=== PATIENT | female | born 1965 | race Caucasian/White ===

== ENCOUNTER → 2016-12-12 | Outpatient (CLI) | payer OTHER ==
[~2016-12-12] MED LIST: BCTROWC TOP; BUPR100T8 PO; CLON1TAB3 PO; CLON2TAB3 PO; DSY100 PO; ERGO1TAB12 PO; FLUT1INH7 INH; FLV1 PO; Gabapentin PO; IPRASOL4 NEB; METH10TA4 PO; OXYC-57 PO; OXYC1TAB3 PO; PRLSR20 PO; UMEC1INH INH; VALA1TAB2 PO; VITATAB19 PO; VLT/75 PO; ZLF/50 PO
--- NOTE | 2016-12-12 15:21 | DIAGNOSTIC IMAGING REPORT ---
CHEST 2 VIEWS ROUTINE CLINICAL HISTORY: COPD ATYPICAL CHEST PAIN. LEFT SHOULDER PAIN. COMPARISON STUDY: 01/16/2016 FINDINGS: The chest has an emphysematous configuration. There is no focal pulmonary consolidation. There is no failure. There are no pleural effusions.[ IMPRESSION: Emphysema. No active disease in the chest. Electronically signed by: Fernando Jimenez M.D. 12/12/2016 3:20 PM Dictated Date/Time: 12/12/2016 3:20 PM
--- NOTE | 2016-12-12 15:22 | DIAGNOSTIC IMAGING REPORT ---
LEFT SHOULDER 3 VIEWS CLINICAL HISTORY: Left shoulder pain. FINDINGS: 3 views of the left shoulder are obtained. No prior studies are available for comparison at the time of dictation. The skeletal structures appear osteopenic. No fracture or dislocation is seen. Minimal productive change is noted at the acromioclavicular joint. The glenohumeral articulation appears preserved. The overlying soft tissues appear intact. A small calcified joint body is suspected adjacent to the inferior glenoid and measures 4 mm. The visualized left upper lobe lung parenchyma appears clear. IMPRESSION: 1. No acute bony abnormality is seen in the left shoulder. 2. Osteopenia with mild degenerative change and a calcified joint body as above. Electronically signed by: Shashank Camarillo M.D. 12/12/2016 3:21 PM Dictated Date/Time: 12/12/2016 3:20 PM
== END | disposition home or self-care (01) ==
LOC: C.RADPV 14:58
PROVIDERS: ATTEND Nurse Practitioner
DX: J44.1 Chronic obstructive pulmonary disease with (acute) exacerbation (principal); M85.812 Other specified disorders of bone density and structure, left shoulder

== ENCOUNTER → 2017-02-06 | Outpatient (CLI) | payer OTHER ==
--- NOTE | 2017-02-06 16:20 | DIAGNOSTIC IMAGING REPORT ---
MRI OF THE LUMBAR SPINE WITHOUT IV CONTRAST CLINICAL HISTORY: Chronic low back pain. COMPARISON STUDY: Radiographs of the lumbar spine dated 09/13/2016. Abdominal CT dated 12/09/2015. TECHNIQUE: MRI of the lumbar spine is performed utilizing various T1 and T2-weighted sequences in the axial and sagittal planes. IV contrast was not administered for this examination. FINDINGS: Lumbar spine: Vertebral body height and alignment are maintained throughout the lumbar spine. Marrow signal intensity is markedly heterogeneous. No destructive bony lesion is clearly identified. The transverse and spinous processes appear intact. There is no evidence of spondylolysis. Small anterior osteophytes are present in the lower lumbar region. Degenerative endplate edema is present from L3-L4 through L5-S1. Intervertebral discs: There is degenerative disc desiccation identified throughout the lumbar spine. Loss of height is moderate at L4-L5 and severe at L5-S1. Spinal cord: Visualized spinal cord is normal in morphology and signal intensity. The conus medullaris terminates at the T12-L1 interspace. The nerve roots of the cauda equina are normal in morphology. L1-L2: Unremarkable. L2-L3: There is minimal posterior disc bulge. The central canal and neural foramina are patent. L3-L4: There is minimal posterior disc bulge. In conjunction with hypertrophy of the ligamentum flavum, there is minimal acquired compromise of the central canal with a minimum AP diameter of 10 mm. There is mild bilateral subarticular stenosis. The neural foramina are patent. L4-L5: There is minimal posterior disc bulge eccentric to the left. In conjunction with hypertrophy of the ligamentum flavum, there is minimal acquired compromise of the central canal at this level with a minimum AP diameter of 10 mm. There is left-sided subarticular stenosis with possible impingement on the exiting left L4 nerve root. The disc bulge also abuts the transiting left L5 nerve root. The neural foramina are patent. L5-S1: There is a small posterior disc bulge. There is no significant acquired compromise of the central canal. There is bilateral subarticular stenosis. There may be impingement on the exiting bilateral L5 nerve roots. Sacrum: The visualized sacrum is heterogeneous. No destructive sacral lesion is suspected. Soft tissues: There is mild fatty atrophy of the paraspinous musculature. The partially imaged retroperitoneal structures are grossly unremarkable, but incompletely evaluated. IMPRESSION: 1. Multilevel lumbosacral spondylosis with mild acquired compromise of the central canal at L3-L4 and L4-L5 as detailed above. See discussion for detailed level by level analysis. 2. Degenerative disc disease with mild degenerative endplate edema seen from L3-L4 through L5-S1. 3. No destructive bony lesion is identified. Marrow signal intensity is heterogeneous. Dictated: 02/06/2017 3:26 PM Transcribed: 02/06/2017 4:20 PM JOHN_Wesley Electronically signed by: Shashank Camarillo M.D. 02/06/2017 4:20 PM Dictated Date/Time: 02/06/2017 3:26 PM
== END | disposition home or self-care (01) ==
LOC: C.MRI 13:47
PROVIDERS: ATTEND Family Medicine
DX: M51.36 Other intervertebral disc degeneration, lumbar region (principal); M54.5 Low back pain; M54.32 Sciatica, left side

== ENCOUNTER → 2017-05-14 | Outpatient (CLI) | payer OTHER ==
[~2017-05-14] MED LIST changes: -CLON1TAB3 PO; -CLON2TAB3 PO; -OXYC-57 PO; -OXYC1TAB3 PO
[2017-05-14 18:26] LABS: POTASSIUM 3.6 mmol/L (3.5-5.1)
== END | disposition home or self-care (01) ==
LOC: C.CPL 17:23
DX: H18.51 Endothelial corneal dystrophy (principal); H25.812 Combined forms of age-related cataract, left eye; Z01.812 Encounter for preprocedural laboratory examination; Z01.810 Encounter for preprocedural cardiovascular examination

== ENCOUNTER → 2017-10-24 | Outpatient (CLI) | payer OTHER ==
[~2017-10-24] MED LIST changes: +CYAN1LOZ
--- NOTE | 2017-10-25 14:33 | MAMMOGRAPHY REPORT ---
BILATERAL DIGITAL DIAGNOSTIC MAMMOGRAM TOMOSYNTHESIS WITH CAD AND TARGETED RIGHT ULTRASOUND: 8 CLINICAL HISTORY: The patient reports right breast pain for approximately 2 weeks. She denies an ass ociated lump or other complaints. Family history of breast cancer. TECHNIQUE: Breast tomosynthesis in addition to standard 2D mammography was performed. Current study was also evaluated with a Computer Aided Detection (CAD) system. Bilateral CC and MLO 2-D and tomosy nthesis images and spot magnification right cc and ML views were obtained. COMPARISON: No prior exams were available for comparison. BREAST COMPOSITION: The tissue of both breasts is heterogeneously dense, which may obscure small mas ses. FINDINGS: A square marker meza the site of pain pointed out by the patient in the right upper inner quadrant. In the left breast, there are grouped amorphous and punctate calcifications within the lef t lower inner quadrant in a linear distribution, measuring approximately 3.7 cm in extent. Some of t he calcifications demonstrate layering on the lateral view suggestive of milk of calcium, although th e majority do not layer. A few other small clusters of similar-appearing calcifications are seen wit hin the left breast, including a 5 mm cluster in the left 12:00 breast. Findings are indeterminant g iven no priors to document stability. Recommend stereotactic biopsy of the largest group in a linear distribution in the left lower inner quadrant. In the right breast, there are multiple small similar appearing groups of punctate and amorphous calc ifications in the right superior breast at approximately 12 to 1:00, which appear similar to the left breast calcifications. The most prominent group measures 8 mm in the right upper inner quadrant. T he calcifications do not clearly layer on the lateral view to suggest milk of calcium. Recommend abraham reotactic biopsy of the most prominent group of calcifications for further evaluation. The remainder of both breasts demonstrate no suspicious masses, calcifications, or areas of architectural distorti on. Targeted ultrasound was performed of the area of pain pointed out by the patient in the right upper i nner quadrant. Sonographically normal tissue is seen in this region, without evidence of a mass or o ther suspicious sonographic abnormality. IMPRESSION: ACR BI-RADS CATEGORY 4: SUSPICIOUS, TARGETED ULTRASOUND ACR BI-RADS CATEGORY 4: SUSPICIO US 1. Multiple groups of similar-appearing punctate and amorphous calcifications bilaterally, which are indeterminate given no priors to document stability. Recommend bilateral stereotactic biopsy 2 of the most prominent groups, in the left lower inner quadrant and right upper inner quadrant. 2. No etiology for right upper inner quadrant breast pain evident. Recommend clinical follow-up. A phone call was made to the physician's office to confirm faxed results were received. The patient has been verbally notified of the results. She tentatively scheduled the biopsies before leaving the department. Approximately 10% of breast cancers are not detected with mammography. A negative mammographic report should not delay biopsy if a clinically suggestive mass is present. Mary Cross M.D. ah/:10/24/2017 16:25:38 Plastering Supervisor: Froilan HAMILTON)(M), [facility] letter sent: Abnormal 4/5 BI-RADS Code: ACR BI-RADS Category 4: Suspicious Ultrasound BI-RADS: ACR BI-RADS Category 4: Suspici ous
== END | disposition home or self-care (01) ==
LOC: C.MAMM 12:51
PROVIDERS: ATTEND Family Medicine
DX: N64.89 Other specified disorders of breast (principal); R92.1 Mammographic calcification found on diagnostic imaging of breast; N64.4 Mastodynia

== ENCOUNTER → 2017-11-01 | Outpatient (CLI) | payer OTHER ==
[~2017-11-01] MED LIST changes: -BUPR100T8 PO; -ERGO1TAB12 PO; -FLUT1INH7 INH
--- NOTE | 2017-11-01 10:49 | Discharge Instructions ---
Discharge Instructions Procedure Procedure Date: Nov 01, 2017. Reason for visit: Bilateral Calcifications. Discharge Discharge Date: Nov 01, 2017. Discharge Diagnosis: status post breast biopsy Instructions Activity Recommendations: Additional Limitations (see below) Return to School/Work: no limitations Recommended Home Diet: No Limitations Provider Instructions: ACTIVITY RECOMMENDATIONS: * No lifting, pushing, pulling or exercising the affected side for three days. RETURN TO SCHOOL/WORK: * You may return to work/school after the procedure, but do not perform any strenuous activities for 24 to 48 hours. MEDICATIONS: * Tylenol (two 325 mg) every four to six hours if needed for mild pain (if not allergic to Tylenol). DIET: * Resume previous diet. SPECIAL CARE INSTRUCTIONS: * Keep biopsy site dry for 24 hours. May shower after 24 hours, but do not soak (bathe) incision. * May remove Tegaderm (plastic patch) tomorrow AFTER showering. * Leave the steri-strips on for one week. Allow the steri-strips to fall off by themselves. If not off after one week, you may remove them. You may place a Bandaid crosswise over the strips, if desired. * Apply ice 10 minutes on and 10 minutes off as needed. * Wear a bra at bedtime to sleep more comfortably for 2-3 days. * Your referring physician should have the results after approximately 5 to 7 business days. * Call for unusual bleeding, fever, drainage, etc or if you have any questions call during normal business hours or after hours call Dr Cross, [phone]. FOLLOW UP VISIT: Follow-up with Referring Physician as scheduled. Allergies Coded Allergies: Prednisone (Verified Allergy, Mild, PSYCHOSIS EFFECTS, 10/30/17) Risperidone (Verified Allergy, Mild, LACTATING, 10/30/17) Tetracyclines (Unverified Allergy, Mild, 10/30/17) Mirtazapine (Unverified Allergy, Unknown, SHORTNESS OF BREATH, 10/30/17) Iodinated Diagnostic Agents (Verified Adverse Reaction, Intermediate, "horrible headache", 10/30/17) Loratadine (Unverified Adverse Reaction, Mild, UNABLE TO SLEEP MULTIPLE DAYS, 10/30/17) Uncoded Allergies: MUSHROOMS (Allergy, Intermediate, HIVES, 10/29/15) Caitlyn Durbin Recommendations: Call your doctor if: * Temperature above 101 degrees * Pain not relieved by pain medicine ordered * There is increased drainage or redness from any incision * You have any unanswered questions or concerns. Your Doctors Instructions noted above were prepared by provider Mary Cross. Patient Signature Section: Patient Instructions Signature Page Gertrudis Ryley Patient (or Guardian) Signature/Date: I have read and understand the instructions given to me by my caregivers. Caregiver/RN/Doctor Signature/Date: The above-named patient and/or guardian has received patient instructions on this date. + Original Patient Signature Page (only) stays with chart. Please make copy for patient.
--- NOTE | 2017-11-01 14:28 | MAMMOGRAPHY REPORT ---
BILATERAL DIGITAL DIAGNOSTIC MAMMOGRAM: 11/01/2017 CLINICAL HISTORY: Status post bilateral stereotactic biopsy. TECHNIQUE: Postprocedural bilateral CC and ML views were obtained. COMPARISON: Comparison is made to exams dated: 11/01/2017 stereotactic biopsy, 10/24/2017 mammogram, an d 10/24/2017 ultrasound - [facility]. BREAST COMPOSITION: The tissue of both breasts is heterogeneously dense, which may obscure small mas ses. FINDINGS: A new biopsy marker clip is seen at the site of the biopsied calcifications in the right u pper inner quadrant. A new biopsy marker clip is seen within the left breast status post stereotacti c biopsy of left lower inner quadrant calcifications. An obscured mass is seen at the biopsy site in the left breast, estimated to measure approximately 2.4 cm, consistent with a postbiopsy hematoma. There is lateral migration of the left biopsy marker clip from the biopsy site by approximately 2 cm, likely due to the hematoma. IMPRESSION: POST PROCEDURE IMAGING FOR MARKER PLACEMENT 1. New biopsy marker clips status post bilateral stereotactic biopsy. Pathology results are pending. 2. Hematoma at the left breast biopsy site measuring approximately 2.4 cm. The patient was told to call or return to the breast center if the lump at the biopsy site increases or if there is any recur rent bleeding or for any other concerns. Approximately 10% of breast cancers are not detected with mammography. A negative mammographic report should not delay biopsy if a clinically suggestive mass is present. Mary Cross M.D. ah/:11/01/2017 12:07:52 Attending Technologist: Emilie Gunderson RT(R)(M), [facility] Brass Plater: Nivia Bearden RT(R)(M), [facility] BI-RADS Code: Post Procedure Imaging For Marker Placement
--- NOTE | 2017-11-01 14:28 | MAMMOGRAPHY REPORT ---
STEREOTACTIC GUIDED BIOPSY RIGHT BREAST: 11/01/2017 CLINICAL HISTORY: Indeterminate calcifications in the right upper inner quadrant. PATIENT CONSENT: The procedure, risks, benefits, and alternatives of stereotactic biopsy with clip pl acement were discussed with the patient, and verbal and written consent was obtained. A timeout was performed immediately prior to the procedure. PROCEDURE DESCRIPTION: With stereotactic guidance, aseptic technique, and lidocaine as a local anesth etic (1% lidocaine to anesthetize the skin and 1% lidocaine with epinephrine to anesthetize the deepe r tissues), the calcifications of concern in the right upper inner quadrant were sampled multiple lalo es with a 9-gauge vacuum-assisted biopsy needle ([employer]). The path of approach was craniocaudal using the lateral arm. The specimen radiograph demonstrates calcifications to be present in the maikel ples; the samples containing calcifications (labeled "A") were from the samples without noe cifications (labeled "B). A metallic marker clip was placed at the biopsy site. This was confirmed on postprocedure mammograms. Direct pressure was applied at the biopsy site and hemostasis was readi ly achieved. The patient tolerated the procedure without complication. She was given wound care ins tructions. COMPARISON: Comparison is made to exams dated: 11/01/2017 stereotactic biopsy, 10/24/2017 mammogram, an d 10/24/2017 ultrasound - [facility]. IMPRESSION: STEREOTACTIC GUIDED BIOPSY Stereotactic biopsy of indeterminate calcifications in the right upper inner quadrant, with clip plac ement. The patient will receive pathology results from her referring provider. Mary Cross M.D. ah/:11/01/2017 12:04:30 Attending Technologist: Emilie Gunderson RT(R)(M), [facility] Bander Operator: Nivia Bearden RT(R)(M), [facility]
--- NOTE | 2017-11-01 14:28 | MAMMOGRAPHY REPORT ---
STEREOTACTIC GUIDED BIOPSY LEFT BREAST: 11/01/2017 CLINICAL HISTORY: Indeterminate calcifications in the left lower inner quadrant. PATIENT CONSENT: The procedure, risks, benefits, and alternatives of stereotactic biopsy with clip pl acement were discussed with the patient, and verbal and written consent was obtained. A timeout was performed immediately prior to the procedure. PROCEDURE DESCRIPTION: With stereotactic guidance, aseptic technique, and lidocaine as a local anesth etic (1% lidocaine to anesthetize the skin and 1% lidocaine with epinephrine to anesthetize the deepe r tissues), the calcifications of concern in the left lower inner quadrant were sampled multiple time s with a 9-gauge vacuum-assisted biopsy needle ([employer]). The path of approach was caudocranial using the lateral arm. The specimen radiograph demonstrates calcifications to be present in the samp les; the samples containing calcifications (labeled "A ") were from the samples without noe cifications (labeled "B"). A metallic marker clip was placed at the biopsy site. This was confirmed on postprocedure mammograms. Direct pressure was applied at the biopsy site and hemostasis was read flaquito achieved. The patient tolerated the procedure without complication. She was given wound care in structions. COMPARISON: Comparison is made to exams dated: 10/24/2017 mammogram and 10/24/2017 ultrasound - [facility]. IMPRESSION: STEREOTACTIC GUIDED BIOPSY Stereotactic biopsy of indeterminate calcifications in the left lower inner quadrant, with clip place ment. The patient will receive pathology results from her referring provider. Mary Cross M.D. ah/:11/01/2017 12:02:56 Attending Technologist: Nivia WISE(R)(M), [facility] Gas Meter Repairer: Emilie WISE(R)(David), [facility]
== END | disposition home or self-care (01) ==
LOC: C.MAMM 10:01
PROVIDERS: ATTEND Family Medicine
DX: N60.92 Unspecified benign mammary dysplasia of left breast (principal); R92.0 Mammographic microcalcification found on diagnostic imaging of breast

== ENCOUNTER → 2018-01-22 | Outpatient (CLI) | payer OTHER ==
[~2018-01-22] MED LIST changes: +PANT40TA PO; -PRLSR20 PO
--- NOTE | 2018-01-22 14:27 | DIAGNOSTIC IMAGING REPORT ---
KUB CLINICAL HISTORY: ABDOMINAL PAIN nausea COMPARISON STUDY: 07/27/2015 FINDINGS: The soft tissues, psoas shadows, renal outlines and intestinal gas pattern appear normal. There is no evidence for bowel obstruction. No abnormal abdominal calcifications are seen. Multiple pelvic vascular calcifications. Surgical clips consistent with a prior cholecystectomy. IMPRESSION: No acute process. The above report was generated using voice recognition software. It may contain grammatical, syntax or spelling errors. Electronically signed by: Leopoldo Blair M.D. 01/22/2018 2:26 PM Dictated Date/Time: 01/22/2018 2:25 PM
== END | disposition home or self-care (01) ==
LOC: C.RADPV 13:47
PROVIDERS: ATTEND Family Medicine
DX: R10.9 Unspecified abdominal pain (principal)

== ENCOUNTER → 2018-01-31 | Outpatient (CLI) | payer OTHER ==
--- NOTE | 2018-01-31 11:55 | DIAGNOSTIC IMAGING REPORT ---
CHEST 2 VIEWS ROUTINE CLINICAL HISTORY: CHEST PAIN, DIZZINESS, SOB dyspnea COMPARISON STUDY: 12/12/2016 FINDINGS: The bones soft tissues and hemidiaphragms are normal. The cardiomediastinal silhouette is normal. The lungs are clear. The pulmonary vasculature is normal. Mild emphysematous change. IMPRESSION: Mild emphysematous change. No acute infiltrate. The above report was generated using voice recognition software. It may contain grammatical, syntax or spelling errors. Electronically signed by: Leopoldo Blair M.D. 01/31/2018 11:53 AM Dictated Date/Time: 01/31/2018 11:53 AM
== END | disposition home or self-care (01) ==
LOC: C.RADPV 11:34
PROVIDERS: ATTEND Family Medicine
DX: R06.02 Shortness of breath (principal); R42 Dizziness and giddiness; R07.9 Chest pain, unspecified; J43.9 Emphysema, unspecified

== ENCOUNTER → 2018-05-06 | Outpatient (CLI) | payer OTHER ==
[~2018-05-06] MED LIST changes: +ADVIN25/60 INH; +ASTN; -BCTROWC TOP; +BUSP15TA70 PO; +CYAN100020 PO; -CYAN1LOZ; +DICL-201 PO; +DOCU100C PO; -DSY100 PO; +DULO60CA44 PO; +FAMO40TA6 PO; +FLUT50SP45 NAE; -FLV1 PO; +FOLI1TAB8 PO; +GABA800T PO; -Gabapentin PO; +IPRA1AER2 INH; -IPRASOL4 NEB; +LRS20 PO; +MONT1TAB3 PO; +ONDA4TAB46 PO; +POLY335019 PO; +RIZA10TA18 PO; +SERT-234 PO; +SERT25TA PO; +SUCR1TAB29 PO; +TRAZ300T PO; -VALA1TAB2 PO; -VLT/75 PO; -ZLF/50 PO
--- NOTE | 2018-05-06 11:44 | DIAGNOSTIC IMAGING REPORT ---
Study: Fusion CT sinuses HISTORY: Pain. Sinusitis. FINDINGS: All major sinuses are clear. The ostiomeatal units are patent. Orbital floors are intact. No evidence for bony destructive process. IMPRESSION: No acute process of the sinuses. Electronically signed by: Leopoldo Blair M.D. 05/06/2018 11:43 AM Dictated Date/Time: 05/06/2018 11:30 AM
== END | disposition home or self-care (01) ==
LOC: C.CTS 11:11
PROVIDERS: ATTEND Physician Assistant
DX: R51 Headache (principal)

== ENCOUNTER 2019-01-04 18:26 | Inpatient (IN) ==
[2019-01-04] MEDS ORDERED: ALBUT/IPRATROP 3MG/0.5MG NEB 3 ML VIAL INH STA (18:59)
[2019-01-04] MEDS ORDERED: cefTRIAXone SODIUM 1,000 MG/50 ML BAG IV STA (18:59)
[2019-01-04] MEDS ORDERED: MAGNESIUM SULFATE / D5W 1 GM/100 ML BAG IV ONE (18:59)
[2019-01-04] MEDS ORDERED: SODIUM CHLORIDE 0.9% 1000ML 500 ML IV ONE (18:59)
[2019-01-04] MEDS ORDERED: methylPREDNISolone 60 MG in SYRINGE 1 ML IV STA (18:59)
[2019-01-04 19:58] LABS: Basophils # (auto) 0.02 K/uL (0-0.2); Basophils % (auto) 0.3 %; Eosinophils # (auto) 0.01 K/uL (0-0.5); Eosinophils % (auto) 0.1 %; Hematocrit (blood only) 40.2 % (37-47); Hemoglobin 13.7 g/dL (12.0-16.0); Immature Granulocytes # (auto) 0.03 K/uL (0.00-0.02); Immature Granulocytes % (auto) 0.4 %; Lymphocytes # (auto) 1.35 K/uL (1.2-3.4); Lymphocytes % (auto) 17.5 %; Mean Corpuscular Hgb Conc 34.1 g/dL (32-36); Mean Corpuscular Volume 93.1 fL (80-100); Monocytes # (auto) 0.34 K/uL (0.11-0.59); Monocytes % (auto) 4.4 %; Neutrophils # (auto) 5.95 K/uL (1.4-6.5); Neutrophils % (auto) 77.3 %; Platelet Count 244 K/uL (130-400); RDW Coefficient of Variation 14.2 % (11.5-14.5); RDW Standard Deviation 48.3 fL (36.4-46.3); Red Blood Count 4.32 M/uL (4.2-5.4)
[2019-01-04 20:12] LABS: Partial Thromboplastin Ratio 0.9; Partial Thromboplastin Time 24.3 Seconds (21.0-31.0); Prothrombin Time 10.6 Seconds (9.0-12.0)
[2019-01-04 20:16] LABS: Alanine Aminotransferase 27 U/L (12-78); Albumin Level 3.7 gm/dl (3.4-5.0); Aspartate Aminotransferase 16 U/L (15-37); BUN Creatinine Ratio 15.3 (10-20); Blood Urea Nitrogen 15 mg/dl (7-18); Calcium 8.9 mg/dl (8.5-10.1); Carbon Dioxide 26 mmol/L (21-32); Chloride 109 mmol/L (98-107); Creatinine Clr Calc Pharmacy 60.1 ml/min; Est GFR (African American) 76.9; Est GFR (Non-African American) 66.3; Glucose 111 mg/dl (70-99); Magnesium 2.2 mg/dl (1.8-2.4); Sodium 139 mmol/L (136-145)
[2019-01-04 20:21] LABS: Albumin Globulin Ratio 0.9 (0.9-2); Alkaline Phosphatase 92 U/L (45-117); Bilirubin,Total 0.2 mg/dl (0.2-1); Total Protein 7.7 gm/dl (6.4-8.2); Troponin I < 0.015 ng/ml (0-0.045)
[2019-01-04] MEDS ORDERED: METOCLOPRAMIDE HCL 10 MG TABLET PO STA (20:30)
[2019-01-04] MEDS ORDERED: METOCLOPRAMIDE HCL 5 MG TABLET ONE (20:36)
--- NOTE | 2019-01-04 20:47 | XRay Report ---
SINGLE VIEW CHEST CLINICAL HISTORY: Dyspnea. FINDINGS: An AP, portable, upright chest radiograph is compared to study dated 06/19/2018 and correlat ed with chest CT dated 07/27/2015. The examination is degraded by portable technique and patient rotat ion. The cardiomediastinal silhouette is unremarkable, noting atherosclerotic calcification of the t horacic aorta. Emphysema and chronic interstitial thickening are similar to previous. There is bibasi lar scarring/atelectasis. No airspace consolidation or large pleural effusion is identified. No pneum othorax is seen. The skeletal structures appear osteopenic. The bony thorax is grossly intact. IMPRESSION: Emphysematous change with no acute cardiopulmonary abnormality. Electronically signed by: Shashank Camarillo M.D. 01/04/2019 8:45 PM
--- NOTE | 2019-01-04 20:55 | Emergency Department Note ---
Entered by Milagros Sneed acting as a scribe for Shashank Marcos MD History of Present Illness General Chief complaint: Shortness of Breath/Dyspnea Stated complaint: SOB,CHEST PAIN Time Seen by Provider: 01/04/19 18:52 Source: patient Mode of arrival: ambulatory Limitations: no limitations History of Present Illness Provider complaint: Shortness of breath Onset (ago): week(s) 2 Location: chest Radiation: non-radiation Pain Consistency: + other (worsening) Maximum Pain Intensity: 7 Quality: + other (shortness of breath) Exacerbated By: + movement Associated symptoms: + chest pain (tightness), + fever/chills (intermittent, lowgrade) and + other (Additional symptoms: difficulty sleeping) The patient is a 53 year old female with a history of COPD, pneumonia, gastro paresis, anxiety, and MTHFR mutation who presents to the Emergency Room with complaints of worsening shortness of breath starting 2 weeks ago. The patient reports that she was diagnosed with influenza A 2 weeks ago and has since been on Duonebs 4x/day, Doxycycline, a second course of Prednisone. She completed a course of Tamiflu and an earlier course of prednisone. She states that her chest is still very tight and that her shortness of breath worsens with movement/exertion. She further complains of intermittent low-grade fevers and difficulty sleeping secondary to the Prednisone. She notes that she is not on oxygen at home and that she has never been hospitalized for her lungs. Home Medications Home Medications Medication Instructions Recorded Confirmed Type baclofen 20 mg tablet 20 mg PO TID PRN 06/24/18 01/04/19 History buspirone 15 mg tablet 15 mg PO TID 06/24/18 01/04/19 History diclofenac sodium 75 mg 75 mg PO BID 06/24/18 01/04/19 History tablet,delayed release duloxetine 60 mg capsule,delayed 60 mg PO DAILY 06/24/18 01/04/19 History release famotidine 40 mg tablet 40 mg PO BID PRN 06/24/18 01/04/19 History fluticasone 250 mcg-salmeterol 50 1 inha INH BID 06/24/18 01/04/19 History mcg/dose blistr powdr for inhalation folic acid 1 mg tablet 1 mg PO DAILY 06/24/18 01/04/19 History gabapentin 800 mg tablet 800 mg PO TID tab 06/24/18 01/04/19 History mecobalamin (vitamin B12) 1,000 1,000 mcg SL DAILY 06/24/18 01/04/19 History mcg disintegrating tablet,sublingual methylphenidate 10 mg tablet 10 mg PO TID 06/24/18 01/04/19 History montelukast 10 mg tablet 10 mg PO QPM 06/24/18 01/04/19 History ondansetron HCl 4 mg tablet 4 mg PO TID PRN 06/24/18 01/04/19 History pantoprazole 40 mg tablet,delayed 40 mg PO BID tab 06/24/18 01/04/19 History release rizatriptan 10 mg tablet 10 mg PO Q2H PRN 06/24/18 01/04/19 History trazodone 300 mg tablet 300 mg PO DAILY 06/24/18 01/04/19 History cholecalciferol (vitamin D3) 2,000 2,000 units PO DAILY 06/25/18 01/04/19 History unit capsule Carafate 1gm/10ml 10 ml PO TID PRN 01/04/19 01/04/19 History budesonide 0.5 mg INHALATION BID PRN 01/04/19 01/04/19 History doxycycline hyclate 100 mg PO BID 01/04/19 01/04/19 History fluconazole 150 mg PO DAILY 01/04/19 01/04/19 History ipratropium-albuterol 3 ml INHALATION QID PRN 01/04/19 01/04/19 History ipratropium-albuterol [Combivent 1 puff INHALATION QID PRN 01/04/19 01/04/19 History Respimat] methylphenidate HCl [Ritalin] 5 mg PO BID 01/04/19 01/04/19 History metoclopramide HCl [Reglan] 5 mg PO AC 01/04/19 01/04/19 History prednisone 30 mg PO BID 01/04/19 01/04/19 History sertraline [Zoloft] 200 mg PO DAILY 01/04/19 01/04/19 History umeclidinium [Incruse Ellipta] 1 inh INHALATION DAILY 01/04/19 01/04/19 History vitamin A 0 unit PO DAILY 01/04/19 01/04/19 History Allergies Allergy/AdvReac Type Severity Reaction Status Date / Time prednisone Allergy Mild PSYCHOSIS Verified 01/04/19 20:07 EFFECTS risperidone Allergy Mild LACTATING Verified 01/04/19 20:07 Tetracyclines Allergy Mild HIVES Unverified 01/04/19 20:07 mirtazapine Allergy Unknown SHORTNESS Unverified 01/04/19 20:07 OF BREATH ranitidine Allergy Unknown SEVERE Verified 01/04/19 20:07 VOMITING Iodinated Contrast- Oral and AdvReac Intermediate "horrible Verified 01/04/19 20:07 IV Dye headache" loratadine AdvReac Mild UNABLE TO Unverified 01/04/19 20:07 SLEEP MULTIPLE DAYS MUSHROOMS Allergy Intermediate HIVES Uncoded 08/20/18 13:33 Past Med/Surg History Medical History Influenza A Pneumonia Obsessive compulsive disorder (Chronic) Posttraumatic stress disorder (Chronic) Anxiety (Chronic) History of seizure disorder (Chronic) Tobacco abuse (Chronic) COPD (chronic obstructive pulmonary disease) (Chronic) MTHFR mutation COPD (chronic obstructive pulmonary disease) (Acute) Gastroparesis (Acute) Surgical History Status post cholecystectomy (Chronic) Status post appendectomy (Chronic) Status post carpal tunnel release (Chronic) History of appendectomy (Acute) History of cholecystectomy (Acute) Social History Preferred Language: Citizen Of [place] marital status: current occupational status: unemployed and disabled Feels Safe at Home: Yes Smoking Status: Former smoker Hx Alcohol Use: Yes (socially) Hx Substance Use: Yes (marijuana) Review of Systems See HPI for pertinent positives & negatives. and A total of 10 systems reviewed and were otherwise negative Physical Exam Vital Signs Vital Signs - 24 hr 01/04/19 18:32 01/04/19 18:53 01/04/19 18:59 Temperature 37.5 C Temperature Source Oral Sepsis Recent Fever Within 48 Hours No Sepsis New/Unexplained Change in Mental Status No Sepsis Action Taken by Nursing No Action Required Pulse Rate 98 H 81 Pulse Rhythm Regular Respiratory Rate 20 22 Respiratory Effort / Characteristics Non-Labored Respiratory Depth Normal Normal Respiratory Pattern Regular Blood Pressure 152/80 H Blood Pressure [Right Arm] 115/80 Blood Pressure Mean 104 Blood Pressure Mean [Right Arm] 91 Blood Pressure Position Sitting Blood Pressure Position [Right Arm] Sitting Pulse Oximetry 94 94 95 Oxygen Delivery Method Room Air Room Air Room Air GENERAL: Patient is in no acute distress. HEENT: No acute trauma, normocephalic atraumatic, mucous membranes moist, no abner al congestion, no scleral icterus. NECK: No stridor, no adenopathy, no meningismus, trachea is midline. LUNGS: Increased respiratory rate, appears visibly short of breath, wheezing bilaterally, diminished breath sounds bilaterally, dry cough noted. HEART: Without murmurs gallops or rubs, regular rate and rhythm. ABDOMEN: Soft, nontender, bowel sounds positive, no hernias, no peritonitis. EXTREMITIES: No cyanosis or edema, full range of motion of all the joints without pain or difficulty, no signs for acute trauma. NEUROLOGIC: Oriented x 3, no acute motor or sensory deficits, no focal weakness. SKIN: No rash, no jaundice, no diaphoresis. Course 1852: The patient was evaluated in room A10. A complete history and physical exam was performed. 2047: Upon reevaluation, the patient is resting. I discussed the findings and the treatment plan with the patient. She expresses agreement and understanding. [facility] The patient will be evaluated for further management. Administered Medications Discontinued Medications Albuterol (Duoneb) 3 ml INH NOW STA Stop: 01/04/19 19:00 Last Admin: 01/04/19 19:47 Dose: 3 ml Documented by: [id number] Magnesium Sulfate/Dextrose (Magnesium Sulfate / D5w) 1 gm in 100 mls @ 100 mls/hr IV ONE ONE Stop: 01/04/19 19:58 Last Admin: 01/04/19 19:46 Dose: 100 mls/hr Documented by: [id number] Ceftriaxone Sodium (Rocephin) 1,000 mg in 50 mls @ 100 mls/hr IV NOW STA Stop: 01/04/19 19:28 Last Admin: 01/04/19 19:47 Dose: 100 mls/hr Documented by: [id number] Methylprednisolone 60 mg/ (Syringe) 1.96 mls @ 1.5 mls/min IV NOW STA Stop: 01/04/19 19:00 Last Admin: 01/04/19 19:47 Dose: 1.5 mls/min Documented by: [id number] Sodium Chloride (Nss 1000ml) 500 mls @ 999 mls/hr IV .Q31M ONE Stop: 01/04/19 19:29 Last Infusion: 01/04/19 20:38 Dose: 0 mls/hr Documented by: [id number] Admin: 01/04/19 19:46 Dose: 999 mls/hr Documented by: [id number] Metoclopramide HCl (Reglan) 10 mg PO NOW STA Stop: 01/04/19 20:31 Last Admin: 01/04/19 20:38 Dose: Not Given Documented by: [id number] Metoclopramide HCl (Reglan) Confirm Administered Dose 10 mg .ROUTE .STK-MED ONE Stop: 01/04/19 20:37 Last Admin: 01/04/19 20:38 Dose: 10 mg Documented by: [id number] Medical Decision Making Differential Diagnosis Differential diagnosis includes: bronchitis, pneumonia, CHF, cardiac ischemia, anemia, IN, bronchospasm, pneumothorax. Medical Records Attestation: I reviewed the patient's medical records. Home Medications Current Medication List: was personally reviewed by me Laboratory Data Attestation: I reviewed the patient's lab results. Result diagrams: 01/04/19 19:31 01/04/19 19:31 Lab Results 01/04/19 01/04/19 01/04/19 Range/Units 19:31 19:31 19:31 WBC 7.70 (4.8-10.8) K/uL RBC 4.32 (4.2-5.4) M/uL Hgb 13.7 (12.0-16.0) g/dL Hct 40.2 (37-47) % MCV 93.1 (80-100) fL MCH 31.7 (25-34) pg MCHC 34.1 (32-36) g/dL RDW Std Deviation 48.3 H (36.4-46.3) fL RDW Coeff of Nik 14.2 (11.5-14.5) % Plt Count 244 (130-400) K/uL MPV 12.0 H (7.4-10.4) fL Immature Gran % (Auto) 0.4 % Neut % (Auto) 77.3 % Lymph % (Auto) 17.5 % [place] % (Auto) 4.4 % Eos % (Auto) 0.1 % Baso % (Auto) 0.3 % Immature Gran # (Auto) 0.03 H (0.00-0.02) K/uL Neut # (Auto) 5.95 (1.4-6.5) K/uL Lymph # (Auto) 1.35 (1.2-3.4) K/uL [place] # (Auto) 0.34 (0.11-0.59) K/uL Eos # (Auto) 0.01 (0-0.5) K/uL Baso # (Auto) 0.02 (0-0.2) K/uL PT 10.6 (9.0-12.0) Seconds INR 1.0 (0.9-1.1) APTT 24.3 (21.0-31.0) Seconds PTT Ratio 0.9 Sodium 139 (136-145) mmol/L Potassium 4.0 (3.5-5.1) mmol/L Chloride 109 H (98-107) mmol/L Carbon Dioxide 26 (21-32) mmol/L Anion Gap 4.0 (3-11) BUN 15 (7-18) mg/dl Creatinine 0.98 (0.6-1.2) mg/dl Est Cr Clr Drug Dosing 60.1 ml/min Est GFR ( Amer) 76.9 Est GFR (Non-Af Amer) 66.3 BUN/Creatinine Ratio 15.3 (10-20) Glucose 111 H (70-99) mg/dl Calcium 8.9 (8.5-10.1) mg/dl Magnesium 2.2 (1.8-2.4) mg/dl Total Bilirubin 0.2 (0.2-1) mg/dl AST 16 (15-37) U/L ALT 27 (12-78) U/L Alkaline Phosphatase 92 (45-117) U/L Troponin I < 0.015 (0-0.045) ng/ml Total Protein 7.7 (6.4-8.2) gm/dl Albumin 3.7 (3.4-5.0) gm/dl Globulin 4.0 (2.5-4.0) gm/dl Albumin/Globulin Ratio 0.9 (0.9-2) Imaging Data Radiologist's Impression: Radiology results as stated below per my review and the radiologist's interpretation: SINGLE VIEW CHEST CLINICAL HISTORY: Dyspnea. FINDINGS: An AP, portable, upright chest radiograph is compared to study dated 06/19/2018 and correlated with chest CT dated 07/27/2015. The examination is degraded by portable technique and patient rotation. The cardiomediastinal silhouette is unremarkable, noting atherosclerotic calcification of the thoracic aorta. Emphysema and chronic interstitial thickening are similar to previous. There is bibasilar scarring/atelectasis. No airspace consolidation or large pleural effusion is identified. No pneumothorax is seen. The skeletal structures appear osteopenic. The bony thorax is grossly intact. IMPRESSION: Emphysematous change with no acute cardiopulmonary abnormality. Electronically signed by: Shashank Camarillo M.D. 01/04/2019 8:45 PM ECG Data Attestation: I personally reviewed and interpreted this ECG as follows: Indication: SOB/dyspnea Rate (beats per minute): 89 Rhythm: normal sinus Findings: no PVC and no ST elevation Blood Pressure Blood Pressure Findings: Normal blood pressure MDM Narrative There is no leukocytosis or anemia. No coagulopathy. No significant electrolyte abnormality, kidney failure or hepatitis. EKG shows a sinus rhythm, no acute ischemia. Cardiac enzyme testing x1 is not consistent with acute cardiac injury. Chest film does not show pneumonia or CHF. There was no pneumothorax. On exam, the patient was coughing frequently and wheezing, she seemed short of breath. The patient received IV Solu-Medrol, IV saline, she was given IV magnesium, a DuoNeb and IV ceftriaxone. She was given oral Reglan for nausea. The patient has failed outpatient treatment for what seems to be an acute bronchitis with a flare of COPD. Her outpatient therapy has been maximized and she still quite winded and short of breath. I do think a hospital stay is warranted. I spoke to the patient and social work case manager. The on-call hospitalist was consulted. Impression & Plan Respiratory distress, COPD exacerbation, Acute bronchitis, Failure of outpatient treatment Discharge Plan Visit Data Chief Complaint: Shortness of Breath/Dyspnea Stated Complaint: SOB,CHEST PAIN ED Provider: Shashank Marcos Discharge Problem: Respiratory distress, COPD exacerbation, Acute bronchitis, Failure of outpatient treatment Patient Disposition: Admitted As Inpatient Forms Stand Alone Forms: My [facility] Prescriptions Prescriptions: No Action fluticasone propion-salmeterol [Advair Diskus] 250-50 mcg/dose blister with device 1 inha INH BID RF: 0 methylphenidate HCl [Ritalin] 10 mg tablet 10 mg PO TID RF: 0 ondansetron HCl [Zofran] 4 mg tablet 4 mg PO TID PRN (Reason: Nausea) RF: 0 famotidine [Pepcid] 40 mg tablet 40 mg PO BID PRN (Reason: Acid Reflux) RF: 0 rizatriptan [Maxalt] 10 mg tablet 10 mg PO Q2H PRN (Reason: Migraine Headache) RF: 0 baclofen 20 mg tablet 20 mg PO TID PRN (Reason: Muscle Pain) RF: 0 gabapentin 800 mg tablet 800 mg PO TID RF: 0 pantoprazole [Protonix] 40 mg tablet,delayed release (DR/EC) 40 mg PO BID RF: 0 trazodone 300 mg tablet 300 mg PO DAILY RF: 0 diclofenac sodium 75 mg tablet,delayed release (DR/EC) 75 mg PO BID RF: 0 folic acid 1 mg tablet 1 mg PO DAILY RF: 0 montelukast [Singulair] 10 mg tablet 10 mg PO QPM RF: 0 buspirone 15 mg tablet 15 mg PO TID RF: 0 duloxetine [Cymbalta] 60 mg capsule,delayed release(DR/EC) 60 mg PO DAILY RF: 0 mecobalamin (vitamin B12) 1,000 mcg tablet,disintegrating 1,000 mcg SL DAILY RF: 0 cholecalciferol (vitamin D3) 2,000 unit capsule 2,000 units PO DAILY RF: 0 budesonide 0.5 mg/2 mL Suspension For Nebulization 0.5 mg INHALATION BID PRN (Reason: Shortness Of Breath Or Wheezing) RF: 0 doxycycline hyclate 100 mg tablet 100 mg PO BID RF: 0 Combivent Respimat 20-100 mcg/actuation Mist 1 puff INHALATION QID PRN (Reason: Shortness Of Breath Or Wheezing) RF: 0 Carafate 1gm/10ml 10 ml PO TID PRN (Reason: BREAKTHROUGH HEARTBURN) RF: 0 vitamin A 8,000 unit Capsule PO DAILY RF: 0 ipratropium-albuterol 0.5 mg-3 mg(2.5 mg base)/3 mL Solution For Nebulization 3 ml INHALATION QID PRN (Reason: Shortness Of Breath Or Wheezing) RF: 0 fluconazole 150 mg tablet 150 mg PO DAILY RF: 0 methylphenidate HCl [Ritalin] 5 mg Tablet 5 mg PO BID RF: 0 prednisone 20 mg tablet 30 mg PO BID RF: 0 sertraline [Zoloft] 100 mg tablet 200 mg PO DAILY RF: 0 metoclopramide HCl [Reglan] 5 mg tablet 5 mg PO AC RF: 0 Incruse Ellipta 62.5 mcg/actuation Blister With Device 1 inh INHALATION DAILY RF: 0 Referrals Referrals: Kacy Gomez MD [Primary Care Provider] - Discharge Problem: Acute bronchitis Qualifiers: Bronchitis organism: unspecified organism Qualified Code(s): J20.9 - Acute bronchitis, unspecified The scribe's documentation has been prepared under my direction and personally reviewed by me in its entirety. I confirm that the note above accurately reflects all work, treatment, procedures, and medical decision making performed by me.
[2019-01-04] MEDS ORDERED: FAMOTIDINE 20 MG TAB PO PRN (23:22)
[2019-01-04] MEDS ORDERED: BENZONATATE 100 MG CAPSULE PO PRN (23:22)
[2019-01-04] MEDS ORDERED: ACETAMINOPHEN 325 MG TAB PO PRN (23:22)
[2019-01-04] MEDS ORDERED: BACLOFEN 20 MG TAB PO PRN (23:22)
[2019-01-04] MEDS ORDERED: ONDANSETRON INJ 2 MG/ML 2 ML VIAL IV PRN (23:22)
[2019-01-04] MEDS ORDERED: SUCRALFATE 1 GM/10 ML UDC PO PRN (23:22)
[2019-01-04] MEDS ORDERED: ALBUTEROL 0.5% NEB SOLN 2.5 MG/0.5 ML VIAL NEB PRN (23:22)
[2019-01-05] MEDS ORDERED: DOXYCYCLINE HYCLATE 100 MG CAP PO SCH
--- NOTE | 2019-01-05 00:08 | History & Physical Report ---
Date of Service January 04, 2019 Assessment & Plan (1) Respiratory distress: Patient tachypneic on arrival, RR of 30. No hypoxia. Patient with persistent cough and wheezing. She is afebrile, no leukocytosis, no PNA noted on CXR. No evidence of CHF. Low clinical suspicion for PE - Wells Score negative. Most likely secondary to bronchitis, COPD exacerbation, recent recovery from Influenza infection. Presently she is in no respiratory distress. Adequate oxygenation and ventilation on room air. She is speaking in complete sentences without difficulty. -Admit to medical floor -DuoNeb q 4 hours -Albuterol q 2 hours PRN -Solumedrol - Patient received 60mg IV x 1 dose in ER. She has a history of steroid induced psychosis. She does not want to take PO Prednisone as it gives her severe GI distress. Will give Solumedrol 40mg IV daily - closely monitor response and mental state -Doxycycline 100mg IV BID - will give IV due to GI upset and gastroparesis -Tessalon 100mg po TID PRN -Robitussin with Codeine q 6 hours PRN -Check ambulatory saturation x 1 Present on Admission?: Yes (2) COPD exacerbation: As above. -Smoking cessation counseling. Patient vapes daily and smokes marijuana for pain control. She is in trying to obtain a prescription for medical marijuana so she can take it in a non-inhaled form. -Nicotine patch. Present on Admission?: Yes (3) Acute bronchitis: As above. -Doxycycline Present on Admission?: Yes (4) Drug-induced delirium: Patient with history of steroid induced psychosis. -Limit quantity and duration of steroid. I do feel that she would benefit from steroids in the acute setting. -Delirium prevention strategies - frequent orientation, maintain day/night schedule if possible, frequent ambulation (5) Anxiety: Patient with anxiety. Fairly well controlled at present -Continue Buspar 15mg po TID -Continue Cymbalta 60mg po daily -Continue Sertraline 200mg po daily -Continue Trazodone qHS as needed for insomnia. Patient requested additional agent to help her sleep in the hospital. Will add Hydroxyzine as well qHS PRN. Present on Admission?: Yes (6) Posttraumatic stress disorder: Psychiatric medications as above Present on Admission?: Yes (7) Gastroparesis: Patient with history of gastroparesis. States that she is having abdominal pain presently that is consistent with that. -Continue Reglan qAC -Zofran 4mg IV q 6 hours PRN (8) GERD (gastroesophageal reflux disease): Patient with abdominal discomfort. -Continue Carafate at home dose -Continue Protonix 40mg po BID -Continue Pepcid 40mg po BID Present on Admission?: Yes (9) Oral candidiasis: Patient reports chronic oral thrush. No evidence of oral candidiasis at this time. She is taking Fluconazole daily -Continue Fluconazole -QTc = 411. Patient is on many QT prolonging agents. (Fluconazole, Sertraline, Reglan, Zofran). Monitor Qt interval (10) Tobacco abuse: Tobacco cessation counseling. F/E/N = Heplock. Electrolytes WNL. Continue Vitamin B12, Folic acid. Regular diet as tolerated. Ppx - Lovenox Code - Full Dispo - 4E History of Present Illness Chief Complaint: SOB Primary Care Provider: Kacy Gomez MD Gertrudis Hedrick is a 53yo C female with multiple medical problems, COPD with no history of prior hospitalization or intubation. She had Influenza A two weeks ago which was treated with Tamiflu. Has been complaining of persistent GARRISON since having the flu. She has a persistent dry, hacking cough which causes diffuse rib pain with coughing or breathing. She states she is unable to sleep due to the cough. Dyspnea with minimal exertion as well as weakness and fatigue. She denies fevers/chills. Has some substernal chest pressure that occurs with coughing, overall feeling of tightness in her chest. She has history of gastroparesis and states that her stomach has been upset recently, also with nausea and occasional vomiting as well as constipation. ER Course: Albuterol, Ceftriaxone, Magnesium, Solumedrol, Reglan Allergies Allergy/AdvReac Type Severity Reaction Status Date / Time prednisone Allergy Mild PSYCHOSIS Verified 01/04/19 20:07 EFFECTS risperidone Allergy Mild LACTATING Verified 01/04/19 20:07 Tetracyclines Allergy Mild HIVES Unverified 01/04/19 20:07 mirtazapine Allergy Unknown SHORTNESS Unverified 01/04/19 20:07 OF BREATH ranitidine Allergy Unknown SEVERE Verified 01/04/19 20:07 VOMITING Iodinated Contrast- Oral and AdvReac Intermediate "horrible Verified 01/04/19 20:07 IV Dye headache" loratadine AdvReac Mild UNABLE TO Unverified 01/04/19 20:07 SLEEP MULTIPLE DAYS MUSHROOMS Allergy Intermediate HIVES Uncoded 08/20/18 13:33 Home Medications Home Medications Medication Instructions Recorded Confirmed Type baclofen 20 mg tablet 20 mg PO TID PRN 06/24/18 01/04/19 History buspirone 15 mg tablet 15 mg PO TID 06/24/18 01/04/19 History diclofenac sodium 75 mg 75 mg PO BID 06/24/18 01/04/19 History tablet,delayed release duloxetine 60 mg capsule,delayed 60 mg PO DAILY 06/24/18 01/04/19 History release famotidine 40 mg tablet 40 mg PO BID PRN 06/24/18 01/04/19 History fluticasone 250 mcg-salmeterol 50 1 inha INH BID 06/24/18 01/04/19 History mcg/dose blistr powdr for inhalation folic acid 1 mg tablet 1 mg PO DAILY 06/24/18 01/04/19 History gabapentin 800 mg tablet 800 mg PO TID tab 06/24/18 01/04/19 History mecobalamin (vitamin B12) 1,000 1,000 mcg SL DAILY 06/24/18 01/04/19 History mcg disintegrating tablet,sublingual methylphenidate 10 mg tablet 10 mg PO TID 06/24/18 01/04/19 History montelukast 10 mg tablet 10 mg PO QPM 06/24/18 01/04/19 History ondansetron HCl 4 mg tablet 4 mg PO TID PRN 06/24/18 01/04/19 History pantoprazole 40 mg tablet,delayed 40 mg PO BID tab 06/24/18 01/04/19 History release rizatriptan 10 mg tablet 10 mg PO Q2H PRN 06/24/18 01/04/19 History trazodone 300 mg tablet 300 mg PO DAILY 06/24/18 01/04/19 History cholecalciferol (vitamin D3) 2,000 2,000 units PO DAILY 06/25/18 01/04/19 History unit capsule Carafate 1gm/10ml 10 ml PO TID PRN 01/04/19 01/04/19 History budesonide 0.5 mg INHALATION BID PRN 01/04/19 01/04/19 History doxycycline hyclate 100 mg PO BID 01/04/19 01/04/19 History fluconazole 150 mg PO DAILY 01/04/19 01/04/19 History ipratropium-albuterol 3 ml INHALATION QID PRN 01/04/19 01/04/19 History ipratropium-albuterol [Combivent 1 puff INHALATION QID PRN 01/04/19 01/04/19 History Respimat] methylphenidate HCl [Ritalin] 5 mg PO BID 01/04/19 01/04/19 History metoclopramide HCl [Reglan] 5 mg PO AC 01/04/19 01/04/19 History prednisone 30 mg PO BID 01/04/19 01/04/19 History sertraline [Zoloft] 200 mg PO DAILY 01/04/19 01/04/19 History umeclidinium [Incruse Ellipta] 1 inh INHALATION DAILY 01/04/19 01/04/19 History vitamin A 0 unit PO DAILY 01/04/19 01/04/19 History Past Med/Surg History Medical History Influenza A Pneumonia Obsessive compulsive disorder (Chronic) Posttraumatic stress disorder (Chronic) Anxiety (Chronic) History of seizure disorder (Chronic) Tobacco abuse (Chronic) COPD (chronic obstructive pulmonary disease) (Chronic) MTHFR mutation COPD (chronic obstructive pulmonary disease) (Acute) Gastroparesis (Acute) Surgical History Status post cholecystectomy (Chronic) Status post appendectomy (Chronic) Status post carpal tunnel release (Chronic) History of appendectomy (Acute) History of cholecystectomy (Acute) Social History Preferred Language: Spanish Communication Ability: Effective [employer] Equipment [employer] Required: No Beliefs That Will Affect Care: None marital status: Current Living Situation: Spouse and Family current occupational status: unemployed and disabled Feels Safe at Home: Yes Safety Concerns: Feels Safe At This Time Smoking Status: Former smoker Hx Alcohol Use: Yes Hx Substance Use: Yes Review of Systems All systems reviewed & are unremarkable except as noted in HPI & below Physical Exam Vital Signs (Past 24 Hours): Last Vital Signs Temp 37.5 C 01/04/19 18:32 Pulse 81 01/04/19 18:59 Resp 22 01/04/19 18:53 BP 115/80 01/04/19 18:53 Pulse Ox 95 01/04/19 18:59 Physical Exam: General: patient resting comfortably, NAD, non-toxic in appearance, AA&O x 4, persistent dry cough Skin: warm, dry, intact, no rashes or lesions HEENT: NC/AT, PERRL, EOMI, anicteric sclera, conjunctiva without injection, external ear normal to inspection and nontender, nares patent, moist mucus membr anes, dentition intact, no oropharyngeal lesions, neck supple, trachea midline, no LAD, no thyromegaly, no JVD Heart: +S1/S2, regular, no m/r/g Lungs: diminished breath sounds bilaterally, diffuse end expiratory wheezing throughout, no rales/rhonchi. Abd: +BS, soft, tender in epigastric region, no rebound/guarding/peritoneal signs, ND, no masses/organomegaly/ascites Ext: warm, 2+ pulses in UE/LE bilaterally, no clubbing/cyanosis or edema Neuro: nonfocal, patient AA&O x 4, speech intact, no facial droop, moving all extremities on command with equal strength 5/5 Results & Data Laboratory Results Lab Results 01/04/19 01/04/19 01/04/19 Range/Units 19:31 19:31 19:31 WBC 7.70 (4.8-10.8) K/uL RBC 4.32 (4.2-5.4) M/uL Hgb 13.7 (12.0-16.0) g/dL Hct 40.2 (37-47) % MCV 93.1 (80-100) fL MCH 31.7 (25-34) pg MCHC 34.1 (32-36) g/dL RDW Std Deviation 48.3 H (36.4-46.3) fL RDW Coeff of Nik 14.2 (11.5-14.5) % Plt Count 244 (130-400) K/uL MPV 12.0 H (7.4-10.4) fL Immature Gran % (Auto) 0.4 % Neut % (Auto) 77.3 % Lymph % (Auto) 17.5 % Edwards % (Auto) 4.4 % Eos % (Auto) 0.1 % Baso % (Auto) 0.3 % Immature Gran # (Auto) 0.03 H (0.00-0.02) K/uL Neut # (Auto) 5.95 (1.4-6.5) K/uL Lymph # (Auto) 1.35 (1.2-3.4) K/uL Edwards # (Auto) 0.34 (0.11-0.59) K/uL Eos # (Auto) 0.01 (0-0.5) K/uL Baso # (Auto) 0.02 (0-0.2) K/uL PT 10.6 (9.0-12.0) Seconds INR 1.0 (0.9-1.1) APTT 24.3 (21.0-31.0) Seconds PTT Ratio 0.9 Sodium 139 (136-145) mmol/L Potassium 4.0 (3.5-5.1) mmol/L Chloride 109 H (98-107) mmol/L Carbon Dioxide 26 (21-32) mmol/L Anion Gap 4.0 (3-11) BUN 15 (7-18) mg/dl Creatinine 0.98 (0.6-1.2) mg/dl Est Cr Clr Drug Dosing 60.1 ml/min Est GFR ( Amer) 76.9 Est GFR (Non-Af Amer) 66.3 BUN/Creatinine Ratio 15.3 (10-20) Glucose 111 H (70-99) mg/dl Calcium 8.9 (8.5-10.1) mg/dl Magnesium 2.2 (1.8-2.4) mg/dl Total Bilirubin 0.2 (0.2-1) mg/dl AST 16 (15-37) U/L ALT 27 (12-78) U/L Alkaline Phosphatase 92 (45-117) U/L Troponin I < 0.015 (0-0.045) ng/ml Total Protein 7.7 (6.4-8.2) gm/dl Albumin 3.7 (3.4-5.0) gm/dl Globulin 4.0 (2.5-4.0) gm/dl Albumin/Globulin Ratio 0.9 (0.9-2) Diagnostic Findings SINGLE VIEW CHEST CLINICAL HISTORY: Dyspnea. FINDINGS: An AP, portable, upright chest radiograph is compared to study dated 06/19/2018 and correlated with chest CT dated 07/27/2015. The examination is deg raded by portable technique and patient rotation. The cardiomediastinal silhouette is unremarkable, noting atherosclerotic calcification of the thoracic aorta. Emphysema and chronic interstitial thickening are similar to previous. There is bibasilar scarring/atelectasis. No airspace consolidation or large pleural effusion is identified. No pneumothorax is seen. The skeletal structures appear osteopenic. The bony thorax is grossly intact. IMPRESSION: Emphysematous change with no acute cardiopulmonary abnormality. Electronically signed by: Shashank Camarillo M.D. 01/04/2019 8:45 PM Dictated: 01/04/192043 Transcribed: 01/04/192043 ECG Additional Comments: The study shows NSR, normal axis and intervals, no acute ischemic changes Code Status & VTE Plan Code Status FULL VTE Prophylaxis Plan VTE Prophylaxis will be ordered: Yes Critical Care Time Critical Care Time: No (1) Acute bronchitis Bronchitis organism: unspecified organism Qualified Code(s): J20.9 - Acute bronchitis, unspecified (2) GERD (gastroesophageal reflux disease) Esophagitis presence: esophagitis presence not specified Qualified Code(s): K21.9 - Gastro-esophageal reflux disease without esophagitis
[2019-01-05] MEDS: ALBUT/IPRATROP 3MG/0.5MG NEB 3 ML VIAL NEB SCH ×7 (00:13→23:10)
[2019-01-05] MEDS: DOXYCYCLINE HYCLATE 100 MG in DEXTROSE 5% 100 ML IV SCH ×3 (00:41→23:27)
[2019-01-05] MEDS: IBUPROFEN 200 MG TAB PO PRN ×2 (00:52→20:40)
[2019-01-05] MEDS ORDERED: DICLOFENAC SODIUM 75 MG TABCR PO ONE (01:00)
[2019-01-05] MEDS ORDERED: MONTELUKAST SODIUM 10 MG TABLET PO ONE (01:00)
[2019-01-05] MEDS ORDERED: TRAZODONE HCL 100 MG TAB PO ONE (01:00)
[2019-01-05] MEDS ORDERED: GABAPENTIN 800 MG TAB PO ONE (01:00)
[2019-01-05] MEDS ORDERED: METOCLOPRAMIDE HCL 5 MG TABLET PO ONE (01:00)
[2019-01-05] MEDS ORDERED: BusPIRone 15 MG TAB PO ONE (01:00)
[2019-01-05] MEDS ORDERED: PANTOprazole 40 MG TAB PO ONE (01:00)
[2019-01-05] MEDS: METOCLOPRAMIDE HCL 5 MG TABLET PO SCH ×3 (08:27→16:51)
[2019-01-05] MEDS: CYANOCOBALAMIN 500 MCG TABLET (VITAMIN B-12) PO SCH (08:28)
[2019-01-05] MEDS: FOLIC ACID 1 MG TAB PO SCH (08:28)
[2019-01-05] MEDS: SERTRALINE HCL 100 MG TABLET PO SCH (08:28)
[2019-01-05] MEDS: DULOXETINE HCL 30 MG CAP PO SCH ×2 (08:29→20:39)
[2019-01-05] MEDS: PANTOprazole 40 MG TAB PO SCH ×2 (08:30→20:40)
[2019-01-05] MEDS: GABAPENTIN 800 MG TAB PO SCH ×3 (08:30→20:39)
[2019-01-05] MEDS: BusPIRone 15 MG TAB PO SCH ×3 (08:30→20:39)
[2019-01-05] MEDS: DICLOFENAC SODIUM 75 MG TABCR PO SCH ×2 (08:31→20:40)
[2019-01-05] MEDS: ENOXAPARIN INJ 40 MG/0.4 ML SYR SQ SCH (08:31)
[2019-01-05] MEDS: NICOTINE 14 MG/24 HR PATCH TD SCH (08:33)
[2019-01-05] MEDS: GUAIFENESIN/CODEINE 100MG/10MG 5ML UDC PO PRN ×2 (08:36→20:52)
[2019-01-05] MEDS: METHYLPHENIDATE HCL 10 MG TABLET PO SCH ×5 (08:41→15:30)
[2019-01-05] MEDS: methylPREDNISolone 40 MG in SYRINGE 0 ML IV SCH (08:42)
[2019-01-05 08:45] LABS: Hematocrit (blood only) 37.5 % (37-47); Hemoglobin 12.7 g/dL (12.0-16.0); Mean Corpuscular Hgb Conc 33.9 g/dL (32-36); Mean Corpuscular Volume 92.4 fL (80-100); Mean Platelet Volume 11.5 fL (7.4-10.4); Platelet Count 212 K/uL (130-400); RDW Coefficient of Variation 14.4 % (11.5-14.5); RDW Standard Deviation 48.9 fL (36.4-46.3); Red Blood Count 4.06 M/uL (4.2-5.4)
[2019-01-05] MEDS ORDERED: DULOXETINE HCL 60 MG CAP PO SCH (09:00)
[2019-01-05] MEDS ORDERED: FLUCONAZOLE 50 MG TAB PO SCH (09:00)
[2019-01-05 09:04] LABS: BUN Creatinine Ratio 19.5 (10-20); Calcium 8.9 mg/dl (8.5-10.1); Est GFR (African American) 86.4; Est GFR (Non-African American) 74.5; Potassium 3.9 mmol/L (3.5-5.1)
[2019-01-05] MEDS ORDERED: TRIAMCINOLONE ACET 0.1% OINT 15 GM TUBE EXT PRN (10:55)
[2019-01-05] MEDS: DOCUSATE SODIUM/SENNA 50/8.6MG TAB PO SCH ×2 (12:00→20:40)
--- NOTE | 2019-01-05 14:00 | Hospitalist Progress Note ---
Date of Service January 05, 2019 Assessment & Plan (1) Respiratory distress: - Presented with tachypnea, was not hypoxic in ER; has cough and wheezing. - Likely related to acute bronchitis, COPD exacerbation. - CXR showed emphysema changes, no consolidation. - Duonebs scheduled q4hr with Albuterol q2hr prn. - Solu-medrol 40 mg IV daily -- pt. is resistant to steroids, stating it causes GI distress. - Doxycycline 100 mg BID (IV due to GI upset) - Robitussin with codeine q6hr prn cough. (2) COPD exacerbation: - Treatment as noted above. (3) Acute bronchitis: - Treatment as noted above. (4) Drug-induced delirium: - Patient with history of steroid induced psychosis. Will limit doses of steroids. - Delirium prevention strategies - frequent orientation, maintain day/night schedule if possible, frequent ambulation. (5) Anxiety: - Continue Buspar 15mg TID, Cymbalta 60mg daily, Sertraline 200mg daily. - Continue Trazodone qHS as needed for insomnia. (6) Posttraumatic stress disorder: - Psych meds as noted above. (7) Gastroparesis: - History of gastroparesis. States that she is having abdominal pain presently that is consistent with that. - Continue Reglan scheduled with Zofran prn. (8) GERD (gastroesophageal reflux disease): - Continue Carafate at home dose, Protonix 40mg po BID, Pepcid 40mg po BID. (9) Oral candidiasis: - Has chronic oral thrush -- takes Fluconazole at home for 14 day courses. - Continue Fluconazole daily. - QTc 411 on admission. Patient is on many QT prolonging agents. (Fluconazole, Sertraline, Reglan, Zofran). Monitor Qt interval frequently. (10) Chronic pain: - Continue Gabapentin 800 mg TID, Voltaren 75 mg BID as prescribed. (11) Tobacco abuse: - Smoking cessation counseling. - Patient vapes daily and smokes marijuana for pain control. She is in trying to obtain a prescription for medical marijuana so she can take it in a non- inhaled form. - Nicotine patch ordered. (12) DVT prophylaxis: - Lovenox subQ daily. Dispo: Med/surg for treatment of acute bronchitis, COPD exacerbation. Supervising Physician Co-Signing Physician Notes Attending Attestation - Chart reviewed in detail, care plan d/w BORIS Perkins. I agree w/ the valdez components of her documentation. Agree with IV steroids, abx, nebs for COPD exacerbation. Cont all chronic meds for gastroparesis, etc. Labs, vitals stable. Shiva Bennett MD Subjective Pt. is stable overall. She has a non-productive cough. Complains of chest pain during coughing episodes. Has SOB at rest and with exertion. Is constipated --- has h/o gastroparesis. Last BM was 2 days ago. Will start Senokot BID. Review of Systems All systems reviewed & are unremarkable except as noted in HPI & below Constitutional: no fever, no chills, no fatigue, no weakness and no anorexia Respiratory: + cough, + dyspnea and + dyspnea on exertion; no chest congestion, no sputum production and no wheezing Cardiovascular: no chest pain, no palpitations, no lightheadedness and no edema Gastrointestinal: + constipation; no abdominal pain, no nausea and no vomiting Genitourinary (Female): no difficulty urinating Musculoskeletal: no back pain and no joint pain Integumentary: no non-healing lesions Allergy / Immunological: no rash Physical Exam Vital Signs (Past 24 Hours): Last Vital Signs Temp 36.9 C 01/05/19 07:00 Pulse 99 H 01/05/19 10:58 Resp 20 01/05/19 10:58 BP 100/64 01/05/19 07:00 Pulse Ox 95 01/05/19 10:58 Physical Exam: General: Resting comfortably in no apparent distress; A&OX3 HEENT: NC/AT; PERRLA with EOMI; [employer] conjunctiva, MMM. Neck: Supple and nontender Cardiac: RRR w/o murmurs, gallops or rubs Lungs: on room air; scattered wheezing noted throughout all lung phan. Abdomen: Bowel normoactive X 4; Nontender to palpation Extremities: Warm. No edema present Neuro: No focal weakness Skin: No rash Results & Data Laboratory Results 01/05/19 01/05/19 01/04/19 Range/Units 08:37 08:37 19:31 WBC 9.80 (4.8-10.8) K/uL RBC 4.06 L (4.2-5.4) M/uL Hgb 12.7 (12.0-16.0) g/dL Hct 37.5 (37-47) % MCV 92.4 (80-100) fL MCH 31.3 (25-34) pg MCHC 33.9 (32-36) g/dL RDW Std Deviation 48.9 H (36.4-46.3) fL RDW Coeff of Nik 14.4 (11.5-14.5) % Plt Count 212 (130-400) K/uL MPV 11.5 H (7.4-10.4) fL Immature Gran % (Auto) % Neut % (Auto) % Lymph % (Auto) % Tift % (Auto) % Eos % (Auto) % Baso % (Auto) % Immature Gran # (Auto) (0.00-0.02) K/uL Neut # (Auto) (1.4-6.5) K/uL Lymph # (Auto) (1.2-3.4) K/uL Tift # (Auto) (0.11-0.59) K/uL Eos # (Auto) (0-0.5) K/uL Baso # (Auto) (0-0.2) K/uL PT (9.0-12.0) Seconds INR (0.9-1.1) APTT (21.0-31.0) Seconds PTT Ratio Sodium 142 139 (136-145) mmol/L Potassium 3.9 4.0 (3.5-5.1) mmol/L Chloride 111 H 109 H (98-107) mmol/L Carbon Dioxide 24 26 (21-32) mmol/L Anion Gap 7.0 4.0 (3-11) BUN 17 15 (7-18) mg/dl Creatinine 0.89 0.98 (0.6-1.2) mg/dl Est Cr Clr Drug Dosing 66.0 60.1 ml/min Est GFR ( Amer) 86.4 76.9 Est GFR (Non-Af Amer) 74.5 66.3 BUN/Creatinine Ratio 19.5 15.3 (10-20) Glucose 115 H 111 H (70-99) mg/dl Calcium 8.9 8.9 (8.5-10.1) mg/dl Magnesium 2.2 (1.8-2.4) mg/dl Total Bilirubin 0.2 (0.2-1) mg/dl AST 16 (15-37) U/L ALT 27 (12-78) U/L Alkaline Phosphatase 92 (45-117) U/L Troponin I < 0.015 (0-0.045) ng/ml Total Protein 7.7 (6.4-8.2) gm/dl Albumin 3.7 (3.4-5.0) gm/dl Globulin 4.0 (2.5-4.0) gm/dl Albumin/Globulin Ratio 0.9 (0.9-2) 01/04/19 01/04/19 Range/Units 19:31 19:31 WBC 7.70 (4.8-10.8) K/uL RBC 4.32 (4.2-5.4) M/uL Hgb 13.7 (12.0-16.0) g/dL Hct 40.2 (37-47) % MCV 93.1 (80-100) fL MCH 31.7 (25-34) pg MCHC 34.1 (32-36) g/dL RDW Std Deviation 48.3 H (36.4-46.3) fL RDW Coeff of Nik 14.2 (11.5-14.5) % Plt Count 244 (130-400) K/uL MPV 12.0 H (7.4-10.4) fL Immature Gran % (Auto) 0.4 % Neut % (Auto) 77.3 % Lymph % (Auto) 17.5 % Tift % (Auto) 4.4 % Eos % (Auto) 0.1 % Baso % (Auto) 0.3 % Immature Gran # (Auto) 0.03 H (0.00-0.02) K/uL Neut # (Auto) 5.95 (1.4-6.5) K/uL Lymph # (Auto) 1.35 (1.2-3.4) K/uL Tift # (Auto) 0.34 (0.11-0.59) K/uL Eos # (Auto) 0.01 (0-0.5) K/uL Baso # (Auto) 0.02 (0-0.2) K/uL PT 10.6 (9.0-12.0) Seconds INR 1.0 (0.9-1.1) APTT 24.3 (21.0-31.0) Seconds PTT Ratio 0.9 Sodium (136-145) mmol/L Potassium (3.5-5.1) mmol/L Chloride (98-107) mmol/L Carbon Dioxide (21-32) mmol/L Anion Gap (3-11) BUN (7-18) mg/dl Creatinine (0.6-1.2) mg/dl Est Cr Clr Drug Dosing ml/min Est GFR ( Amer) Est GFR (Non-Af Amer) BUN/Creatinine Ratio (10-20) Glucose (70-99) mg/dl Calcium (8.5-10.1) mg/dl Magnesium (1.8-2.4) mg/dl Total Bilirubin (0.2-1) mg/dl AST (15-37) U/L ALT (12-78) U/L Alkaline Phosphatase (45-117) U/L Troponin I (0-0.045) ng/ml Total Protein (6.4-8.2) gm/dl Albumin (3.4-5.0) gm/dl Globulin (2.5-4.0) gm/dl Albumin/Globulin Ratio (0.9-2) (1) Acute bronchitis Bronchitis organism: unspecified organism Qualified Code(s): J20.9 - Acute bronchitis, unspecified (2) GERD (gastroesophageal reflux disease) Esophagitis presence: esophagitis presence not specified Qualified Code(s): K21.9 - Gastro-esophageal reflux disease without esophagitis
[2019-01-05] MEDS ORDERED: PROMETHAZINE HCL 12.5 MG in SODIUM CHLORIDE 0.9% 50 ML IV PRN (16:21)
[2019-01-05] MEDS: prednisoLONE acetate 1% OP SUSP 5 ML BTL OP SCH (20:39)
[2019-01-05] MEDS: TRAZODONE HCL 100 MG TAB PO SCH (20:39)
[2019-01-05] MEDS: MONTELUKAST SODIUM 10 MG TABLET PO SCH (20:40)
[2019-01-06] MEDS: ALBUT/IPRATROP 3MG/0.5MG NEB 3 ML VIAL NEB SCH ×6 (04:03→23:24)
[2019-01-06 06:55] LABS: BUN Creatinine Ratio 19.4 (10-20); Calcium 8.9 mg/dl (8.5-10.1); Creatinine Clr Calc Pharmacy 65.2 ml/min; Est GFR (African American) 85.2; Est GFR (Non-African American) 73.5; Potassium 4.1 mmol/L (3.5-5.1)
[2019-01-06] MEDS: DICLOFENAC SODIUM 75 MG TABCR PO SCH ×2 (08:04→21:34)
[2019-01-06] MEDS: BusPIRone 15 MG TAB PO SCH ×3 (08:04→21:35)
[2019-01-06] MEDS: CYANOCOBALAMIN 500 MCG TABLET (VITAMIN B-12) PO SCH (08:04)
[2019-01-06] MEDS: PANTOprazole 40 MG TAB PO SCH ×2 (08:05→21:35)
[2019-01-06] MEDS: SERTRALINE HCL 100 MG TABLET PO SCH (08:05)
[2019-01-06] MEDS: NICOTINE 14 MG/24 HR PATCH TD SCH (08:05)
[2019-01-06] MEDS: DULOXETINE HCL 30 MG CAP PO SCH ×2 (08:05→21:37)
[2019-01-06] MEDS: METOCLOPRAMIDE HCL 5 MG TABLET PO SCH ×3 (08:06→16:40)
[2019-01-06] MEDS: GABAPENTIN 800 MG TAB PO SCH ×3 (08:06→21:34)
[2019-01-06] MEDS: FOLIC ACID 1 MG TAB PO SCH (08:06)
[2019-01-06] MEDS: DOCUSATE SODIUM/SENNA 50/8.6MG TAB PO SCH ×2 (08:07→21:36)
[2019-01-06] MEDS: METHYLPHENIDATE HCL 10 MG TABLET PO SCH ×5 (08:08→16:50)
[2019-01-06] MEDS: ENOXAPARIN INJ 40 MG/0.4 ML SYR SQ SCH (08:08)
[2019-01-06] MEDS: methylPREDNISolone 40 MG in SYRINGE 0 ML IV SCH (08:08)
[2019-01-06] MEDS ORDERED: POLYETHYLENE (MIRALAX) 17 GM PACK PO PRN (11:44)
[2019-01-06] MEDS: DOXYCYCLINE HYCLATE 100 MG in DEXTROSE 5% 100 ML IV SCH (12:21)
[2019-01-06] MEDS: IBUPROFEN 200 MG TAB PO PRN ×2 (12:26→21:32)
[2019-01-06] MEDS: GUAIFENESIN/CODEINE 100MG/10MG 5ML UDC PO PRN (13:30)
[2019-01-06] MEDS: ACETAMINOPHEN 500 MG TAB PO PRN ×2 (13:30→21:32)
--- NOTE | 2019-01-06 15:31 | Hospitalist Progress Note ---
Date of Service January 06, 2019 Assessment & Plan (1) Respiratory distress: - Presented with tachypnea, was not hypoxic in ER; has cough and wheezing. - Patient with continued significant wheezing, dyspnea and sob despite nebulizers 4x/day and steroids. Attempted to ambulate patient in the [place] but after about 20 feet she became overwhelmed with dyspnea, coughing paroxysms, weakness and lightheadedness requiring assistance to ambulate back to her room. Upon return she was unable to speak in full sentences, had visibly labored breathing. Tachycardic in the 1teens. - Likely related to acute bronchitis, COPD exacerbation. - CXR showed emphysema changes, no consolidation. - continue duonebs - Solu-medrol 40 mg IV daily -- pt. is resistant to steroids, stating it causes GI distress - continue as she can tolerate - Doxycycline 100 mg BID (IV due to GI upset) - Robitussin q6hr prn cough. - will add Tramadol 25mg q6h prn for headache from coughing. Tylenol and ibuprofen not relieving her symptoms (2) COPD exacerbation: - Treatment as noted above. (3) Acute bronchitis: - Treatment as noted above. (4) Drug-induced delirium: - Patient with history of steroid induced psychosis. Will limit doses of steroids. - Delirium prevention strategies - frequent orientation, maintain day/night schedule if possible, frequent ambulation. (5) Anxiety: - Continue Buspar 15mg TID, Cymbalta 60mg daily, Sertraline 200mg daily. - Continue Trazodone qHS as needed for insomnia. (6) Posttraumatic stress disorder: - Psych meds as noted above. (7) Gastroparesis: - History of gastroparesis. States that she is having abdominal pain presently that is consistent with that. - Continue Reglan scheduled with Zofran prn. (8) GERD (gastroesophageal reflux disease): - Continue Carafate at home dose, Protonix 40mg po BID, Pepcid 40mg po BID. (9) Oral candidiasis: - Has chronic oral thrush -- takes Fluconazole at home for 14 day courses. - Continue Fluconazole daily. - QTc 411 on admission. Patient is on many QT prolonging agents. (Fluconazole, Sertraline, Reglan, Zofran). Monitor Qt interval frequently. (10) Chronic pain: - Continue Gabapentin 800 mg TID, Voltaren 75 mg BID as prescribed. (11) Tobacco abuse: - Smoking cessation counseling. - Patient vapes daily and smokes marijuana for pain control. She is in trying to obtain a prescription for medical marijuana so she can take it in a non- inhaled form. - Nicotine patch ordered. (12) DVT prophylaxis: - Lovenox subQ daily. (13) Constipation: continue senna, prn suppository Supervising Physician Co-Signing Physician Notes [employer]SEM[employer]ER Physician Supervision Note: I discussed with Noa Rincon [employer]ER and agree with findings and plan as documented in the note. Any exceptions or clarifications are listed here: None As documented this patient has significant dyspnea on exertion and wheezing difficulty speaking full sentences she becomes profoundly dyspneic with any exertion. She is unfit to return home at this point time Documented By: Wesley Carreon Subjective Patient with significant wheezing, dyspnea and sob despite nebulizers 4x/day and steroids. Attempted to ambulate patient in the bowen but after about 20 feet she became overwhelmed with dyspnea, coughing paroxysms, weakness and lightheadedness requiring assistance to ambulate back to her room. Upon return she was unable to speak in full sentences, had visibly labored breathing and difficulty recovering. Tachycardic in the 1teens. She is also complaining of headache from coughing and constipation Review of Systems All systems reviewed & are unremarkable except as noted in HPI & below Physical Exam Vital Signs (Past 24 Hours): Last Vital Signs Temp 37.1 C 01/06/19 15:16 Pulse 75 01/06/19 15:16 Resp 17 01/06/19 15:16 BP 126/79 01/06/19 15:16 Pulse Ox 94 01/06/19 15:16 Physical Exam: General: no distress Eyes: normal inspection, PERLL Respiratory: chest non tender, bilateral expiratory wheezes, mild labored breathing at rest, significant labored breathing with any exertion Cardiac: regular rate and rhythm, no rub or gallop, no murmur, no edema, no jvd GI/: active bowel sounds, no abd pain or tenderness, soft, non distended Extremities: normal range of motion, normal strength, non tender Neuro/Psych: alert and oriented x 3, normal mood and affect Skin: normal color, dry Results & Data Laboratory Results Abnormal lab results 01/06/19 Range/Units 06:24 Chloride 111 H (98-107) mmol/L (1) Acute bronchitis Bronchitis organism: unspecified organism Qualified Code(s): J20.9 - Acute bronchitis, unspecified (2) GERD (gastroesophageal reflux disease) Esophagitis presence: esophagitis presence not specified Qualified Code(s): K21.9 - Gastro-esophageal reflux disease without esophagitis
[2019-01-06] MEDS: TRAMADOL HCL 50 MG TABLET PO PRN (16:50)
[2019-01-06] MEDS: GUAIFENESIN/DEXTROM SYRUP 100MG/10MG 5ML UDC PO PRN (21:33)
[2019-01-06] MEDS: MONTELUKAST SODIUM 10 MG TABLET PO SCH (21:34)
[2019-01-06] MEDS: TRAZODONE HCL 100 MG TAB PO SCH (21:37)
[2019-01-06] MEDS: prednisoLONE acetate 1% OP SUSP 5 ML BTL OP SCH (21:38)
[2019-01-07] MEDS: DOXYCYCLINE HYCLATE 100 MG in DEXTROSE 5% 100 ML IV SCH (01:17)
[2019-01-07] MEDS: ALBUT/IPRATROP 3MG/0.5MG NEB 3 ML VIAL NEB SCH ×6 (03:51→23:11)
[2019-01-07] MEDS: GABAPENTIN 800 MG TAB PO SCH ×3 (08:11→20:45)
[2019-01-07] MEDS: methylPREDNISolone 40 MG in SYRINGE 0 ML IV SCH (08:11)
[2019-01-07] MEDS: CYANOCOBALAMIN 500 MCG TABLET (VITAMIN B-12) PO SCH (08:11)
[2019-01-07] MEDS: DICLOFENAC SODIUM 75 MG TABCR PO SCH ×2 (08:11→20:45)
[2019-01-07] MEDS: DULOXETINE HCL 30 MG CAP PO SCH ×2 (08:12→20:45)
[2019-01-07] MEDS: SERTRALINE HCL 100 MG TABLET PO SCH (08:12)
[2019-01-07] MEDS: FOLIC ACID 1 MG TAB PO SCH (08:12)
[2019-01-07] MEDS: PANTOprazole 40 MG TAB PO SCH ×2 (08:12→20:45)
[2019-01-07] MEDS: METOCLOPRAMIDE HCL 5 MG TABLET PO SCH ×3 (08:13→16:57)
[2019-01-07] MEDS: METHYLPHENIDATE HCL 10 MG TABLET PO SCH ×5 (08:13→15:13)
[2019-01-07] MEDS: ENOXAPARIN INJ 40 MG/0.4 ML SYR SQ SCH (08:13)
[2019-01-07] MEDS: BusPIRone 15 MG TAB PO SCH ×3 (08:13→20:45)
[2019-01-07] MEDS: NICOTINE 14 MG/24 HR PATCH TD SCH (08:14)
[2019-01-07] MEDS: DOCUSATE SODIUM/SENNA 50/8.6MG TAB PO SCH ×2 (08:15→20:45)
[2019-01-07] MEDS: BISACODYL 10 MG SUPP PR PRN (08:26)
[2019-01-07 08:44] LABS: Hematocrit (blood only) 39.2 % (37-47); Hemoglobin 12.9 g/dL (12.0-16.0); Mean Corpuscular Hgb Conc 32.9 g/dL (32-36); Mean Corpuscular Volume 93.6 fL (80-100); Mean Platelet Volume 11.6 fL (7.4-10.4); Platelet Count 190 K/uL (130-400); RDW Coefficient of Variation 14.6 % (11.5-14.5); RDW Standard Deviation 49.5 fL (36.4-46.3); Red Blood Count 4.19 M/uL (4.2-5.4); White Blood Count 9.94 K/uL (4.8-10.8)
[2019-01-07 09:21] LABS: BUN Creatinine Ratio 20.6 (10-20); Calcium 8.9 mg/dl (8.5-10.1); Creatinine Clr Calc Pharmacy 53.9 ml/min; Est GFR (African American) 67.6; Est GFR (Non-African American) 58.3
--- NOTE | 2019-01-07 12:20 | Hospitalist Progress Note ---
Date of Service January 07, 2019 Assessment & Plan (1) Respiratory distress: - Presented with tachypnea, was not hypoxic in ER; has cough and wheezing. - Patient with continued significant wheezing, dyspnea and sob despite nebulizers 4x/day and steroids. Attempted to ambulate patient in the [place] 01/06 but after about 20 feet she became overwhelmed with dyspnea, coughing paroxysms, weakness and lightheadedness requiring assistance to ambulate back to her room. Upon return she was unable to speak in full sentences, had visibly labored breathing. Tachycardic in the 1teens. - PT/OT - Acute bronchitis, COPD exacerbation. - CXR showed emphysema changes, no consolidation. - continue duonebs - Solu-medrol 40 mg IV daily -- pt. is resistant to steroids, stating it causes GI distress - continue as she can tolerate - Doxycycline 100 mg BID (IV due to GI upset) - Robitussin q6hr prn cough. - Tramadol 25mg q6h prn for headache from coughing, continue tylenol - headache improved today (2) COPD exacerbation: - Treatment as noted above. (3) Acute bronchitis: - Treatment as noted above. (4) Drug-induced delirium: - Patient with history of steroid induced psychosis. Will limit doses of steroids. - Delirium prevention strategies - frequent orientation, maintain day/night schedule if possible, frequent ambulation. (5) Anxiety: - Continue Buspar 15mg TID, Cymbalta 60mg daily, Sertraline 200mg daily. - Continue Trazodone qHS as needed for insomnia. (6) Posttraumatic stress disorder: - Psych meds as noted above. (7) Gastroparesis: - History of gastroparesis. States that she is having abdominal pain presently that is consistent with that. - Continue Reglan scheduled with Zofran prn. (8) GERD (gastroesophageal reflux disease): - Continue Carafate at home dose, Protonix 40mg po BID, Pepcid 40mg po BID. (9) Oral candidiasis: - Has chronic oral thrush -- takes Fluconazole at home for 14 day courses. - Continue Fluconazole daily. - Normal QT on admission. Patient is on many QT prolonging agents with her home medications. (Fluconazole, Sertraline, Reglan, Zofran). (10) Chronic pain: - Continue Gabapentin 800 mg TID, Voltaren 75 mg BID as prescribed. (11) Tobacco abuse: - Smoking cessation counseling. - Patient vapes daily and smokes marijuana for pain control. She is in trying to obtain a prescription for medical marijuana so she can take it in a non- inhaled form. - Nicotine patch ordered. (12) DVT prophylaxis: - Lovenox subQ daily. Dispo: awaiting PT/OT evals as patient was not able to ambulate the halls yesterday (13) Constipation: continue senna, prn suppository Subjective Patient reports small amount of improvement today. Continues to have dyspnea and wheezing as well as complaints of constipation Review of Systems All systems reviewed & are unremarkable except as noted in HPI & below Physical Exam Vital Signs (Past 24 Hours): Last Vital Signs Temp 37.0 C 01/07/19 07:07 Pulse 70 01/07/19 11:14 Resp 18 01/07/19 11:14 BP 96/59 L 01/07/19 07:07 Pulse Ox 95 01/07/19 11:14 Physical Exam: General: no distress Eyes: normal inspection, PERLL Respiratory: chest non tender, expiratory wheezing bilaterally, no respiratory distress, no accessory muscle use Cardiac: regular rate and rhythm, no rub or gallop, no murmur, no edema, no jvd GI/: active bowel sounds, no abd pain or tenderness, soft, non distended Extremities: normal range of motion, normal strength, non tender Neuro/Psych: alert and oriented x 3, normal mood and affect Skin: normal color, dry Results & Data Laboratory Results Abnormal lab results 01/07/19 01/07/19 Range/Units 08:33 08:33 RBC 4.19 L (4.2-5.4) M/uL RDW Std Deviation 49.5 H (36.4-46.3) fL RDW Coeff of Nik 14.6 H (11.5-14.5) % MPV 11.6 H (7.4-10.4) fL Chloride 109 H (98-107) mmol/L BUN 22 H (7-18) mg/dl BUN/Creatinine Ratio 20.6 H (10-20) (1) Acute bronchitis Bronchitis organism: unspecified organism Qualified Code(s): J20.9 - Acute bronchitis, unspecified (2) GERD (gastroesophageal reflux disease) Esophagitis presence: esophagitis presence not specified Qualified Code(s): K21.9 - Gastro-esophageal reflux disease without esophagitis
[2019-01-07] MEDS: DOXYCYCLINE HYCLATE 100 MG CAP PO SCH ×2 (12:50→20:45)
[2019-01-07] MEDS: TRAMADOL HCL 50 MG TABLET PO PRN ×2 (14:12→20:52)
[2019-01-07] MEDS: FORMOTEROL 20 MCG/2 ML VIAL NEB SCH (19:16)
[2019-01-07] MEDS: prednisoLONE acetate 1% OP SUSP 5 ML BTL OP SCH (20:45)
[2019-01-07] MEDS: MONTELUKAST SODIUM 10 MG TABLET PO SCH (20:45)
[2019-01-07] MEDS: TRAZODONE HCL 100 MG TAB PO SCH (20:46)
[2019-01-07] MEDS: GUAIFENESIN/DEXTROM SYRUP 100MG/10MG 5ML UDC PO PRN (22:59)
[2019-01-08] MEDS: ALBUT/IPRATROP 3MG/0.5MG NEB 3 ML VIAL NEB SCH ×6 (03:04→23:24)
[2019-01-08] MEDS: FORMOTEROL 20 MCG/2 ML VIAL NEB SCH ×2 (07:24→19:34)
[2019-01-08] MEDS: DULOXETINE HCL 30 MG CAP PO SCH ×2 (07:53→21:21)
[2019-01-08] MEDS: METOCLOPRAMIDE HCL 5 MG TABLET PO SCH ×3 (07:54→16:30)
[2019-01-08] MEDS: PANTOprazole 40 MG TAB PO SCH ×2 (07:54→21:23)
[2019-01-08] MEDS: FOLIC ACID 1 MG TAB PO SCH (07:55)
[2019-01-08] MEDS: CYANOCOBALAMIN 500 MCG TABLET (VITAMIN B-12) PO SCH (07:55)
[2019-01-08] MEDS: DOCUSATE SODIUM/SENNA 50/8.6MG TAB PO SCH ×2 (07:56→21:24)
[2019-01-08] MEDS: DICLOFENAC SODIUM 75 MG TABCR PO SCH ×2 (07:56→21:22)
[2019-01-08] MEDS: ENOXAPARIN INJ 40 MG/0.4 ML SYR SQ SCH (07:57)
[2019-01-08] MEDS: methylPREDNISolone 40 MG in SYRINGE 0 ML IV SCH (07:57)
[2019-01-08] MEDS: BusPIRone 15 MG TAB PO SCH ×3 (07:58→21:24)
[2019-01-08] MEDS: GABAPENTIN 800 MG TAB PO SCH ×3 (07:59→21:22)
[2019-01-08] MEDS: NICOTINE 14 MG/24 HR PATCH TD SCH (07:59)
[2019-01-08] MEDS: DOXYCYCLINE HYCLATE 100 MG CAP PO SCH ×2 (08:00→21:23)
[2019-01-08] MEDS: SERTRALINE HCL 100 MG TABLET PO SCH (08:01)
[2019-01-08] MEDS: METHYLPHENIDATE HCL 10 MG TABLET PO SCH ×5 (08:05→15:58)
[2019-01-08] MEDS ORDERED: dexAMETHasone 4 MG TAB PO SCH (09:00)
[2019-01-08] MEDS: BISACODYL 10 MG SUPP PR PRN (10:40)
--- NOTE | 2019-01-08 15:08 | Hospitalist Progress Note ---
Date of Service January 08, 2019 Assessment & Plan (1) Respiratory distress: - Presented with tachypnea, was not hypoxic in ER; has cough and wheezing. - Patient with continued significant wheezing, dyspnea and sob despite nebulizers 4x/day and steroids. Attempted to ambulate patient in the [place] 01/06 but after about 20 feet she became overwhelmed with dyspnea, coughing paroxysms, weakness and lightheadedness requiring assistance to ambulate back to her room. Upon return she was unable to speak in full sentences, had visibly labored breathing. Tachycardic in the 1teens. - PT/OT - patient ok for home when stable - Acute bronchitis, COPD exacerbation - patient had recent influenza infection a few weeks ago - CXR showed emphysema changes, no consolidation. - continue duonebs - Changed solumedrol to decadron po - patient does not tolerate prednisone well - Doxycycline 100 mg BID (IV due to GI upset) - Robitussin q6hr prn cough. - Tramadol 25mg q6h prn for headache from coughing, continue tylenol - headache improved (2) COPD exacerbation: - Treatment as noted above. (3) Acute bronchitis: - Treatment as noted above. (4) Drug-induced delirium: - Patient with history of steroid induced psychosis. See above - Delirium prevention strategies - frequent orientation, maintain day/night schedule if possible, frequent ambulation. (5) Anxiety: - Continue Buspar 15mg TID, Cymbalta 60mg daily, Sertraline 200mg daily. - Continue Trazodone qHS as needed for insomnia. (6) Posttraumatic stress disorder: - Psych meds as noted above. (7) Gastroparesis: - History of gastroparesis. - Continue Reglan scheduled with Zofran prn. (8) GERD (gastroesophageal reflux disease): - Continue Carafate at home dose, Protonix 40mg po BID, Pepcid 40mg po BID. (9) Oral candidiasis: - Has chronic oral thrush -- takes Fluconazole at home for 14 day courses. - Continue Fluconazole daily. - Normal QT on admission. Patient is on many QT prolonging agents with her home medications. (Fluconazole, Sertraline, Reglan, Zofran). (10) Chronic pain: - Continue Gabapentin 800 mg TID, Voltaren 75 mg BID as prescribed. (11) Tobacco abuse: - Smoking cessation counseling. - Patient vapes daily and smokes marijuana for pain control. She is in trying to obtain a prescription for medical marijuana so she can take it in a non- inhaled form. - Nicotine patch ordered. (12) DVT prophylaxis: - Lovenox subQ daily. Dispo: awaiting PT/OT evals as patient was not able to ambulate the halls yesterday (13) Constipation: continue senna, prn suppository - had bm but is now having pain and small amount of bleeding of hemorrhoids - administer Tucks pads Subjective Ms. Hedrick continues to improve. She is still coughing but reports addition of formoterol nebulizer helped quite a bit. She has been trying to ambulate around her room a bit. She did have a bowel movement but now has pain and small amount of bleeding from hemorrhoids Review of Systems Review of Systems: All systems reviewed & are unremarkable except as noted in HPI & below Physical Exam Physical Exam: General: no distress Eyes: normal inspection, PERLL Respiratory: chest non tender, improved expiratory wheezes - some still in bases bilaterally, no respiratory distress, no accessory muscle use Cardiac: regular rate and rhythm, no rub or gallop, no murmur, no edema, no jvd GI/: active bowel sounds, no abd pain or tenderness, soft, non distended Extremities: normal range of motion, normal strength, non tender Neuro/Psych: alert and oriented x 3, normal mood and affect Skin: normal color, dry Results & Data Vital Signs (Past 12 Hours) Vital Signs Temp Pulse Resp BP Pulse Ox Pulse Ox 01/08/19 11:27 97 01/08/19 07:26 76 18 91 01/08/19 07:20 37 C 65 16 113/73 92 (1) Acute bronchitis Bronchitis organism: unspecified organism Qualified Code(s): J20.9 - Acute bronchitis, unspecified (2) GERD (gastroesophageal reflux disease) Esophagitis presence: esophagitis presence not specified Qualified Code(s): K21.9 - Gastro-esophageal reflux disease without esophagitis
[2019-01-08] MEDS: prednisoLONE acetate 1% OP SUSP 5 ML BTL OP SCH (21:22)
[2019-01-08] MEDS: TRAZODONE HCL 100 MG TAB PO SCH (21:23)
[2019-01-08] MEDS: MONTELUKAST SODIUM 10 MG TABLET PO SCH (21:24)
[2019-01-09] MEDS: ALBUT/IPRATROP 3MG/0.5MG NEB 3 ML VIAL NEB SCH ×2 (03:38→06:59)
[2019-01-09] MEDS: FORMOTEROL 20 MCG/2 ML VIAL NEB SCH (06:58)
[2019-01-09] MEDS: METOCLOPRAMIDE HCL 5 MG TABLET PO SCH (07:45)
[2019-01-09] MEDS: METHYLPHENIDATE HCL 10 MG TABLET PO SCH ×2 (07:45)
[2019-01-09] MEDS: FOLIC ACID 1 MG TAB PO SCH (07:46)
[2019-01-09] MEDS: BusPIRone 15 MG TAB PO SCH (07:46)
[2019-01-09] MEDS: ENOXAPARIN INJ 40 MG/0.4 ML SYR SQ SCH (07:46)
[2019-01-09] MEDS: DULOXETINE HCL 30 MG CAP PO SCH (07:46)
[2019-01-09] MEDS: NICOTINE 14 MG/24 HR PATCH TD SCH (07:47)
[2019-01-09] MEDS: GABAPENTIN 800 MG TAB PO SCH (07:47)
[2019-01-09] MEDS: DOCUSATE SODIUM/SENNA 50/8.6MG TAB PO SCH (07:48)
[2019-01-09] MEDS: DOXYCYCLINE HYCLATE 100 MG CAP PO SCH (07:48)
[2019-01-09] MEDS: CYANOCOBALAMIN 500 MCG TABLET (VITAMIN B-12) PO SCH (07:48)
[2019-01-09] MEDS: PANTOprazole 40 MG TAB PO SCH (07:48)
[2019-01-09] MEDS: DICLOFENAC SODIUM 75 MG TABCR PO SCH (07:48)
[2019-01-09] MEDS: SERTRALINE HCL 100 MG TABLET PO SCH (07:49)
--- NOTE | 2019-01-09 09:23 | Discharge Summary ---
Date of Service January 09, 2019 Admission HPI Per Admitting Provider Gertrudis Hedrick is a 53yo C female with multiple medical problems, COPD with no history of prior hospitalization or intubation. She had Influenza A two weeks ago which was treated with Tamiflu. Has been complaining of persistent GARRISON since having the flu. She has a persistent dry, hacking cough which causes diffuse rib pain with coughing or breathing. She states she is unable to sleep due to the cough. Dyspnea with minimal exertion as well as weakness and fatigue. She denies fevers/chills. Has some substernal chest pressure that occurs with coughing, overall feeling of tightness in her chest. She has histor y of gastroparesis and states that her stomach has been upset recently, also with nausea and occasional vomiting as well as constipation. ER Course: Albuterol, Ceftriaxone, Magnesium, Solumedrol, Reglan Principal Diagnosis COPD exacerbation Discharge Exam Constitutional WD/WN, vitals as above Respiratory normal respiratory effort, lungs clear to auscultation Cardiovascular RRR, no murmur, no edema Gastrointestinal (Abdomen) normal bowel sounds, soft, nontender, no hepatosplenomegaly Musculoskeletal no cyanosis or clubbing, extremities motor strength 5/5 Skin no rashes, warm and dry Neurologic moves all extremities and awake Psychiatric A+Ox3, euthymic affect Discharge Data Allergies Allergy/AdvReac Type Severity Reaction Status Date / Time prednisone Allergy Mild PSYCHOSIS Verified 01/04/19 20:07 EFFECTS risperidone Allergy Mild LACTATING Verified 01/04/19 20:07 Tetracyclines Allergy Mild HIVES Unverified 01/04/19 20:07 mirtazapine Allergy Unknown SHORTNESS Unverified 01/04/19 20:07 OF BREATH ranitidine Allergy Unknown SEVERE Verified 01/04/19 20:07 VOMITING Iodinated Contrast- Oral and AdvReac Intermediate "horrible Verified 01/04/19 20:07 IV Dye headache" loratadine AdvReac Mild UNABLE TO Unverified 01/04/19 20:07 SLEEP MULTIPLE DAYS MUSHROOMS Allergy Intermediate HIVES Uncoded 08/20/18 13:33 Consultations 01/04/19 20:45 ED Decision to Admit Stat Hospital Course (1) Respiratory distress: - Presented with tachypnea, was not hypoxic in ER; has cough and wheezing. - Patient much improved - had significant wheezing, dyspnea and sob despite nebulizers 4x/day and steroids. Attempted to ambulate patient in the [place] 01/06 but after about 20 feet she became overwhelmed with dyspnea, coughing paroxysms, weakness and lightheadedness requiring assistance to ambulate back to her room. Upon return she was unable to speak in full sentences, had visibly labored breathing. Tachycardic in the 1teens. Today her wheezing is gone and her cough is much milder. She is able to ambulate around the room. PT did not feel she needed further therapy - PT/OT - patient ok for home when stable - Acute bronchitis, COPD exacerbation - patient had recent influenza infection a few weeks ago - CXR showed emphysema changes, no consolidation. - continue duonebs - Changed solumedrol to decadron po - patient does not tolerate prednisone well. Will send with 9 day taper, can discuss duration with pulm at her outpatient appointment tomorrow - Doxycycline 100 mg BID (IV due to GI upset) - end of therapy 01/10 - Robitussin q6hr prn cough. - Tramadol 25mg q6h prn for headache from coughing, continue tylenol - headache improved (2) COPD exacerbation: - Treatment as noted above. (3) Acute bronchitis: - Treatment as noted above. (4) Drug-induced delirium: - Patient with history of steroid induced psychosis. See above - Delirium prevention strategies - frequent orientation, maintain day/night schedule if possible, frequent ambulation. (5) Anxiety: - Continue Buspar 15mg TID, Cymbalta 60mg daily, Sertraline 200mg daily. - Continue Trazodone qHS as needed for insomnia. - patient reports she is out of these medications for home - I did discuss with her psychiatrist Dr. Christensen's office - they will see her next week and call her about refilling her medications in the interim. (6) Posttraumatic stress disorder: - Psych meds as noted above. (7) Gastroparesis: - History of gastroparesis. - Continue Reglan scheduled with Zofran prn. (8) GERD (gastroesophageal reflux disease): - Continue Carafate at home dose, Protonix 40mg po BID, Pepcid 40mg po BID. (9) Oral candidiasis: - Has chronic oral thrush -- takes Fluconazole at home for 14 day courses. - Continue Fluconazole daily. - Normal QT on admission. Patient is on many QT prolonging agents with her home medications. (Fluconazole, Sertraline, Reglan, Zofran). May want to consider therapy modification with prescribing providers. (10) Chronic pain: - Continue Gabapentin 800 mg TID, Voltaren 75 mg BID as prescribed. (11) Tobacco abuse: - Smoking cessation counseling. - Patient vapes daily and smokes marijuana for pain control. She is in trying to obtain a prescription for medical marijuana so she can take it in a non- inhaled form. - Nicotine patch ordered - patient will have script for home as she would like to quit vaping (12) DVT prophylaxis: - Lovenox subQ daily inpatient (13) Constipation: continue senna, prn suppository - hemorrhoid bleeding resolved Total Time Total Time Spent Total Time Spent (In Minutes): greater than 30 minutes Discharge Plan Discharge Items Patient Disposition: Home - Self-Care Reason For Visit: COUGH, SOB Discharge Diagnosis: COPD exacerbation Discharge Goals: Decrease discomfort Activity: Resume your previous activity Activity Comment: gradually as tolerated Non-emergency contact: Primary Care Provider Call non-emergency contact if: you have any medication questions and your symptoms worsen Follow-up/Referrals: Kacy Gomez MD [Primary Care Provider] - 01/14/19 10:00 am (Please, follow up at [facility] with Dr. Gomez on SundayJanuary 14 at 10:00 am. ) Freida Su CRNP [Nurse Practitioner] - 01/10/19 2:00 pm (Please, follow up at [facility] Office with Freida PABLO on SundayJanuary 10 at 2:00 pm. *The office is located in [address] of [facility]. This is the big building next to this [facility]. *If you need to change this appointment, call the office at [phone].) Diet: Regular Addtl Provider Instructions: You have an appointment with Dr. Christensen SundayJanuary 14 at 10:15. His office will call you concerning your medications. Please keep your pulmonary appointment for tomorrow and discuss length of treatment of your steroid. You should take another doxycycline tonight and both doses tomorrow and then discontinue antibiotics. Prescriptions: New nicotine 14 mg/24 hr patch 24 hour 1 patch TD DAILY Qty: 7 RF: 0 bisacodyl [Dulcolax (bisacodyl)] 10 mg suppository 10 mg OK DAILY PRN (Reason: constipation) Qty: 28 RF: 0 dexamethasone 1 mg tablet 1 mg PO DAILY Qty: 21 RF: 0 Continued fluticasone propion-salmeterol [Advair Diskus] 250-50 mcg/dose blister with device 1 inha INH BID RF: 0 methylphenidate HCl [Ritalin] 10 mg tablet 10 mg PO TID RF: 0 ondansetron HCl [Zofran] 4 mg tablet 4 mg PO TID PRN (Reason: Nausea) RF: 0 famotidine [Pepcid] 40 mg tablet 40 mg PO BID PRN (Reason: Acid Reflux) RF: 0 rizatriptan [Maxalt] 10 mg tablet 10 mg PO Q2H PRN (Reason: Migraine Headache) RF: 0 baclofen 20 mg tablet 20 mg PO TID PRN (Reason: Muscle Pain) RF: 0 gabapentin 800 mg tablet 800 mg PO TID RF: 0 pantoprazole [Protonix] 40 mg tablet,delayed release (DR/EC) 40 mg PO BID RF: 0 trazodone 300 mg tablet 300 mg PO DAILY RF: 0 diclofenac sodium 75 mg tablet,delayed release (DR/EC) 75 mg PO BID RF: 0 folic acid 1 mg tablet 1 mg PO DAILY RF: 0 montelukast [Singulair] 10 mg tablet 10 mg PO QPM RF: 0 buspirone 15 mg tablet 15 mg PO TID RF: 0 mecobalamin (vitamin B12) 1,000 mcg tablet,disintegrating 1,000 mcg SL DAILY RF: 0 cholecalciferol (vitamin D3) 2,000 unit capsule 2,000 units PO DAILY RF: 0 budesonide 0.5 mg/2 mL Suspension For Nebulization 0.5 mg INHALATION BID PRN (Reason: Shortness Of Breath Or Wheezing) RF: 0 Combivent Respimat 20-100 mcg/actuation Mist 1 puff INHALATION QID PRN (Reason: Shortness Of Breath Or Wheezing) RF: 0 Carafate 1gm/10ml 10 ml PO TID PRN (Reason: BREAKTHROUGH HEARTBURN) RF: 0 vitamin A 8,000 unit Capsule PO DAILY RF: 0 ipratropium-albuterol 0.5 mg-3 mg(2.5 mg base)/3 mL Solution For Nebulization 3 ml INHALATION QID PRN (Reason: Shortness Of Breath Or Wheezing) RF: 0 fluconazole 150 mg tablet 150 mg PO DAILY RF: 0 methylphenidate HCl [Ritalin] 5 mg Tablet 5 mg PO BID RF: 0 prednisone 20 mg tablet 30 mg PO BID RF: 0 sertraline [Zoloft] 100 mg tablet 200 mg PO DAILY RF: 0 metoclopramide HCl [Reglan] 5 mg tablet 5 mg PO AC RF: 0 Incruse Ellipta 62.5 mcg/actuation Blister With Device 1 inh INHALATION DAILY RF: 0 duloxetine 30 mg Capsule,Delayed Release(Dr/Ec) 30 mg PO BID RF: 0 doxycycline hyclate 100 mg tablet 100 mg PO BID 2 Days Qty: 0 RF: 0 Stand-Alone Forms: [facility] Orders: Discharge Order (Routine); Ordered 01/09/19 Ordered By: Noa Rincon Admission Data Admit Date/Time: 01/04/19 21:54 Attending Provider: Wesley Carreon Admit Provider: Kayleigh Shipley Primary Care Provider: Kacy Gomez Other Providers: Kayleigh Shipley ; Shiva Bennett Service: Medical
== END 2019-01-09 10:45 | disposition home or self-care (01) | DRG 191 ==
LOC: ED 18:26 → 4E 21:54 → SUATTDRO 21:54 → 4E 23:04

== ENCOUNTER 2019-03-13 20:02 | Inpatient (IN) ==
[2019-03-13] MEDS ORDERED: methylPREDNISolone 125 MG/2 ML VIAL IV STA (20:22)
[2019-03-13] MEDS ORDERED: ALBUT/IPRATROP 3MG/0.5MG NEB 3 ML VIAL INH STA (20:22)
[2019-03-13] MEDS ORDERED: SODIUM CHLORIDE 0.9% 1000ML 1,000 ML IV SCH (20:30)
[2019-03-13 20:55] LABS: Basophils # (auto) 0.09 K/uL (0-0.2); Basophils % (auto) 0.9 %; Eosinophils # (auto) 0.48 K/uL (0-0.5); Eosinophils % (auto) 4.6 %; Hematocrit (blood only) 39.3 % (37-47); Hemoglobin 13.5 g/dL (12.0-16.0); Immature Granulocytes # (auto) 0.03 K/uL (0.00-0.02); Immature Granulocytes % (auto) 0.3 %; Lymphocytes # (auto) 3.27 K/uL (1.2-3.4); Lymphocytes % (auto) 31.6 %; Mean Corpuscular Hgb Conc 34.4 g/dL (32-36); Mean Corpuscular Volume 92.9 fL (80-100); Mean Platelet Volume 11.4 fL (7.4-10.4); Monocytes # (auto) 0.73 K/uL (0.11-0.59); Monocytes % (auto) 7.1 %; Neutrophils # (auto) 5.74 K/uL (1.4-6.5); Neutrophils % (auto) 55.5 %; Platelet Count 239 K/uL (130-400); RDW Coefficient of Variation 14.2 % (11.5-14.5); RDW Standard Deviation 48.2 fL (36.4-46.3); Red Blood Count 4.23 M/uL (4.2-5.4); White Blood Count 10.34 K/uL (4.8-10.8)
--- NOTE | 2019-03-13 20:59 | XRay Report ---
XR chest 1V portable CLINICAL HISTORY: Dyspnea. COMPARISON STUDY: Chest radiograph February 04, 2019. Chest CT February 05, 2019. FINDINGS: A calcified left lobe thyroid nodule is better depicted on prior CT. Emphysema is present. There is no pneumothorax or pleural effusion. There is no consolidation or evidence for pulmonary crow ma. IMPRESSION: 1. No acute cardiopulmonary findings. 2. Emphysema. Electronically signed by: Alex Fowler M.D. 03/13/2019 8:58 PM
[2019-03-13 21:03] LABS: Base Excess VBG -0.1 mEq/L; Oxygen Saturation VBG 70.5 %; pH VBG 7.44 (7.36-7.41)
[2019-03-13] MEDS: MAGNESIUM SULFATE / D5W 1 GM/100 ML BAG IV SCH ×2 (21:06→22:16)
[2019-03-13 21:11] LABS: Alanine Aminotransferase 23 U/L (12-78); Albumin Level 3.8 gm/dl (3.4-5.0); Aspartate Aminotransferase 14 U/L (15-37); BUN Creatinine Ratio 11.8 (10-20); Blood Urea Nitrogen 11 mg/dl (7-18); Calcium 8.6 mg/dl (8.5-10.1); Carbon Dioxide 27 mmol/L (21-32); Chloride 107 mmol/L (98-107); Creatinine Clr Calc Pharmacy 64.4 ml/min; Est GFR (African American) 84.6; Glucose 104 mg/dl (70-99); Sodium 139 mmol/L (136-145)
[2019-03-13 21:13] LABS: Partial Thromboplastin Ratio 0.9; Partial Thromboplastin Time 25.6 Seconds (21.0-31.0); Prothrombin Time 10.7 Seconds (9.0-12.0)
[2019-03-13 21:15] LABS: Alkaline Phosphatase 95 U/L (45-117); Bilirubin,Total 0.3 mg/dl (0.2-1); Globulin 3.8 gm/dl (2.5-4.0); Total Protein 7.6 gm/dl (6.4-8.2); Troponin I < 0.015 ng/ml (0-0.045)
[2019-03-13] MEDS ORDERED: AZITHROMYCIN 250 MG TAB PO ONE (22:40)
[2019-03-13] MEDS ORDERED: ALBUT/IPRATROP 3MG/0.5MG NEB 3 ML VIAL NEB ONE (22:40)
[2019-03-13 22:52] LABS: Appearance Urine Clear (Clear); Bilirubin Urine Negative (Negative); Blood Urine Negative (Negative); Color Urine Yellow; Glucose Urine UA Negative (Negative); Ketones Urine Negative (Negative); Leukocyte Esterase Urine Negative (Negative); Nitrite Urine Negative (Negative); Protein Urine Negative (Negative); Specific Gravity Urine 1.011 (1.000-1.030); Urobilinogen Urine Negative (Negative); pH Urine 6.5 (4.5-7.5)
[2019-03-13] MEDS ORDERED: ALUMINUM/MAGNESIUM SUSP 30 ML UDC PO PRN (22:59)
[2019-03-13] MEDS ORDERED: ZOLPIDEM TARTRATE 5 MG TAB PO PRN (22:59)
[2019-03-13] MEDS ORDERED: MAGNESIUM HYDROXIDE SUSP 30 ML UDC PO PRN (22:59)
[2019-03-13] MEDS ORDERED: ONDANSETRON INJ 2 MG/ML 2 ML VIAL IV PRN (22:59)
[2019-03-13] MEDS ORDERED: ACETAMINOPHEN 325 MG TAB PO PRN (22:59)
[2019-03-13] MEDS ORDERED: POLYETHYLENE (MIRALAX) 17 GM PACK PO PRN (22:59)
--- NOTE | 2019-03-13 23:27 | History & Physical Report ---
Date of Service March 13, 2019 Assessment & Plan (1) COPD exacerbation: 54 y/o F Hx COPD, anxiety disorder, GERD, chronic lower back pain, continues to smoke cigarettes. Presents with progressive SOB and a persistent cough. The pt was last admitted with a COPD exacerbation 12/2018. The pt was not hypoxic on arrival, she has not reported fevers. Initial labs are unremarkable and a CXR did not provide evidence of pneumonia. 1) COPD exacerbation - Placed on scheduled nebs, IV steroids, abx, 02 protocol 2) Chronic back pain - Cont ROMEO, baclofen 3) PTSD/anxiety - cont Duloxetine 4) GERD - cont Famotidine 5) She is well aware that she needs to stop smoking and has been trying to quit with limited success Full code - Lovenox prophylaxis Total time for this admit including review of labs, meds, imaging, records - discussion with pt and ER attending - 40 min Present on Admission?: Yes History of Present Illness Chief Complaint: COPD exacerbation Primary Care Provider: Kacy Gomez MD 54 y/o F Hx COPD, anxiety disorder, GERD, chronic lower back pain, continues to smoke cigarettes. Presents with progressive SOB and a persistent cough. The pt was last admitted with a COPD exacerbation 12/2018. The pt was not hypoxic on arrival, she has not reported fevers. Initial labs are unremarkable and a CXR did not provide evidence of pneumonia. PMH: 1) COPD 2) GERD 3) Prior seizures 4) Chronic lower back pain 5) MTHFR mutation 6) Gastroparesis 7) PTSD / anxiety disorder 8) OCD Surgical: Cholecystectomy Social: Smokes 1/2 pack daily as she has recently cut down. Does not drink alcohol Family: Both parents alive, father with history of CAD/CA Allergies Allergy/AdvReac Type Severity Reaction Status Date / Time mushroom Allergy Intermediate Hives Verified 03/13/19 22:05 risperidone Allergy Mild LACTATING Verified 03/13/19 22:05 Tetracyclines Allergy Mild HIVES Verified 03/13/19 22:05 mirtazapine Allergy Unknown SHORTNESS Verified 03/13/19 22:05 OF BREATH ranitidine Allergy Unknown SEVERE Verified 03/13/19 22:05 VOMITING Iodinated Contrast- Oral and AdvReac Intermediate "horrible Verified 03/13/19 22:05 IV Dye headache" loratadine AdvReac Mild UNABLE TO Verified 03/13/19 22:05 SLEEP MULTIPLE DAYS Home Medications Home Medications Medication Instructions Recorded Confirmed Type folic acid 1 mg tablet 1 mg PO DAILY 06/24/18 03/13/19 History ondansetron HCl 4 mg tablet 4 mg PO Q8H PRN 06/24/18 03/13/19 History cholecalciferol (vitamin D3) 2,000 2,000 units PO DAILY 06/25/18 03/13/19 History unit capsule vitamin A 0 unit PO DAILY 01/04/19 03/13/19 History nicotine 1 patch TD DAILY #7 ea 01/08/19 03/13/19 Rx bisacodyl [Dulcolax (bisacodyl)] 10 mg [place] DAILY PRN #28 ea 01/09/19 03/13/19 Rx budesonide 0.5 mg/2 mL suspension 0.5 mg INHALATION BID PRN #60 ml 03/11/19 03/13/19 Rx for nebulization diclofenac sodium 75 mg 75 mg PO BID #60 tab 03/11/19 03/13/19 Rx tablet,delayed release famotidine 40 mg tablet 40 mg PO BID PRN #60 tab 03/11/19 03/13/19 Rx gabapentin 800 mg tablet 800 mg PO TID #90 tab 03/11/19 03/13/19 Rx ipratropium-albuterol 0.5 mg-3 3 ml INHALATION QID PRN #180 ml 03/11/19 03/13/19 Rx mg(2.5 mg base)/3 mL nebulization soln metoclopramide 5 mg tablet 5 mg PO AC #90 tab 03/11/19 03/13/19 Rx montelukast 10 mg tablet 10 mg PO QPM #30 tab 03/11/19 03/13/19 Rx pantoprazole 40 mg tablet,delayed 40 mg PO BID #60 tab 03/11/19 03/13/19 Rx release baclofen 20 mg PO TID PRN 03/13/19 03/13/19 History cyanocobalamin (vitamin B-12) 1,000 mcg PO DAILY 03/13/19 03/13/19 History [Vitamin B-12] duloxetine 60 mg PO DAILY 03/13/19 03/13/19 History ipratropium-albuterol [Combivent 1 puff INHALATION QID PRN 03/13/19 03/13/19 History Respimat] methylphenidate HCl 5 mg PO BID 03/13/19 03/13/19 History methylphenidate HCl 10 mg PO BID 03/13/19 03/13/19 History methylphenidate HCl 10 mg PO QPM 03/13/19 03/13/19 History rizatriptan 10 mg TRANSLINGUAL DIRECTED PRN 03/13/19 03/13/19 History sertraline 200 mg PO DAILY 03/13/19 03/13/19 History sucralfate 1 g PO TID PRN 03/13/19 03/13/19 History trazodone 300 mg PO HS 03/13/19 03/13/19 History umeclidinium-vilanterol [Anoro 1 inh INH Q24H 03/13/19 03/13/19 History Ellipta] Past Med/Surg History Medical History Influenza A Pneumonia Obsessive compulsive disorder (Chronic) Posttraumatic stress disorder (Chronic) Anxiety (Chronic) History of seizure disorder (Chronic) Tobacco abuse (Chronic) COPD (chronic obstructive pulmonary disease) (Chronic) MTHFR mutation COPD (chronic obstructive pulmonary disease) (Acute) Gastroparesis (Acute) Surgical History Status post cholecystectomy (Chronic) Status post appendectomy (Chronic) Status post carpal tunnel release (Chronic) History of appendectomy (Acute) History of cholecystectomy (Acute) Social History Preferred Language: Ukrainian Communication Ability: Effective Beliefs That Will Affect Care: None marital status: Current Living Situation: Spouse and Family current occupational status: unemployed and disabled Feels Safe at Home: Yes Smoking Status: Former smoker Second Hand Exposure: No Hx Alcohol Use: Yes Hx Substance Use: Yes substance use type: marijuana Review of Systems Review of Systems: Gen: Denies fevers, night sweats, rigors, fatigue, malaise, weight loss/gain ENT: Denies congestion, throat pain, hearing loss Eyes: Denies acute visual changes CV: Denies CP, palpitations Pulmonary: SOB and cough as above GI: Denies N/V, diarrhea, constipation Neuro: Denies acute or unilateral weakness, acute gait impairment, headache or acute visual changes Musculoskeletal: Denies joint pain, inflammation Endocrine: Denies polydipsia, polyuria Skin: Denies acute rashes or ulcers Physical Exam Physical Exam: General: Thin, middle-aged F - tachypnaic, AAO x 3, no distress ENT: No erythema or exudates, no thrush Eyes: WILDA, EOMI Head and neck: Normocephalic, atraumatic, No JVD, neck is supple. Chest/heart: Nontender, S1,2, RRR, no murmurs, no gallops Lungs: Air movement is compromised - no audible wheezing or crackles Abdomen: Nontender, nondistended, BS+ Neuro: AAO x 3, speech is clear, no unilateral weakness or loss of sensation, coordination intact Musculoskeletal: No joint inflammation, muscle tenderness, FROM Skin: No acute rashes or ulcers Extremities: No clubbing, cyanosis, edema Results & Data Vital Signs (Past 12 Hours) Vital Signs Temp Pulse Pulse Pulse Resp BP BP 03/13/19 22:57 77 85 21 131/78 03/13/19 22:30 79 25 H 03/13/19 22:03 78 20 167/87 H 03/13/19 22:02 79 26 H 03/13/19 21:32 67 20 03/13/19 21:31 67 24 103/73 03/13/19 21:30 66 21 03/13/19 21:26 67 15 03/13/19 21:15 74 73 24 118/67 03/13/19 21:05 65 22 118/67 03/13/19 20:06 98.2 F 86 24 147/82 H Pulse Ox 03/13/19 22:57 95 03/13/19 22:30 94 03/13/19 22:03 100 03/13/19 22:02 97 03/13/19 21:32 100 03/13/19 21:31 100 03/13/19 21:30 03/13/19 21:26 99 03/13/19 21:15 98 03/13/19 21:05 100 03/13/19 20:06 97 PG Care Time/CCT Total # of Minutes Spent Total Time Spent with Patient: Total time spent is greater than 50% in coordinat ion of care (as documented) at patient's floor/unit and/or counseling patient:
[2019-03-14] MEDS ORDERED: ALBUTEROL 0.083% NEBU SOLN 3 ML VIAL NEB PRN (00:04)
[2019-03-14] MEDS ORDERED: ONDANSETRON 4 MG OD TAB PO PRN (00:04)
[2019-03-14] MEDS ORDERED: FAMOTIDINE 20 MG TAB PO PRN (00:04)
[2019-03-14] MEDS ORDERED: BACLOFEN 20 MG TAB PO PRN (00:04)
[2019-03-14] MEDS ORDERED: BUDESONIDE 0.5 MG/2 ML VIAL (PULMICORT) INH PRN (00:04)
[2019-03-14] MEDS ORDERED: SUCRALFATE 1 GM TAB PO PRN (00:04)
[2019-03-14] MEDS ORDERED: AZITHROMYCIN 250 MG in DEXTROSE 5% 250 ML IV SCH ×2 (00:04→18:00)
--- NOTE | 2019-03-14 01:14 | Emergency Department Note ---
Entered by Esther Campbell acting as a scribe for History of Present Illness General Chief complaint: Respiratory Distress Stated complaint: CHEST TIGHTNESS, COUGH, SOB- COPD Time Seen by Provider: 03/13/19 20:16 Source: patient History of Present Illness Onset (ago): day(s) (several) Location: chest Severity: similar to prior episodes Pain Consistency: + other (worsening ) Quality: + other (shortness of breath ) Associated symptoms: + chest pain (tightness), + cough (productive with yellowish green phlegm ) and + other (negative leg swelling ) Treatments prior to arrival: other (steroids and inhalers ) The patient is a 54 year old white female w/ PMHx of COPD and GERD who presents to the ED w/ CC of worsening shortness of breath beginning several days prior to arrival. The patient states that she has had a productive cough with yellowish green phlegm during this time, and states that she has some chest tightness due to her current symptoms. She states that this is similar to prior episodes of COPD exacerbations. The patient states that she has been using her inhalers and taking her steroids regularly. The patient denies leg swelling. She states that she is currently a smoker, and states that she smokes about a pack a day. The patient states that she was last on antibiotics in 2 months ago. Home Medications Home Medications Medication Instructions Recorded Confirmed Type folic acid 1 mg tablet 1 mg PO DAILY 06/24/18 03/13/19 History ondansetron HCl 4 mg tablet 4 mg PO Q8H PRN 06/24/18 03/13/19 History cholecalciferol (vitamin D3) 2,000 2,000 units PO DAILY 06/25/18 03/13/19 History unit capsule vitamin A 0 unit PO DAILY 01/04/19 03/13/19 History nicotine 1 patch TD DAILY #7 ea 01/08/19 03/13/19 Rx bisacodyl [Dulcolax (bisacodyl)] 10 mg [place] DAILY PRN #28 ea 01/09/19 03/13/19 Rx budesonide 0.5 mg/2 mL suspension 0.5 mg INHALATION BID PRN #60 ml 03/11/19 03/13/19 Rx for nebulization diclofenac sodium 75 mg 75 mg PO BID #60 tab 03/11/19 03/13/19 Rx tablet,delayed release famotidine 40 mg tablet 40 mg PO BID PRN #60 tab 03/11/19 03/13/19 Rx gabapentin 800 mg tablet 800 mg PO TID #90 tab 03/11/19 03/13/19 Rx ipratropium-albuterol 0.5 mg-3 3 ml INHALATION QID PRN #180 ml 03/11/19 03/13/19 Rx mg(2.5 mg base)/3 mL nebulization soln metoclopramide 5 mg tablet 5 mg PO AC #90 tab 03/11/19 03/13/19 Rx montelukast 10 mg tablet 10 mg PO QPM #30 tab 03/11/19 03/13/19 Rx pantoprazole 40 mg tablet,delayed 40 mg PO BID #60 tab 03/11/19 03/13/19 Rx release baclofen 20 mg PO TID PRN 03/13/19 03/13/19 History cyanocobalamin (vitamin B-12) 1,000 mcg PO DAILY 03/13/19 03/13/19 History [Vitamin B-12] duloxetine 60 mg PO DAILY 03/13/19 03/13/19 History ipratropium-albuterol [Combivent 1 puff INHALATION QID PRN 03/13/19 03/13/19 History Respimat] methylphenidate HCl 5 mg PO BID 03/13/19 03/13/19 History methylphenidate HCl 10 mg PO BID 03/13/19 03/13/19 History methylphenidate HCl 10 mg PO QPM 03/13/19 03/13/19 History rizatriptan 10 mg TRANSLINGUAL DIRECTED PRN 03/13/19 03/13/19 History sertraline 200 mg PO DAILY 03/13/19 03/13/19 History sucralfate 1 g PO TID PRN 03/13/19 03/13/19 History trazodone 300 mg PO HS 03/13/19 03/13/19 History umeclidinium-vilanterol [Anoro 1 inh INH Q24H 03/13/19 03/13/19 History Ellipta] Allergies Allergy/AdvReac Type Severity Reaction Status Date / Time mushroom Allergy Intermediate Hives Verified 03/13/19 22:05 risperidone Allergy Mild LACTATING Verified 03/13/19 22:05 Tetracyclines Allergy Mild HIVES Verified 03/13/19 22:05 mirtazapine Allergy Unknown SHORTNESS Verified 03/13/19 22:05 OF BREATH ranitidine Allergy Unknown SEVERE Verified 03/13/19 22:05 VOMITING Iodinated Contrast- Oral and AdvReac Intermediate "horrible Verified 03/13/19 22:05 IV Dye headache" loratadine AdvReac Mild UNABLE TO Verified 03/13/19 22:05 SLEEP MULTIPLE DAYS Past Med/Surg History Medical History Influenza A Pneumonia Obsessive compulsive disorder (Chronic) Posttraumatic stress disorder (Chronic) Anxiety (Chronic) History of seizure disorder (Chronic) Tobacco abuse (Chronic) COPD (chronic obstructive pulmonary disease) (Chronic) MTHFR mutation COPD (chronic obstructive pulmonary disease) (Acute) Gastroparesis (Acute) Surgical History Status post cholecystectomy (Chronic) Status post appendectomy (Chronic) Status post carpal tunnel release (Chronic) History of appendectomy (Acute) History of cholecystectomy (Acute) Social History Preferred Language: Dutch Communication Ability: Effective Beliefs That Will Affect Care: None marital status: Current Living Situation: Spouse current occupational status: unemployed and disabled Feels Safe at Home: Yes Smoking Status: Light tobacco smoker Second Hand Exposure: No Hx Alcohol Use: No Hx Substance Use: No Review of Systems See HPI for pertinent positives & negatives. and A total of 10 systems reviewed and were otherwise negative Physical Exam Vital Signs Vital Signs - 24 hr 03/13/19 20:06 03/13/19 21:05 03/13/19 21:15 Temperature 36.8 C Temperature Source Oral Sepsis Action Taken by Nursing No Action Required Pulse Rate 86 65 Pulse Rate [Apical] 74 Pulse Rate [Right Finger] 73 Pulse Rate from SpO2 Sensor 65 Respiratory Rate 24 22 24 Respiratory Effort / Characteristics Labored Labored Blood Pressure 147/82 H 118/67 Blood Pressure [Left Arm] 118/67 Blood Pressure Mean 103 84 Blood Pressure Mean [Left Arm] 84 Pulse Oximetry 97 100 98 Oxygen Delivery Method Room Air Room Air 03/13/19 21:26 03/13/19 21:30 03/13/19 21:31 Temperature Temperature Source Sepsis Action Taken by Nursing Pulse Rate 67 66 67 Pulse Rate [Apical] Pulse Rate [Right Finger] Pulse Rate from SpO2 Sensor 66 67 Respiratory Rate 15 21 24 Respiratory Effort / Characteristics Blood Pressure 103/73 Blood Pressure [Left Arm] Blood Pressure Mean 83 Blood Pressure Mean [Left Arm] Pulse Oximetry 99 100 Oxygen Delivery Method 03/13/19 21:32 03/13/19 22:02 03/13/19 22:03 Temperature Temperature Source Sepsis Action Taken by Nursing Pulse Rate 67 79 78 Pulse Rate [Apical] Pulse Rate [Right Finger] Pulse Rate from SpO2 Sensor 67 85 78 Respiratory Rate 20 26 H 20 Respiratory Effort / Characteristics Blood Pressure 167/87 H Blood Pressure [Left Arm] Blood Pressure Mean 113 Blood Pressure Mean [Left Arm] Pulse Oximetry 100 97 100 Oxygen Delivery Method 03/13/19 22:30 Temperature Temperature Source Sepsis Action Taken by Nursing Pulse Rate 79 Pulse Rate [Apical] Pulse Rate [Right Finger] Pulse Rate from SpO2 Sensor 79 Respiratory Rate 25 H Respiratory Effort / Characteristics Blood Pressure Blood Pressure [Left Arm] Blood Pressure Mean Blood Pressure Mean [Left Arm] Pulse Oximetry 94 Oxygen Delivery Method GENERAL: Moderate distress. Well nourished, non-toxic. Tachypneic. EYE EXAM: Normal conjunctiva. PERRL, no anisocoria and EOM's grossly intact w/o pain. OROPHARYNX: Moist mucus membranes. Grossly normal dentition. NECK: Supple, no nuchal rigidity, no adenopathy, non-tender. no signs of meningismus. Non-stridulous. LUNGS: Tachypneic. Diffuse wheezing throughout. HEART: NSR, no MRG. ABDOMEN: Abdomen soft, non-tender, normo-active bowel sounds, no masses, no rebound or guarding. BACK: No CVA TTP. SKIN: No rashes and no bruising. UPPER EXTREMITIES: Upper extremities are grossly normal. LOWER EXTREMITIES: No pitting edema. No calf pain. Negative Leslie's sign. NEURO EXAM: A&O x3, cranial nerves II-XII grossly intact, normal speech, moves all 4 extremities on command w/o issue. Course 2018: Past medical records reviewed. The patient was evaluated in room B6. A complete history and physical exam was performed. 2221: Per nurse, the patient got up to walk and while walking her pulse ox did not go below 90, but the nurse states that the patient was exerting herself to breathe and had a coughing spell during this. The nurse states that the patient did not walk very far. 2254: [facility] for further evaluation. Consultations Consultation #1: I [facility] for further evaluation. Time: 22:54 Administered Medications Zolpidem Tartrate (Ambien) 5 mg PO HS PRN PRN Reason: Sleep Stop: 04/12/19 22:58 Last Admin: 03/14/19 00:15 Dose: 5 mg Documented by: [id number] Discontinued Medications Albuterol (Duoneb) 12 ml INH ONE STA Stop: 03/13/19 20:23 Last Admin: 03/13/19 21:14 Dose: 12 ml Documented by: [id number] Albuterol (Duoneb) 12 ml NEB ONE ONE Stop: 03/13/19 22:41 Last Admin: 03/13/19 22:53 Dose: 12 ml Documented by: [id number] Azithromycin (Zithromax) 500 mg PO NOW ONE Stop: 03/13/19 22:41 Last Admin: 03/13/19 22:46 Dose: 500 mg Documented by: [id number] Sodium Chloride (Nss 1000ml) 1,000 mls @ 999 mls/hr IV .Q1H1M BESSY Stop: 03/13/19 21:30 Last Infusion: 03/13/19 22:08 Dose: 0 mls/hr Documented by: [id number] Admin: 03/13/19 21:06 Dose: 999 mls/hr Documented by: [id number] Magnesium Sulfate/Dextrose (Magnesium Sulfate / D5w) 1 gm in 100 mls @ 100 mls/hr IV Q1H BESSY Stop: 03/13/19 22:29 Last Infusion: 03/13/19 23:35 Dose: 0 mls/hr Documented by: [id number] Admin: 03/13/19 22:16 Dose: 100 mls/hr Documented by: [id number] Infusion: 03/13/19 22:08 Dose: 0 mls/hr Documented by: [id number] Admin: 03/13/19 21:06 Dose: 100 mls/hr Documented by: [id number] Methylprednisolone (Solumedrol) 125 mg IV NOW STA Stop: 03/13/19 20:23 Last Admin: 03/13/19 21:06 Dose: 125 mg Documented by: [id number] Medical Decision Making Medical Records Attestation: I reviewed the patient's medical records. Home Medications Current Medication List: was personally reviewed by me Laboratory Data Attestation: I reviewed the patient's lab results. Result diagrams: 03/13/19 20:36 03/13/19 20:36 Lab Results 03/13/19 03/13/19 03/13/19 Range/Units 20:36 20:36 20:36 WBC 10.34 (4.8-10.8) K/uL RBC 4.23 (4.2-5.4) M/uL Hgb 13.5 (12.0-16.0) g/dL Hct 39.3 (37-47) % MCV 92.9 (80-100) fL MCH 31.9 (25-34) pg MCHC 34.4 (32-36) g/dL RDW Std Deviation 48.2 H (36.4-46.3) fL RDW Coeff of Nik 14.2 (11.5-14.5) % Plt Count 239 (130-400) K/uL MPV 11.4 H (7.4-10.4) fL Immature Gran % (Auto) 0.3 % Neut % (Auto) 55.5 % Lymph % (Auto) 31.6 % Hodgeman % (Auto) 7.1 % Eos % (Auto) 4.6 % Baso % (Auto) 0.9 % Immature Gran # (Auto) 0.03 H (0.00-0.02) K/uL Neut # (Auto) 5.74 (1.4-6.5) K/uL Lymph # (Auto) 3.27 (1.2-3.4) K/uL Hodgeman # (Auto) 0.73 H (0.11-0.59) K/uL Eos # (Auto) 0.48 (0-0.5) K/uL Baso # (Auto) 0.09 (0-0.2) K/uL PT 10.7 (9.0-12.0) Seconds INR 1.0 (0.9-1.1) APTT 25.6 (21.0-31.0) Seconds PTT Ratio 0.9 VBG pH (7.36-7.41) VBG pCO2 (38-50) mmHg VBG pO2 mmHg VBG HCO3 mmol/L VBG O2 Saturation % VBG Base Excess mEq/L Barometric Pressure mm/Hg Sodium 139 (136-145) mmol/L Potassium 4.0 (3.5-5.1) mmol/L Chloride 107 (98-107) mmol/L Carbon Dioxide 27 (21-32) mmol/L Anion Gap 5.0 (3-11) BUN 11 (7-18) mg/dl Creatinine 0.90 (0.6-1.2) mg/dl Est Cr Clr Drug Dosing 64.4 ml/min Est GFR ( Amer) 84.6 Est GFR (Non-Af Amer) 73.0 BUN/Creatinine Ratio 11.8 (10-20) Glucose 104 H (70-99) mg/dl Calcium 8.6 (8.5-10.1) mg/dl Magnesium 2.0 (1.8-2.4) mg/dl Total Bilirubin 0.3 (0.2-1) mg/dl AST 14 L (15-37) U/L ALT 23 (12-78) U/L Alkaline Phosphatase 95 (45-117) U/L Troponin I < 0.015 (0-0.045) ng/ml Total Protein 7.6 (6.4-8.2) gm/dl Albumin 3.8 (3.4-5.0) gm/dl Globulin 3.8 (2.5-4.0) gm/dl Albumin/Globulin Ratio 1.0 (0.9-2) Urine Color Urine Appearance (Clear) Urine pH (4.5-7.5) Ur Specific Carmichaels (1.000-1.030) Urine Protein (Negative) Urine Glucose (UA) (Negative) Urine Ketones (Negative) Urine Blood (Negative) Urine Nitrite (Negative) Urine Bilirubin (Negative) Urine Urobilinogen (Negative) Ur Leukocyte Esterase (Negative) 03/13/19 03/13/19 Range/Units 20:36 22:03 WBC (4.8-10.8) K/uL RBC (4.2-5.4) M/uL Hgb (12.0-16.0) g/dL Hct (37-47) % MCV (80-100) fL MCH (25-34) pg MCHC (32-36) g/dL RDW Std Deviation (36.4-46.3) fL RDW Coeff of Nik (11.5-14.5) % Plt Count (130-400) K/uL MPV (7.4-10.4) fL Immature Gran % (Auto) % Neut % (Auto) % Lymph % (Auto) % Hodgeman % (Auto) % Eos % (Auto) % Baso % (Auto) % Immature Gran # (Auto) (0.00-0.02) K/uL Neut # (Auto) (1.4-6.5) K/uL Lymph # (Auto) (1.2-3.4) K/uL Hodgeman # (Auto) (0.11-0.59) K/uL Eos # (Auto) (0-0.5) K/uL Baso # (Auto) (0-0.2) K/uL PT (9.0-12.0) Seconds INR (0.9-1.1) APTT (21.0-31.0) Seconds PTT Ratio VBG pH 7.44 H (7.36-7.41) VBG pCO2 36 L (38-50) mmHg VBG pO2 33 mmHg VBG HCO3 24 mmol/L VBG O2 Saturation 70.5 % VBG Base Excess -0.1 mEq/L Barometric Pressure 720.3 mm/Hg Sodium (136-145) mmol/L Potassium (3.5-5.1) mmol/L Chloride (98-107) mmol/L Carbon Dioxide (21-32) mmol/L Anion Gap (3-11) BUN (7-18) mg/dl Creatinine (0.6-1.2) mg/dl Est Cr Clr Drug Dosing ml/min Est GFR ( Amer) Est GFR (Non-Af Amer) BUN/Creatinine Ratio (10-20) Glucose (70-99) mg/dl Calcium (8.5-10.1) mg/dl Magnesium (1.8-2.4) mg/dl Total Bilirubin (0.2-1) mg/dl AST (15-37) U/L ALT (12-78) U/L Alkaline Phosphatase (45-117) U/L Troponin I (0-0.045) ng/ml Total Protein (6.4-8.2) gm/dl Albumin (3.4-5.0) gm/dl Globulin (2.5-4.0) gm/dl Albumin/Globulin Ratio (0.9-2) Urine Color Yellow Urine Appearance Clear (Clear) Urine pH 6.5 (4.5-7.5) Ur Specific Carmichaels 1.011 (1.000-1.030) Urine Protein Negative (Negative) Urine Glucose (UA) Negative (Negative) Urine Ketones Negative (Negative) Urine Blood Negative (Negative) Urine Nitrite Negative (Negative) Urine Bilirubin Negative (Negative) Urine Urobilinogen Negative (Negative) Ur Leukocyte Esterase Negative (Negative) Imaging Data Radiologist's Impression: Radiology results as stated below per my review and the radiologist's interpretation: XR chest 1V portable CLINICAL HISTORY: Dyspnea. COMPARISON STUDY: Chest radiograph February 04, 2019. Chest CT February 05, 2019. FINDINGS: A calcified left lobe thyroid nodule is better depicted on prior CT. Emphysema is present. There is no pneumothorax or pleural effusion. There is no consolidation or evidence for pulmonary edema. IMPRESSION: 1. No acute cardiopulmonary findings. 2. Emphysema. Electronically signed by: Alex Fowler M.D. 03/13/2019 8:58 PM ECG Data Attestation: I personally reviewed and interpreted this ECG as follows: Indication: SOB/dyspnea Rate (beats per minute): 79 Rhythm: normal sinus Findings: + other (normal intervals; normal axis); no acute ischemic change Blood Pressure Blood Pressure Findings: Normal blood pressure MDM Narrative The patient is a 54 year old white female w/ PMHx of COPD and GERD who presents to the ED w/ CC of worsening shortness of breath beginning several days prior to arrival. Differential diagnosis: Etiologies such as infections, reactive airway disease, pneumonia, pneumothorax, COPD, CHF, cardiac ischemia, pulmonary embolism, musculoskeletal, gastroi ntestinal, as well as others were entertained. Patient was seen and evaluated the bedside. The patient was complaining of dyspnea. The patient does have GARRISON but no orthopnea or lower extremity swel ling. No prior history of DVT or PE. The patient does have a known history of COPD and is a continual smoker. The patient was counseled on smoking cessation. The patient has been using her DuoNeb nebulizers at home in addition to her steroids. Patient did have blood work completed EKG was started on hour-long DuoNeb magnesium IV fluids and Solu-Medrol. Upon reassessment the patient had some increased wheezing which I believe is due to making her airway slightly more patent; however, the patient does still appear dyspneic. I did have the nurse perform an ambulatory trial and although the patient was not hypoxic the patient was very tachypneic and was not able to tolerate a very long duration of ambulation before tiring. Given this the patient was ordered azithromycin as well as additional hour-long DuoNeb and I did speak with the on-call hospitalist who agreed to further evaluate treat the patient. Patient was admitted to the medicine service. Impression & Plan COPD exacerbation, Dyspnea, Encounter for smoking cessation counseling Discharge Plan Visit Data *Final* Discharge Date/Time: 03/13/19 23:09 Chief Complaint: Respiratory Distress Stated Complaint: CHEST TIGHTNESS, COUGH, SOB- COPD ED Provider: Johnathan Shepherd Discharge Problem: COPD exacerbation, Dyspnea, Encounter for smoking cessation counseling Patient Disposition: Admitted As Inpatient Discharge Instructions Interventions: ED Discharge Assessment Last Done: 03/13/19 23:09 Discharge Problem: Dyspnea Qualifiers: Dyspnea type: acute respiratory distress Qualified Code(s): R06.03 - Acute respiratory distress The scribe's documentation has been prepared under my direction and personally reviewed by me in its entirety. I confirm that the note above accurately reflects all work, treatment, procedures, and medical decision making performed by me.
[2019-03-14] MEDS: TRAZODONE HCL 100 MG TAB PO SCH ×2 (01:37→20:49)
[2019-03-14] MEDS: ENOXAPARIN INJ 40 MG/0.4 ML SYR SQ SCH ×2 (02:20→11:40)
[2019-03-14] MEDS: ALBUT/IPRATROP 3MG/0.5MG NEB 3 ML VIAL NEB SCH ×5 (03:21→21:22)
[2019-03-14] MEDS ORDERED: RIZATRIPTAN BENZOATE MLT 10 MG TAB PO PRN (04:02)
[2019-03-14] MEDS: methylPREDNISolone 60 MG in SYRINGE 0 ML IV SCH ×4 (04:52→20:50)
[2019-03-14 06:39] LABS: BUN Creatinine Ratio 12.2 (10-20); Calcium 8.6 mg/dl (8.5-10.1); Creatinine Clr Calc Pharmacy 63.4 ml/min; Est GFR (African American) 83.5; Magnesium 2.5 mg/dl (1.8-2.4); Potassium 4.1 mmol/L (3.5-5.1)
[2019-03-14] MEDS: METOCLOPRAMIDE HCL 5 MG TABLET PO SCH ×3 (07:38→16:35)
[2019-03-14] MEDS: NICOTINE 14 MG/24 HR PATCH TD SCH (07:39)
[2019-03-14] MEDS: SERTRALINE HCL 100 MG TABLET PO SCH (07:40)
[2019-03-14] MEDS: DULOXETINE HCL 60 MG CAP PO SCH (07:41)
[2019-03-14] MEDS: FOLIC ACID 1 MG TAB PO SCH (07:41)
[2019-03-14] MEDS: CYANOCOBALAMIN 500 MCG TABLET (VITAMIN B-12) PO SCH (07:41)
[2019-03-14] MEDS: GABAPENTIN 800 MG TAB PO SCH ×3 (07:42→20:49)
[2019-03-14] MEDS: PANTOprazole 40 MG TAB PO SCH ×2 (07:42→20:49)
[2019-03-14] MEDS: CHOLECALCIFEROL 1,000 UNITS TAB PO SCH (07:43)
[2019-03-14] MEDS: METHYLPHENIDATE HCL 5 MG TABLET PO SCH ×2 (07:44→14:05)
[2019-03-14] MEDS: METHYLPHENIDATE HCL 10 MG TABLET PO SCH ×3 (07:44→18:06)
[2019-03-14] MEDS ORDERED: DICLOFENAC SODIUM 75 MG TABCR PO SCH (09:00)
[2019-03-14] MEDS ORDERED: SODIUM CHLORIDE 0.65% NA SOLN 45 ML (OCEAN) PRN (14:47)
[2019-03-14] MEDS: AZITHROMYCIN 250 MG TAB PO SCH (16:16)
[2019-03-14] MEDS: guaiFENesin 600 MG TABCR PO SCH ×2 (16:16→20:58)
--- NOTE | 2019-03-14 19:12 | Hospitalist Progress Note ---
Date of Service March 14, 2019 Assessment & Plan (1) COPD exacerbation: severe. would not change steroids today (but receiving very large amount for her weight) - hopefully wean tomorrow. cont nebs. cont inhalers. needs more pulmonary toilet - incentive spirometry and flutter valve. mucinex. change IV zithromax to PO. complete 5 days in total. d/c tele -- move to med/surg. repeat 2-view cxr in am. for insomnia and to help nocturnal cough - robitussin AC 5cc scheduled at HS Present on Admission?: Yes (2) Lumbar degenerative disc disease: cont home meds for such Present on Admission?: Yes (3) Chronic pain: cont home meds Present on Admission?: Yes (4) GERD (gastroesophageal reflux disease): PPI twice daily carafate TID prn Present on Admission?: Yes (5) Gastroparesis: reglan AC Present on Admission?: Yes (6) Posttraumatic stress disorder: cont all home psychotropic meds Present on Admission?: Yes (7) Anxiety: no issues cont home meds Present on Admission?: Yes (8) History of seizure disorder: (9) Tobacco abuse: needs to quit smoking in light of severe lung disease Present on Admission?: Yes (10) ADD (attention deficit disorder): cont methylphenidate per home regimen Present on Admission?: Yes (11) DVT prophylaxis: lovenox daily Subjective tele stable overnight. c/o severe cough and severe wheezing along with GARRISON with simply walking from the bed to the bathroom. she normally can "walk across an entire soccer field" before having to rest. she asks for something to sleep. cough is largely nonproductive. Review of Systems Constitutional: no fever and no chills Respiratory: + cough, + chest congestion, + dyspnea, + dyspnea on exertion and + wheezing; no hemoptysis and no sputum production Cardiovascular: + chest pain (with walking) Gastrointestinal: no abdominal pain Physical Exam Constitutional: + acute distress (constantly coughing) and average body habitus; no altered mental status ENMT: external ear and nose normal, oropharynx normal Respiratory: able to speak in complete sentences and + audible wheezes Auscultation: + rhonchi and + wheezes (all lung segments; severe) extremely prolonged expiratory phase Cardiovascular: Rate/Rhythm: regular rate and regular rhythm Heart Sounds: normal S1 and normal S2; no murmur Vessels: posterior tibial pulses present and dorsalis pedis pulses present; no JVD heart tones distant Gastrointestinal (Abdomen): normal bowel sounds, soft, nontender, no hepatosplenomegaly Psychiatric: A+Ox3, euthymic affect Results & Data Vital Signs (Past 12 Hours) Vital Signs Temp Pulse Resp BP Pulse Ox 03/14/19 18:02 36.7 C 82 20 125/69 95 03/14/19 15:18 84 16 96 03/14/19 15:08 37.3 C 77 18 114/70 95 03/14/19 11:34 37.0 C 85 19 103/62 94 03/14/19 11:01 91 H 16 93 03/14/19 07:34 36.7 C 92 H 19 103/80 95 03/14/19 07:07 85 18 91 Laboratory Results Laboratory Results - last 24 hr 03/14/19 05:52 Sodium 143 Potassium 4.1 Chloride 113 H Carbon Dioxide 23 Anion Gap 8.0 BUN 11 Creatinine 0.91 Est Cr Clr Drug Dosing 63.4 Est GFR ( Amer) 83.5 Est GFR (Non-Af Amer) 72.0 BUN/Creatinine Ratio 12.2 Glucose 145 H Calcium 8.6 Magnesium 2.5 H PG Care Time/CCT Total # of Minutes Spent Total Time Spent with Patient: Total time spent is greater than 50% in coordi nation of care (as documented) at patient's floor/unit and/or counseling patient: (1) Chronic pain Chronic pain type: chronic pain syndrome Qualified Code(s): G89.4 - Chronic pain syndrome (2) GERD (gastroesophageal reflux disease) Esophagitis presence: esophagitis presence not specified Qualified Code(s): K21.9 - Gastro-esophageal reflux disease without esophagitis (3) ADD (attention deficit disorder) Hyperactivity presence: unspecified Qualified Code(s): F98.8 - Other specified behavioral and emotional disorders with onset usually occurring in childhood and adolescence
[2019-03-14] MEDS: MONTELUKAST SODIUM 10 MG TABLET PO SCH (20:49)
[2019-03-14] MEDS: BENZONATATE 100 MG CAPSULE PO SCH (20:49)
[2019-03-14] MEDS: GUAIFENESIN/CODEINE 100MG/10MG 5ML UDC PO SCH (20:50)
[2019-03-15] MEDS: methylPREDNISolone 60 MG in SYRINGE 0 ML IV SCH ×2 (03:10→08:32)
[2019-03-15] MEDS: ALBUT/IPRATROP 3MG/0.5MG NEB 3 ML VIAL NEB SCH ×4 (07:03→19:37)
[2019-03-15] MEDS: METOCLOPRAMIDE HCL 5 MG TABLET PO SCH ×3 (07:20→16:42)
[2019-03-15 07:29] LABS: BUN Creatinine Ratio 20.1 (10-20); Creatinine Clr Calc Pharmacy 64.1 ml/min; Est GFR (African American) 84.6; Potassium 4.4 mmol/L (3.5-5.1)
[2019-03-15] MEDS: FOLIC ACID 1 MG TAB PO SCH (08:31)
[2019-03-15] MEDS: DULOXETINE HCL 60 MG CAP PO SCH (08:32)
[2019-03-15] MEDS: PANTOprazole 40 MG TAB PO SCH ×2 (08:32→20:20)
[2019-03-15] MEDS: GABAPENTIN 800 MG TAB PO SCH ×3 (08:32→20:20)
[2019-03-15] MEDS: CHOLECALCIFEROL 1,000 UNITS TAB PO SCH (08:32)
[2019-03-15] MEDS: AZITHROMYCIN 250 MG TAB PO SCH (08:33)
[2019-03-15] MEDS: SERTRALINE HCL 100 MG TABLET PO SCH (08:33)
[2019-03-15] MEDS: CYANOCOBALAMIN 500 MCG TABLET (VITAMIN B-12) PO SCH (08:33)
[2019-03-15] MEDS: BENZONATATE 100 MG CAPSULE PO SCH ×3 (08:33→20:20)
[2019-03-15] MEDS: NICOTINE 14 MG/24 HR PATCH TD SCH (08:34)
[2019-03-15] MEDS: METHYLPHENIDATE HCL 10 MG TABLET PO SCH ×3 (08:35→17:11)
[2019-03-15] MEDS: METHYLPHENIDATE HCL 5 MG TABLET PO SCH ×2 (08:35→13:28)
[2019-03-15] MEDS: guaiFENesin 600 MG TABCR PO SCH ×2 (09:22→20:20)
--- NOTE | 2019-03-15 10:21 | XRay Report ---
XR chest 2V routine CLINICAL HISTORY: COPD exacerbation COMPARISON STUDY: Chest CT February 05, 2019. Chest radiograph March 13, 2019. FINDINGS: Lung hyperexpansion with emphysema is noted. There are cholecystectomy clips. Old right fif th rib fracture is incidentally noted. There is no consolidation to suggest pneumonia. Cardiac size i s normal. Mediastinal contours are normal. There is no evidence for pulmonary edema. Linear left basi lar opacity suggests atelectasis. IMPRESSION: 1. No acute cardiopulmonary findings. 2. Emphysema. Electronically signed by: Alex Fowler M.D. 03/15/2019 10:19 AM
[2019-03-15] MEDS ORDERED: ARTIFICIAL TEARS OP PRN (11:26)
[2019-03-15] MEDS: ENOXAPARIN INJ 40 MG/0.4 ML SYR SQ SCH (12:36)
[2019-03-15] MEDS: BISACODYL 10 MG SUPP PR PRN (13:27)
[2019-03-15] MEDS: methylPREDNISolone 40 MG in SYRINGE 0 ML IV SCH (17:10)
[2019-03-15] MEDS: TRAZODONE HCL 100 MG TAB PO SCH (20:20)
[2019-03-15] MEDS: GUAIFENESIN/CODEINE 100MG/10MG 5ML UDC PO SCH (20:20)
[2019-03-15] MEDS: MONTELUKAST SODIUM 10 MG TABLET PO SCH (20:20)
[2019-03-15] MEDS: prednisoLONE acetate 1% OP SUSP 5 ML BTL OP SCH (20:21)
[2019-03-16] MEDS: methylPREDNISolone 40 MG in SYRINGE 0 ML IV SCH ×3 (02:29→17:38)
--- NOTE | 2019-03-16 05:02 | Hospitalist Progress Note ---
Date of Service March 15, 2019 Assessment & Plan (1) COPD exacerbation: severe flare. modestly improved today. wean steroids today - cut to 40mg IV q8h (from 60 q6h). cont nebs. cont inhalers. cont incentive spirometry and flutter valve. mucinex. cont zithromax - day #3 today. complete 5 days in total. repeat 2-view cxr today still w/o pneumonia. for insomnia and to help nocturnal cough - continue robitussin AC 5cc scheduled at HS (2) Lumbar degenerative disc disease: cont home meds for such add K pad heating pad (3) Chronic pain: cont home meds (4) GERD (gastroesophageal reflux disease): PPI twice daily carafate TID prn (5) Gastroparesis: reglan AC (6) Posttraumatic stress disorder: cont all home psychotropic meds (7) Anxiety: no issues cont home meds (8) History of seizure disorder: no issues (9) Tobacco abuse: needs to quit smoking in light of severe lung disease (10) ADD (attention deficit disorder): cont methylphenidate per home regimen (11) DVT prophylaxis: lovenox daily making progress albeit slowly updated by phone 03/15/19 Subjective patient feeling better today. less dyspnea. better abilty to take larger breaths. not as labored w/ breathing. coughing fits are less frequent. she DID sleep decently last night with scheduled robitussin AC at HS. c/o low back pain - this is CHRONIC. Review of Systems Constitutional: no fever and no chills Respiratory: + wheezing; no hemoptysis Cardiovascular: no chest pain and no orthopnea Gastrointestinal: no abdominal pain Physical Exam Constitutional: + thin; no acute distress and no altered mental status looks a bit better this am vs yesterday ENMT: external ear and nose normal, oropharynx normal Respiratory: Auscultation: + rhonchi and + wheezes; no rales airation improved today; wheezes still quite prominent but not as severe today Cardiovascular: Rate/Rhythm: regular rate and regular rhythm Heart Sounds: normal S1 and normal S2; no murmur Vessels: posterior tibial pulses present and dorsalis pedis pulses present; no JVD Extremities: no edema heart tones distant Gastrointestinal (Abdomen): normal bowel sounds, soft, nontender, no hepatosplenomegaly Psychiatric: A+Ox3, euthymic affect Results & Data Vital Signs (Past 12 Hours) Vital Signs Temp Pulse Resp BP Pulse Ox 03/15/19 23:09 36.9 C 75 18 124/69 94 03/15/19 19:39 71 16 94 PG Care Time/CCT Total # of Minutes Spent Total Time Spent with Patient: Total time spent is greater than 50% in coordination of care (as documented) at patient's floor/unit and/or counseling patient: (1) Chronic pain Chronic pain type: chronic pain syndrome Qualified Code(s): G89.4 - Chronic pain syndrome (2) GERD (gastroesophageal reflux disease) Esophagitis presence: esophagitis presence not specified Qualified Code(s): K21.9 - Gastro-esophageal reflux disease without esophagitis (3) ADD (attention deficit disorder) Hyperactivity presence: unspecified Qualified Code(s): F98.8 - Other specified behavioral and emotional disorders with onset usually occurring in childhood and adolescence
[2019-03-16] MEDS: ALBUT/IPRATROP 3MG/0.5MG NEB 3 ML VIAL NEB SCH ×4 (07:08→18:57)
[2019-03-16] MEDS: METOCLOPRAMIDE HCL 5 MG TABLET PO SCH ×3 (07:22→17:03)
[2019-03-16] MEDS: METHYLPHENIDATE HCL 5 MG TABLET PO SCH ×2 (07:29→13:10)
[2019-03-16] MEDS: METHYLPHENIDATE HCL 10 MG TABLET PO SCH ×3 (07:29→17:38)
[2019-03-16] MEDS: NICOTINE 14 MG/24 HR PATCH TD SCH (07:34)
[2019-03-16] MEDS: DULOXETINE HCL 60 MG CAP PO SCH (07:34)
[2019-03-16] MEDS: GABAPENTIN 800 MG TAB PO SCH ×3 (07:34→21:22)
[2019-03-16] MEDS: BENZONATATE 100 MG CAPSULE PO SCH ×3 (07:34→21:22)
[2019-03-16] MEDS: PANTOprazole 40 MG TAB PO SCH ×2 (07:34→21:22)
[2019-03-16] MEDS: guaiFENesin 600 MG TABCR PO SCH ×2 (07:34→21:22)
[2019-03-16] MEDS: CYANOCOBALAMIN 500 MCG TABLET (VITAMIN B-12) PO SCH (07:34)
[2019-03-16] MEDS: FOLIC ACID 1 MG TAB PO SCH (07:34)
[2019-03-16] MEDS: CHOLECALCIFEROL 1,000 UNITS TAB PO SCH (07:35)
[2019-03-16] MEDS: SERTRALINE HCL 100 MG TABLET PO SCH (07:35)
[2019-03-16] MEDS: AZITHROMYCIN 250 MG TAB PO SCH (07:35)
[2019-03-16] MEDS: BISACODYL 10 MG SUPP PR PRN (09:08)
[2019-03-16] MEDS ORDERED: LACTULOSE SYRUP 30 GM/45 ML UDP PO PRN (11:10)
--- NOTE | 2019-03-16 11:16 | Hospitalist Progress Note ---
Date of Service March 16, 2019 Assessment & Plan (1) COPD exacerbation: severe flare. continues to improve very slowly, harsh cough, very short of breath with minimal exertion continue Solu Medrol 40mg IV q8 cont nebs. cont inhalers. cont incentive spirometry and flutter valve. mucinex. cont zithromax - day #4 today. complete 5 days in total. repeat 2-view cxr on 03/15 still w/o pneumonia. for insomnia and to help nocturnal cough - continue robitussin AC 5cc scheduled at HS (2) Lumbar degenerative disc disease: cont home meds for such add K pad heating pad worsening pain today Toradol 30mg IV now Morphine 2mg for mod pain, 4mg for severe pain (3) Constipation: abdomen distended, hypoactive bowel sounds, early satiety no success with two suppositories will make Miralax scheduled BID add lactulose 30gm TID until she moves bowels try enema tomorrow if no success today (4) Chronic pain: see above normally uses medical marijuana and follows with pain management (5) GERD (gastroesophageal reflux disease): PPI twice daily carafate TID prn (6) Gastroparesis: reglan AC (7) Posttraumatic stress disorder: cont all home psychotropic meds (8) Anxiety: no issues cont home meds (9) History of seizure disorder: no issues (10) Tobacco abuse: needs to quit smoking in light of severe lung disease (11) ADD (attention deficit disorder): cont methylphenidate per home regimen (12) DVT prophylaxis: lovenox daily making progress albeit slowly updated by phone 03/15/19 Subjective patient's main complaint is constipation and increased low back pain she says it has been 5 days since she moved her bowels, this is atypical for her says she feels bloated, early satiety, no nausea she says that the constipation is putting pressure on her back, making radiculopathy worse at home she uses marijuana for the pain she is supposed to see pain management again soon her cough is still harsh and she still has dyspnea just walking around the hospital room Review of Systems Review of Systems: All systems reviewed & are unremarkable except as noted in HPI & below Constitutional: no fever, no chills and no sweats Respiratory: + cough and + dyspnea on exertion; no dyspnea and no sputum production Cardiovascular: no chest pain and no edema Gastrointestinal: + bloating, + early satiety and + constipation; no abdominal pain, no nausea, no vomiting and no diarrhea/loose stools Musculoskeletal: + back pain Physical Exam Constitutional: WD/WN, vitals as above Eyes: PERRL, conjunctivae normal, anicteric sclerae ENMT: external ear and nose normal, oropharynx normal Neck: trachea midline, no thyromegaly Respiratory: normal respiratory effort and + cough (harsh); no respiratory distress Auscultation: lungs clear to auscultation bilaterally; no wheezes Cardiovascular: RRR, no murmur, no edema Gastrointestinal (Abdomen): Inspection/Auscultation: + abdomen distended and + hypoactive bowel sounds Percussion/Palpation: abdomen soft and + tympanic to percussion; abdomen nontender, no guarding and abdomen not rigid Musculoskeletal: Head/Neck/Chest: normocephalic and head atraumatic Spine: + limited thoraco-lumbar ROM Extremities: extremities normal to inspection and strength 5/5 throughout Skin: no rashes, warm and dry Neurologic: patellar DTR's 2+ bilat, sensation intact and PERRL, EOMI, accommodation nl, no face palsy, no dysarthria Psychiatric: A+Ox3, euthymic affect Lymphatic: no cervical or axillary lymphadenopathy Results & Data Vital Signs (Past 12 Hours) Vital Signs Temp Pulse Resp BP Pulse Ox 03/16/19 07:14 37 C 65 18 124/85 94 03/16/19 07:08 73 18 94 Medications Administered Current Inpatient Medications Acetaminophen (Tylenol) 650 mg PO Q4H PRN PRN Reason: Pain or Fever Stop: 04/12/19 22:58 Al Hydrox/Mg Hydrox/Simethicone (Maalox) 15 ml PO Q4H PRN PRN Reason: Dyspepsia Stop: 04/12/19 22:58 Albuterol (Duoneb) 3 ml NEB QIDR [facility] Stop: 04/13/19 07:59 Last Admin: 03/16/19 07:08 Dose: 3 ml Documented by: Albuterol (Ventolin 0.083% 2.5mg/3ml) 2.5 mg NEB Q4H PRN PRN Reason: Shortness Of Breath Stop: 04/13/19 00:03 Artificial Tears (Artificial Tears) 1 drops OP Q3H PRN PRN Reason: Dryness Stop: 04/14/19 11:25 Azithromycin (Zithromax) 250 mg PO QAM [facility] Stop: 03/21/19 14:59 Last Admin: 03/16/19 07:35 Dose: 250 mg Documented by: Baclofen (Lioresal) 20 mg PO TID PRN PRN Reason: Muscle Spasm Stop: 04/13/19 00:03 Last Admin: 03/14/19 14:08 Dose: 20 mg Documented by: Benzonatate (Tessalon Perle) 100 mg PO TID [facility] Stop: 04/13/19 20:59 Last Admin: 03/16/19 07:34 Dose: 100 mg Documented by: Bisacodyl (Dulcolax) 10 mg CA DAILY PRN PRN Reason: constipation Stop: 04/13/19 00:03 Last Admin: 03/16/19 09:08 Dose: 10 mg Documented by: Budesonide (Pulmicort Respules) 0.5 mg INH BID PRN PRN Reason: Shortness Of Breath Or Wheezin Stop: 04/13/19 00:03 Cyanocobalamin (Vitamin B-12) 1,000 mcg PO DAILY [facility] Stop: 04/13/19 08:59 Last Admin: 03/16/19 07:34 Dose: 1,000 mcg Documented by: Duloxetine HCl (Cymbalta) 60 mg PO DAILY [facility] Stop: 04/13/19 08:59 Last Admin: 03/16/19 07:34 Dose: 60 mg Documented by: Enoxaparin Sodium (Lovenox) 40 mg SQ Q24H [facility] Stop: 04/12/19 22:59 Last Admin: 03/15/19 12:36 Dose: 40 mg Documented by: Famotidine (Pepcid) 40 mg PO BID PRN PRN Reason: Acid Reflux Stop: 04/13/19 00:03 Folic Acid (Folvite) 1 mg PO DAILY [facility] Stop: 04/13/19 08:59 Last Admin: 03/16/19 07:34 Dose: 1 mg Documented by: Gabapentin (Neurontin) 800 mg PO TID [facility] Stop: 04/13/19 08:59 Last Admin: 03/16/19 07:34 Dose: 800 mg Documented by: Guaifenesin (Mucinex) 600 mg PO Q12 [facility] Stop: 04/13/19 14:44 Last Admin: 03/16/19 07:34 Dose: 600 mg Documented by: Guaifenesin/Codeine Phosphate (Robitussin-Ac Sugar Free) 5 ml PO HS [facility] Stop: 04/13/19 20:59 Last Admin: 03/15/19 20:20 Dose: 5 ml Documented by: Methylprednisolone 40 mg/ (Syringe) 0.64 mls @ 1.5 mls/min IV Q8H [facility] Stop: 04/14/19 17:59 Last Admin: 03/16/19 09:09 Dose: 1.5 mls/min Documented by: Lactulose (Chronulac) 30 gm PO Q8 PRN PRN Reason: Constipation Stop: 04/15/19 11:09 Magnesium Hydroxide (Milk Of Magnesia) 30 ml PO Q12H PRN PRN Reason: Constipation Stop: 04/12/19 22:58 Methylphenidate HCl (Ritalin) 5 mg PO BID@0900,1400 [facility] Stop: 03/28/19 08:59 Last Admin: 03/16/19 07:29 Dose: Not Given Documented by: Methylphenidate HCl (Ritalin) 10 mg PO DAILY@1800 [facility] Stop: 03/28/19 17:59 Last Admin: 03/15/19 17:11 Dose: Not Given Documented by: Methylphenidate HCl (Ritalin) 10 mg PO BID@0900,1400 [facility] Stop: 03/28/19 08:59 Last Admin: 03/16/19 07:29 Dose: Not Given Documented by: Metoclopramide HCl (Reglan) 5 mg PO AC [facility] Stop: 04/13/19 07:29 Last Admin: 03/16/19 07:22 Dose: 5 mg Documented by: Miscellaneous (Remove Nicoderm Patch) 1 ea N/A DAILY [facility] Stop: 04/13/19 08:59 Last Admin: 03/16/19 07:34 Dose: 1 ea Documented by: Montelukast Sodium (Singulair) 10 mg PO QPM [facility] Stop: 04/13/19 20:59 Last Admin: 03/15/19 20:20 Dose: 10 mg Documented by: Nicotine (Nicoderm Cq) 14 mg TD DAILY [facility] Stop: 04/13/19 08:59 Last Admin: 03/16/19 07:34 Dose: 14 mg Documented by: Ondansetron HCl (Zofran) 4 mg IV Q6H PRN PRN Reason: Nausea Stop: 04/12/19 22:58 Ondansetron HCl (Zofran Odt) 4 mg PO Q8H PRN PRN Reason: Nausea Stop: 04/13/19 00:03 Pantoprazole Sodium (Protonix) 40 mg PO BID [facility] Stop: 04/13/19 08:59 Last Admin: 03/16/19 07:34 Dose: 40 mg Documented by: Polyethylene Glycol (Miralax Powder Packet) 17 gm PO DAILY PRN PRN Reason: Constipation Stop: 04/12/19 22:58 Prednisolone Acetate (Pred Forte 1%) 1 drops OP HS [facility] Stop: 04/14/19 20:59 Last Admin: 03/15/19 20:21 Dose: 1 drops Documented by: Rizatriptan Benzoate (Maxalt-Departmental Buyer) 10 mg PO UD PRN PRN Reason: Headache Stop: 04/13/19 04:01 Sertraline HCl (Zoloft) 200 mg PO DAILY [facility] Stop: 04/13/19 08:59 Last Admin: 03/16/19 07:35 Dose: 200 mg Documented by: Sodium Chloride (Foss Nasal) 2 sprays NA Q1H PRN PRN Reason: Nasal Congestion Stop: 04/13/19 14:46 Sucralfate (Carafate Tab) 1 gm PO TID PRN PRN Reason: Heartburn Stop: 04/13/19 00:03 Last Admin: 03/14/19 07:41 Dose: 1 gm Documented by: Trazodone HCl (Desyrel) 300 mg PO HS [facility] Stop: 04/13/19 20:59 Last Admin: 03/15/19 20:20 Dose: 300 mg Documented by: Vitamin D (Vitamin D3) 2,000 units PO DAILY [facility] Stop: 04/13/19 08:59 Last Admin: 03/16/19 07:35 Dose: 2,000 units Documented by: PG Care Time/CCT Total # of Minutes Spent Total Time Spent with Patient: Total time spent is greater than 50% in coordination of care (as documented) at patient's floor/unit and/or counseling patient: (1) Chronic pain Chronic pain type: chronic pain syndrome Qualified Code(s): G89.4 - Chronic pain syndrome (2) GERD (gastroesophageal reflux disease) Esophagitis presence: esophagitis presence not specified Qualified Code(s): K21.9 - Gastro-esophageal reflux disease without esophagitis (3) ADD (attention deficit disorder) Hyperactivity presence: unspecified Qualified Code(s): F98.8 - Other specified behavioral and emotional disorders with onset usually occurring in childhood and adolescence
[2019-03-16] MEDS ORDERED: KETOROLAC 30 MG/ML VIAL IV STA (11:19)
[2019-03-16] MEDS: ENOXAPARIN INJ 40 MG/0.4 ML SYR SQ SCH (11:54)
[2019-03-16] MEDS: MoRPHine SULFATE 4 MG/ML 1 ML CARP\\VIAL IV PRN ×2 (13:18→18:02)
[2019-03-16] MEDS: prednisoLONE acetate 1% OP SUSP 5 ML BTL OP SCH (21:20)
[2019-03-16] MEDS: TRAZODONE HCL 100 MG TAB PO SCH (21:21)
[2019-03-16] MEDS: GUAIFENESIN/CODEINE 100MG/10MG 5ML UDC PO SCH (21:22)
[2019-03-16] MEDS: POLYETHYLENE (MIRALAX) 17 GM PACK PO SCH (21:22)
[2019-03-16] MEDS: MONTELUKAST SODIUM 10 MG TABLET PO SCH (21:22)
[2019-03-17] MEDS: methylPREDNISolone 40 MG in SYRINGE 0 ML IV SCH ×3 (02:14→18:09)
[2019-03-17 06:39] LABS: Hematocrit (blood only) 37.9 % (37-47); Hemoglobin 12.6 g/dL (12.0-16.0); Mean Corpuscular Hgb Conc 33.2 g/dL (32-36); Mean Corpuscular Volume 92.7 fL (80-100); Mean Platelet Volume 11.7 fL (7.4-10.4); Platelet Count 212 K/uL (130-400); RDW Coefficient of Variation 14.5 % (11.5-14.5); RDW Standard Deviation 49.5 fL (36.4-46.3); Red Blood Count 4.09 M/uL (4.2-5.4); White Blood Count 9.33 K/uL (4.8-10.8)
[2019-03-17 07:05] LABS: Creatinine Clr Calc Pharmacy 62.7 ml/min; Est GFR (African American) 82.4; Est GFR (Non-African American) 71.1
[2019-03-17] MEDS: ALBUT/IPRATROP 3MG/0.5MG NEB 3 ML VIAL NEB SCH ×4 (07:19→19:02)
[2019-03-17] MEDS: METOCLOPRAMIDE HCL 5 MG TABLET PO SCH ×3 (07:58→17:09)
[2019-03-17] MEDS: AZITHROMYCIN 250 MG TAB PO SCH (09:00)
[2019-03-17] MEDS: FOLIC ACID 1 MG TAB PO SCH (09:00)
[2019-03-17] MEDS: PANTOprazole 40 MG TAB PO SCH ×2 (09:00→21:44)
[2019-03-17] MEDS: DULOXETINE HCL 60 MG CAP PO SCH (09:01)
[2019-03-17] MEDS: guaiFENesin 600 MG TABCR PO SCH ×2 (09:01→21:43)
[2019-03-17] MEDS: SERTRALINE HCL 100 MG TABLET PO SCH (09:01)
[2019-03-17] MEDS: CHOLECALCIFEROL 1,000 UNITS TAB PO SCH (09:01)
[2019-03-17] MEDS: BENZONATATE 100 MG CAPSULE PO SCH ×3 (09:01→21:42)
[2019-03-17] MEDS: GABAPENTIN 800 MG TAB PO SCH ×3 (09:02→21:43)
[2019-03-17] MEDS: CYANOCOBALAMIN 500 MCG TABLET (VITAMIN B-12) PO SCH (09:02)
[2019-03-17] MEDS: POLYETHYLENE (MIRALAX) 17 GM PACK PO SCH ×2 (09:03→21:42)
[2019-03-17] MEDS: NICOTINE 14 MG/24 HR PATCH TD SCH (09:03)
[2019-03-17] MEDS: METHYLPHENIDATE HCL 5 MG TABLET PO SCH ×2 (09:50→12:47)
[2019-03-17] MEDS: METHYLPHENIDATE HCL 10 MG TABLET PO SCH ×3 (09:50→18:09)
[2019-03-17] MEDS: MoRPHine SULFATE 2 MG/ML CARP IV PRN ×3 (11:15→21:38)
--- NOTE | 2019-03-17 11:21 | XRay Report ---
XR abdomen 2V w PA chest CLINICAL HISTORY: 54 years-old Female presenting with constipation, distension. TECHNIQUE: PA view of the chest and supine and upright views of the abdomen were obtained. COMPARISON: Chest x-ray from 03/15/2019. FINDINGS: Atherosclerosis of the aortic arch. Cardiac silhouette normal in size. Lungs are hyperinflated. No fo noe opacity. No large effusion or pneumothorax. Cholecystectomy clips noted. Nonobstructive bowel gas pattern. No gross pneumoperitoneum. Moderate st ool burden noted throughout the colon predominantly in the right and transverse colon. Allowing for bowel gas and stool, no calcifications to suggest nephrolithiasis. Degenerative changes of the spine. IMPRESSION: 1. Findings suggest emphysema. No focal infiltrate to suggest pneumonia. 2. Moderate stool burden suggest constipation. Electronically signed by: Nba Ruth M.D. 03/17/2019 11:20 AM
[2019-03-17] MEDS ORDERED: SOD PHOSPHATE/SOD BIPHOSPHATE ENEMA 132 ML BTL PR STA (11:28)
[2019-03-17] MEDS: ENOXAPARIN INJ 40 MG/0.4 ML SYR SQ SCH (11:35)
--- NOTE | 2019-03-17 11:59 | Hospitalist Progress Note ---
Date of Service March 17, 2019 Assessment & Plan (1) COPD exacerbation: severe flare. continues to improve very slowly, harsh cough, very short of breath with minimal exertion continue Solu Medrol 40mg IV q8 today as she did not have improvement and fear that it is too soon to taper cont nebs. cont inhalers. cont incentive spirometry and flutter valve. mucinex. cont zithromax - day #5 today, stop after today's dose repeat 2-view cxr on 03/15 still w/o pneumonia. for insomnia and to help nocturnal cough - continue robitussin AC 5cc scheduled at HS (2) Lumbar degenerative disc disease: cont home meds for such add K pad heating pad pain is about the same today Toradol PRN Morphine 2mg for mod pain, 4mg for severe pain (3) Constipation: abdomen distended, hypoactive bowel sounds, early satiety no success with two suppositories will make Miralax scheduled BID add lactulose 30gm TID until she moves bowels KUB today shows moderate stool burden, no signs of obstruction will try enema for immediate relief, typically does not have issues with constipation (4) Chronic pain: see above normally uses medical marijuana and follows with pain management (5) GERD (gastroesophageal reflux disease): PPI twice daily carafate TID prn (6) Gastroparesis: reglan AC (7) Posttraumatic stress disorder: cont all home psychotropic meds (8) Anxiety: no issues cont home meds (9) History of seizure disorder: no issues (10) Tobacco abuse: needs to quit smoking in light of severe lung disease (11) ADD (attention deficit disorder): cont methylphenidate per home regimen (12) DVT prophylaxis: lovenox daily making progress albeit slowly updated by phone 03/15/19 Subjective patient still without a bowel movement, did not pass flatus this morning feels like abdomen is more distended she took some Lactulose today but refused the Miralax checked KUB with CXR today, no evidence of SBO, just heavy stool burden will try a Fleet Enema patient still with back pain, feels like if she can move bowels her pain will be better breathing is very slow to improve, she says her cough and dyspnea are the same as yesterday Review of Systems Review of Systems: All systems reviewed & are unremarkable except as noted in HPI & below Constitutional: + fatigue and + weakness; no fever, no chills and no sweats Respiratory: + cough, + dyspnea and + dyspnea on exertion; no sputum production Cardiovascular: no chest pain and no edema Gastrointestinal: + early satiety and + constipation; no abdominal pain, no nausea, no vomiting and no diarrhea/loose stools Musculoskeletal: + back pain (low) Physical Exam Constitutional: WD/WN, vitals as above Eyes: PERRL, conjunctivae normal, anicteric sclerae ENMT: external ear and nose normal, oropharynx normal Neck: trachea midline, no thyromegaly Respiratory: normal respiratory effort and + cough (harsh); no respiratory distress Auscultation: lungs clear to auscultation bilaterally; no wheezes Cardiovascular: RRR, no murmur, no edema Gastrointestinal (Abdomen): Inspection/Auscultation: + abdomen distended and normal bowel sounds Percussion/Palpation: abdomen soft and + tympanic to percussion; abdomen nontender, no guarding and abdomen not rigid Musculoskeletal: Head/Neck/Chest: normocephalic and head atraumatic Spine: + limited thoraco-lumbar ROM Extremities: extremities normal to inspection and strength 5/5 throughout Skin: no rashes, warm and dry Neurologic: patellar DTR's 2+ bilat, sensation intact and PERRL, EOMI, accommodation nl, no face palsy, no dysarthria Psychiatric: A+Ox3, euthymic affect Lymphatic: no cervical or axillary lymphadenopathy Results & Data Vital Signs (Past 12 Hours) Vital Signs Temp Pulse Pulse Resp BP Pulse Ox 03/17/19 11:20 79 18 94 03/17/19 11:18 36.9 C 61 20 152/80 H 95 03/17/19 07:20 69 16 94 03/17/19 07:08 36.9 C 67 18 97/59 L 98 Laboratory Results Laboratory Results - last 24 hr 03/17/19 03/17/19 06:24 06:24 WBC 9.33 RBC 4.09 L Hgb 12.6 Hct 37.9 MCV 92.7 MCH 30.8 MCHC 33.2 RDW Std Deviation 49.5 H RDW Coeff of Nik 14.5 Plt Count 212 MPV 11.7 H Creatinine 0.92 Est Cr Clr Drug Dosing 62.7 Est GFR ( Amer) 82.4 Est GFR (Non-Af Amer) 71.1 Diagnostic Findings XR abdomen 2V w PA chest CLINICAL HISTORY: 54 years-old Female presenting with constipation, distension. TECHNIQUE: PA view of the chest and supine and upright views of the abdomen were obtained. COMPARISON: Chest x-ray from 03/15/2019. IMPRESSION: 1. Findings suggest emphysema. No focal infiltrate to suggest pneumonia. 2. Moderate stool burden suggest constipation. Medications Administered Current Inpatient Medications Acetaminophen (Tylenol) 650 mg PO Q4H PRN PRN Reason: Pain or Fever Stop: 04/12/19 22:58 Al Hydrox/Mg Hydrox/Simethicone (Maalox) 15 ml PO Q4H PRN PRN Reason: Dyspepsia Stop: 04/12/19 22:58 Albuterol (Duoneb) 3 ml NEB QIDR [facility] Stop: 04/13/19 07:59 Last Admin: 03/17/19 11:20 Dose: 3 ml Documented by: Albuterol (Ventolin 0.083% 2.5mg/3ml) 2.5 mg NEB Q4H PRN PRN Reason: Shortness Of Breath Stop: 04/13/19 00:03 Artificial Tears (Artificial Tears) 1 drops OP Q3H PRN PRN Reason: Dryness Stop: 04/14/19 11:25 Azithromycin (Zithromax) 250 mg PO QAM [facility] Stop: 03/21/19 14:59 Last Admin: 03/17/19 09:00 Dose: 250 mg Documented by: Baclofen (Lioresal) 20 mg PO TID PRN PRN Reason: Muscle Spasm Stop: 04/13/19 00:03 Last Admin: 03/14/19 14:08 Dose: 20 mg Documented by: Benzonatate (Tessalon Perle) 100 mg PO TID [facility] Stop: 04/13/19 20:59 Last Admin: 03/17/19 09:01 Dose: 100 mg Documented by: Bisacodyl (Dulcolax) 10 mg AK DAILY PRN PRN Reason: constipation Stop: 04/13/19 00:03 Last Admin: 03/16/19 09:08 Dose: 10 mg Documented by: Budesonide (Pulmicort Respules) 0.5 mg INH BID PRN PRN Reason: Shortness Of Breath Or Wheezin Stop: 04/13/19 00:03 Cyanocobalamin (Vitamin B-12) 1,000 mcg PO DAILY BESSY Stop: 04/13/19 08:59 Last Admin: 03/17/19 09:02 Dose: 1,000 mcg Documented by: Duloxetine HCl (Cymbalta) 60 mg PO DAILY BESSY Stop: 04/13/19 08:59 Last Admin: 03/17/19 09:01 Dose: 60 mg Documented by: Enoxaparin Sodium (Lovenox) 40 mg SQ Q24H BESSY Stop: 04/12/19 22:59 Last Admin: 03/17/19 11:35 Dose: 40 mg Documented by: Famotidine (Pepcid) 40 mg PO BID PRN PRN Reason: Acid Reflux Stop: 04/13/19 00:03 Folic Acid (Folvite) 1 mg PO DAILY BESSY Stop: 04/13/19 08:59 Last Admin: 03/17/19 09:00 Dose: 1 mg Documented by: Gabapentin (Neurontin) 800 mg PO TID BESSY Stop: 04/13/19 08:59 Last Admin: 03/17/19 09:02 Dose: 800 mg Documented by: Guaifenesin (Mucinex) 600 mg PO Q12 BESSY Stop: 04/13/19 14:44 Last Admin: 03/17/19 09:01 Dose: 600 mg Documented by: Guaifenesin/Codeine Phosphate (Robitussin-Ac Sugar Free) 5 ml PO HS [facility] Stop: 04/13/19 20:59 Last Admin: 03/16/19 21:22 Dose: 5 ml Documented by: Methylprednisolone 40 mg/ (Syringe) 0.64 mls @ 1.5 mls/min IV Q8H BESSY Stop: 04/14/19 17:59 Last Admin: 03/17/19 09:01 Dose: 1.5 mls/min Documented by: Lactulose (Chronulac) 30 gm PO Q8 PRN PRN Reason: Constipation Stop: 04/15/19 11:09 Last Admin: 03/17/19 09:05 Dose: 30 gm Documented by: Magnesium Hydroxide (Milk Of Magnesia) 30 ml PO Q12H PRN PRN Reason: Constipation Stop: 04/12/19 22:58 Last Admin: 03/16/19 11:57 Dose: 30 ml Documented by: Methylphenidate HCl (Ritalin) 5 mg PO BID@0900,1400 [facility] Stop: 03/28/19 08:59 Last Admin: 03/17/19 09:50 Dose: Not Given Documented by: Methylphenidate HCl (Ritalin) 10 mg PO DAILY@1800 [facility] Stop: 03/28/19 17:59 Last Admin: 03/16/19 17:38 Dose: Not Given Documented by: Methylphenidate HCl (Ritalin) 10 mg PO BID@0900,1400 [facility] Stop: 03/28/19 08:59 Last Admin: 03/17/19 09:50 Dose: Not Given Documented by: Metoclopramide HCl (Reglan) 5 mg PO AC [facility] Stop: 04/13/19 07:29 Last Admin: 03/17/19 11:36 Dose: 5 mg Documented by: Miscellaneous (Remove Nicoderm Patch) 1 ea N/A DAILY [facility] Stop: 04/13/19 08:59 Last Admin: 03/17/19 09:04 Dose: 1 ea Documented by: Montelukast Sodium (Singulair) 10 mg PO QPM BESSY Stop: 04/13/19 20:59 Last Admin: 03/16/19 21:22 Dose: 10 mg Documented by: Morphine Sulfate (Morphine Sulfate) 2 mg IV Q4H PRN PRN Reason: Pain Stop: 03/30/19 11:15 Last Admin: 03/17/19 11:15 Dose: 2 mg Documented by: Morphine Sulfate (Morphine Sulfate) 4 mg IV Q4H PRN PRN Reason: Severe Pain Stop: 03/30/19 11:15 Last Admin: 03/16/19 18:02 Dose: 4 mg Documented by: Nicotine (Nicoderm Cq) 14 mg TD DAILY BESSY Stop: 04/13/19 08:59 Last Admin: 03/17/19 09:03 Dose: 14 mg Documented by: Ondansetron HCl (Zofran) 4 mg IV Q6H PRN PRN Reason: Nausea Stop: 04/12/19 22:58 Ondansetron HCl (Zofran Odt) 4 mg PO Q8H PRN PRN Reason: Nausea Stop: 04/13/19 00:03 Pantoprazole Sodium (Protonix) 40 mg PO BID [facility] Stop: 04/13/19 08:59 Last Admin: 03/17/19 09:00 Dose: 40 mg Documented by: Polyethylene Glycol (Miralax Powder Packet) 17 gm PO BID BESSY Stop: 04/15/19 20:59 Last Admin: 03/17/19 09:03 Dose: Not Given Documented by: Prednisolone Acetate (Pred Forte 1%) 1 drops OP HS BESSY Stop: 04/14/19 20:59 Last Admin: 03/16/19 21:20 Dose: 1 drops Documented by: Rizatriptan Benzoate (Maxalt-Materials And Processes Manager) 10 mg PO UD PRN PRN Reason: Headache Stop: 04/13/19 04:01 Sertraline HCl (Zoloft) 200 mg PO DAILY BESSY Stop: 04/13/19 08:59 Last Admin: 03/17/19 09:01 Dose: 200 mg Documented by: Sodium Chloride (Floyd Nasal) 2 sprays NA Q1H PRN PRN Reason: Nasal Congestion Stop: 04/13/19 14:46 Sucralfate (Carafate Tab) 1 gm PO TID PRN PRN Reason: Heartburn Stop: 04/13/19 00:03 Last Admin: 03/14/19 07:41 Dose: 1 gm Documented by: Trazodone HCl (Desyrel) 300 mg PO HS BESSY Stop: 04/13/19 20:59 Last Admin: 03/16/19 21:21 Dose: 300 mg Documented by: Vitamin D (Vitamin D3) 2,000 units PO DAILY BESSY Stop: 04/13/19 08:59 Last Admin: 03/17/19 09:01 Dose: 2,000 units Documented by: PG Care Time/CCT Total # of Minutes Spent Total Time Spent with Patient: Total time spent is greater than 50% in coordination of care (as documented) at patient's floor/unit and/or counseling patient: (1) Chronic pain Chronic pain type: chronic pain syndrome Qualified Code(s): G89.4 - Chronic pain syndrome (2) GERD (gastroesophageal reflux disease) Esophagitis presence: esophagitis presence not specified Qualified Code(s): K21.9 - Gastro-esophageal reflux disease without esophagitis (3) ADD (attention deficit disorder) Hyperactivity presence: unspecified Qualified Code(s): F98.8 - Other specified behavioral and emotional disorders with onset usually occurring in childhood and adolescence
[2019-03-17] MEDS ORDERED: KETOROLAC 30 MG/ML VIAL IV PRN (12:03)
[2019-03-17] MEDS: GUAIFENESIN/CODEINE 100MG/10MG 5ML UDC PO SCH (21:38)
[2019-03-17] MEDS: TRAZODONE HCL 100 MG TAB PO SCH (21:43)
[2019-03-17] MEDS: prednisoLONE acetate 1% OP SUSP 5 ML BTL OP SCH (21:44)
[2019-03-17] MEDS: MONTELUKAST SODIUM 10 MG TABLET PO SCH (21:44)
[2019-03-18] MEDS: methylPREDNISolone 40 MG in SYRINGE 0 ML IV SCH (02:13)
[2019-03-18 07:07] LABS: BUN Creatinine Ratio 19.2 (10-20); Calcium 8.7 mg/dl (8.5-10.1); Creatinine Clr Calc Pharmacy 60.1 ml/min; Est GFR (African American) 78.3; Est GFR (Non-African American) 67.5; Potassium 4.3 mmol/L (3.5-5.1)
[2019-03-18] MEDS: ALBUT/IPRATROP 3MG/0.5MG NEB 3 ML VIAL NEB SCH (07:45)
[2019-03-18] MEDS: METOCLOPRAMIDE HCL 5 MG TABLET PO SCH (08:11)
[2019-03-18] MEDS: FOLIC ACID 1 MG TAB PO SCH (08:12)
[2019-03-18] MEDS: guaiFENesin 600 MG TABCR PO SCH (08:12)
[2019-03-18] MEDS: GABAPENTIN 800 MG TAB PO SCH (08:12)
[2019-03-18] MEDS: NICOTINE 14 MG/24 HR PATCH TD SCH (08:13)
[2019-03-18] MEDS: CYANOCOBALAMIN 500 MCG TABLET (VITAMIN B-12) PO SCH (08:13)
[2019-03-18] MEDS: AZITHROMYCIN 250 MG TAB PO SCH (08:13)
[2019-03-18] MEDS: DULOXETINE HCL 60 MG CAP PO SCH (08:13)
[2019-03-18] MEDS: CHOLECALCIFEROL 1,000 UNITS TAB PO SCH (08:13)
[2019-03-18] MEDS: BENZONATATE 100 MG CAPSULE PO SCH (08:13)
[2019-03-18] MEDS: METHYLPHENIDATE HCL 10 MG TABLET PO SCH (08:15)
[2019-03-18] MEDS: POLYETHYLENE (MIRALAX) 17 GM PACK PO SCH (08:15)
[2019-03-18] MEDS: METHYLPHENIDATE HCL 5 MG TABLET PO SCH (08:15)
[2019-03-18] MEDS: SERTRALINE HCL 100 MG TABLET PO SCH (08:18)
[2019-03-18] MEDS: PANTOprazole 40 MG TAB PO SCH (08:51)
[2019-03-18] MEDS ORDERED: predniSONE 50 MG TAB PO ONE (09:36)
--- NOTE | 2019-03-18 14:01 | Discharge Summary ---
Date of Service March 18, 2019 Admission HPI Per Admitting Provider 54 y/o F Hx COPD, anxiety disorder, GERD, chronic lower back pain, continues to smoke cigarettes. Presents with progressive SOB and a persistent cough. The pt was last admitted with a COPD exacerbation 12/2018. The pt was not hypoxic on arrival, she has not reported fevers. Initial labs are unremarkable and a CXR did not provide evidence of pneumonia. PMH: 1) COPD 2) GERD 3) Prior seizures 4) Chronic lower back pain 5) MTHFR mutation 6) Gastroparesis 7) PTSD / anxiety disorder 8) OCD Surgical: Cholecystectomy Social: Smokes 1/2 pack daily as she has recently cut down. Does not drink alcohol Family: Both parents alive, father with history of CAD/NC Admission Exam Per Admitting Provider General: Thin, middle-aged F - tachypnaic, AAO x 3, no distress ENT: No erythema or exudates, no thrush Eyes: WILDA, EOMI Head and neck: Normocephalic, atraumatic, No JVD, neck is supple. Chest/heart: Nontender, S1,2, RRR, no murmurs, no gallops Lungs: Air movement is compromised - no audible wheezing or crackles Abdomen: Nontender, nondistended, BS+ Neuro: AAO x 3, speech is clear, no unilateral weakness or loss of sensation, coordination intact Musculoskeletal: No joint inflammation, muscle tenderness, FROM Skin: No acute rashes or ulcers Extremities: No clubbing, cyanosis, edema Principal Diagnosis COPD exacerbation Discharge Exam Constitutional WD/WN, vitals as above Eyes PERRL, conjunctivae normal, anicteric sclerae ENMT external ear and nose normal, oropharynx normal Neck trachea midline, no thyromegaly Respiratory normal respiratory effort and + cough (harsh); no respiratory distress Auscultation: lungs clear to auscultation bilaterally; no wheezes Cardiovascular RRR, no murmur, no edema Gastrointestinal (Abdomen) Inspection/Auscultation: abdomen normal to inspection and normal bowel sounds Percussion/Palpation: abdomen soft; abdomen nontender, no guarding and abdomen not rigid Musculoskeletal Head/Neck/Chest: normocephalic and head atraumatic Spine: + limited thoraco-lumbar ROM Extremities: extremities normal to inspection and strength 5/5 throughout Skin no rashes, warm and dry Neurologic patellar DTR's 2+ bilat, sensation intact and PERRL, EOMI, accommodation nl, no face palsy, no dysarthria Psychiatric A+Ox3, euthymic affect Lymphatic no cervical or axillary lymphadenopathy Discharge Data Allergies Allergy/AdvReac Type Severity Reaction Status Date / Time mushroom Allergy Intermediate Hives Verified 03/13/19 22:05 risperidone Allergy Mild LACTATING Verified 03/13/19 22:05 Tetracyclines Allergy Mild HIVES Verified 03/13/19 22:05 mirtazapine Allergy Unknown SHORTNESS Verified 03/13/19 22:05 OF BREATH ranitidine Allergy Unknown SEVERE Verified 03/13/19 22:05 VOMITING Iodinated Contrast- Oral and AdvReac Intermediate "horrible Verified 03/13/19 22:05 IV Dye headache" loratadine AdvReac Mild UNABLE TO Verified 03/13/19 22:05 SLEEP MULTIPLE DAYS Consultations 03/13/19 22:40 ED Decision to Admit Stat Hospital Course (1) COPD exacerbation: severe flare. continues to improve very slowly, harsh cough, very short of breath with minimal exertion felt a lot better after moving bowels, able to take deeper breaths no wheezing on exam, breathing easy, ambulating better d/c on Prednisone 50mg daily with taper completed 5 days of Zithromax while inpatient, no further abx needed follow up with PCP cont nebs. cont inhalers. (2) Lumbar degenerative disc disease: cont home meds for such add K pad heating pad pain is about the same today Toradol PRN Morphine 2mg for mod pain, 4mg for severe pain plans to follow up with pain specialist for medical marijuana (3) Constipation: abdomen distended, hypoactive bowel sounds, early satiety for three days no success with two suppositories will make Miralax scheduled BID add lactulose 30gm TID until she moves bowels KUB day prior to discharge showed moderate stool burden, no signs of obstruction had success with enema and Lactulose, significant bowel movements discussed staying well hydrated, recommend fiber supplement but she said she cannot tolerate with her gastroparesis recommended staying active recommended using a laxative daily if needed to keep bowels regular (4) Chronic pain: see above normally uses medical marijuana and follows with pain management (5) GERD (gastroesophageal reflux disease): PPI twice daily carafate TID prn (6) Gastroparesis: reglan AC (7) Posttraumatic stress disorder: cont all home psychotropic meds (8) Anxiety: no issues cont home meds (9) History of seizure disorder: no issues (10) Tobacco abuse: needs to quit smoking in light of severe lung disease (11) ADD (attention deficit disorder): cont methylphenidate per home regimen (12) DVT prophylaxis: lovenox daily Total Time Total Time Spent Total Time Spent (In Minutes): 35 minutes Total Time Includes: Examination of the Patient, Discharge Planning and Medication Reconciliation Discharge Plan Discharge Items Patient Disposition: Home - Self-Care Reason For Visit: COPD EXACERBATION Discharge Diagnosis: COPD exacerbation Constipation Low back pain Condition: Good Discharge Goals: Improve disease control and Improve function Activity: Resume your previous activity Non-emergency contact: Primary Care Provider Call non-emergency contact if: you have any medication questions, your symptoms worsen, your pain is not controlled and you have a fever Follow-up/Referrals: Kacy Gomez MD [Primary Care Provider] - 03/25/19 10:15 am (follow up appt with your primary care physician) Diet: Regular Addtl Provider Instructions: Medications: - PREDNISONE: complete taper, start at 50mg daily, decrease by 10mg every three days, see below COPD exacerbation: improved, no wheezing on exam today will need to complete a Prednisone taper to keep inflammation under control 50mg daily x 3 days, 40mg x 3 days, 30mg x 3 days, 20mg x 3 days, 10mg x 3 days and stop you completed 5 days of Azithromycin while hospitalized, no further antibiotics needed continue your typical inhaled medications Constipation: resolved with lactulose and enema as we discussed, important to stay well hydrated and try to remain as active as you can with your breathing recommend using a laxative such as Dulcolax if you cannot tolerate Miralax use a suppository only as needed FOLLOW UP - call for appt with Dr. Gomez in one week, try to get in by Sunday prior to going on vacation - follow up with pain specialist in two days as scheduled Prescriptions: New prednisone 10 mg tablet 50 mg PO DAILY 15 Days Qty: 45 RF: 0 Continued ondansetron HCl [Zofran] 4 mg tablet 4 mg PO Q8H PRN (Reason: Nausea) RF: 0 folic acid 1 mg tablet 1 mg PO DAILY RF: 0 cholecalciferol (vitamin D3) 2,000 unit capsule 2,000 units PO DAILY RF: 0 budesonide 0.5 mg/2 mL suspension for nebulization 0.5 mg INHALATION BID PRN (Reason: Shortness Of Breath Or Wheezing) Qty: 60 RF: 0 diclofenac sodium 75 mg tablet,delayed release (DR/EC) 75 mg PO BID Qty: 60 RF: 0 famotidine [Pepcid] 40 mg tablet 40 mg PO BID PRN (Reason: Acid Reflux) Qty: 60 RF: 0 gabapentin 800 mg tablet 800 mg PO TID Qty: 90 RF: 0 ipratropium-albuterol 0.5 mg-3 mg(2.5 mg base)/3 mL solution for nebulization 3 ml INHALATION QID PRN (Reason: Shortness Of Breath Or Wheezing) Qty: 180 RF: 0 metoclopramide HCl [Reglan] 5 mg tablet 5 mg PO AC Qty: 90 RF: 0 montelukast [Singulair] 10 mg tablet 10 mg PO QPM Qty: 30 RF: 0 pantoprazole [Protonix] 40 mg tablet,delayed release (DR/EC) 40 mg PO BID Qty: 60 RF: 0 vitamin A 8,000 unit Capsule PO DAILY RF: 0 nicotine 14 mg/24 hr patch 24 hour 1 patch TD DAILY Qty: 7 RF: 0 bisacodyl [Dulcolax (bisacodyl)] 10 mg suppository 10 mg WI DAILY PRN (Reason: constipation) Qty: 28 RF: 0 methylphenidate HCl 10 mg tablet 10 mg PO BID RF: 0 methylphenidate HCl 10 mg tablet 10 mg PO QPM RF: 0 sucralfate 1 gram Tablet 1 g PO TID PRN (Reason: Heartburn) RF: 0 methylphenidate HCl 5 mg tablet 5 mg PO BID RF: 0 cyanocobalamin (vitamin B-12) [Vitamin B-12] 1,000 mcg Tablet 1,000 mcg PO DAILY RF: 0 rizatriptan 10 mg Tablet,Disintegrating 10 mg translingual DIRECTED PRN (Reason: Headache) RF: 0 trazodone 150 mg tablet 300 mg PO HS RF: 0 Combivent Respimat 20-100 mcg/actuation mist 1 puff inhalation QID PRN (Reason: Shortness Of Breath) RF: 0 sertraline 100 mg tablet 200 mg PO DAILY RF: 0 baclofen 20 mg tablet 20 mg PO TID PRN (Reason: Muscle Spasm) RF: 0 duloxetine 60 mg capsule,delayed release(DR/EC) 60 mg PO DAILY RF: 0 Anoro Ellipta 62.5-25 mcg/actuation blister with device 1 inh INH Q24H RF: 0 prednisolone acetate [Pred Forte] 1 % Drops,Suspension 1 drp OPHTHALMIC (EYE) HS RF: 0 Stand-Alone Forms: [facility] Discharge Orders: Discharge Order (Routine); Ordered 03/18/19 Ordered By: Robert Olson Admission Data Admit Date/Time: 03/13/19 22:56 Attending Provider: Robert Olson Admit Provider: Francis Alvarado Primary Care Provider: Kacy Gomez Service: Medical Other Interventions: Discharge Summary Assessment (RN) Last Done: 03/18/19 10:09 DC Date/Time DO NOT enter until pt leaves facility: 03/18/19 10:48
== END 2019-03-18 10:48 | disposition home or self-care (01) | DRG 191 ==
LOC: ED 20:02 → SUATTDRO 22:56 → 2E 22:56 → 2N 03-14 14:48
DX: F42.9 Obsessive-compulsive disorder, unspecified; M51.36 Other intervertebral disc degeneration, lumbar region; Z88.8 Allergy status to other drugs, medicaments and biological substances; Z51.81 Encounter for therapeutic drug level monitoring; Z88.1 Allergy status to other antibiotic agents; Z79.899 Other long term (current) drug therapy; E72.12 Methylenetetrahydrofolate reductase deficiency; Z91.018 Allergy to other foods; Z91.041 Radiographic dye allergy status; J44.1 Chronic obstructive pulmonary disease with (acute) exacerbation; F43.12 Post-traumatic stress disorder, chronic; K31.84 Gastroparesis; K59.00 Constipation, unspecified; G47.00 Insomnia, unspecified; F17.210 Nicotine dependence, cigarettes, uncomplicated; F90.9 Attention-deficit hyperactivity disorder, unspecified type; Z79.52 Long term (current) use of systemic steroids; K21.9 Gastro-esophageal reflux disease without esophagitis

== ENCOUNTER 2019-04-17 13:21 | Inpatient (IN) ==
[2019-04-17] MEDS ORDERED: methylPREDNISolone 125 MG/2 ML VIAL IV STA (13:38)
[2019-04-17] MEDS ORDERED: SODIUM CHLORIDE 0.9% 1000ML 500 ML IV ONE (13:38)
[2019-04-17] MEDS ORDERED: ALBUT/IPRATROP 3MG/0.5MG NEB 3 ML VIAL NEB STA (13:38)
[2019-04-17] MEDS ORDERED: LORazepam 0.5 MG/1 ML VIAL IV STA (13:46)
[2019-04-17] MEDS ORDERED: ALBUT/IPRATROP 3MG/0.5MG NEB 3 ML VIAL NEB ONE (13:46)
[2019-04-17 13:51] LABS: Basophils # (auto) 0.06 K/uL (0-0.2); Basophils % (auto) 0.8 %; Eosinophils # (auto) 0.17 K/uL (0-0.5); Eosinophils % (auto) 2.3 %; Hematocrit (blood only) 41.9 % (37-47); Hemoglobin 14.3 g/dL (12.0-16.0); Immature Granulocytes # (auto) 0.02 K/uL (0.00-0.02); Immature Granulocytes % (auto) 0.3 %; Lymphocytes # (auto) 2.62 K/uL (1.2-3.4); Lymphocytes % (auto) 35.8 %; Mean Corpuscular Hgb Conc 34.1 g/dL (32-36); Mean Corpuscular Volume 91.7 fL (80-100); Mean Platelet Volume 10.9 fL (7.4-10.4); Monocytes # (auto) 0.58 K/uL (0.11-0.59); Monocytes % (auto) 7.9 %; Neutrophils # (auto) 3.87 K/uL (1.4-6.5); Neutrophils % (auto) 52.9 %; Platelet Count 245 K/uL (130-400); RDW Coefficient of Variation 14.3 % (11.5-14.5); RDW Standard Deviation 47.7 fL (36.4-46.3); Red Blood Count 4.57 M/uL (4.2-5.4); White Blood Count 7.32 K/uL (4.8-10.8)
[2019-04-17 13:56] LABS: Base Excess VBG 2.7 mEq/L; Oxygen Saturation VBG 60.1 %; pH VBG 7.53 (7.36-7.41)
[2019-04-17 14:06] LABS: BUN Creatinine Ratio 12.8 (10-20); Calcium 10.3 mg/dl (8.5-10.1); Creatinine Clr Calc Pharmacy 61.8 ml/min; Est GFR (African American) 81.3; Est GFR (Non-African American) 70.2; Potassium 3.7 mmol/L (3.5-5.1)
--- NOTE | 2019-04-17 14:20 | XRay Report ---
XR chest 1V portable CLINICAL HISTORY: natali dyspnea or chest pain. COMPARISON STUDY: 03/17/2019 FINDINGS: The bones soft tissues and hemidiaphragms are normal. The cardiomediastinal silhouette is n ormal. The lungs are clear. The pulmonary vasculature is normal. Overlap artifact from extrinsic tubi ng upper right chest. IMPRESSION: Negative chest. The above report was generated using voice recognition software. It may contain grammatical, syntax or spelling errors. Electronically signed by: Leopoldo Blair M.D. 04/17/2019 2:19 PM
--- NOTE | 2019-04-17 16:18 | History & Physical Report ---
Date of Service April 17, 2019 Assessment & Plan (1) COPD exacerbation: Intravenous Solu-Medrol every 8 hours. Nebulizer treatments. Oxygen Present on Admission?: Yes (2) Pleuritic chest pain: Rule out PE. Ventilation/perfusion scan pending. She is allergic to IV contrast material. Lovenox 1 mg/kg subcutaneously every 12 hours until PE is ruled out Present on Admission?: Yes (3) Chronic back pain: Morphine as needed. She uses marijuana at home Present on Admission?: Yes (4) MTHFR mutation: Present on Admission?: Yes (5) DVT prophylaxis: Per history History of Present Illness Chief Complaint: Shortness of breath, wheezing, pleuritic right-sided chest pain Primary Care Provider: Kacy Gomez MD 54-year-old female smoker with worsening shortness of breath and wheezing for the past 3 days. She also has pleuritic sharp right lateral chest pain. She has a prothrombin mutation and apparently is not on any anticoagulant. She is allergic, contrast material so ventilation/perfusion scan will be ordered. Lovenox 1 mg/kg subcutaneously every 12 hours until VQ is proven negative hopefully. There is no CO2 retention. Chest x-ray is clear. She denies any sputum production. She does have exacerbation of COPD but no apparent bronchitis or pneumonia. She is admitted for further evaluation and treatment. Allergies Allergy/AdvReac Type Severity Reaction Status Date / Time risperidone Allergy Mild LACTATING Verified 04/17/19 14:02 Tetracyclines Allergy Mild HIVES Verified 04/17/19 14:02 mirtazapine Allergy Unknown SHORTNESS Verified 04/17/19 14:02 OF BREATH ranitidine Allergy Unknown SEVERE Verified 04/17/19 14:02 VOMITING Iodinated Contrast- Oral and AdvReac Intermediate "horrible Verified 04/17/19 14:02 IV Dye headache" loratadine AdvReac Mild UNABLE TO Verified 04/17/19 14:02 SLEEP MULTIPLE DAYS Home Medications Home Medications Medication Instructions Recorded Confirmed Type ondansetron HCl 4 mg tablet 4 mg PO Q8H PRN 06/24/18 04/17/19 History cholecalciferol (vitamin D3) 2,000 2,000 units PO HS 06/25/18 04/17/19 History unit capsule vitamin A 0 unit PO HS 01/04/19 04/17/19 History bisacodyl [Dulcolax (bisacodyl)] 10 mg HI DAILY PRN #28 ea 01/09/19 04/17/19 Rx famotidine 40 mg tablet 40 mg PO BID PRN #60 tab 03/11/19 04/17/19 Rx gabapentin 800 mg tablet 800 mg PO TID #90 tab 03/11/19 04/17/19 Rx pantoprazole 40 mg tablet,delayed 40 mg PO BID #60 tab 03/11/19 04/17/19 Rx release Anoro Ellipta 1 inh INH QAM 03/13/19 04/17/19 History Combivent Respimat 1 puff INHALATION QID PRN 03/13/19 04/17/19 History baclofen 20 mg PO TID PRN 03/13/19 04/17/19 History cyanocobalamin (vitamin B-12) 1,000 mcg PO HS 03/13/19 04/17/19 History [Vitamin B-12] methylphenidate HCl 5 mg PO BID 03/13/19 04/17/19 History methylphenidate HCl 10 mg PO BID 03/13/19 04/17/19 History rizatriptan 10 mg TRANSLINGUAL DIRECTED PRN 03/13/19 04/17/19 History sertraline 200 mg PO QAM 03/13/19 04/17/19 History sucralfate 1 g PO TID PRN 03/13/19 04/17/19 History trazodone 300 mg PO HS 03/13/19 04/17/19 History prednisolone acetate [Pred Forte] 1 drp OPHTHALMIC (EYE) HS 03/14/19 04/17/19 History diclofenac sodium 75 mg 75 mg PO BID #60 tab 04/08/19 04/17/19 Rx tablet,delayed release ascorbic acid (vitamin C) [Vitamin 1,000 mg PO HS 04/17/19 04/17/19 History C] duloxetine 60 mg PO QAM 04/17/19 04/17/19 History folic acid 1 mg PO QAM 04/17/19 04/17/19 History ipratropium-albuterol 3 ml INHALATION Q4H PRN 04/17/19 04/17/19 History nicotine 1 patch TRANSDERMAL QAM 04/17/19 04/17/19 History tramadol 50 mg PO HS 04/17/19 04/17/19 History Past Med/Surg History Medical History Insomnia (Acute) Influenza A Pneumonia Obsessive compulsive disorder (Chronic) Posttraumatic stress disorder (Chronic) Anxiety (Chronic) History of seizure disorder (Chronic) Tobacco abuse (Chronic) COPD (chronic obstructive pulmonary disease) (Chronic) MTHFR mutation COPD (chronic obstructive pulmonary disease) (Acute) Gastroparesis (Acute) Surgical History Status post cholecystectomy (Chronic) Status post appendectomy (Chronic) Status post carpal tunnel release (Chronic) History of appendectomy (Acute) History of cholecystectomy (Acute) Family History Father Myocardial infarction Grandfather Myocardial infarction Social History Preferred Language: Greek Communication Ability: Effective Beliefs That Will Affect Care: None marital status: Current Living Situation: Spouse current occupational status: unemployed and disabled Feels Safe at Home: Yes Smoking Status: Former smoker Second Hand Exposure: No Hx Alcohol Use: No Hx Substance Use: No Review of Systems Review of Systems: Constitutional-no fever or chills ENT-no blurred vision, no double vision, no epistaxis, no sore throat Respiratory-shortness of breath and wheezing. No cough. No sputum production Cardiac-no palpitations, no syncope. Pleuritic sharp right lateral chest discomfort GI-no nausea, vomiting, diarrhea, melena, hematochezia -no urinary retention, no urinary incontinence, no dysuria, no hematuria Musculoskeletal-no joint pain, no muscle tenderness Skin-no bruising, no rashes, no pruritus Neuro-no isolated weakness, no paresthesia, no weakness Psych-no depression, no anxiety Physical Exam Physical Exam: General-alert and oriented x3, no fevers, no chills HEENT-head atraumatic and normocephalic, TMs intact bilaterally, pupils equal and reactive to light, extraocular muscles intact Neck-no lymphadenopathy or thyromegaly, trachea midline Chest-diminished breath sounds bilaterally. Bilateral and expiratory wheezes. No rhonchi. No inspiratory rales Cardiac-regular rate and rhythm, normal S1 and S2, no JVD Abdomen-normal bowel sounds, nontender, no hepatosplenomegaly Extremities-no cyanosis, clubbing, or edema Neuro-cranial nerves II through XII intact, motor and sensory function within normal limits, strength symmetrical 5/5, no focal deficits Psych-normal affect, normal mood Results & Data Vital Signs (Past 12 Hours) Vital Signs Temp Pulse Pulse Resp BP BP Pulse Ox 04/17/19 15:36 88 L 04/17/19 15:15 90 22 138/84 98 04/17/19 13:54 26 H 100 04/17/19 13:46 86 32 H 100 04/17/19 13:24 36.6 C 85 26 H 129/86 99 Laboratory Results 04/17/19 13:42 04/17/19 13:42 PG Care Time/CCT Total # of Minutes Spent Total Time Spent with Patient: Total time spent is greater than 50% in coordination of care (as documented) at patient's floor/unit and/or counseling patient:
[2019-04-17] MEDS ORDERED: ONDANSETRON 4 MG TAB PO PRN (18:37)
[2019-04-17] MEDS ORDERED: BISACODYL 10 MG SUPP PR PRN (18:37)
[2019-04-17] MEDS ORDERED: ALBUT/IPRATROP 3MG/0.5MG NEB 3 ML VIAL INH PRN (18:37)
[2019-04-17] MEDS ORDERED: SUCRALFATE 1 GM TAB PO PRN (18:37)
[2019-04-17] MEDS ORDERED: ONDANSETRON INJ 2 MG/ML 2 ML VIAL IV PRN (18:37)
[2019-04-17] MEDS ORDERED: FAMOTIDINE 20 MG TAB PO PRN (18:37)
[2019-04-17] MEDS ORDERED: ALUMINUM/MAGNESIUM SUSP 30 ML UDC PO PRN (18:37)
[2019-04-17] MEDS ORDERED: ACETAMINOPHEN 325 MG TAB PO PRN (18:37)
[2019-04-17] MEDS ORDERED: IPRATROPIUM BROMIDE/ALBUTEROL respimat INH INH PRN (18:37)
[2019-04-17] MEDS ORDERED: RIZATRIPTAN BENZOATE MLT 10 MG TAB SL PRN (18:37)
--- NOTE | 2019-04-17 19:53 | Emergency Department Note ---
Entered by Esther Campbell acting as a scribe for Abdirashid Mccabe History of Present Illness General Chief complaint: Respiratory Problems Stated complaint: BREATHING DIFFICULTIES Time Seen by Provider: 04/17/19 13:33 Source: patient History of Present Illness Onset (ago): hour(s) (several) Location: chest Severity: similar to prior episodes Pain Consistency: + other (worsening) Maximum Pain Intensity: 8 Quality: + other (shortness of breath) Relieved By: not by medication (breathing treatments) Associated symptoms: + chest pain Treatments prior to arrival: other (breathing treatments) The patient is a 54 year old female who presents to the Emergency Room with complaints of worsening shortness of breath that began several hours prior to arrival. The patient states that she has a history of COPD, and states that this feels similar to previous exacerbations of this. She reports chest pain. The patient states that she tried one breathing treatment at home and was given one in her hide mill man's office today just prior to arrival. The patient states that these breathing treatments did not relieve her symptoms. She denies any previous use of bipap, intubation, or ICU stay for her breathing difficulties in the past. Home Medications Home Medications Medication Instructions Recorded Confirmed Type ondansetron HCl 4 mg tablet 4 mg PO Q8H PRN 06/24/18 04/17/19 History cholecalciferol (vitamin D3) 2,000 2,000 units PO HS 06/25/18 04/17/19 History unit capsule vitamin A 0 unit PO HS 01/04/19 04/17/19 History bisacodyl [Dulcolax (bisacodyl)] 10 mg FL DAILY PRN #28 ea 01/09/19 04/17/19 Rx famotidine 40 mg tablet 40 mg PO BID PRN #60 tab 03/11/19 04/17/19 Rx gabapentin 800 mg tablet 800 mg PO TID #90 tab 03/11/19 04/17/19 Rx pantoprazole 40 mg tablet,delayed 40 mg PO BID #60 tab 03/11/19 04/17/19 Rx release Anoro Ellipta 1 inh INH QAM 03/13/19 04/17/19 History Combivent Respimat 1 puff INHALATION QID PRN 03/13/19 04/17/19 History baclofen 20 mg PO TID PRN 03/13/19 04/17/19 History cyanocobalamin (vitamin B-12) 1,000 mcg PO HS 03/13/19 04/17/19 History [Vitamin B-12] methylphenidate HCl 5 mg PO BID 03/13/19 04/17/19 History methylphenidate HCl 10 mg PO BID 03/13/19 04/17/19 History rizatriptan 10 mg TRANSLINGUAL DIRECTED PRN 03/13/19 04/17/19 History sertraline 200 mg PO QAM 03/13/19 04/17/19 History sucralfate 1 g PO TID PRN 03/13/19 04/17/19 History trazodone 300 mg PO HS 03/13/19 04/17/19 History prednisolone acetate [Pred Forte] 1 drp OPHTHALMIC (EYE) HS 03/14/19 04/17/19 History diclofenac sodium 75 mg 75 mg PO BID #60 tab 04/08/19 04/17/19 Rx tablet,delayed release ascorbic acid (vitamin C) [Vitamin 1,000 mg PO HS 04/17/19 04/17/19 History C] duloxetine 60 mg PO QAM 04/17/19 04/17/19 History folic acid 1 mg PO QAM 04/17/19 04/17/19 History ipratropium-albuterol 3 ml INHALATION Q4H PRN 04/17/19 04/17/19 History nicotine 1 patch TRANSDERMAL QAM 04/17/19 04/17/19 History tramadol 50 mg PO HS 04/17/19 04/17/19 History Allergies Allergy/AdvReac Type Severity Reaction Status Date / Time risperidone Allergy Mild LACTATING Verified 04/17/19 14:02 Tetracyclines Allergy Mild HIVES Verified 04/17/19 14:02 mirtazapine Allergy Unknown SHORTNESS Verified 04/17/19 14:02 OF BREATH ranitidine Allergy Unknown SEVERE Verified 04/17/19 14:02 VOMITING Iodinated Contrast- Oral and AdvReac Intermediate "horrible Verified 04/17/19 14:02 IV Dye headache" loratadine AdvReac Mild UNABLE TO Verified 04/17/19 14:02 SLEEP MULTIPLE DAYS Past Med/Surg History Medical History Chronic back pain (Chronic) Pleuritic chest pain (Acute) COPD exacerbation (Acute) Insomnia (Acute) MTHFR mutation (Chronic) Influenza A Pneumonia Obsessive compulsive disorder (Chronic) Posttraumatic stress disorder (Chronic) Anxiety (Chronic) History of seizure disorder (Chronic) Tobacco abuse (Chronic) COPD (chronic obstructive pulmonary disease) (Chronic) MTHFR mutation COPD (chronic obstructive pulmonary disease) (Acute) Gastroparesis (Acute) Surgical History Status post cholecystectomy (Chronic) Status post appendectomy (Chronic) Status post carpal tunnel release (Chronic) History of appendectomy (Acute) History of cholecystectomy (Acute) Family History Father Myocardial infarction Grandfather Myocardial infarction Social History Preferred Language: Korean Communication Ability: Effective Evaluation Advisor Required: No Beliefs That Will Affect Care: None marital status: Current Living Situation: Spouse and Family current occupational status: unemployed and disabled Other Information That Helps Us Care for You: No Feels Safe at Home: Yes Safety Concerns: Feels Safe At This Time Smoking Status: Former smoker Tobacco Type: cigarettes Second Hand Exposure: No Hx Alcohol Use: No Hx Substance Use: No Review of Systems See HPI for pertinent positives & negatives. and A total of 10 systems reviewed and were otherwise negative Physical Exam Vital Signs Vital Signs - 24 hr 04/17/19 13:24 04/17/19 13:38 04/17/19 13:46 Temperature 36.6 C Temperature Source Oral Sepsis Recent Fever Within 48 Hours No Sepsis Action Taken by Nursing No Action Required Oxygen Flow Rate - Titration Pulse Oximetry Post Tiitration Pulse Rate 85 86 Pulse Rate [Right Finger] Pulse Rhythm Regular Respiratory Rate 26 H 32 H Respiratory Effort / Characteristics Pursed Lip Pursed Lip Blood Pressure 129/86 Blood Pressure [Left Arm] Blood Pressure Mean 100 Blood Pressure Mean [Left Arm] Pulse Oximetry 99 100 Oxygen Delivery Method Room Air Room Air 04/17/19 13:54 04/17/19 15:15 04/17/19 15:36 Temperature Temperature Source Sepsis Recent Fever Within 48 Hours Sepsis Action Taken by Nursing Oxygen Flow Rate - Titration 2 Pulse Oximetry Post Tiitration 93 Pulse Rate Pulse Rate [Right Finger] 90 Pulse Rhythm Respiratory Rate 26 H 22 Respiratory Effort / Characteristics Spontaneous Labored Blood Pressure Blood Pressure [Left Arm] 138/84 Blood Pressure Mean Blood Pressure Mean [Left Arm] 102 Pulse Oximetry 100 98 88 L Oxygen Delivery Method Room Air Room Air Room Air Physical Exam GENERAL: She is oriented to person, place, and time. She appears well-developed and well-nourished. HENT: Exam performed. - Head: Normocephalic and atraumatic. - Right Ear: External ear normal. No mastoid tenderness. - Left Ear: External ear normal. No mastoid tenderness. - Mouth/Throat: The oropharynx is clear and moist. No trismus in the jaw. No dental abscesses or uvula swelling. No oropharyngeal exudate or tonsillar abscesses. EYES: Conjunctivae and EOM are normal. Pupils are equal, round, and reactive to light. Right eye exhibits no discharge. Left eye exhibits no discharge. No scleral icterus. NECK: Normal range of motion. Neck supple. No JVD present. No spinous process tenderness present. No carotid bruit present. No rigidity. No tracheal deviation and normal range of motion present. No Brudzinski's sign and no Kernig's sign noted. CV: Normal rate, regular rhythm, normal heart sounds and intact distal pulses. T here is no peripheral edema. Palpable radial pulses bue. PULM/CHEST: Bilateral expiratory wheezes. Tachypneic. - Chest Wall: She exhibits no tenderness. ABD: The abdomen is soft. Bowel sounds are normal. She has no distension. No mass is present. There is no tenderness. There is no rebound, no guarding, no Luciano's sign and no tenderness at McBurney's point. Rovsig negative MUSC/SKEL: Normal range of motion. There is no peripheral edema, tenderness or deformity. LYMPH: No cervical adenopathy NEURO: She is alert and oriented to person, place, and time. She has normal strength. No cranial nerve deficit or sensory deficit. Coordination and gait normal. GCS eye subscore is 4. GCS verbal subscore is 5. GCS motor subscore is 6. cerbellar tests wnl. SKIN: Skin is warm and dry. She is not diaphoretic. PSYCH: She has a normal mood and affect. Her behavior is normal. Judgment and thought content normal. Course 1336: Past medical records reviewed. The patient was evaluated in room C10. A complete history and physical exam was performed. EMR reviewed: The patient has a history of COPD, anxiety, ADD, and drug-induced delirium. The patient was seen at pain management yesterday and was given 20 Tramadol by her pain management doctor. The patient was discharged one month ago for a COPD exacerbation. The patient still smokes 1/2 pack of cigarettes per day. The patient was seen at her hide mill man's office today. 1343: I discussed the case with Freida Su-Pulmonology [employer] who states that the patient only received one duoneb treatment in the office. She states that the patient has a long history of COPD, but states that the patient has never been intubated or admitted to the ICU for her COPD. 1527: The patient's vital signs are stable after the hour long duoneb treatment. The patient is no longer tachypneic. The patient's work of breathing has improved, but she continues to have mild expiratory wheezing. The patient's labs show a respiratory alkalosis and a PCO2 of 30. The patient states that she does not feel ready to go home and states that she is afraid that if she goes home she will have another COPD flare up and end up back in the hospital. I discussed the case with Dr. Bonilla-[facility] Hospitalist who agrees and accepts the patient for further evaluation. Consultations Consultation #1: I discussed the case with Freida Su-Pulmonology [employer] who states that the patient only received one duoneb treatment in the office. She states that the patient has a long history of COPD, but states that the patient has never been intubated or admitted to the ICU for her COPD. Time: 13:43 Administered Medications Discontinued Medications Albuterol (Duoneb) 3 ml NEB NOW STA Stop: 04/17/19 13:39 Last Admin: 04/17/19 13:52 Dose: 3 ml Documented by: [id number] Albuterol (Duoneb) 12 ml NEB ONE ONE Stop: 04/17/19 13:47 Last Admin: 04/17/19 13:52 Dose: 12 ml Documented by: [id number] Sodium Chloride (Nss 1000ml) 500 mls @ 999 mls/hr IV .Q31M ONE Stop: 04/17/19 14:08 Last Infusion: 04/17/19 14:33 Dose: 0 mls/hr Documented by: [id number] Admin: 04/17/19 13:57 Dose: 999 mls/hr Documented by: [id number] Lorazepam (Ativan) 0.5 mg in 1 mls @ 1 mls/min IV NOW STA Stop: 04/17/19 13:47 Last Admin: 04/17/19 13:52 Dose: 1 mls/min Documented by: [id number] Methylprednisolone (Solumedrol) 125 mg IV NOW STA Stop: 04/17/19 13:39 Last Admin: 04/17/19 13:52 Dose: 125 mg Documented by: [id number] Medical Decision Making Medical Records Attestation: I reviewed the patient's medical records. Home Medications Current Medication List: was personally reviewed by me Laboratory Data Attestation: I reviewed the patient's lab results. Result diagrams: 04/17/19 13:42 04/17/19 13:42 Lab Results 04/17/19 04/17/19 04/17/19 Range/Units 13:42 13:42 13:46 WBC 7.32 (4.8-10.8) K/uL RBC 4.57 (4.2-5.4) M/uL Hgb 14.3 (12.0-16.0) g/dL Hct 41.9 (37-47) % MCV 91.7 (80-100) fL MCH 31.3 (25-34) pg MCHC 34.1 (32-36) g/dL RDW Std Deviation 47.7 H (36.4-46.3) fL RDW Coeff of Nik 14.3 (11.5-14.5) % Plt Count 245 (130-400) K/uL MPV 10.9 H (7.4-10.4) fL Immature Gran % (Auto) 0.3 % Neut % (Auto) 52.9 % Lymph % (Auto) 35.8 % [place] % (Auto) 7.9 % Eos % (Auto) 2.3 % Baso % (Auto) 0.8 % Immature Gran # (Auto) 0.02 (0.00-0.02) K/uL Neut # (Auto) 3.87 (1.4-6.5) K/uL Lymph # (Auto) 2.62 (1.2-3.4) K/uL [place] # (Auto) 0.58 (0.11-0.59) K/uL Eos # (Auto) 0.17 (0-0.5) K/uL Baso # (Auto) 0.06 (0-0.2) K/uL VBG pH 7.53 H (7.36-7.41) VBG pCO2 30 L (38-50) mmHg VBG pO2 29 mmHg VBG HCO3 25 mmol/L VBG O2 Saturation 60.1 % VBG Base Excess 2.7 mEq/L Barometric Pressure 736.2 mm/Hg Sodium 139 (136-145) mmol/L Potassium 3.7 (3.5-5.1) mmol/L Chloride 106 (98-107) mmol/L Carbon Dioxide 25 (21-32) mmol/L Anion Gap 8.0 (3-11) BUN 12 (7-18) mg/dl Creatinine 0.93 (0.6-1.2) mg/dl Est Cr Clr Drug Dosing 61.8 ml/min Est GFR ( Amer) 81.3 Est GFR (Non-Af Amer) 70.2 BUN/Creatinine Ratio 12.8 (10-20) Glucose 97 (70-99) mg/dl POC Glucose (70-99) Calcium 10.3 H (8.5-10.1) mg/dl 04/17/19 Range/Units 13:58 WBC (4.8-10.8) K/uL RBC (4.2-5.4) M/uL Hgb (12.0-16.0) g/dL Hct (37-47) % MCV (80-100) fL MCH (25-34) pg MCHC (32-36) g/dL RDW Std Deviation (36.4-46.3) fL RDW Coeff of Nik (11.5-14.5) % Plt Count (130-400) K/uL MPV (7.4-10.4) fL Immature Gran % (Auto) % Neut % (Auto) % Lymph % (Auto) % [place] % (Auto) % Eos % (Auto) % Baso % (Auto) % Immature Gran # (Auto) (0.00-0.02) K/uL Neut # (Auto) (1.4-6.5) K/uL Lymph # (Auto) (1.2-3.4) K/uL [place] # (Auto) (0.11-0.59) K/uL Eos # (Auto) (0-0.5) K/uL Baso # (Auto) (0-0.2) K/uL VBG pH (7.36-7.41) VBG pCO2 (38-50) mmHg VBG pO2 mmHg VBG HCO3 mmol/L VBG O2 Saturation % VBG Base Excess mEq/L Barometric Pressure mm/Hg Sodium (136-145) mmol/L Potassium (3.5-5.1) mmol/L Chloride (98-107) mmol/L Carbon Dioxide (21-32) mmol/L Anion Gap (3-11) BUN (7-18) mg/dl Creatinine (0.6-1.2) mg/dl Est Cr Clr Drug Dosing ml/min Est GFR ( Amer) Est GFR (Non-Af Amer) BUN/Creatinine Ratio (10-20) Glucose (70-99) mg/dl POC Glucose 87 (70-99) Calcium (8.5-10.1) mg/dl Imaging Data Radiologist's Impression: Radiology results as stated below per my review and the radiologist's interpretation: XR chest 1V portable CLINICAL HISTORY: natali dyspnea or chest pain. COMPARISON STUDY: 03/17/2019 FINDINGS: The bones soft tissues and hemidiaphragms are normal. The cardiomediastinal silhouette is normal. The lungs are clear. The pulmonary vasculature is normal. Overlap artifact from extrinsic tubing upper right chest. IMPRESSION: Negative chest. The above report was generated using voice recognition software. It may contain grammatical, syntax or spelling errors. Electronically signed by: Leopoldo Blair M.D. 04/17/2019 2:19 PM ECG Data Attestation: I personally reviewed and interpreted this ECG as follows: Indication: SOB/dyspnea Rate (beats per minute): 70 Rhythm: sinus rhythm Findings: + other (FL, QRS, and QTC intervals within normal limits ); no ST depression and no ST elevation Blood Pressure Blood Pressure Findings: Normal blood pressure [facility] Narrative 1336: Past medical records reviewed. The patient was evaluated in room C10. A complete history and physical exam was performed. EMR reviewed: The patient has a history of COPD, anxiety, ADD, and drug-induced delirium. The patient was seen at pain management yesterday and was given 20 Tramadol by her pain management doctor. The patient was discharged one month ago for a COPD exacerbation. The patient still smokes 1/2 pack of cigarettes per day. The patient was seen at her hide mill man's office today. 1343: I discussed the case with Freida Su-Pulmonology [employer] who states that the patient only received one duoneb treatment in the office. She states that the patient has a long history of COPD, but states that the patient has never been intubated or admitted to the ICU for her COPD. 1527: The patient's vital signs are stable after the hour long duoneb treatment. The patient is no longer tachypneic. The patient's work of breathing has improved, but she continues to have mild expiratory wheezing. The patient's labs show a respiratory alkalosis and a PCO2 of 30. The patient states that she does not feel ready to go home and states that she is afraid that if she goes home she will have another COPD flare up and end up back in the hospital. I discussed the case with Dr. Bonilla-[facility] Hospitalist who agrees and accepts the patient for further evaluation. Impression & Plan COPD exacerbation Discharge Plan Visit Data *Final* Discharge Date/Time: 04/17/19 17:43 Chief Complaint: Respiratory Problems Stated Complaint: BREATHING DIFFICULTIES ED Provider: Abdirashid Mccabe Discharge Problem: COPD exacerbation Patient Disposition: Admitted As Inpatient Discharge Instructions Interventions: ED Discharge Assessment Last Done: 04/17/19 17:43 The scribe's documentation has been prepared under my direction and personally reviewed by me in its entirety. I confirm that the note above accurately reflects all work, treatment, procedures, and medical decision making performed by me.
[2019-04-17] MEDS: ALBUT/IPRATROP 3MG/0.5MG NEB 3 ML VIAL NEB SCH (20:11)
[2019-04-17] MEDS: MoRPHine SULFATE 2 MG/ML CARP IV PRN ×2 (20:29→23:34)
[2019-04-17] MEDS: TRAZODONE HCL 100 MG TAB PO SCH (21:57)
[2019-04-17] MEDS: CYANOCOBALAMIN 500 MCG TABLET (VITAMIN B-12) PO SCH (21:57)
[2019-04-17] MEDS: ASCORBIC ACID 500 MG TAB PO SCH (21:57)
[2019-04-17] MEDS: methylPREDNISolone 40 MG in SYRINGE 0 ML IV SCH (21:57)
[2019-04-17] MEDS: CHOLECALCIFEROL 1,000 UNITS TAB PO SCH (21:58)
[2019-04-17] MEDS: GABAPENTIN 800 MG TAB PO SCH (21:58)
[2019-04-17] MEDS ORDERED: ACETAMINOPHEN 1,000 MG/100 ML VIAL IV STA (21:59)
[2019-04-17] MEDS: PANTOprazole 40 MG TAB PO SCH (21:59)
[2019-04-17] MEDS: DICLOFENAC SODIUM 75 MG TABCR PO SCH (21:59)
[2019-04-17] MEDS: ENOXAPARIN INJ 60 MG/0.6 ML SYR SQ SCH (22:00)
[2019-04-17] MEDS: prednisoLONE acetate 1% OP SUSP 5 ML BTL OP SCH (22:01)
[2019-04-17] MEDS: TRAMADOL HCL 50 MG TABLET PO SCH (22:01)
--- NOTE | 2019-04-17 22:16 | Nuclear Medicine Report ---
NUCLEAR PULMONARY VENTILATION/PERFUSION SCAN CLINICAL HISTORY: Dyspnea. Pleuritic chest pain. COMPARISON STUDY: Chest x-ray dated 04/17/2019. Chest CT dated 02/05/2019. TECHNIQUE: Initially, ventilation images of both lungs are obtained following the inhalation of 31.6 mCi of aerosolized technetium 99m DTPA. Subsequently, perfusion images of both lungs were obtained fo llowing the IV administration of 6 mCi of technetium 99m MAA. Ventilation and perfusion images were a cquired in the anterior, posterior, and oblique projections. FINDINGS: A chest x-ray performed 04/17/2019 shows advanced emphysema. No airspace consolidation or pleural effu cezar is identified. The ventilation of both lungs is markedly heterogeneous. There are large ventilatory defects identifi ed at the apices, likely related to emphysematous change. Deposition of tracer within the central air ways is consistent with obstructive physiology. Inhaled tracer is noted in the stomach. Perfusion is heterogeneous, with matched perfusion defects identified at the apices. No segmental per fusion defects are identified. IMPRESSION: 1. Findings are considered low probability for pulmonary embolus. 2. Heterogeneous ventilation and perfusion likely correspond to advanced emphysema. Electronically signed by: Shashank Camarillo M.D. 04/17/2019 10:14 PM
[2019-04-18] MEDS: methylPREDNISolone 40 MG in SYRINGE 0 ML IV SCH ×3 (05:13→21:17)
[2019-04-18] MEDS: ALBUT/IPRATROP 3MG/0.5MG NEB 3 ML VIAL NEB SCH ×4 (07:11→19:22)
[2019-04-18] MEDS: METHYLPHENIDATE HCL 5 MG TABLET PO SCH ×2 (08:32→13:26)
[2019-04-18] MEDS: METHYLPHENIDATE HCL 10 MG TABLET PO SCH ×2 (08:32→13:26)
[2019-04-18] MEDS: DULOXETINE HCL 60 MG CAP PO SCH (08:57)
[2019-04-18] MEDS: FOLIC ACID 1 MG TAB PO SCH (08:58)
[2019-04-18] MEDS: LIDOCAINE 5% 1 PATCH TD SCH (08:58)
[2019-04-18] MEDS: ENOXAPARIN INJ 60 MG/0.6 ML SYR SQ SCH (08:59)
[2019-04-18] MEDS: GABAPENTIN 800 MG TAB PO SCH ×3 (09:00→21:17)
[2019-04-18] MEDS: PANTOprazole 40 MG TAB PO SCH ×2 (09:00→21:15)
[2019-04-18] MEDS: NICOTINE 21 MG/24 HR TDSY TD SCH (09:00)
[2019-04-18] MEDS ORDERED: NICOTINE 21 MG/24 HR TDSY TD SCH (09:00)
[2019-04-18] MEDS: DICLOFENAC SODIUM 75 MG TABCR PO SCH ×2 (09:01→21:16)
[2019-04-18] MEDS: SERTRALINE HCL 100 MG TABLET PO SCH (09:01)
[2019-04-18] MEDS: MoRPHine SULFATE 4 MG/ML 1 ML CARP\\VIAL IV PRN ×3 (09:09→19:50)
[2019-04-18] MEDS: METOCLOPRAMIDE HCL 5 MG TABLET PO SCH ×3 (10:00→17:11)
[2019-04-18] MEDS ORDERED: SODIUM CHLORIDE 0.9% 1000ML 1,000 ML IV SCH (10:15)
[2019-04-18] MEDS: DiphenhydrAMINE HCL 50 MG/ML VIAL IV SCH ×2 (12:12→17:12)
[2019-04-18] MEDS ORDERED: OPTIRAY 320 125ml IV PRN (13:05)
--- NOTE | 2019-04-18 13:24 | CT Scan Report ---
CHEST CTA for PULMONARY ARTERIES CT DOSE: HISTORY: Right sided chest pain, dyspnea TECHNIQUE: Multiaxial CT images of the chest were performed following the intravenous administration of contrast to evaluate the pulmonary arteries. Maximal intensity projection images were also obtaine d. A dose lowering technique was utilized adhering to the principles of ALARA. COMPARISON STUDY: Chest CTA 02/05/2019. FINDINGS: Normal caliber thoracic aorta with no evidence for dissection. The heart is normal in size. No pleural or pericardial effusions. No filling defects within the pulmonary arteries to suggest pul monary embolus. No pneumothorax. The central airways are patent. Mild respiratory motion artifact. Sm all linear scarlike density within the lingula. Moderate emphysema. A stable 4 mm subpleural nodule w ithin the right lower lobe posteriorly on image 97. This demonstrates greater than two-year stability and is therefore considered to be benign. No focal lung consolidations to suggest pneumonia. No frac tures within the visualized osseous structures. Stable calcified left thyroid nodule. No mediastinal or hilar lymphadenopathy. Normal esophagus. The visualized liver and spleen are unremarkable. IMPRESSION: 1. No evidence for pulmonary embolus. 2. Moderate emphysema. Electronically signed by: Charles Guerrero M.D. 04/18/2019 1:23 PM
--- NOTE | 2019-04-18 15:33 | Hospitalist Progress Note ---
Date of Service April 18, 2019 Assessment & Plan (1) COPD exacerbation: patient presented with increased work of breathing, pursed lip breathing, unable to speak in full sentences she went to her [employer]ore [employer] office, saw Sharlene LEIGH, she received a Duoneb treatment in the office and was sent to ED in the ED she received an initial Duoneb treatment and then when she did not feel well she received an hour long Duoneb, three total prior to admission her saturations on room air dropped to 88% in the ED so she was placed on 2L NC VBG showed low CO2 at 30 suggesting respiratory alkalosis and increased work of breathing on admission she was started on Solu medrol 40mg q8, Duoneb ordered QID scheduled CT chest negative for PE, just shows emphysema, no pnuemonia will add Levaquin for atypical coverage, complete 5-7 days consult pulmonology since she came back to hospital at 30 days from last discharge still with pursed lip breathing today, gets very dyspneic on minimal exertions, can barely walk to the bathroom still requiring 2L nasal canula (2) Pleuritic chest pain: CTA chest negative for PE could possibly be related to breast pathology, she is up to date on mammogram pain not reproducible no clear diagnosis at this point (3) Chronic back pain: Morphine 4mg IV PRN she is supposed to get medical marijuana at home (4) MTHFR mutation: does not take anticoagulation she is on folic acid (5) DVT prophylaxis: stop therapeutic Lovenox start prophylactic dose tomorrow (6) Insomnia: continue Trazodone (7) Anxiety: continue Zoloft (8) GERD (gastroesophageal reflux disease): continue PPI Subjective patient not feeling much better today, still working hard to breath, pursed lip breathing some difficulty in speaking full sentences she is worried, she has never had a whole month of difficulty of breathing describes a right sided chest pain, says it is dull, not reproducible, says it is deep thinks maybe it radiates into out quadrant of her right breast reviewed the V/Q scan, low probability of PE however, due to the pain and increased work of breathing, still felt necessary to get CT chest also, wanted to rule out any tumor or other etiology of pain in lungs premedicated with Benadryl and Solu Medrol CTA chest showed no PE, no tumor, no rib fractures, it just showed emphysema Patient has a decreased appetite she denies fever she has a cough but it is dry, no hemoptysis Review of Systems Review of Systems: All systems reviewed & are unremarkable except as noted in HPI & below Physical Exam Constitutional: well developed, + ill appearing, + well hydrated and + thin; not diaphoretic Eyes: PERRL, conjunctivae normal, anicteric sclerae ENMT: external ear and nose normal, oropharynx normal Neck: trachea midline, no thyromegaly Respiratory: + labored breathing, + cough, + tachypneic, + audible wheezes and + pursed lip breathing Auscultation: + diminished lung sounds and + wheezes (expiratory, bilateral); no rales and no rhonchi Cardiovascular: RRR, no murmur, no edema Gastrointestinal (Abdomen): normal bowel sounds, soft, nontender, no hepatosplenomegaly Musculoskeletal: no cyanosis or clubbing, extremities motor strength 5/5 Skin: no rashes, warm and dry Neurologic: patellar DTR's 2+ bilat, sensation intact and PERRL, EOMI, acco mmodation nl, no face palsy, no dysarthria Psychiatric: A+Ox3, euthymic affect Lymphatic: no cervical or axillary lymphadenopathy Results & Data Vital Signs (Past 12 Hours) Vital Signs Temp Pulse Resp BP BP Pulse Ox 04/18/19 11:24 36.9 C 70 18 131/74 96 04/18/19 11:20 81 18 96 04/18/19 07:29 36.7 C 60 18 128/71 95 04/18/19 07:11 69 18 98 04/18/19 04:00 36.7 C 65 16 106/65 94 Diagnostic Findings CHEST CTA for PULMONARY ARTERIES CT DOSE: HISTORY: Right sided chest pain, dyspnea TECHNIQUE: Multiaxial CT images of the chest were performed following the intravenous administration of contrast to evaluate the pulmonary arteries. Maximal intensity projection images were also obtained. A dose lowering technique was utilized adhering to the principles of ALARA. COMPARISON STUDY: Chest CTA 02/05/2019. FINDINGS: Normal caliber thoracic aorta with no evidence for dissection. The heart is normal in size. No pleural or pericardial effusions. No filling defects within the pulmonary arteries to suggest pulmonary embolus. No pneumothorax. The central airways are patent. Mild respiratory motion artifact. Small linear scarlike density within the lingula. Moderate emphysema. A stable 4 mm subpleural nodule within the right lower lobe posteriorly on image 97. This demonstrates greater than two-year stability and is therefore considered to be benign. No focal lung consolidations to suggest pneumonia. No fractures within the visualized osseous structures. Stable calcified left thyroid nodule. No mediastinal or hilar lymphadenopathy. Normal esophagus. The visualized liver and spleen are unremarkable. IMPRESSION: 1. No evidence for pulmonary embolus. 2. Moderate emphysema. Medications Administered Current Inpatient Medications Acetaminophen (Tylenol) 650 mg PO Q4H PRN PRN Reason: Pain or Fever Stop: 05/17/19 18:36 Al Hydrox/Mg Hydrox/Simethicone (Maalox) 15 ml PO Q4H PRN PRN Reason: Dyspepsia Stop: 05/17/19 18:36 Albuterol (Duoneb) 3 ml INH Q4H PRN PRN Reason: Shortness Of Breath Or Wheezing Stop: 05/17/19 18:36 Albuterol (Duoneb) 3 ml NEB QIDR [facility]ESSY Stop: 05/17/19 19:59 Last Admin: 04/18/19 11:18 Dose: 3 ml Documented by: Albuterol (Combivent Respimat) 1 puffs INH QID PRN PRN Reason: Shortness Of Breath Stop: 05/17/19 18:36 Ascorbic Acid (Vitamin C) 1,000 mg PO HS BESSY Stop: 05/17/19 20:59 Last Admin: 04/17/19 21:57 Dose: 1,000 mg Documented by: Baclofen (Lioresal) 20 mg PO TID PRN PRN Reason: Muscle Spasm Stop: 05/17/19 18:36 Bisacodyl (Dulcolax) 10 mg [place] DAILY PRN PRN Reason: constipation Stop: 05/17/19 18:36 Cyanocobalamin (Vitamin B-12) 1,000 mcg PO HS [facility]ESS[facility] Stop: 05/17/19 20:59 Last Admin: 04/17/19 21:57 Dose: 1,000 mcg Documented by: Diclofenac Sodium (Voltaren) 75 mg PO BID [facility] Stop: 05/17/19 20:59 Last Admin: 04/18/19 09:01 Dose: 75 mg Documented by: Diphenhydramine HCl (Benadryl) 25 mg IV Q6 [facility] Stop: 04/18/19 18:01 Last Admin: 04/18/19 12:12 Dose: 25 mg Documented by: Duloxetine HCl (Cymbalta) 60 mg PO QAM [facility] Stop: 05/18/19 08:59 Last Admin: 04/18/19 08:57 Dose: 60 mg Documented by: Famotidine (Pepcid) 40 mg PO BID PRN PRN Reason: Acid Reflux Stop: 05/17/19 18:36 Folic Acid (Folvite) 1 mg PO QAM [facility] Stop: 05/18/19 08:59 Last Admin: 04/18/19 08:58 Dose: 1 mg Documented by: Gabapentin (Neurontin) 800 mg PO TID [facility] Stop: 05/17/19 20:59 Last Admin: 04/18/19 13:27 Dose: 800 mg Documented by: Methylprednisolone 40 mg/ (Syringe) 0.64 mls @ 1.5 mls/min IV Q8H [facility] Stop: 05/17/19 21:59 Last Admin: 04/18/19 13:27 Dose: 1.5 mls/min Documented by: Sodium Chloride (Nss 1000ml) 1,000 mls @ 125 mls/hr IV .Q8H [facility] Stop: 04/18/19 18:14 Last Infusion: 04/18/19 12:00 Dose: 125 mls/hr Documented by: Ioversol (Optiray 320 125ml) 112 ml IV ONCE PRN PRN Reason: Interaction Checking Stop: 04/22/19 13:04 Last Admin: 04/18/19 13:06 Dose: 112 ml Documented by: Lidocaine (Lidoderm 5%) 1 [facility] Stop: 05/18/19 08:59 Last Admin: 04/18/19 08:58 Dose: 1 patch Documented by: Methylphenidate HCl (Ritalin) 5 mg PO BID@0900,1400 [facility] Stop: 05/02/19 08:59 Last Admin: 04/18/19 13:26 Dose: Not Given Documented by: Methylphenidate HCl (Ritalin) 10 mg PO BID@0900,1400 [facility] Stop: 05/02/19 08:59 Last Admin: 04/18/19 13:26 Dose: Not Given Documented by: Metoclopramide HCl (Reglan) 5 mg PO AC [facility] Stop: 05/18/19 11:29 Last Admin: 04/18/19 13:26 Dose: 5 mg Documented by: Laurentaneous (Order Awaiting Action) 1 ea N/A QS [facility] Stop: 05/17/19 19:59 Last Admin: 04/18/19 09:02 Dose: Not Given Documented by: Petracellaneous (Remove Nicoderm Patch) 1 ea N/A HS [facility] Stop: 05/17/19 20:59 Last Admin: 04/17/19 22:01 Dose: 1 ea Documented by: Petracellaneous (Remove Lidoderm Patch) 1 ea N/A DAILY@2100 [facility] Stop: 05/18/19 20:59 Morphine Sulfate (Morphine Sulfate) 2 mg IV Q3H PRN PRN Reason: Pain Stop: 05/01/19 18:36 Last Admin: 04/17/19 23:34 Dose: 2 mg Documented by: Morphine Sulfate (Morphine Sulfate) 4 mg IV Q3H PRN PRN Reason: Severe Pain Stop: 05/02/19 08:52 Last Admin: 04/18/19 13:37 Dose: 4 mg Documented by: Nicotine (Nicoderm Cq) 21 mg TD [facility] Stop: 05/18/19 08:59 Last Admin: 04/18/19 09:00 Dose: 21 mg Documented by: Ondansetron HCl (Zofran) 4 mg IV Q6H PRN PRN Reason: Nausea Stop: 05/17/19 18:36 Ondansetron HCl (Zofran Tab) 4 mg PO Q8H PRN PRN Reason: Nausea Stop: 05/17/19 18:36 Pantoprazole Sodium (Protonix) 40 mg PO BID [facility] Stop: 05/17/19 20:59 Last Admin: 04/18/19 09:00 Dose: 40 mg Documented by: Prednisolone Acetate (Pred Forte 1%) 1 drops OP HS [facility] Stop: 05/17/19 20:59 Last Admin: 04/17/19 22:01 Dose: 1 drops Documented by: Rizatriptan Benzoate (Maxalt[employer]) 10 mg SL UD PRN PRN Reason: Headache Stop: 05/17/19 18:36 Sertraline HCl (Zoloft) 200 mg PO QAM [facility] Stop: 05/18/19 08:59 Last Admin: 04/18/19 09:01 Dose: 200 mg Documented by: Sucralfate (Carafate Tab) 1 gm PO TID PRN PRN Reason: Heartburn Stop: 05/17/19 18:36 Tramadol HCl (Ultram) 50 mg PO HS [facility] Stop: 05/17/19 20:59 Last Admin: 04/17/19 22:01 Dose: Not Given Documented by: Trazodone HCl (Desyrel) 300 mg PO [facility] Stop: 05/17/19 20:59 Last Admin: 04/17/19 21:57 Dose: 300 mg Documented by: Vitamin D (Vitamin D3) 2,000 units PO HS [facility] Stop: 05/17/19 20:59 Last Admin: 04/17/19 21:58 Dose: 2,000 units Documented by: PG Care Time/CCT Total # of Minutes Spent Total Time Spent with Patient: Total time spent is greater than 50% in coordination of care (as documented) at patient's floor/unit and/or counseling patient: (1) GERD (gastroesophageal reflux disease) Esophagitis presence: esophagitis presence not specified Qualified Code(s): K21.9 - Gastro-esophageal reflux disease without esophagitis
[2019-04-18] MEDS ORDERED: levoFLOXacin 750 MG TAB PO STA (16:10)
[2019-04-18] MEDS: prednisoLONE acetate 1% OP SUSP 5 ML BTL OP SCH (21:15)
[2019-04-18] MEDS: TRAZODONE HCL 100 MG TAB PO SCH (21:16)
[2019-04-18] MEDS: CHOLECALCIFEROL 1,000 UNITS TAB PO SCH (21:16)
[2019-04-18] MEDS: CYANOCOBALAMIN 500 MCG TABLET (VITAMIN B-12) PO SCH (21:16)
[2019-04-18] MEDS: ASCORBIC ACID 500 MG TAB PO SCH (21:17)
[2019-04-18] MEDS: TRAMADOL HCL 50 MG TABLET PO SCH (21:18)
[2019-04-19] MEDS: MoRPHine SULFATE 4 MG/ML 1 ML CARP\\VIAL IV PRN ×4 (00:58→22:23)
[2019-04-19] MEDS: methylPREDNISolone 40 MG in SYRINGE 0 ML IV SCH ×3 (05:38→20:14)
[2019-04-19] MEDS: ALBUT/IPRATROP 3MG/0.5MG NEB 3 ML VIAL NEB SCH ×4 (07:07→19:05)
[2019-04-19] MEDS: PANTOprazole 40 MG TAB PO SCH ×2 (08:01→20:10)
[2019-04-19] MEDS: METOCLOPRAMIDE HCL 5 MG TABLET PO SCH ×3 (08:01→15:50)
[2019-04-19] MEDS: DICLOFENAC SODIUM 75 MG TABCR PO SCH ×2 (08:02→20:09)
[2019-04-19] MEDS: GABAPENTIN 800 MG TAB PO SCH ×3 (08:02→20:11)
[2019-04-19] MEDS: DULOXETINE HCL 60 MG CAP PO SCH (08:02)
[2019-04-19] MEDS: SERTRALINE HCL 100 MG TABLET PO SCH (08:02)
[2019-04-19] MEDS: NICOTINE 21 MG/24 HR TDSY TD SCH (08:03)
[2019-04-19] MEDS: FOLIC ACID 1 MG TAB PO SCH (08:03)
[2019-04-19] MEDS: ENOXAPARIN INJ 40 MG/0.4 ML SYR SQ SCH (08:03)
[2019-04-19] MEDS: LIDOCAINE 5% 1 PATCH TD SCH (08:04)
[2019-04-19] MEDS: METHYLPHENIDATE HCL 10 MG TABLET PO SCH ×2 (08:10→14:08)
[2019-04-19] MEDS: METHYLPHENIDATE HCL 5 MG TABLET PO SCH ×2 (08:10→14:08)
[2019-04-19] MEDS: UMECLIDINIUM BRM/VILANTEROL INH SCH (09:53)
[2019-04-19] MEDS: levoFLOXacin 750 MG TAB PO SCH (11:03)
[2019-04-19] MEDS ORDERED: LORazepam 0.5 MG TAB PO STA (15:41)
[2019-04-19] MEDS ORDERED: LORazepam 0.5 MG TAB ONE (15:45)
[2019-04-19] MEDS: ASCORBIC ACID 500 MG TAB PO SCH (20:08)
[2019-04-19] MEDS: TRAZODONE HCL 100 MG TAB PO SCH (20:08)
[2019-04-19] MEDS: CYANOCOBALAMIN 500 MCG TABLET (VITAMIN B-12) PO SCH (20:09)
[2019-04-19] MEDS: CHOLECALCIFEROL 1,000 UNITS TAB PO SCH (20:09)
[2019-04-19] MEDS: prednisoLONE acetate 1% OP SUSP 5 ML BTL OP SCH (20:11)
[2019-04-19] MEDS: TRAMADOL HCL 50 MG TABLET PO SCH (20:12)
--- NOTE | 2019-04-19 21:21 | Hospitalist Progress Note ---
Date of Service April 19, 2019 Assessment & Plan (1) COPD exacerbation: patient presented with increased work of breathing, pursed lip breathing, unable to speak in full sentences. Patient has mildly improved since being in the hospital. on admission she was started on Solu medrol 40mg q8, Duoneb ordered QID scheduled CT chest negative for PE, just shows emphysema, no pnuemonia Added Levaquin for atypical coverage, complete 5-7 days consult pulmonology since she came back to hospital at 30 days from last discharge Awaiting input from pulmonary. still requiring 2L nasal canula Patient may benefit from daliresp or azithromycin. (2) Pleuritic chest pain: CTA chest negative for PE could possibly be related to breast pathology, she is up to date on mammogram pain not reproducible no clear diagnosis at this point (3) Chronic back pain: Morphine 4mg IV PRN she is supposed to get medical marijuana at home (4) MTHFR mutation: does not take anticoagulation she is on folic acid (5) DVT prophylaxis: stop therapeutic Lovenox start prophylactic dose tomorrow (6) Insomnia: continue Trazodone (7) Anxiety: continue Zoloft (8) GERD (gastroesophageal reflux disease): continue PPI Spent 35 minutes in management of patient. Subjective Patient reports some mild improvement from yesterday. She states her chest is a little less tight than before. Review of Systems Review of Systems: Constitutional-no fever or chills ENT-no blurred vision, no double vision, no epistaxis, no sore throat Respiratory-shortness of breath and wheezing. No cough. No sputum production Cardiac-no palpitations, no syncope. Pleuritic sharp right lateral chest discomfort GI-no nausea, vomiting, diarrhea, melena, hematochezia -no urinary retention, no urinary incontinence, no dysuria, no hematuria Musculoskeletal-no joint pain, no muscle tenderness Skin-no bruising, no rashes, no pruritus Neuro-no isolated weakness, no paresthesia, no weakness Psych-no depression, no anxiety Physical Exam Physical Exam: Constitutional: well developed, + ill appearing, + well hydrated and + thin; not diaphoretic Eyes: PERRL, conjunctivae normal, anicteric sclerae ENMT: external ear and nose normal, oropharynx normal Neck: trachea midline, no thyromegaly Respiratory: + diminished lung sounds and + wheezes (expiratory, bilateral); no rales and no rhonchi. Cardiovascular: RRR, no murmur, no edema Gastrointestinal (Abdomen): normal bowel sounds, soft, nontender, no hepatosplenomegaly Musculoskeletal: no cyanosis or clubbing, extremities motor strength 5/5 Skin: no rashes, warm and dry Neurologic: patellar DTR's 2+ bilat, sensation intact and PERRL, EOMI, accommodation nl, no face palsy, no dysarthria Psychiatric: A+Ox3, euthymic affect Lymphatic: no cervical or axillary lymphadenopathy Results & Data Vital Signs (Past 12 Hours) Vital Signs Temp Pulse Pulse Resp BP BP Pulse Ox 04/19/19 19:25 36.8 C 83 22 140/85 96 04/19/19 19:05 84 22 98 04/19/19 16:13 82 04/19/19 15:53 37.0 C 72 22 169/82 H 97 04/19/19 11:47 71 16 96 04/19/19 11:08 36.9 C 80 20 117/66 97 PG Care Time/CCT Total # of Minutes Spent Total Time Spent with Patient: Total time spent is greater than 50% in coordination of care (as documented) at patient's floor/unit and/or counseling patient: (1) GERD (gastroesophageal reflux disease) Esophagitis presence: esophagitis presence not specified Qualified Code(s): K21.9 - Gastro-esophageal reflux disease without esophagitis
[2019-04-20] MEDS: methylPREDNISolone 40 MG in SYRINGE 0 ML IV SCH ×2 (05:39→14:22)
[2019-04-20] MEDS: ALBUT/IPRATROP 3MG/0.5MG NEB 3 ML VIAL NEB SCH (07:49)
[2019-04-20 07:54] LABS: Hemoglobin 12.8 g/dL (12.0-16.0); Mean Corpuscular Hgb Conc 32.8 g/dL (32-36); Mean Corpuscular Volume 93.3 fL (80-100); Mean Platelet Volume 11.3 fL (7.4-10.4); Platelet Count 207 K/uL (130-400); RDW Coefficient of Variation 14.1 % (11.5-14.5); RDW Standard Deviation 47.8 fL (36.4-46.3); Red Blood Count 4.18 M/uL (4.2-5.4); White Blood Count 8.71 K/uL (4.8-10.8)
[2019-04-20 08:30] LABS: Creatinine Clr Calc Pharmacy 61.6 ml/min; Est GFR (African American) 79.3; Est GFR (Non-African American) 68.4
[2019-04-20] MEDS: SERTRALINE HCL 100 MG TABLET PO SCH (08:43)
[2019-04-20] MEDS: METOCLOPRAMIDE HCL 5 MG TABLET PO SCH ×3 (08:43→16:16)
[2019-04-20] MEDS: UMECLIDINIUM BRM/VILANTEROL INH SCH (08:43)
[2019-04-20] MEDS: ENOXAPARIN INJ 40 MG/0.4 ML SYR SQ SCH (08:44)
[2019-04-20] MEDS: DICLOFENAC SODIUM 75 MG TABCR PO SCH ×2 (08:44→21:26)
[2019-04-20] MEDS: DULOXETINE HCL 60 MG CAP PO SCH (08:44)
[2019-04-20] MEDS: NICOTINE 21 MG/24 HR TDSY TD SCH (08:44)
[2019-04-20] MEDS: FOLIC ACID 1 MG TAB PO SCH (08:44)
[2019-04-20] MEDS: GABAPENTIN 800 MG TAB PO SCH ×3 (08:44→21:27)
[2019-04-20] MEDS: PANTOprazole 40 MG TAB PO SCH ×2 (08:45→21:26)
[2019-04-20] MEDS: METHYLPHENIDATE HCL 5 MG TABLET PO SCH ×2 (08:46→12:47)
[2019-04-20] MEDS: METHYLPHENIDATE HCL 10 MG TABLET PO SCH ×2 (08:46→12:47)
[2019-04-20] MEDS: LIDOCAINE 5% 1 PATCH TD SCH (09:01)
[2019-04-20] MEDS: MoRPHine SULFATE 4 MG/ML 1 ML CARP\\VIAL IV PRN ×3 (10:52→21:18)
[2019-04-20] MEDS ORDERED: LACTULOSE SYRUP 30 GM/45 ML UDP PO STA (11:19)
[2019-04-20] MEDS: levoFLOXacin 750 MG TAB PO SCH (11:47)
[2019-04-20] MEDS: IPRATROPIUM BROMIDE/ALBUTEROL respimat INH INH SCH ×3 (15:20→21:24)
[2019-04-20] MEDS ORDERED: LORazepam 0.5 MG TAB PO STA (17:41)
[2019-04-20] MEDS ORDERED: LORazepam 1 MG TAB PO PRN (17:42)
--- NOTE | 2019-04-20 18:06 | Pulmonary Consultation ---
Date of Consultation April 20, 2019 Assessment & Plan (1) COPD exacerbation: 1. Stop smoking completely 2. Was strongly recommended to continue with the nebulizer treatment as prescribed along with steroids. If she is not able to take the IV or p.o. steroids then she should be put on inhaled steroids. I strongly recommend to start her on Advair Diskus 250/51 puff twice a day. 3. Antireflux diet. 4. Pulmonary rehab is strongly recommended. 5. Patient need to follow-up with the plant ecologist as soon as she is discharged and also have a complete pulmonary function test and managed on outpatient basis with the plant ecologist. 6. Patient also need to follow with the psychiatry for her chronic anxiety symptoms and adjust antianxiety medications. (2) DVT prophylaxis: Currently she is on Lovenox which should be continued. (3) GERD (gastroesophageal reflux disease): 1. Patient need to be on strict antireflux diet. 2. Also to continue with Protonix 40 mg twice a day. 3. The patient need to stop smoking completely. Esophagitis presence: esophagitis presence not specified Qualified Code(s): K21.9 - Gastro-esophageal reflux disease without esophagitis (4) Tobacco abuse: We had a long discussion about quitting to smoke. I have also explained to her that if she does not stop smoking her breathing is not going to get better. History of Present Illness Reason for Consultation: Exacerbation of COPD. Return visit and admission within 30 days that was the reason for consultation Requesting Physician: Shaun Lima Attending Physician: Shaun Lima History of Present Illness History of Present Illness Chief Complaint: Shortness of breath, wheezing, pleuritic right-sided chest pain Primary Care Provider: Kacy Gomez MD 54-year-old female smoker with worsening shortness of breath and wheezing for the past 3 days. She also has pleuritic sharp right lateral chest pain. She has a prothrombin mutation and apparently is not on any anticoagulant. She is allergic, contrast material so ventilation/perfusion scan will be ordered. Lovenox 1 mg/kg subcutaneously every 12 hours until VQ is proven negative hopefully. There is no CO2 retention. Chest x-ray is clear. She denies any sputum production. She does have exacerbation of COPD but no apparent bronchitis or pneumonia. She is admitted for further evaluation and treatment. The patient was admitted with exacerbation of chronic obstructive pulmonary disease. Currently she smokes more than half pack of cigarettes a day and continue to smoke until prior to admission. She is a very anxious person. She is sitting in the bed with all her family members in the bed and trying to eat her lunch with them. She denies having any chest pain or palpitations. Also denies any abdominal pain, nausea, vomiting. She gets very short of breath with any kind of exertion or activities. Does not have any swollen extremities. Allergies Allergy/AdvReac Type Severity Reaction Status Date / Time risperidone Allergy Mild LACTATING Verified 04/17/19 14:02 Tetracyclines Allergy Mild HIVES Verified 04/17/19 14:02 mirtazapine Allergy Unknown SHORTNESS Verified 04/17/19 14:02 OF BREATH ranitidine Allergy Unknown SEVERE Verified 04/17/19 14:02 VOMITING Iodinated Contrast- Oral and AdvReac Intermediate "horrible Verified 04/17/19 14:02 IV Dye headache" loratadine AdvReac Mild UNABLE TO Verified 04/17/19 14:02 SLEEP MULTIPLE DAYS Home Medications Home Medications Medication Instructions Recorded Confirmed Type ondansetron HCl 4 mg tablet 4 mg PO Q8H PRN 06/24/18 04/17/19 History cholecalciferol (vitamin D3) 2,000 2,000 units PO HS 06/25/18 04/17/19 History unit capsule vitamin A 0 unit PO HS 01/04/19 04/17/19 History bisacodyl [Dulcolax (bisacodyl)] 10 mg KS DAILY PRN #28 ea 01/09/19 04/17/19 Rx famotidine 40 mg tablet 40 mg PO BID PRN #60 tab 03/11/19 04/17/19 Rx gabapentin 800 mg tablet 800 mg PO TID #90 tab 03/11/19 04/17/19 Rx pantoprazole 40 mg tablet,delayed 40 mg PO BID #60 tab 03/11/19 04/17/19 Rx release Anoro Ellipta 1 inh INH QAM 03/13/19 04/17/19 History Combivent Respimat 1 puff INHALATION QID PRN 03/13/19 04/17/19 History baclofen 20 mg PO TID PRN 03/13/19 04/17/19 History cyanocobalamin (vitamin B-12) 1,000 mcg PO HS 03/13/19 04/17/19 History [Vitamin B-12] methylphenidate HCl 5 mg PO BID 03/13/19 04/17/19 History methylphenidate HCl 10 mg PO BID 03/13/19 04/17/19 History rizatriptan 10 mg TRANSLINGUAL DIRECTED PRN 03/13/19 04/17/19 History sertraline 200 mg PO QAM 03/13/19 04/17/19 History sucralfate 1 g PO TID PRN 03/13/19 04/17/19 History trazodone 300 mg PO HS 03/13/19 04/17/19 History prednisolone acetate [Pred Forte] 1 drp OPHTHALMIC (EYE) HS 03/14/19 04/17/19 History diclofenac sodium 75 mg 75 mg PO BID #60 tab 04/08/19 04/17/19 Rx tablet,delayed release ascorbic acid (vitamin C) [Vitamin 1,000 mg PO HS 04/17/19 04/17/19 History C] duloxetine 60 mg PO QAM 04/17/19 04/17/19 History folic acid 1 mg PO QAM 04/17/19 04/17/19 History ipratropium-albuterol 3 ml INHALATION Q4H PRN 04/17/19 04/17/19 History nicotine 1 patch TRANSDERMAL QAM 04/17/19 04/17/19 History tramadol 50 mg PO HS 04/17/19 04/17/19 History Patient History Medical History Chronic back pain (Chronic) Pleuritic chest pain (Acute) COPD exacerbation (Acute) Insomnia (Acute) MTHFR mutation (Chronic) Influenza A Pneumonia Obsessive compulsive disorder (Chronic) Posttraumatic stress disorder (Chronic) Anxiety (Chronic) History of seizure disorder (Chronic) Tobacco abuse (Chronic) COPD (chronic obstructive pulmonary disease) (Chronic) MTHFR mutation COPD (chronic obstructive pulmonary disease) (Acute) Gastroparesis (Acute) Surgical History Status post cholecystectomy (Chronic) Status post appendectomy (Chronic) Status post carpal tunnel release (Chronic) History of appendectomy (Acute) History of cholecystectomy (Acute) Family History Father Myocardial infarction Grandfather Myocardial infarction Social History Preferred Language: Greenlandic Communication Ability: Effective 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 The patient has generalized weakness. Does not have any blood in the stool urine or painful micturition. She has got also pain all over. Physical Exam Physical Exam: [id number] female admitted with exacerbation of COPD. Alert and oriented x3, no fevers, no chills, sitting in the bed and not in any acute distress. HEENT-head atraumatic and normocephalic, TMs intact bilaterally, pupils equal and reactive to light, extraocular muscles intact, mouth is dry no lesions no rash seen. Neck-no lymphadenopathy or thyromegaly, trachea midline. Neck is supple and no JVD. Chest-bilaterally coarse breathing diminished breath sounds diffuse wheezing bilaterally. No crackles no rhonchi heard. Resonant on palpation. Cardiac-regular rate and rhythm, normal S1 and S2, no JVD, no murmur could be appreciated. Abdomen-abdomen is soft, nontender, bowel sounds are positive and no organomegaly. Extremities-no cyanosis, clubbing, or edema. Neuro-the patient is alert, awake and is oriented x3, moving all the extremities and responds appropriately. Pupils also reactive to light. Psych-normal affect, normal mood. Skin-no rash, no lesions seen. Some ecchymotic signs. Results & Data Vital Signs (Past 12 Hours) Vital Signs Temp Pulse Resp BP Pulse Ox 04/20/19 15:13 36.9 C 81 18 136/86 91 04/20/19 11:17 37.0 C 84 18 118/82 94 04/20/19 07:49 63 16 98 04/20/19 07:40 36.6 C 67 20 117/70 98 Laboratory Results 04/20/19 07:37 04/20/19 07:37 Abnormal lab results 04/20/19 Range/Units 07:37 RBC 4.18 L (4.2-5.4) M/uL RDW Std Deviation 47.8 H (36.4-46.3) fL MPV 11.3 H (7.4-10.4) fL d-dimer is 750. PTT was 25.6/PT/INR was 1.0. VBG on admission revealed pH of 7.5 330/29/25/60 base excess 2.7 Sodium 139 potassium 3.7 CO2 25 BUN 12 and creatinine 0.93 glucose 97 calcium 10.3 magnesium 2.5 Diagnostic Findings CHEST CTA for PULMONARY ARTERIES CT DOSE: HISTORY: Right sided chest pain, dyspnea TECHNIQUE: Multiaxial CT images of the chest were performed following the intravenous administration of contrast to evaluate the pulmonary arteries. Maximal intensity projection images were also obtained. A dose lowering technique was utilized adhering to the principles of ALARA. COMPARISON STUDY: Chest CTA 02/05/2019. FINDINGS: Normal caliber thoracic aorta with no evidence for dissection. The heart is normal in size. No pleural or pericardial effusions. No filling defects within the pulmonary arteries to suggest pulmonary embolus. No pneumothorax. The central airways are patent. Mild respiratory motion artifact. Small linear scarlike density within the lingula. Moderate emphysema. A stable 4 mm subpleural nodule within the right lower lobe posteriorly on image 97. This demonstrates greater than two-year stability and is therefore considered to be benign. No focal lung consolidations to suggest pneumonia. No fractures within the visualized osseous structures. Stable calcified left thyroid nodule. No mediastinal or hilar lymphadenopathy. Normal esophagus. The visualized liver and spleen are unremarkable. IMPRESSION: 1. No evidence for pulmonary embolus. 2. Moderate emphysema. Electronically signed by: Charles Guerrero M.D. 04/18/2019 1:23 PM Medications Administered Current Inpatient Medications Acetaminophen (Tylenol) 650 mg PO Q4H PRN PRN Reason: Pain or Fever Stop: 05/17/19 18:36 Al Hydrox/Mg Hydrox/Simethicone (Maalox) 15 ml PO Q4H PRN PRN Reason: Dyspepsia Stop: 05/17/19 18:36 Albuterol (Duoneb) 3 ml INH Q4H PRN PRN Reason: Shortness Of Breath Or Wheezing Stop: 05/17/19 18:36 Albuterol (Combivent Respimat) 1 puffs INH QID BESSY Stop: 05/20/19 12:59 Last Admin: 04/20/19 16:35 Dose: Not Given Documented by: Ascorbic Acid (Vitamin C) 1,000 mg PO HS [facility] Stop: 05/17/19 20:59 Last Admin: 04/19/19 20:08 Dose: 1,000 mg Documented by: Baclofen (Lioresal) 20 mg PO TID PRN PRN Reason: Muscle Spasm Stop: 05/17/19 18:36 Bisacodyl (Dulcolax) 10 mg KS DAILY PRN PRN Reason: constipation Stop: 05/17/19 18:36 Last Admin: 04/20/19 10:52 Dose: 10 mg Documented by: Cyanocobalamin (Vitamin B-12) 1,000 mcg PO [facility] Stop: 05/17/19 20:59 Last Admin: 04/19/19 20:09 Dose: 1,000 mcg Documented by: Diclofenac Sodium (Voltaren) 75 mg PO BID [facility] Stop: 05/17/19 20:59 Last Admin: 04/20/19 08:44 Dose: 75 mg Documented by: Duloxetine HCl (Cymbalta) 60 mg PO QAM [facility] Stop: 05/18/19 08:59 Last Admin: 04/20/19 08:44 Dose: 60 mg Documented by: Enoxaparin Sodium (Lovenox) 40 mg SQ QAM [facility] Stop: 05/19/19 08:59 Last Admin: 04/20/19 08:44 Dose: 40 mg Documented by: Famotidine (Pepcid) 40 mg PO BID PRN PRN Reason: Acid Reflux Stop: 05/17/19 18:36 Folic Acid (Folvite) 1 mg PO QAM [facility] Stop: 05/18/19 08:59 Last Admin: 04/20/19 08:44 Dose: 1 mg Documented by: Gabapentin (Neurontin) 800 mg PO TID [facility] Stop: 05/17/19 20:59 Last Admin: 04/20/19 12:43 Dose: 800 mg Documented by: Methylprednisolone 40 mg/ (Syringe) 0.64 mls @ 1.5 mls/min IV Q12H [facility] Stop: 05/21/19 08:59 Ioversol (Optiray 320 125ml) 112 ml IV ONCE PRN PRN Reason: Interaction Checking Stop: 04/22/19 13:04 Last Admin: 04/18/19 13:06 Dose: 112 ml Documented by: Levofloxacin (Levaquin) 750 mg PO DAILY@1100 BESSY; Protocol Stop: 04/26/19 10:59 Last Admin: 04/20/19 11:47 Dose: 750 mg Documented by: Lidocaine (Lidoderm 5%) 1 patch TD QAM [facility] Stop: 05/18/19 08:59 Last Admin: 04/20/19 09:01 Dose: Not Given Documented by: Lorazepam (Ativan) 1 mg PO HS PRN PRN Reason: Insomnia Stop: 05/20/19 17:41 Methylphenidate HCl (Ritalin) 5 mg PO BID@0900,1400 [facility] Stop: 05/02/19 08:59 Last Admin: 04/20/19 12:47 Dose: Not Given Documented by: Methylphenidate HCl (Ritalin) 10 mg PO BID@0900,1400 [facility] Stop: 05/02/19 08:59 Last Admin: 04/20/19 12:47 Dose: Not Given Documented by: Metoclopramide HCl (Reglan) 5 mg PO AC [facility] Stop: 05/18/19 11:29 Last Admin: 04/20/19 16:16 Dose: 5 mg Documented by: Miscellaneous (Remove Nicoderm Patch) 1 ea N/A [facility] Stop: 05/17/19 20:59 Last Admin: 04/19/19 20:12 Dose: 1 ea Documented by: Miscellaneous (Remove Lidoderm Patch) 1 ea N/A DAILY@2100 [facility] Stop: 05/18/19 20:59 Last Admin: 04/19/19 20:12 Dose: 1 ea Documented by: Morphine Sulfate (Morphine Sulfate) 2 mg IV Q3H PRN PRN Reason: Pain Stop: 05/01/19 18:36 Last Admin: 04/17/19 23:34 Dose: 2 mg Documented by: Morphine Sulfate (Morphine Sulfate) 4 mg IV Q3H PRN PRN Reason: Severe Pain Stop: 05/02/19 08:52 Last Admin: 04/20/19 16:16 Dose: 4 mg Documented by: Nicotine (Nicoderm Cq) 21 mg TD QAM [facility] Stop: 05/18/19 08:59 Last Admin: 04/20/19 08:44 Dose: 21 mg Documented by: Ondansetron HCl (Zofran) 4 mg IV Q6H PRN PRN Reason: Nausea Stop: 05/17/19 18:36 Ondansetron HCl (Zofran Tab) 4 mg PO Q8H PRN PRN Reason: Nausea Stop: 05/17/19 18:36 Pantoprazole Sodium (Protonix) 40 mg PO BID [facility] Stop: 05/17/19 20:59 Last Admin: 04/20/19 08:45 Dose: 40 mg Documented by: Prednisolone Acetate (Pred Forte 1%) 1 drops OP [facility] Stop: 05/17/19 20:59 Last Admin: 04/19/19 20:11 Dose: 1 drops Documented by: Rizatriptan Benzoate (Maxalt-Lead Infrastructure Architect) 10 mg SL UD PRN PRN Reason: Headache Stop: 05/17/19 18:36 Sertraline HCl (Zoloft) 200 mg PO QAM [facility] Stop: 05/18/19 08:59 Last Admin: 04/20/19 08:43 Dose: 200 mg Documented by: Sucralfate (Carafate Tab) 1 gm PO TID PRN PRN Reason: Heartburn Stop: 05/17/19 18:36 Tramadol HCl (Ultram) 50 mg PO [facility] Stop: 05/17/19 20:59 Last Admin: 04/19/19 20:12 Dose: Not Given Documented by: Trazodone HCl (Desyrel) 300 mg PO [facility] Stop: 05/17/19 20:59 Last Admin: 04/19/19 20:08 Dose: 300 mg Documented by: Umeclidinium/Vilanterol (Anoro Ellipta) 1 puffs INH QAM [facility] Stop: 05/19/19 08:59 Last Admin: 04/20/19 08:43 Dose: 1 puffs Documented by: Vitamin D (Vitamin D3) 2,000 units PO [facility] Stop: 05/17/19 20:59 Last Admin: 04/19/19 20:09 Dose: 2,000 units Documented by: PG Care Time/CCT Total # of Minutes Spent Total Time Spent with Patient: Total time spent is greater than 50% in coordination of care (as documented) at patient's floor/unit and/or counseling patient:
[2019-04-20] MEDS: CHOLECALCIFEROL 1,000 UNITS TAB PO SCH (21:24)
[2019-04-20] MEDS: TRAMADOL HCL 50 MG TABLET PO SCH (21:25)
[2019-04-20] MEDS: CYANOCOBALAMIN 500 MCG TABLET (VITAMIN B-12) PO SCH (21:25)
[2019-04-20] MEDS: prednisoLONE acetate 1% OP SUSP 5 ML BTL OP SCH (21:26)
[2019-04-20] MEDS: TRAZODONE HCL 100 MG TAB PO SCH (21:26)
[2019-04-20] MEDS: ASCORBIC ACID 500 MG TAB PO SCH (21:27)
--- NOTE | 2019-04-20 22:39 | Hospitalist Progress Note ---
Date of Service April 20, 2019 Assessment & Plan (1) COPD exacerbation: patient presented with increased work of breathing, pursed lip breathing, unable to speak in full sentences. Patient has mildly improved since being in the hospital. on admission she was started on Solu medrol 40mg q8, Duoneb ordered QID scheduled Will taper to q12h (solumedrol. CT chest negative for PE, just shows emphysema, no pnuemonia Added Levaquin for atypical coverage, complete 5-7 days consult pulmonology since she came back to hospital at 30 days from last discharge Off nasal cannula. Patient may benefit from daliresp or azithromycin 250 mg MWF. Pulmonary recommended advair, will order this. As patient confirmed smoking, this is likely playing a role in her readmissions. Patient will not improve if she continues to smoke. Patient would also benefit from a PFT. But this would need to be done once patient is back to her "baseline" (2) Pleuritic chest pain: CTA chest negative for PE could possibly be related to breast pathology, she is up to date on mammogram pain not reproducible no clear diagnosis at this point (3) Chronic back pain: Morphine 4mg IV PRN she is supposed to get medical marijuana at home (4) MTHFR mutation: does not take anticoagulation she is on folic acid (5) DVT prophylaxis: order lovenox in AM. (6) Insomnia: continue Trazodone (7) Anxiety: continue Zoloft (8) GERD (gastroesophageal reflux disease): continue PPI Spent 35 minutes in management of patient. Subjective Patient reports she has not improved. She still feels very tight and SOB at rest. She denied tobacco history with me (but confirmed this with Dr. Olson and Pulmonary provider. Patient also is stating that she is not tolerating steroids as it is making her very anxious. She states even on home dose of prednsione she gets tremors and gets confused. She however states that she will continue with the mediciine as long as it is tapered. Review of Systems Review of Systems: All systems reviewed & are unremarkable except as noted in HPI & below Physical Exam Physical Exam: Constitutional: well developed, + ill appearing, + well hydrated and + thin; not diaphoretic Eyes: PERRL, conjunctivae normal, anicteric sclerae ENMT: external ear and nose normal, oropharynx normal Neck: trachea midline, no thyromegaly Respiratory: + diminished lung sounds and + wheezes (expiratory, bilateral); no rales and no rhonchi. Cardiovascular: RRR, no murmur, no edema Gastrointestinal (Abdomen): normal bowel sounds, soft, nontender, no hepatosplenomegaly Musculoskeletal: no cyanosis or clubbing, extremities motor strength 5/5 Skin: no rashes, warm and dry Neurologic: patellar DTR's 2+ bilat, sensation intact and PERRL, EOMI, accommodation nl, no face palsy, no dysarthria Psychiatric: A+Ox3, euthymic affect Lymphatic: no cervical or axillary lymphadenopathy Results & Data Vital Signs (Past 12 Hours) Vital Signs Temp Pulse Resp BP BP Pulse Ox 04/20/19 20:56 105 H 28 H 98 04/20/19 19:00 37.4 C 99 H 20 161/92 H 97 04/20/19 15:13 36.9 C 81 18 136/86 91 04/20/19 11:17 37.0 C 84 18 118/82 94 PG Care Time/CCT Total # of Minutes Spent Total Time Spent with Patient: Total time spent is greater than 50% in coordination of care (as documented) at patient's floor/unit and/or counseling patient: (1) GERD (gastroesophageal reflux disease) Esophagitis presence: esophagitis presence not specified Qualified Code(s): K21.9 - Gastro-esophageal reflux disease without esophagitis
[2019-04-21] MEDS ORDERED: ALBUT/IPRATROP 3MG/0.5MG NEB 3 ML VIAL NEB ONE (02:00)
[2019-04-21] MEDS: FLUTICASONE/SALMETEROL 250/50 (ADVAIR) 14 PUFF/1 INHALER INH SCH ×2 (08:19→08:38)
[2019-04-21] MEDS: GABAPENTIN 800 MG TAB PO SCH ×3 (08:19→20:54)
[2019-04-21] MEDS: SERTRALINE HCL 100 MG TABLET PO SCH (08:20)
[2019-04-21] MEDS: FOLIC ACID 1 MG TAB PO SCH (08:20)
[2019-04-21] MEDS: DULOXETINE HCL 60 MG CAP PO SCH (08:21)
[2019-04-21] MEDS: METOCLOPRAMIDE HCL 5 MG TABLET PO SCH ×3 (08:21→16:13)
[2019-04-21] MEDS: PANTOprazole 40 MG TAB PO SCH ×2 (08:21→20:54)
[2019-04-21] MEDS: DICLOFENAC SODIUM 75 MG TABCR PO SCH (08:22)
[2019-04-21] MEDS: ENOXAPARIN INJ 40 MG/0.4 ML SYR SQ SCH (08:24)
[2019-04-21] MEDS: LIDOCAINE 5% 1 PATCH TD SCH (08:27)
[2019-04-21] MEDS: NICOTINE 21 MG/24 HR TDSY TD SCH (08:27)
[2019-04-21] MEDS: IPRATROPIUM BROMIDE/ALBUTEROL respimat INH INH SCH ×3 (08:30→13:14)
[2019-04-21] MEDS: UMECLIDINIUM BRM/VILANTEROL INH SCH (08:30)
[2019-04-21] MEDS: METHYLPHENIDATE HCL 5 MG TABLET PO SCH ×2 (08:36→14:11)
[2019-04-21] MEDS: METHYLPHENIDATE HCL 10 MG TABLET PO SCH ×2 (08:37→14:14)
[2019-04-21] MEDS ORDERED: methylPREDNISolone 40 MG in SYRINGE 0 ML IV SCH (09:00)
[2019-04-21] MEDS ORDERED: ENOXAPARIN INJ 40 MG/0.4 ML SYR SQ SCH (09:00)
[2019-04-21] MEDS: MoRPHine SULFATE 4 MG/ML 1 ML CARP\\VIAL IV PRN (11:21)
[2019-04-21] MEDS: levoFLOXacin 750 MG TAB PO SCH (11:29)
[2019-04-21] MEDS ORDERED: LEVALBUTEROL 1.25MG/0.5ML NEB NEB STA (12:28)
[2019-04-21] MEDS: BACLOFEN 20 MG TAB PO PRN (12:55)
--- NOTE | 2019-04-21 12:57 | Progress Note ---
DATE: 04/21/2019 PULMONARY MEDICINE PROGRESS NOTE Chart reviewed, patient examined. SUBJECTIVE: The patient seems reasonably comfortable at rest, but states to me that she is unable to expectorate. She denies pleuritic pain. She has become so progressively dyspneic that she cannot ambulate even on a level plane without significant symptomatology. Recently, completed a trip to [place], [place] to visit friends and relatives and had to use a battery driven chair in order to navigate even short distances. PHYSICAL EXAMINATION: CURRENT VITAL SIGNS: Blood pressure 113/71, pulse 67 and regular, respiratory rate 16, temperature 36.8, O2 sat 92% on 2 liters. SKIN: Without lesion. HEENT: Atraumatic, normocephalic. PERRLA. LUNGS: Distant with "audible wheezes" on forced expiration per marked hyperresonance. CARDIAC: Regular rate and rhythm without murmurs or gallops. PMI nondisplaced. ABDOMEN: Soft, scaphoid. No evidence of hepatosplenomegaly. EXTREMITIES: No significant pedal edema, clubbing or cyanosis. NEUROLOGIC: Intact. No lateralizing signs. LABORATORY DATA: CTA performed both on 02/05/2019 and 04/18/2019. No evidence of pulmonary thromboembolic disease, but moderate to severe emphysematous changes are noted. Blood cultures were negative. White count 8700, H and H 12.8 and 39. There has been mild peripheral eosinophilia of 6.0 on 04/08/2019. ABGs on admission were venous. Calculated pCO2 was 25 on admission. Normal BUN and creatinine. Calcium 10.3. Normal sinus rhythm on admission. OVERALL ASSESSMENT: A 54-year-old with severe chronic obstructive pulmonary disease with recent exacerbation and persistent bronchospasm and significant symptomatology. The patient still sounds "tight", although somewhat improved since admission. The patient may require benefit from bronchoscopy with BAL for the mucoid impaction or inspissated mucus giving her ongoing symptoms. That could trigger additional bronchospasm. We will review current medication and reinstitute the patient's request q. 4 hour neb treatments round the clock and consider bronchoscopic intervention at some point. MIREYAD
[2019-04-21] MEDS: ALBUT/IPRATROP 3MG/0.5MG NEB 3 ML VIAL NEB SCH ×3 (15:34→23:45)
[2019-04-21] MEDS: LORazepam 0.5 MG TAB PO PRN ×2 (15:56→22:23)
[2019-04-21] MEDS: guaiFENesin 600 MG TABCR PO SCH ×2 (16:13→20:54)
[2019-04-21] MEDS: MoRPHine SULFATE 2 MG/ML CARP IV PRN ×2 (17:18→20:52)
[2019-04-21] MEDS: NYSTATIN SUSP 500,000 U/5 ML UDC PO SCH ×2 (17:19→20:53)
[2019-04-21] MEDS: ARFORMOTEROL TART 15MCG/2ML VIAL INH SCH (19:09)
[2019-04-21] MEDS: TRAMADOL HCL 50 MG TABLET PO SCH (20:51)
[2019-04-21] MEDS: methylPREDNISolone 80 MG in SYRINGE 0 ML IV SCH (20:53)
[2019-04-21] MEDS: TRAZODONE HCL 100 MG TAB PO SCH (20:54)
[2019-04-21] MEDS: ASCORBIC ACID 500 MG TAB PO SCH (20:55)
[2019-04-21] MEDS: CYANOCOBALAMIN 500 MCG TABLET (VITAMIN B-12) PO SCH (20:55)
[2019-04-21] MEDS: prednisoLONE acetate 1% OP SUSP 5 ML BTL OP SCH (20:55)
[2019-04-21] MEDS: CHOLECALCIFEROL 1,000 UNITS TAB PO SCH (20:55)
--- NOTE | 2019-04-21 21:28 | Hospitalist Progress Note ---
Date of Service April 21, 2019 Assessment & Plan (1) COPD exacerbation: Ongoing with no subjective improvement per patient. This is despite high-dose steroids since admission. Remain on solumedrol 40mg q12h along w/ levaquin - day #5 of each. No wean on steroids today. CT chest negative for PE or pneumonia. Dr Roberto saw today -- she may need therapeutic bronch. Dr Roberto also added brovana. She is also on advair and duonebs -- will stop the advair as she is on multiple bronchodilators. Add mucinex, flutter valve and incentive spirometry. Hold NSAID while on high-dose steroids. Present on Admission?: Yes (2) Pleuritic chest pain: Cough is severe - suspect musculoskeletal chest wall muscle strain. Symptomatic care. CTA chest neg for PE or rib Fx. Present on Admission?: Yes (3) Chronic back pain: pain meds prn apparently uses medical marijuana at home holding such Present on Admission?: Yes (4) MTHFR mutation: does not take anticoagulation she is on folic acid lovenox for DVT proph (5) Insomnia: continue Trazodone (6) Anxiety: continue Zoloft requests ativan prn use ativan 0.5mg q12h prn (7) GERD (gastroesophageal reflux disease): continue PPI (8) Tobacco abuse: nicoderm patch (9) Candidiasis of mouth and esophagus: start nystatin swish/swallow -- 5cc ac/hs if not improving then add diflucan (10) DVT prophylaxis: lovenox daily ok to d/c telemetry transfer to med/surg Subjective patient reports no improvement in cough, wheezing, dyspnea, appetite, or overall status. she still has GARRISON with minimal walking (from bed to bathroom door). normally can walk 50-100 feet before becoming dyspneic. cough is nonproductive. she asks if she can shower. corners of mouth and gums are sore. "I hate the steroids - they make me all jittery." tele stable overnight. Review of Systems Constitutional: no fever Respiratory: + dyspnea on exertion; no hemoptysis Cardiovascular: + dyspnea at rest and + dyspnea on exertion; no chest pain, no orthopnea and no paroxysmal nocturnal dyspnea Gastrointestinal: no abdominal pain Physical Exam Constitutional: + frail appearing coughing, anxious ENMT: Mouth: + oral mucosal abnormality (probable mild thrush plaques ) Respiratory: + cough, + prolonged expiratory phase and + pursed lip breathing (at times); no labored breathing Auscultation: + rhonchi and + wheezes Cardiovascular: Rate/Rhythm: regular rate and regular rhythm Heart Sounds: normal S1 and normal S2; no murmur Vessels: posterior tibial pulses present and dorsalis pedis pulses present; no JVD Extremities: no edema Gastrointestinal (Abdomen): normal bowel sounds, soft, nontender, no hepatosplenomegaly Psychiatric: Orientation: alert and oriented x 3 Affect: + anxious affect Results & Data Vital Signs (Past 12 Hours) Vital Signs Temp Pulse Pulse Resp BP Pulse Ox 04/21/19 20:03 37.3 C 88 18 136/83 95 04/21/19 19:10 83 18 95 04/21/19 16:00 88 04/21/19 15:35 101 H 26 H 97 04/21/19 12:59 88 16 96 04/21/19 11:53 67 PG Care Time/CCT Total # of Minutes Spent Total Time Spent with Patient: Total time spent is greater than 50% in coordination of care (as documented) at patient's floor/unit and/or counseling patient: (1) Insomnia Insomnia type: unspecified Qualified Code(s): G47.00 - Insomnia, unspecified (2) Chronic back pain Back pain location: low back pain Back pain laterality: unspecified Sciatica presence: without sciatica Qualified Code(s): M54.5 - Low back pain; G89.29 - Other chronic pain (3) GERD (gastroesophageal reflux disease) Esophagitis presence: esophagitis presence not specified Qualified Code(s): K21.9 - Gastro-esophageal reflux disease without esophagitis
[2019-04-22] MEDS: MoRPHine SULFATE 2 MG/ML CARP IV PRN ×5 (00:58→23:37)
[2019-04-22] MEDS: ALBUT/IPRATROP 3MG/0.5MG NEB 3 ML VIAL NEB SCH ×6 (04:04→23:09)
[2019-04-22] MEDS: ARFORMOTEROL TART 15MCG/2ML VIAL INH SCH ×2 (06:55→15:14)
[2019-04-22 07:27] LABS: BUN Creatinine Ratio 15.2 (10-20); Calcium 8.7 mg/dl (8.5-10.1); Creatinine Clr Calc Pharmacy 52.3 ml/min; Est GFR (African American) 64.9; Potassium 4.6 mmol/L (3.5-5.1)
[2019-04-22] MEDS: METHYLPHENIDATE HCL 5 MG TABLET PO SCH ×2 (07:52→13:51)
[2019-04-22] MEDS: METOCLOPRAMIDE HCL 5 MG TABLET PO SCH ×3 (07:53→17:32)
[2019-04-22] MEDS: METHYLPHENIDATE HCL 10 MG TABLET PO SCH ×2 (07:53→13:51)
[2019-04-22] MEDS: guaiFENesin 600 MG TABCR PO SCH ×2 (07:54→20:54)
[2019-04-22] MEDS: DULOXETINE HCL 60 MG CAP PO SCH (07:54)
[2019-04-22] MEDS: UMECLIDINIUM BRM/VILANTEROL INH SCH (07:54)
[2019-04-22] MEDS: FOLIC ACID 1 MG TAB PO SCH (07:54)
[2019-04-22] MEDS: PANTOprazole 40 MG TAB PO SCH ×2 (07:55→20:54)
[2019-04-22] MEDS: LIDOCAINE 5% 1 PATCH TD SCH (07:55)
[2019-04-22] MEDS: NYSTATIN SUSP 500,000 U/5 ML UDC PO SCH ×4 (07:55→20:53)
[2019-04-22] MEDS: GABAPENTIN 800 MG TAB PO SCH ×3 (07:55→20:54)
[2019-04-22] MEDS: SERTRALINE HCL 100 MG TABLET PO SCH (07:55)
[2019-04-22] MEDS: ENOXAPARIN INJ 40 MG/0.4 ML SYR SQ SCH (07:56)
[2019-04-22] MEDS: methylPREDNISolone 80 MG in SYRINGE 0 ML IV SCH ×2 (07:56→21:02)
[2019-04-22] MEDS: NICOTINE 21 MG/24 HR TDSY TD SCH (07:56)
[2019-04-22] MEDS: levoFLOXacin 750 MG TAB PO SCH (11:14)
--- NOTE | 2019-04-22 12:47 | Progress Note ---
DATE: 04/22/2019 PULMONARY MEDICINE PROGRESS NOTE Chart reviewed, the patient examined. SUBJECTIVE: The patient feels somewhat better, was placed on long-acting aerosolized nebulizer medication in the form of Brovana and [id number] DuoNeb solution along with high-dose IV steroid therapy. She is still having great difficulty expectorating, although feels slightly better from a respiratory standpoint. OBJECTIVE: CURRENT VITAL SIGNS: Blood pressure 120/70, pulse 81 and regular, respiratory rate 18, temperature 37.2, O2 sat 94% on room air. SKIN: Warm and dry. HEENT: Atraumatic, normocephalic. PERRLA. LUNGS: Hyperresonant with improved air entry, but wheezing audible. CARDIAC: Regular rate and rhythm. I do not appreciate a gallop. ABDOMEN: Soft, protuberant. EXTREMITIES: No pedal edema, clubbing or cyanosis. NEUROLOGIC: Intact. No lateralizing signs. OVERALL ASSESSMENT: A 54-year-old with severe chronic obstructive pulmonary disease with exacerbation with persistent symptoms despite aggressive pulmonary toilet and difficulty expectorating. PLAN: Bronchoscopy with BAL tomorrow. I have gone over the indications and potential risks of the procedure and the patient is amenable for us proceeding tomorrow. RUY
[2019-04-22] MEDS ORDERED: HYDROCODONE/ACETAMINOPHEN 7.5/325MG TAB PO PRN (16:22)
--- NOTE | 2019-04-22 17:23 | XRay Report ---
XR lumbar spine 2-3V CLINICAL HISTORY: severe b/l SI joint pain; DJD L-spine. COMPARISON STUDY: 09/13/2016 FINDINGS: Progressive degenerative disc change L5-S1. Near-complete loss of the joint space with vacu um disc present. Mild degenerative narrowing L4-L5 unchanged. Vertebral body stature is normal. No evidence for subluxation. IMPRESSION: 1. Severe degenerative disc change L5-S1 consider progressive from the prior study. 2. Mild degenerative change L4-L5 unchanged from the prior exam. The above report was generated using voice recognition software. It may contain grammatical, syntax or spelling errors. Electronically signed by: Leopoldo Blair M.D. 04/22/2019 5:21 PM
[2019-04-22] MEDS: DICLOFENAC SOD 1% GEL 100 GM TUBE EXT SCH ×2 (17:53→20:56)
[2019-04-22] MEDS: BACLOFEN 20 MG TAB PO PRN (17:53)
--- NOTE | 2019-04-22 19:57 | Hospitalist Progress Note ---
Date of Service April 22, 2019 Assessment & Plan (1) COPD exacerbation: Slightly improved on exam but will leave solumedrol 40mg q12h as is today. Cont levaquin - day #[address] chest negative for PE or pneumonia. Dr Roberto again saw today -- bronch planned for am. Cont nebs, inhalers, mucinex, flutter valve/pulm toilet, etc. (2) Pleuritic chest pain: Cough has been severe - suspect musculoskeletal chest wall muscle strain as cause of recent symptoms. No complaints of this today however. Symptomatic care. CTA chest neg for PE or rib Fx. (3) Chronic back pain: with acute exacerbation. either SI joint dysfunction or lumbar spine DJD. repeat l-spine x-rays -- rule out acute compression fracture. add norco 5's prn. add k-pad heating pad. add voltaren gel 4 grams qid. adjust norco as needed. already on baclofen prn. steroids for COPD should help as well. (4) MTHFR mutation: does not take anticoagulation she is on folic acid lovenox for DVT proph (5) Insomnia: continue Trazodone (6) Anxiety: continue Zoloft cont ativan 0.5mg q12h prn (7) GERD (gastroesophageal reflux disease): continue PPI (8) Tobacco abuse: nicoderm patch counseled to quit multiple times by multiple providers (9) Candidiasis of mouth and esophagus: nystatin swish/swallow -- 5cc ac/hs if not improving then add diflucan (10) DVT prophylaxis: lovenox daily Subjective patient states she was in the bathroom bending over to pull her underwear up when her back gave out. since then she has had severe back pain unresponsive to IV morphine. normally takes medical THC at home for this. goes to pain management regularly for epidural pain shots. pain is radiating into both buttocks and on the right down the posterior thigh. breathing is slightly better or similar to yesterday. still with cough and GARRISON. Review of Systems Constitutional: no fever and no chills Respiratory: + cough, + dyspnea and + dyspnea on exertion; no hemoptysis Cardiovascular: no chest pain Gastrointestinal: no abdominal pain, no nausea and no vomiting Physical Exam Constitutional: + acute distress (due to back pain) and + frail appearing ENMT: Mouth: + oral mucosal abnormality (thrush plaques are better today) Respiratory: + cough, + prolonged expiratory phase and + pursed lip breathing (at times); no labored breathing Auscultation: + rhonchi and + wheezes (improved today) Cardiovascular: Rate/Rhythm: regular rate and regular rhythm Heart Sounds: normal S1 and normal S2; no murmur Vessels: posterior tibial pulses present and dorsalis pedis pulses present; no JVD Extremities: no edema Gastrointestinal (Abdomen): normal bowel sounds, soft, nontender, no hepatosplenomegaly Musculoskeletal: very tender to palpation over l-spine to palpation; very tender over both SI joints, especially right SI joint. passive ROM of either hip causes pain in lumbar area not the hips or groin. strength 5/5 x both legs. Psychiatric: Orientation: alert and oriented x 3 Affect: + anxious affect Results & Data Vital Signs (Past 12 Hours) Vital Signs Temp Pulse Resp BP Pulse Ox 04/22/19 15:23 36.6 C 92 H 16 134/81 96 04/22/19 15:14 91 H 16 96 04/22/19 11:20 81 18 94 04/22/19 08:01 37.2 C 76 18 120/70 92 Laboratory Results Laboratory Results - last 24 hr 04/22/19 06:43 Sodium 140 Potassium 4.6 Chloride 105 Carbon Dioxide 31 Anion Gap 4.0 BUN 17 Creatinine 1.12 Est Cr Clr Drug Dosing 52.3 Est GFR ( Amer) 64.9 Est GFR (Non-Af Amer) 56.0 BUN/Creatinine Ratio 15.2 Glucose 139 H Calcium 8.7 PG Care Time/CCT Total # of Minutes Spent Total Time Spent with Patient: Total time spent is greater than 50% in co ordination of care (as documented) at patient's floor/unit and/or counseling patient: (1) Insomnia Insomnia type: unspecified Qualified Code(s): G47.00 - Insomnia, unspecified (2) Chronic back pain Back pain laterality: unspecified Back pain location: low back pain Sciatica presence: without sciatica Qualified Code(s): M54.5 - Low back pain; G89.29 - Other chronic pain (3) GERD (gastroesophageal reflux disease) Esophagitis presence: esophagitis presence not specified Qualified Code(s): K21.9 - Gastro-esophageal reflux disease without esophagitis
[2019-04-22] MEDS: CHOLECALCIFEROL 1,000 UNITS TAB PO SCH (20:53)
[2019-04-22] MEDS: prednisoLONE acetate 1% OP SUSP 5 ML BTL OP SCH (20:53)
[2019-04-22] MEDS: TRAMADOL HCL 50 MG TABLET PO SCH (20:54)
[2019-04-22] MEDS: TRAZODONE HCL 100 MG TAB PO SCH (20:54)
[2019-04-22] MEDS: ASCORBIC ACID 500 MG TAB PO SCH (20:54)
[2019-04-22] MEDS: CYANOCOBALAMIN 500 MCG TABLET (VITAMIN B-12) PO SCH (20:54)
[2019-04-23] MEDS: ALBUT/IPRATROP 3MG/0.5MG NEB 3 ML VIAL NEB SCH ×6 (03:35→23:43)
[2019-04-23 05:48] LABS: Hemoglobin 12.2 g/dL (12.0-16.0); Mean Corpuscular Volume 91.8 fL (80-100); Mean Platelet Volume 11.7 fL (7.4-10.4); Platelet Count 195 K/uL (130-400); RDW Coefficient of Variation 14.1 % (11.5-14.5); RDW Standard Deviation 47.5 fL (36.4-46.3); Red Blood Count 4.03 M/uL (4.2-5.4); White Blood Count 9.42 K/uL (4.8-10.8)
[2019-04-23 06:19] LABS: Creatinine Clr Calc Pharmacy 56.8 ml/min; Est GFR (African American) 71.9
[2019-04-23] MEDS: ARFORMOTEROL TART 15MCG/2ML VIAL INH SCH ×2 (07:14→19:00)
[2019-04-23] MEDS: METOCLOPRAMIDE HCL 5 MG TABLET PO SCH ×3 (07:26→17:54)
[2019-04-23] MEDS: MoRPHine SULFATE 2 MG/ML CARP IV PRN ×3 (07:31→18:54)
[2019-04-23] MEDS: METHYLPHENIDATE HCL 5 MG TABLET PO SCH ×2 (08:10→13:17)
[2019-04-23] MEDS: METHYLPHENIDATE HCL 10 MG TABLET PO SCH ×2 (08:10→13:17)
[2019-04-23] MEDS: PANTOprazole 40 MG TAB PO SCH ×3 (08:10→21:19)
[2019-04-23] MEDS: FOLIC ACID 1 MG TAB PO SCH (08:10)
[2019-04-23] MEDS: guaiFENesin 600 MG TABCR PO SCH ×2 (08:10→21:19)
[2019-04-23] MEDS: DULOXETINE HCL 60 MG CAP PO SCH (08:10)
[2019-04-23] MEDS: SERTRALINE HCL 100 MG TABLET PO SCH (08:11)
[2019-04-23] MEDS: LIDOCAINE 5% 1 PATCH TD SCH (08:14)
[2019-04-23] MEDS: UMECLIDINIUM BRM/VILANTEROL INH SCH (08:14)
[2019-04-23] MEDS: ENOXAPARIN INJ 40 MG/0.4 ML SYR SQ SCH (08:14)
[2019-04-23] MEDS: methylPREDNISolone 80 MG in SYRINGE 0 ML IV SCH ×2 (08:15→21:19)
[2019-04-23] MEDS: NICOTINE 21 MG/24 HR TDSY TD SCH (08:16)
[2019-04-23] MEDS: DICLOFENAC SOD 1% GEL 100 GM TUBE EXT SCH ×4 (08:16→21:20)
[2019-04-23] MEDS: NYSTATIN SUSP 500,000 U/5 ML UDC PO SCH ×4 (08:17→21:18)
[2019-04-23] MEDS: GABAPENTIN 800 MG TAB PO SCH ×3 (08:17→21:19)
[2019-04-23] MEDS ORDERED: SODIUM CHLORIDE 0.9% 1000ML 500 ML IV SCH (08:30)
[2019-04-23 08:57] LABS: Pregnancy Test, Serum Negative (Negative)
--- NOTE | 2019-04-23 09:19 | History & Physical Bridge Note ---
Date of Service April 23, 2019 History & Physical Bridge Note I have examined the patient, reviewed the History & Physical and in the interval since the performance of the History & Physical I have noted the following changes of clinical significance: no changes noted
--- NOTE | 2019-04-23 09:20 | Pre Anesthesia Assessment ---
Date of Service April 23, 2019 Pre Sedation Assessment Vital Signs Temp Pulse Pulse Resp BP BP Pulse Ox 04/23/19 07:35 36.8 C 65 18 118/76 96 04/23/19 07:14 81 16 92 04/23/19 01:49 74 110/69 04/22/19 23:11 62 16 95 04/22/19 23:00 37.1 C 69 16 165/69 H 94 04/22/19 19:27 78 16 97 04/22/19 15:23 36.6 C 92 H 16 134/81 96 04/22/19 15:14 91 H 16 96 04/22/19 11:20 81 18 94 Cardiovascular RRR, no murmur, no edema + peripheral pulses normal Respiratory normal respiratory effort, lungs clear to auscultation Pre-Sedation Airway Assessment Smoking Status: Former smoker Hx Sleep Apnea: No Short, Thick Neck: No Thyromental Distance: > or= 3.5 Finger Breadths Oral Cavity: + Dentures Mallampati Class: II ASA: ASA2 NPO Status Date of Last Intake of Fluids: 04/22/19 Time of Last Intake of Fluids: 23:00 Date of Last Intake of Solid Food: 04/22/19 Time of Last Intake of Solid Foods: 23:00 Notes The planned sedation has been discussed with the patient. Informed Consent was obtained. I have identified the patient, determined the appropriateness of sedation and have assessed the patient immediately prior to the procedure. All medicine(s) and interventions are by my order.
[2019-04-23] MEDS ORDERED: OXYMETAZOLINE 0.05% 30 ML BTL ONE (10:18)
[2019-04-23] MEDS ORDERED: LIDOCAINE 4% INH SOLN 4 ML BTL NAE ONE (10:18)
[2019-04-23] MEDS ORDERED: LIDOCAINE HCL 2% (LOCAL) INJ 50 ML VIAL INFIL STA (10:50)
[2019-04-23] MEDS ORDERED: LEVALBUTEROL HCL 1.25 MG/3 ML NEB NEB STA (10:50)
[2019-04-23] MEDS ORDERED: LIDOCAINE HCL VISCOUS SOLN 2% 15 ML UDC TOP ONE (10:50)
[2019-04-23] MEDS ORDERED: MIDAZOLAM HCL 1 MG/ML 2ML VIAL IV STA (10:50)
[2019-04-23] MEDS ORDERED: fentaNYL citrate 100 MCG/2 ML VIAL IV ONE (10:50)
--- NOTE | 2019-04-23 11:04 | Post Anesthesia Assessment ---
Date of Service April 23, 2019 Post Sedation Assessment Vital Signs Temp Pulse Pulse Pulse Resp BP BP 04/23/19 11:00 77 14 127/87 04/23/19 10:55 74 14 143/101 H 04/23/19 10:50 86 12 114/76 04/23/19 10:45 68 12 106/67 04/23/19 10:40 64 14 123/74 04/23/19 10:35 69 14 126/76 04/23/19 10:30 63 14 121/74 04/23/19 10:16 63 14 137/77 04/23/19 07:35 36.8 C 65 18 118/76 04/23/19 07:14 81 16 04/23/19 01:49 74 110/69 04/22/19 23:11 62 16 04/22/19 23:00 37.1 C 69 16 165/69 H 04/22/19 19:27 78 16 04/22/19 15:23 36.6 C 92 H 16 134/81 04/22/19 15:14 91 H 16 04/22/19 11:20 81 18 Pulse Ox 04/23/19 11:00 100 04/23/19 10:55 99 04/23/19 10:50 100 04/23/19 10:45 100 04/23/19 10:40 100 04/23/19 10:35 100 04/23/19 10:30 100 04/23/19 10:16 04/23/19 07:35 96 04/23/19 07:14 92 04/23/19 01:49 04/22/19 23:11 95 04/22/19 23:00 94 04/22/19 19:27 97 04/22/19 15:23 96 04/22/19 15:14 96 04/22/19 11:20 94 Recovery Score Activity: Moves 4 extremities Respiration: Deep Breath/Cough Circulation: +/-20% PreAnes Value Consciousness: Arouseable (by name) Oxygen Saturation: O2 needed for >90% Post Anesthesia Score: 8 Discharge Sedation Level of Care: Fast Track Phase II Post Sedation Plan On clinical assessment, the patient appears to have tolerated the sedation without complications. Patient is recovering as anticipated. Patient will continue to be monitored by nursing and may be discharged when sedation discharge criteria are met per below protocol. Upon Completions of procedure and additional 15 minutes continue every 5 minute vital signs and the P.A.R. score; then discharge to a Phase I or Fast Track to Phase II per the following guidelines: * Discharge Patient to appropriate Phase II area if PAR is 8 or greater or return to pre- procedure baseline. The post - procedure orders will be as directed. * If PAR score is less than 8 or not return to pre-procedure baseline then patient will follow Phase I monitoring till PAR is reached for Phase II. The Phase I may be done in procedure room or may call to secure a Phase I area. * If naloxone or flumazenil are used for reversal, hold in Phase I for continued monitoring from when last reversal dose was given for a minimum of 60 minutes or longer pending the nurse and/or physician discretion of patient condition before discharge to Phase II. Please call the Sedation Physician to re-evaluate and complete post-note for discharge to Phase II area. Do NOT discharge from procedure sedation or Phase 1 until post- sedation evaluation note is complete by procedure /sedation MD Sedation Discharge Instructions to be given to the patient at discharge to home.
--- NOTE | 2019-04-23 11:04 | Post Operative Brief Note ---
Immediate Post Op Note v1 Date of Surgery April 23, 2019 Pre & Post Diagnosis Operation Date: 04/23/19 09:00 <No data on this case meets the specified criteria> Operation Date: 04/23/19 09:00 Pre-Op Diagnosis: Bronchospasm Post-Op Diagnosis: Bronchospasm/COPD Procedure Operation Date: 04/23/19 09:00 <No data on this case meets the specified criteria> Operation Date: 04/23/19 09:00 Actual Procedures p Bronchoscopy Radiology(Bilateral) - Umang Roberto MD Surgeon Umang Roberto MD Hand Cloth Folder none Estimated Blood Loss 0 Findings Consistent with Post-Op Diagnosis COPD exac Complications none Disposition Accompanied Patient To Recovery: No Overlapping Procedure I was present for: the critical portions of procedure. I was immediately available: during the entire case. Back up surgeon: was not required during procedure.
[2019-04-23] MEDS: levoFLOXacin 750 MG TAB PO SCH (13:16)
--- NOTE | 2019-04-23 14:44 | Progress Note ---
DATE: 04/23/2019 PULMONARY PROGRESS NOTE Chart reviewed, the patient examined. SUBJECTIVE: Tolerated the bronchoscopy well with minimal signs of residual infection and mucoviscous secretion lavaged until clear. She tolerated not only the procedure well, but she feels ready to go home and has once again assorted that she will not go back to smoking. The patient does have chronic back pain and apparently has been requesting additional narcotics. She utilizes medical marijuana as well at home. OBJECTIVE: CURRENT VITAL SIGNS: Blood pressure 120/75, pulse 68 and regular, respiratory rate 18, temperature 37, O2 sat 97% on room air. SKIN: Warm and dry. HEENT: Atraumatic, normocephalic. PERRLA. LUNGS: Distant P and A. CARDIAC: Unchanged. ABDOMEN: Soft. EXTREMITIES: No pedal edema. ASSESSMENT: Stable. I would convert to oral medication at this point in time and await culture from the bronchial washings which I suspect will be sterile. In addition, I think the patient is ready for discharge within 24 hours and be happy to see her along with Freida Su in the pulmonary clinic as an outpatient and consider an electric wheelchair for her in order to assist with further mobility given the level of severe dyspnea that she is experiencing with exertion.
[2019-04-23] MEDS ORDERED: BISACODYL 10 MG SUPP PR STA (18:04)
[2019-04-23] MEDS: BACLOFEN 20 MG TAB PO PRN (19:22)
[2019-04-23] MEDS: TRAMADOL HCL 50 MG TABLET PO SCH (21:19)
[2019-04-23] MEDS: CYANOCOBALAMIN 500 MCG TABLET (VITAMIN B-12) PO SCH (21:19)
[2019-04-23] MEDS: TRAZODONE HCL 100 MG TAB PO SCH (21:19)
[2019-04-23] MEDS: CHOLECALCIFEROL 1,000 UNITS TAB PO SCH (21:19)
[2019-04-23] MEDS: prednisoLONE acetate 1% OP SUSP 5 ML BTL OP SCH (21:20)
[2019-04-23] MEDS: ASCORBIC ACID 500 MG TAB PO SCH (21:59)
--- NOTE | 2019-04-23 22:29 | Operative Report ---
DATE OF OPERATION: 04/23/2019 TIME: 1000 hours. PROCEDURE: Fiberoptic bronchoscopy with bronchoalveolar lavage. INDICATIONS: COPD with persistent bronchospasm. ANESTHESIA PREOPERATIVELY: None. ANESTHESIA DURING PROCEDURE: 5 mg IV Versed, 100 mcg IV fentanyl, 20 mL 2% Xylocaine spray above and below the cords, 4% viscous Xylocaine intranasally. DESCRIPTION OF PROCEDURE: Moderate conscious sedation was implemented at 1037 hours and completed at 1051 hours. The fiberoptic bronchoscope was inserted into the right naris with minimal difficulty and passed to the level of true vocal cords. The cords appeared to approximate normally with phonation without evidence of lesions or paralysis. Scope was then introduced into the trachea and right and left tracheobronchial tree. The trachea was within normal limits and the chely was sharp. The right mainstem bronchus was explored initially and no endobronchial lesions were seen. The right upper lobe at the apical posterior and anterior segments, bronchus intermedius, right middle lobe at the medial and lateral segments and all basilar segments of right lower lobe were found to be free of endobronchial lesions with minimal to moderate amount of mucoviscous secretion lavaged from right middle lobe and right lower lobe basal segments until clear. Bronchial crypts and clefts was seen throughout the right and left tracheobronchial tree. Left mainstem bronchus was then explored, no endobronchial lesions were seen. Left upper lobe at the apical-posterior and anterior segments, lingular subdivision of the superior and inferior segments, and all basilar segments of the left lower lobe were free of endobronchial lesions with moderate amount of mucoviscous secretion lavaged from each lobar segment until clear. The procedure was then terminated. The patient tolerated the procedure well and was given a nebulizer treatment with Xopenex 1.25 mg and then transferred to the medical floor hemodynamically stable with no signs of respiratory compromise. We will await microbiological and cytologic examination of the bronchial washings. I attest to the content of the Intraoperative Record and any orders documented therein. Any exception s are noted below.
[2019-04-24] MEDS: ALBUT/IPRATROP 3MG/0.5MG NEB 3 ML VIAL NEB SCH ×6 (04:11→23:16)
--- NOTE | 2019-04-24 05:51 | Hospitalist Progress Note ---
Date of Service April 23, 2019 Assessment & Plan (1) COPD exacerbation: IMPROVED Today. s/p bronch by Dr Roberto - appreciate his assistance. Can decrease solumedrol back to 40mg q12h given her subjective improvement. Cont levaquin - day #6 today. STOP after tomorrow's dose (I incorrectly noe culated how long her course had been previously - med rec suggests first dose was 04/18). CT chest negative for PE or pneumonia. Cont nebs, inhalers, mucinex, flutter valve/pulm toilet, etc. (2) Pleuritic chest pain: Cough has been severe - suspect musculoskeletal chest wall muscle strain as cause of recent symptoms. This symptom has improved. (3) Chronic back pain: with acute exacerbation. either SI joint dysfunction or lumbar spine DJD. IMPROVED TODAY. repeat l-spine x-rays -- neg for acute compression fracture. cont norco 5's prn. cont k-pad heating pad. cont voltaren gel 4 grams qid. cont baclofen. steroids probably helping as well. (4) MTHFR mutation: does not take anticoagulation she is on folic acid lovenox for DVT proph (5) Insomnia: continue Trazodone (6) Anxiety: continue Zoloft cont ativan 0.5mg q12h prn (7) GERD (gastroesophageal reflux disease): continue PPI (8) Tobacco abuse: nicoderm patch counseled to quit multiple times by multiple providers (9) Candidiasis of mouth and esophagus: nystatin swish/swallow -- 5cc ac/hs IMPROVED 7-10 day course planned (10) DVT prophylaxis: lovenox daily highly encouraged her to seek out pulmonary rehab post-discharge discussed what it is and that studies have shown improvement in lung function w/ such seems interested home tomorrow?? Subjective I saw Ms Hedrick post-bronch. She feels MUCH better today. She asks when she can go home (she is hoping for tomorrow). Less cough, wheeze and dyspnea. Back pain much improved today. Still w radicular symptoms but that, too, is improved. Asks for suppository for constipation. She asks "what can I do to prevent getting sick?" Review of Systems Constitutional: no fever Respiratory: + cough and + dyspnea on exertion; no hemoptysis and no sputum production Cardiovascular: no chest pain Gastrointestinal: + constipation; no abdominal pain Physical Exam Constitutional: + frail appearing (but looks MUCH better than yesterday); no acute distress no coughing during the visit ENMT: Mouth: + oral mucosal abnormality (thrush plaques just about resolved) Respiratory: + prolonged expiratory phase; no labored breathing Auscultation: + wheezes (improved today) Cardiovascular: Rate/Rhythm: regular rate and regular rhythm Heart Sounds: normal S1 and normal S2; no murmur Vessels: posterior tibial pulses present and dorsalis pedis pulses present; no JVD Extremities: no edema Gastrointestinal (Abdomen): normal bowel sounds, soft, nontender, no hepatosplenomegaly Psychiatric: Orientation: alert and oriented x 3 Affect: + anxious affect (but less so today than yesterday) Results & Data Vital Signs (Past 12 Hours) Vital Signs Temp Pulse Pulse Resp BP BP Pulse Ox 04/23/19 22:57 37.2 C 64 16 121/67 91 04/23/19 19:52 37.0 C 73 19 136/79 95 04/23/19 19:02 77 16 95 04/23/19 18:48 37.6 C H 77 20 164/84 H 95 Laboratory Results Laboratory Results - last 24 hr 04/23/19 04/23/19 04/23/19 05:21 08:12 Unknown Creatinine 1.03 Est Cr Clr Drug Dosing 56.8 Est GFR ( Amer) 71.9 Est GFR (Non-Af Amer) 62.0 HCG, Qual Negative BAL A.galactomannan Ag Pending BAL A.galactomann Index Pending Herpes Virus Source HSV I DNA PCR HSV II DNA PCR 04/23/19 Unknown Creatinine Est Cr Clr Drug Dosing Est GFR ( Amer) Est GFR (Non-Af Amer) HCG, Qual BAL A.galactomannan Ag BAL A.galactomann Index Herpes Virus Source Pending HSV I DNA PCR Pending HSV II DNA PCR Pending PG Care Time/CCT Total # of Minutes Spent Total Time Spent with Patient: Total time spent is greater than 50% in coordination of care (as documented) at patient's floor/unit and/or counseling patient: (1) Chronic back pain Back pain location: low back pain Back pain laterality: unspecified Sciatica presence: without sciatica Qualified Code(s): M54.5 - Low back pain; G89.29 - Other chronic pain (2) Insomnia Insomnia type: unspecified Qualified Code(s): G47.00 - Insomnia, unspecified (3) GERD (gastroesophageal reflux disease) Esophagitis presence: esophagitis presence not specified Qualified Code(s): K21.9 - Gastro-esophageal reflux disease without esophagitis
[2019-04-24] MEDS: ARFORMOTEROL TART 15MCG/2ML VIAL INH SCH ×2 (07:15→19:49)
[2019-04-24] MEDS: guaiFENesin 600 MG TABCR PO SCH ×2 (07:58→20:55)
[2019-04-24] MEDS: BACLOFEN 20 MG TAB PO PRN ×2 (07:58→20:55)
[2019-04-24] MEDS: methylPREDNISolone 40 MG in SYRINGE 0 ML IV SCH ×2 (07:58→20:55)
[2019-04-24] MEDS: GABAPENTIN 800 MG TAB PO SCH ×3 (07:59→20:55)
[2019-04-24] MEDS: DULOXETINE HCL 60 MG CAP PO SCH (07:59)
[2019-04-24] MEDS: METOCLOPRAMIDE HCL 5 MG TABLET PO SCH ×3 (07:59→18:11)
[2019-04-24] MEDS: FOLIC ACID 1 MG TAB PO SCH (08:00)
[2019-04-24] MEDS: UMECLIDINIUM BRM/VILANTEROL INH SCH (08:00)
[2019-04-24] MEDS: SERTRALINE HCL 100 MG TABLET PO SCH (08:01)
[2019-04-24] MEDS: NICOTINE 21 MG/24 HR TDSY TD SCH (08:01)
[2019-04-24] MEDS: NYSTATIN SUSP 500,000 U/5 ML UDC PO SCH ×4 (08:01→20:55)
[2019-04-24] MEDS: LIDOCAINE 5% 1 PATCH TD SCH (08:01)
[2019-04-24] MEDS: PANTOprazole 40 MG TAB PO SCH ×2 (08:01→20:55)
[2019-04-24] MEDS: ENOXAPARIN INJ 40 MG/0.4 ML SYR SQ SCH (08:03)
[2019-04-24] MEDS: DICLOFENAC SOD 1% GEL 100 GM TUBE EXT SCH ×4 (08:05→20:56)
[2019-04-24] MEDS: METHYLPHENIDATE HCL 5 MG TABLET PO SCH ×3 (08:42→12:55)
[2019-04-24] MEDS: METHYLPHENIDATE HCL 10 MG TABLET PO SCH ×3 (08:42→12:56)
[2019-04-24] MEDS: MoRPHine SULFATE 2 MG/ML CARP IV PRN ×2 (10:42→19:39)
[2019-04-24] MEDS: levoFLOXacin 750 MG TAB PO SCH (10:43)
--- NOTE | 2019-04-24 14:05 | XRay Report ---
XR chest 2V routine CLINICAL HISTORY: ongoing COPD flare, ?pneumonia COMPARISON STUDY: 04/17/2019 FINDINGS: The cardiac and mediastinal contours are normal. There is no evidence of focal pulmonary co nsolidation. There is no evidence of failure. No pleural effusions are visualized.[There is pulmonary emphysema. An opacity at the level of the left cardiophrenic angle likely represents a combination o f fat pad and atelectatic change. There is an old right-sided rib fracture. IMPRESSION: No active disease in the chest. Electronically signed by: Fernando Jimenez M.D. 04/24/2019 2:03 PM
[2019-04-24 20:12] LABS: HSV Type 1 DNA Not Detected (Not Detected); HSV Type 2 DNA Not Detected (Not Detected)
[2019-04-24] MEDS: TRAZODONE HCL 100 MG TAB PO SCH (20:55)
[2019-04-24] MEDS: TRAMADOL HCL 50 MG TABLET PO SCH (20:55)
[2019-04-24] MEDS: CYANOCOBALAMIN 500 MCG TABLET (VITAMIN B-12) PO SCH (20:55)
[2019-04-24] MEDS: CHOLECALCIFEROL 1,000 UNITS TAB PO SCH (20:55)
[2019-04-24] MEDS: ASCORBIC ACID 500 MG TAB PO SCH (20:55)
[2019-04-24] MEDS: prednisoLONE acetate 1% OP SUSP 5 ML BTL OP SCH (20:56)
--- NOTE | 2019-04-24 21:08 | Hospitalist Progress Note ---
Date of Service April 24, 2019 Assessment & Plan (1) COPD exacerbation: Patient reports feeling poorly again today. Suspect she had quick, transient relief of symptoms following bronch yesterday. Will repeat cxr to ensure no new findings. s/p bronch by Dr Roberto yesterday - appreciate his assistance. Leave solumedrol at 40mg q12h today. Stop levaquin as today is day #7 today. Cont nebs, inhalers, mucinex, flutter valve/pulm toilet, etc. (2) Pleuritic chest pain: Cough has been severe - suspect musculoskeletal chest wall muscle strain as cause of this pain. This symptom has returned again. Apply voltaren gel 4gm qid to chest wall. Heat. Prior CTA chest w/o PE. Will repeat cxr today - ensure no rib fracture, etc. (3) Chronic back pain: with acute exacerbation. either SI joint dysfunction or lumbar spine DJD. continues to improve. repeat l-spine x-rays -- neg for acute compression fracture. cont norco 5's prn. cont k-pad heating pad. cont voltaren gel 4 grams qid. cont baclofen. steroids for COPD will help. (4) MTHFR mutation: does not take anticoagulation she is on folic acid lovenox for DVT proph (5) Insomnia: continue Trazodone (6) Anxiety: continue Zoloft cont ativan 0.5mg q12h prn (7) GERD (gastroesophageal reflux disease): continue PPI (8) Tobacco abuse: nicoderm patch counseled to quit multiple times by multiple providers (9) Candidiasis of mouth and esophagus: nystatin swish/swallow -- 5cc ac/hs IMPROVED/nearly resolved 7-10 day course planned (10) DVT prophylaxis: lovenox daily highly encouraged her to seek out pulmonary rehab post-discharge await repeat visit/eval by pulmonary await repeat cxr home in am if stable? Subjective following bronch yesterday she "felt great" but today is back to feeling poorly again. having chest tightness and the right-sided chest wall pain has returned as well. sats checked w/ walking -- 94-95% in RA. eating fair. cough largely nonproductive. Review of Systems Constitutional: no fever Respiratory: no hemoptysis Cardiovascular: as per Subjective / HPI and + chest pain; no orthopnea, no paroxysmal nocturnal dyspnea and no edema Gastrointestinal: no abdominal pain Physical Exam Constitutional: + thin and + frail appearing (but stable relative to prior visits); no acute distress ENMT: Mouth: + oral mucosal abnormality (thrush plaques just about resolved) Respiratory: + prolonged expiratory phase; no labored breathing Auscultation: + wheezes (similar to yesterday's exam); no crackles Cardiovascular: Rate/Rhythm: regular rate and regular rhythm Heart Sounds: normal S1 and normal S2; no murmur Vessels: posterior tibial pulses present and dorsalis pedis pulses present; no JVD Extremities: no edema Gastrointestinal (Abdomen): normal bowel sounds, soft, nontender, no hepatosplenomegaly Musculoskeletal: reproducible chest wall tenderness on right to palpation (superior to right breast) Psychiatric: Orientation: alert and oriented x 3 Results & Data Vital Signs (Past 12 Hours) Vital Signs Temp Pulse Pulse Resp BP Pulse Ox 04/24/19 19:49 78 20 95 04/24/19 15:06 85 18 94 04/24/19 15:00 37.5 C 79 16 126/79 92 04/24/19 11:06 77 20 94 PG Care Time/CCT Total # of Minutes Spent Total Time Spent with Patient: Total time spent is greater than 50% in coordination of care (as documented) at patient's floor/unit and/or counseling patient: (1) Insomnia Insomnia type: unspecified Qualified Code(s): G47.00 - Insomnia, unspecified (2) Chronic back pain Back pain laterality: unspecified Back pain location: low back pain Sciatica presence: without sciatica Qualified Code(s): M54.5 - Low back pain; G89.29 - Other chronic pain (3) GERD (gastroesophageal reflux disease) Esophagitis presence: esophagitis presence not specified Qualified Code(s): K21.9 - Gastro-esophageal reflux disease without esophagitis
[2019-04-25] MEDS: ALBUT/IPRATROP 3MG/0.5MG NEB 3 ML VIAL NEB SCH ×4 (04:03→14:57)
[2019-04-25] MEDS: ARFORMOTEROL TART 15MCG/2ML VIAL INH SCH (07:45)
[2019-04-25] MEDS: METOCLOPRAMIDE HCL 5 MG TABLET PO SCH ×2 (08:53→12:41)
[2019-04-25] MEDS: guaiFENesin 600 MG TABCR PO SCH (08:54)
[2019-04-25] MEDS: FOLIC ACID 1 MG TAB PO SCH (08:54)
[2019-04-25] MEDS: SERTRALINE HCL 100 MG TABLET PO SCH (08:54)
[2019-04-25] MEDS: DULOXETINE HCL 60 MG CAP PO SCH (08:54)
[2019-04-25] MEDS: PANTOprazole 40 MG TAB PO SCH (08:54)
[2019-04-25] MEDS: GABAPENTIN 800 MG TAB PO SCH ×2 (08:54→14:29)
[2019-04-25] MEDS: LIDOCAINE 5% 1 PATCH TD SCH (08:55)
[2019-04-25] MEDS: ENOXAPARIN INJ 40 MG/0.4 ML SYR SQ SCH (08:55)
[2019-04-25] MEDS: UMECLIDINIUM BRM/VILANTEROL INH SCH (08:55)
[2019-04-25] MEDS: NICOTINE 21 MG/24 HR TDSY TD SCH (08:56)
[2019-04-25] MEDS: NYSTATIN SUSP 500,000 U/5 ML UDC PO SCH ×2 (08:56→12:35)
[2019-04-25] MEDS: DICLOFENAC SOD 1% GEL 100 GM TUBE EXT SCH ×2 (08:56→12:35)
[2019-04-25] MEDS: methylPREDNISolone 40 MG in SYRINGE 0 ML IV SCH (08:56)
[2019-04-25] MEDS: METHYLPHENIDATE HCL 10 MG TABLET PO SCH ×2 (09:07→14:29)
[2019-04-25] MEDS: METHYLPHENIDATE HCL 5 MG TABLET PO SCH ×2 (09:07→14:29)
[2019-04-25] MEDS: levoFLOXacin 750 MG TAB PO SCH (12:34)
--- NOTE | 2019-04-25 13:17 | Progress Note ---
DATE: 04/25/2019 PULMONARY PROGRESS NOTE Chart reviewed, the patient examined. SUBJECTIVE: Much improved, had some right anterior chest discomfort yesterday, which I believe was musculoskeletal in origin and from severe previous paroxysms of coughing. Her respiratory status is improved and apparently there are plans to discharge her today. OBJECTIVE: CURRENT VITAL SIGNS: Blood pressure 105/67, pulse 70 and regular, respiratory rate 16, temperature 36.7, O2 sat 96% on room air. SKIN: Without lesion. HEENT: Atraumatic, normocephalic. PERRLA. LUNGS: Distant P and A. CARDIAC: Unchanged. ABDOMEN: Soft. EXTREMITIES: No pedal edema, clubbing or cyanosis. NEUROLOGICAL: Intact. OVERALL ASSESSMENT: Stable, would go with p.o. steroid taper, oral antibiotics, current nebulizer and inhaler regimen and will be happy to see patient in the clinic in 2-3 weeks either by Freida Su or myself.
--- NOTE | 2019-04-30 06:31 | Discharge Summary ---
Date of Service date of admission - 04/17/19 date of discharge - 04/25/19 Admission HPI Per Admitting Provider 54-year-old female smoker with known COPD who presented with worsening shortness of breath and wheezing for the past 3 days. She also has pleuritic sharp right lateral chest pain. She has a prothrombin mutation and apparently is not on any anticoagulant. She is allergic, contrast material so ventilation/perfusion scan will be ordered. Lovenox 1 mg/kg subcutaneously every 12 hours until VQ is proven negative hopefully. There is no CO2 retention. Chest x-ray is clear. She denies any sputum production. Principal Diagnosis COPD with exacerbation Discharge Exam Constitutional + thin; no acute distress and no altered mental status ENMT Mouth: + oral mucosal abnormality (thrush plaques resolved) Respiratory + prolonged expiratory phase; no labored breathing Auscultation: + wheezes (similar to yesterday's exam); no crackles airation much improved relative to prior exams Cardiovascular Rate/Rhythm: regular rate and regular rhythm Heart Sounds: normal S1 and normal S2; no murmur Vessels: posterior tibial pulses present and dorsalis pedis pulses present; no JVD Extremities: no edema Chest (Breasts) Additional Comments: tender to palpation over right lateral chest wall Gastrointestinal (Abdomen) normal bowel sounds, soft, nontender, no hepatosplenomegaly Psychiatric Orientation: alert and oriented x 3 Affect: + anxious affect Discharge Data Allergies Allergy/AdvReac Type Severity Reaction Status Date / Time risperidone Allergy Mild LACTATING Verified 04/29/19 11:38 Tetracyclines Allergy Mild HIVES Verified 04/29/19 11:38 mirtazapine Allergy Unknown SHORTNESS Verified 04/29/19 11:38 OF BREATH ranitidine Allergy Unknown SEVERE Verified 04/29/19 11:38 VOMITING Iodinated Contrast- Oral and AdvReac Intermediate "horrible Verified 04/29/19 11:38 IV Dye headache" loratadine AdvReac Mild UNABLE TO Verified 04/29/19 11:38 SLEEP MULTIPLE DAYS Consultations pulmonary - Christian Roberto MD Procedures Performed Operation Date: 04/23/19 09:00 Bronchoscopy - Umang Roberto MD Ordered Studies 1. CTA chest - FINDINGS: Normal caliber thoracic aorta with no evidence for dissection. The heart is normal in size. No pleural or pericardial effusions. No filling defects within the pulmonary arteries to suggest pulmonary embolus. No pneumothorax. The central airways are patent. Mild respiratory motion artifact. Small linear scarlike density within the lingula. Moderate emphysema. A stable 4 mm subpleural nodule within the right lower lobe posteriorly on image 97. This demonstrates greater than two-year stability and is therefore considered to be benign. No focal lung consolidations to suggest pneumonia. No fractures within the visualized osseous structures. Stable calcified left thyroid nodule. No mediastinal or hilar lymphadenopathy. Normal esophagus. The visualized liver and spleen are unremarkable. IMPRESSION: 1. No evidence for pulmonary embolus. 2. Moderate emphysema. 2. multiple chest x-rays 3. lumbar spine x-rays - IMPRESSION: 1. Severe degenerative disc change L5-S1 consider progressive from the prior study. 2. Mild degenerative change L4-L5 unchanged from the prior exam. 4. V/Q scan - low probability for PE. Hospital Course (1) COPD exacerbation: Had protracted hospitalization 2nd to severe COPD exacerbation. Required high-dose steroids for all of her stay along with antibiotics, nebs, etc. Multiple imaging studies failed to show complicating pneumonia, PE, or rib fracture. Seen in consult by Dr Christian Roberto, pulmonary, and patient underwent bronchoscopy on 04/23/19. This did not show any endobronchial lesions. Only mild amount of secretions was found. No significant mucous plugging. Cultures from the bronch have thus far been negative. With the above she gradually improved. She completed a full 7-day course of levaquin while hospitalized. At discharge she will complete a slow prednisone taper. We discussed smoking cessation on multiple occasions. We also discussed enrolling in pulmonary rehab after this flare has fully resolved. She will continue her usual inhalers and nebs at home. Close follow-up with her PCP and pulmonary will be needed in the week after discharge due to high risk of re-admission. (2) Pleuritic chest pain: Cough had been severe for 1-2 weeks; thus, suspect musculoskeletal chest wall muscle strain as the cause of her right-sided chest pain. Continue voltaren gel 4gm qid to chest wall along with heat. Prior CTA chest w/o PE. Again no obvious rib fractures were seen on any imaging study. This pain was not consistent with ischemic/cardiac pain. (3) Chronic back pain: Had acute exacerbation of her chronic pain while here. The back pain was either SI joint dysfunction or lumbar spine DJD. l-spine x-rays -- negative for acute compression fracture. Pain improved with pain meds, heat, voltaren gel, baclofen prn. Steroids for COPD probably also helped. She follows with pain management for this as outpatient. (4) MTHFR mutation: does not take anticoagulation she is on folic acid daily at home received lovenox for DVT proph while hospitalized (5) Insomnia: continue Trazodone (6) Anxiety: continue Zoloft (7) GERD (gastroesophageal reflux disease): continue PPI (8) Tobacco abuse: nicoderm patch employed while here counseled to quit multiple times by multiple providers (9) Candidiasis of mouth and esophagus: nystatin swish/swallow -- 5cc ac/hs IMPROVED/nearly resolved 7-10 day course planned in total Total Time Total Time Spent Total Time Spent (In Minutes): 40 Total Time Includes: Examination of the Patient, Discharge Planning, Medication Reconciliation and Communication With Other Providers Discharge Plan Discharge Items Patient Disposition: Home - Self-Care Reason For Visit: COPD EXACERBATION Discharge Diagnosis: COPD exacerbation - improving. Right sided chest wall pain due to muscle strain. Discharge Goals: Diagnostic testing, Learn about illness and Therapeutic intervention Activity: Resume your previous activity Activity Comment: take it easy for 3-4 days as you recover then gradually increase activity Non-emergency contact: Primary Care Provider and [facility]call[facility] Nurse Call non-emergency contact if: you have any medication questions, your symptoms worsen, your pain is not controlled, your pain is worsening and your temperature is above 100.5 Follow-up/Referrals: Kacy Gomez MD [Primary Care Provider] - 04/29/19 11:30 am (Please, follow up at [facility] on SundayApril 29 at 11:30 am. *If you need to change this appointment, call the office at [phone].) Freida Su CRNP [Nurse Practitioner] - 05/01/19 1:00 pm (Please, follow up at [facility]'s Pulmonology Office with Freida PABLO on May 01 at 1:00 pm. *The office is located in [address] of [facility]. This is the big building located next to this hospital. If you need to change this appointment, call the office at [phone].) Diet: Regular Addtl Provider Instructions: You were treated for a severe COPD exacerbation. You also have a muscle strain on the outside of your right chest. CAT scan did NOT show any blood clots or right sided rib fractures. You improved slowly over the course of your stay. Dr Roberto also performed bronchoscopy to help resolve your symptoms faster and to rule out various types of infections in your lungs. Recommendations - 1. prednisone taper - start 04/26/19 2. nystatin solution - 5cc by mouth before meals and at bedtime for 5 days; swish and swallow 3. voltaren gel - 4 grams to right chest wall or back every 6 hours as needed for pain 4. heat to right chest wall as needed for pain relief 5. please STOP your oral diclofenac as this medication plus your prednisone could lead to stomach ulcers 6. for the next 3-4 days I would schedule your duonebs 4 times a day. After that you can use them as needed. 7. please quit smoking if possible. 8. when you follow-up in the lung clinic please ask them about a referral to the "pulmonary rehab program" at [facility] Follow-up -- see separate section Return to [facility] if -- * you have fevers over 100.5 degrees * you have worsening shortness of breath despite all of your normal medications * you have worsening chest discomfort on the right side * you have severe back pain not responding to your medications * any other concerns Prescriptions: New diclofenac sodium [Voltaren] 1 % Gel 4 gm EXT QID PRN (Reason: muscle pain or joint pain) Qty: 1 RF: 2 prednisone 10 mg tablet 10 mg PO DIRECTED Qty: 26 RF: 0 Continued ondansetron HCl [Zofran] 4 mg tablet 4 mg PO Q8H PRN (Reason: Nausea) RF: 0 cholecalciferol (vitamin D3) 2,000 unit capsule 2,000 units PO HS RF: 0 famotidine [Pepcid] 40 mg tablet 40 mg PO BID PRN (Reason: Acid Reflux) Qty: 60 RF: 0 gabapentin 800 mg tablet 800 mg PO TID Qty: 90 RF: 0 pantoprazole [Protonix] 40 mg tablet,delayed release (DR/EC) 40 mg PO BID Qty: 60 RF: 0 vitamin A 8,000 unit Capsule PO HS RF: 0 bisacodyl [Dulcolax (bisacodyl)] 10 mg suppository 10 mg VT DAILY PRN (Reason: constipation) Qty: 28 RF: 0 methylphenidate HCl 10 mg tablet 10 mg PO BID RF: 0 sucralfate 1 gram Tablet 1 g PO TID PRN (Reason: Heartburn) RF: 0 methylphenidate HCl 5 mg tablet 5 mg PO BID RF: 0 cyanocobalamin (vitamin B-12) [Vitamin B-12] 1,000 mcg Tablet 1,000 mcg PO HS RF: 0 rizatriptan 10 mg Tablet,Disintegrating 10 mg translingual DIRECTED PRN (Reason: Headache) RF: 0 trazodone 150 mg tablet 300 mg PO HS RF: 0 Combivent Respimat 20-100 mcg/actuation mist 1 puff inhalation QID PRN (Reason: Shortness Of Breath) RF: 0 sertraline 100 mg tablet 200 mg PO QAM RF: 0 baclofen 20 mg tablet 20 mg PO TID PRN (Reason: Muscle Spasm) RF: 0 Anoro Ellipta 62.5-25 mcg/actuation blister with device 1 inh INH QAM RF: 0 prednisolone acetate [Pred Forte] 1 % Drops,Suspension 1 drp OPHTHALMIC (EYE) HS RF: 0 ascorbic acid (vitamin C) [Vitamin C] 1,000 mg Tablet 1,000 mg PO HS RF: 0 nicotine 21 mg/24 hr Patch 24 Hour 1 patch TRANSDERMAL QAM RF: 0 tramadol 50 mg tablet 50 mg PO HS RF: 0 folic acid 1 mg tablet 1 mg PO QAM RF: 0 duloxetine 60 mg capsule,delayed release(DR/EC) 60 mg PO QAM RF: 0 ipratropium-albuterol 0.5 mg-3 mg(2.5 mg base)/3 mL solution for nebulization 3 ml INHALATION Q4H PRN (Reason: Shortness Of Breath Or Wheezing) Qty: 1 RF: 2 Discontinued diclofenac sodium 75 mg tablet,delayed release (DR/EC) 75 mg PO BID Qty: 60 RF: 2 No Action metoclopramide HCl 5 mg tablet 5 mg PO TID Qty: 90 RF: 0 Visit Report Forms: Smoking Cessation Stand-Alone Forms: [facility]/Other Patient Handouts: Emphysema, Ear Middle Common Probs, Syndrome Restless Leg, Syndrome Restless Legs What Do, COPD Dc, COPD Inhalers, ED DDD Degenerative Disk Disease, ED Sacroiliitis, ED Apnea Sleep Obstructive Discharge Orders: Discharge Order (Routine); Ordered 04/25/19 Ordered By: Shiva Bennett Admission Data Admit Date/Time: 04/17/19 16:27 Attending Provider: Shiva Bennett Admit Provider: Ricardo Bonilla Primary Care Provider: Kacy Gomez Other Providers: Ricardo Bonilla ; Umagn Roberto Service: Surgical Services Other Interventions: Discharge Summary Assessment (RN) Last Done: 04/25/19 16:41 Pending Studies at Discharge: Yes Studies:: final cultures from bronchoscopy DC Date/Time DO NOT enter until pt leaves facility: 04/25/19 17:35
== END 2019-04-25 17:35 | disposition home or self-care (01) | DRG 167 ==
LOC: ED 13:21 → 2N 16:27 → SUATTDRO 16:27 → 2N 17:43 → 3N 04-21 22:11

== ENCOUNTER 2020-03-08 06:14 | Inpatient (IN) ==
--- NOTE | 2020-02-17 15:21 | PAT Medication Instructions ---
Medication Instructions Date of Service February 17, 2020 Home Medications Medication Instructions Recorded bisacodyl [Dulcolax (bisacodyl)] 10 mg RI DAILY PRN #28 ea 01/09/19 famotidine 40 mg tablet 40 mg PO BID PRN #60 tab 03/11/19 pantoprazole 40 mg tablet,delayed 40 mg PO BID #60 tab 03/11/19 release ipratropium-albuterol 3 ml INHALATION Q4H PRN #1 box 04/25/19 metoclopramide HCl 5 mg tablet 5 mg PO TID #90 tab 04/28/19 diclofenac sodium 1 % topical gel 4 gm EXT QID PRN #1 tube 05/09/19 baclofen 20 mg tablet See Rx Instructions .ROUTE 08/06/19 .COMPLEX #90 tablet ondansetron HCl 4 mg tablet 4 mg PO Q8H PRN #90 tab 09/12/19 umeclidinium 62.5 mcg-vilanterol 1 inh INH QAM #60 ea 12/25/19 25 mcg/actuation powdr for inhalation diclofenac sodium 75 mg See Rx Instructions .ROUTE 01/21/20 tablet,delayed release .COMPLEX #60 tablet folic acid 1 mg tablet 1 mg PO QAM #90 tab 01/21/20 cholecalciferol (vitamin D3) 50 mcg (2,000 unit) capsule 2,000 units PO HS bisacodyl [Dulcolax (bisacodyl)] 10 mg RI DAILY PRN famotidine 40 mg tablet 40 mg PO BID PRN pantoprazole 40 mg tablet,delayed release 40 mg PO BID Combivent Respimat 1 puff INHALATION QID PRN cyanocobalamin (vitamin B-12) [Vitamin B-12] 1,000 mcg PO HS methylphenidate HCl 5 mg PO BID methylphenidate HCl 10 mg PO BID rizatriptan 10 mg TRANSLINGUAL DIRECTED PRN sertraline 200 mg PO QAM trazodone 300 mg PO HS prednisolone acetate [Pred Forte] 1 drp OPHTHALMIC (EYE) HS ascorbic acid (vitamin C) [Vitamin C] 1,000 mg PO HS nicotine 1 patch TRANSDERMAL QAM ipratropium-albuterol 3 ml INHALATION Q4H PRN metoclopramide HCl 5 mg tablet 5 mg PO TID diclofenac sodium 1 % topical gel 4 gm EXT QID PRN vitamin A 8,000 unit capsule 8,000 units PO DAILY baclofen 20 mg tablet See Rx Instructions .ROUTE .COMPLEX ondansetron HCl 4 mg tablet 4 mg PO Q8H PRN umeclidinium 62.5 mcg-vilanterol 25 mcg/actuation powdr for inhalation 1 inh INH QAM diclofenac sodium 75 mg tablet,delayed release See Rx Instructions .ROUTE .COMPLEX folic acid 1 mg tablet 1 mg PO QAM gabapentin 800 mg PO TID Continue as directed nicotine 1 patch TRANSDERMAL QAM ASK your surgeon for instructions diclofenac sodium 75 mg tablet,delayed release See Rx Instructions .ROUTE .COMPLEX STOP taking 2 weeks before surgery (or as soon as possible if surgery is within 2 weeks) vitamin A 8,000 unit capsule 8,000 units PO DAILY STOP taking 24 hours before surgery diclofenac sodium 1 % topical gel 4 gm EXT QID PRN DO NOT take the morning of surgery bisacodyl [Dulcolax (bisacodyl)] 10 mg RI DAILY PRN methylphenidate HCl 5 mg PO BID methylphenidate HCl 10 mg PO BID metoclopramide HCl 5 mg tablet 5 mg PO TID baclofen 20 mg tablet See Rx Instructions .ROUTE .COMPLEX folic acid 1 mg tablet 1 mg PO QAM Take morning of surgery With a small sip of water, OTHERWISE NOTHING TO EAT OR DRINK AFTER MIDNIGHT: famotidine 40 mg tablet 40 mg PO BID PRN (if needed) pantoprazole 40 mg tablet,delayed release 40 mg PO BID Combivent Respimat 1 puff INHALATION QID PRN (if needed) rizatriptan 10 mg TRANSLINGUAL DIRECTED PRN (if needed) sertraline 200 mg PO QAM ipratropium-albuterol 3 ml INHALATION Q4H PRN (if needed) ondansetron HCl 4 mg tablet 4 mg PO Q8H PRN (if needed) umeclidinium 62.5 mcg-vilanterol 25 mcg/actuation powdr for inhalation 1 inh INH QAM gabapentin 800 mg PO TID Take evening before surgery cholecalciferol (vitamin D3) 50 mcg (2,000 unit) capsule 2,000 units PO HS bisacodyl [Dulcolax (bisacodyl)] 10 mg RI DAILY PRN (if needed) famotidine 40 mg tablet 40 mg PO BID PRN (if needed) pantoprazole 40 mg tablet,delayed release 40 mg PO BID Combivent Respimat 1 puff INHALATION QID PRN (if needed) cyanocobalamin (vitamin B-12) [Vitamin B-12] 1,000 mcg PO HS methylphenidate HCl 5 mg PO BID methylphenidate HCl 10 mg PO BID rizatriptan 10 mg TRANSLINGUAL DIRECTED PRN (if needed) trazodone 300 mg PO HS prednisolone acetate [Pred Forte] 1 drp OPHTHALMIC (EYE) HS ascorbic acid (vitamin C) [Vitamin C] 1,000 mg PO HS ipratropium-albuterol 3 ml INHALATION Q4H PRN (if needed) metoclopramide HCl 5 mg tablet 5 mg PO TID baclofen 20 mg tablet See Rx Instructions .ROUTE .COMPLEX (if needed) ondansetron HCl 4 mg tablet 4 mg PO Q8H PRN (if needed) gabapentin 800 mg PO TID Other Notes If you have any questions please call us at [phone] or [phone] or [phone] or [phone]
--- NOTE | 2020-02-23 17:49 | PAT Medication Instructions ---
Medication Instructions Date of Service February 23, 2020 Home Medications Medication Instructions Recorded bisacodyl [Dulcolax (bisacodyl)] 10 mg ID DAILY PRN #28 ea 01/09/19 famotidine 40 mg tablet 40 mg PO BID PRN #60 tab 03/11/19 pantoprazole 40 mg tablet,delayed 40 mg PO BID #60 tab 03/11/19 release ipratropium-albuterol 3 ml INHALATION Q4H PRN #1 box 04/25/19 metoclopramide HCl 5 mg tablet 5 mg PO TID #90 tab 04/28/19 diclofenac sodium 1 % topical gel 4 gm EXT QID PRN #1 tube 05/09/19 baclofen 20 mg tablet See Rx Instructions .ROUTE 08/06/19 .COMPLEX #90 tablet ondansetron HCl 4 mg tablet 4 mg PO Q8H PRN #90 tab 09/12/19 umeclidinium 62.5 mcg-vilanterol 1 inh INH QAM #60 ea 12/25/19 25 mcg/actuation powdr for inhalation diclofenac sodium 75 mg See Rx Instructions .ROUTE 01/21/20 tablet,delayed release .COMPLEX #60 tablet folic acid 1 mg tablet 1 mg PO QAM #90 tab 01/21/20 cholecalciferol (vitamin D3) 50 mcg (2,000 unit) capsule 2,000 units PO HS bisacodyl [Dulcolax (bisacodyl)] 10 mg ID DAILY PRN famotidine 40 mg tablet 40 mg PO BID PRN pantoprazole 40 mg tablet,delayed release 40 mg PO BID Combivent Respimat 1 puff INHALATION QID PRN cyanocobalamin (vitamin B-12) [Vitamin B-12] 1,000 mcg PO HS methylphenidate HCl 5 mg PO BID methylphenidate HCl 10 mg PO BID rizatriptan 10 mg TRANSLINGUAL DIRECTED PRN sertraline 200 mg PO QAM trazodone 300 mg PO HS prednisolone acetate [Pred Forte] 1 drp OPHTHALMIC (EYE) HS ascorbic acid (vitamin C) [Vitamin C] 1,000 mg PO HS nicotine 1 patch TRANSDERMAL QAM ipratropium-albuterol 3 ml INHALATION Q4H PRN metoclopramide HCl 5 mg tablet 5 mg PO TID diclofenac sodium 1 % topical gel 4 gm EXT QID PRN vitamin A 8,000 unit capsule 8,000 units PO DAILY baclofen 20 mg tablet See Rx Instructions .ROUTE .COMPLEX ondansetron HCl 4 mg tablet 4 mg PO Q8H PRN umeclidinium 62.5 mcg-vilanterol 25 mcg/actuation powdr for inhalation 1 inh INH QAM diclofenac sodium 75 mg tablet,delayed release See Rx Instructions .ROUTE .COMPLEX folic acid 1 mg tablet 1 mg PO QAM gabapentin 800 mg PO TID ASK your surgeon for instructions diclofenac sodium 1 % topical gel 4 gm EXT QID PRN diclofenac sodium 75 mg tablet,delayed release DO NOT take the morning of surgery bisacodyl [Dulcolax (bisacodyl)] 10 mg ID DAILY PRN methylphenidate HCl 5 mg PO BID methylphenidate HCl 10 mg PO BID vitamin A 8,000 unit capsule 8,000 units PO DAILY baclofen 20 mg tablet See Rx Instructions .ROUTE .COMPLEX folic acid 1 mg tablet 1 mg PO QAM gabapentin 800 mg PO TID Take morning of surgery With a small sip of water, OTHERWISE NOTHING TO EAT OR DRINK AFTER MIDNIGHT: famotidine 40 mg tablet 40 mg PO BID PRN (if needed) pantoprazole 40 mg tablet,delayed release 40 mg PO BID Combivent Respimat 1 puff INHALATION QID PRN (if needed) rizatriptan 10 mg TRANSLINGUAL DIRECTED PRN (if needed) sertraline 200 mg PO QAM nicotine 1 patch TRANSDERMAL QAM (do not place near surgical site) ipratropium-albuterol 3 ml INHALATION Q4H PRN metoclopramide HCl 5 mg tablet 5 mg PO TID ondansetron HCl 4 mg tablet 4 mg PO Q8H PRN umeclidinium 62.5 mcg-vilanterol 25 mcg/actuation powdr for inhalation 1 inh INH QAM Take evening before surgery cholecalciferol (vitamin D3) 50 mcg (2,000 unit) capsule 2,000 units PO HS bisacodyl [Dulcolax (bisacodyl)] 10 mg ID DAILY PRN (if needed) famotidine 40 mg tablet 40 mg PO BID PRN (if needed) pantoprazole 40 mg tablet,delayed release 40 mg PO BID Combivent Respimat 1 puff INHALATION QID PRN (if needed) cyanocobalamin (vitamin B-12) [Vitamin B-12] 1,000 mcg PO HS methylphenidate HCl 5 mg PO BID methylphenidate HCl 10 mg PO BID rizatriptan 10 mg TRANSLINGUAL DIRECTED PRN (if needed) trazodone 300 mg PO HS prednisolone acetate [Pred Forte] 1 drp OPHTHALMIC (EYE) HS ascorbic acid (vitamin C) [Vitamin C] 1,000 mg PO HS ipratropium-albuterol 3 ml INHALATION Q4H PRN (if needed) metoclopramide HCl 5 mg tablet 5 mg PO TID baclofen 20 mg tablet See Rx Instructions .ROUTE .COMPLEX (if needed) ondansetron HCl 4 mg tablet 4 mg PO Q8H PRN (if needed) gabapentin 800 mg PO TID Other Notes If you have any questions please call us at [phone] or [phone] or [phone] or [phone]
--- NOTE | 2020-02-24 11:11 | Anesthesiology Consultation ---
Date of Service February 24, 2020 Assessment & Plan (1) Encounter for pre-operative examination: COVID Status: As of 02/23 PAT assessment, patient denies travel to endemic area, known exposure/sick contacts, symptoms, or testing for coronavirus. test AM DOS Chart Review Chart Review: Acceptable Risk for Surgery and Patient seen in Pre Admission Testing Teaching & Discussion Instructed NPO after midnight before surgery, except medications with 15 cc of water. Medication instructions provided according to the PAT guidelines. History Surgery Operation Date: 03/08/20 07:45 Proposed Procedures p L5-S1 Decompression and Fusion, Possible L4-L5, Spinal Cord Monitoring - Cristiano Prieto, Height/Weight Height: 5 ft 5 in Weight: 66 kg Allergies Allergy/AdvReac Type Severity Reaction Status Date / Time risperidone Allergy Mild LACTATING Verified 02/17/20 10:54 Tetracyclines Allergy Mild HIVES Verified 02/17/20 10:54 mirtazapine Allergy Unknown SHORTNESS Verified 02/17/20 10:54 OF BREATH ranitidine Allergy Unknown SEVERE Verified 02/17/20 10:54 VOMITING Iodinated Contrast Media AdvReac Intermediate "horrible Verified 02/17/20 10:54 headache" loratadine AdvReac Mild UNABLE TO Verified 02/17/20 10:54 SLEEP MULTIPLE DAYS Medications Home Medications Medication Instructions Recorded Confirmed Last Taken cholecalciferol (vitamin D3) 50 2,000 units PO HS 06/25/18 02/17/20 04/16/19 mcg (2,000 unit) capsule bisacodyl [Dulcolax (bisacodyl)] 10 mg [place] DAILY PRN #28 ea 01/09/19 02/17/20 04/16/19 famotidine 40 mg tablet 40 mg PO BID PRN #60 tab 03/11/19 02/17/20 Unknown pantoprazole 40 mg tablet,delayed 40 mg PO BID #60 tab 03/11/19 02/17/20 04/17/19 release Combivent Respimat 1 puff INHALATION QID PRN 03/13/19 02/17/20 Unknown cyanocobalamin (vitamin B-12) 1,000 mcg PO HS 03/13/19 02/17/20 04/16/19 [Vitamin B-12] methylphenidate HCl 5 mg PO BID 03/13/19 02/17/20 04/17/19 methylphenidate HCl 10 mg PO BID 03/13/19 02/17/20 04/17/19 rizatriptan 10 mg TRANSLINGUAL DIRECTED PRN 03/13/19 02/17/20 Unknown sertraline 200 mg PO QAM 03/13/19 02/17/20 04/17/19 trazodone 300 mg PO HS 03/13/19 02/17/20 04/16/19 prednisolone acetate [Pred Forte] 1 drp OPHTHALMIC (EYE) HS 03/14/19 02/17/20 04/16/19 ascorbic acid (vitamin C) [Vitamin 1,000 mg PO HS 04/17/19 02/17/20 04/16/19 C] nicotine 1 patch TRANSDERMAL QAM 04/17/19 02/17/20 04/17/19 ipratropium-albuterol 3 ml INHALATION Q4H PRN #1 box 04/25/19 02/17/20 04/17/19 metoclopramide HCl 5 mg tablet 5 mg PO TID #90 tab 04/28/19 02/17/20 Unknown diclofenac sodium 1 % topical gel 4 gm EXT QID PRN #1 tube 05/09/19 02/17/20 Unknown vitamin A 8,000 unit capsule 8,000 units PO DAILY cap 05/16/19 02/17/20 Unknown baclofen 20 mg tablet See Rx Instructions .ROUTE 08/06/19 02/17/20 Unknown .COMPLEX #90 tablet ondansetron HCl 4 mg tablet 4 mg PO Q8H PRN #90 tab 09/12/19 02/17/20 Unknown umeclidinium 62.5 mcg-vilanterol 1 inh INH QAM #60 ea 12/25/19 02/17/20 Unknown 25 mcg/actuation powdr for inhalation diclofenac sodium 75 mg See Rx Instructions .ROUTE 01/21/20 02/17/20 Unknown tablet,delayed release .COMPLEX #60 tablet folic acid 1 mg tablet 1 mg PO QAM #90 tab 01/21/20 02/17/20 Unknown gabapentin 800 mg PO TID 02/17/20 02/17/20 Unknown Past Medical History Medical History ADD (attention deficit disorder) Anxiety Chronic pain COPD (chronic obstructive pulmonary disease) (Acute) Very rare rescue inhaler because she develops yeast infections with this. Prefers to use nebulizer, generally uses every few months. Gastroparesis (Acute) GERD (gastroesophageal reflux disease) History of migraine History of sleep apnea reports "resolved" with wt loss - no longer wears CPAP. States she was retested and told she no longer needs it. 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 Obsessive compulsive disorder Osteoarthritis Posttraumatic stress disorder Restless legs syndrome Sacroiliitis Sensorineural hearing loss (SNHL) of both ears B/L NICHOLS Exercise / Class Metabolic Activity III < 4 Walking/Shop/Light housework (+SOB at baseline with ambulation on one level, denies exertional CP. Occ CP with bad coughing fits.) Past Family History Family History Father Myocardial infarction Grandfather Myocardial infarction Mother Diabetes Other No family history of adverse response to anesthesia Past Surgical History Surgical History History of appendectomy (Acute) History of breast biopsy History of breast surgery History of cholecystectomy (Acute) History of colonoscopy History of esophagogastroduodenoscopy (EGD) History of hand surgery Rt History of joint replacement Left hand History of tooth extraction Nausea and vomiting after administration of anesthetic agent Status post carpal tunnel release (Resolved) BL Past Anesthesia History No Hx of Anesthesia Complications and No Family Hx of Anesthesia Complications History of PONV No Hx of Motion Sickness and History of PONV (single episode after lap fariba) Social History Smoking Status: Former smoker tobacco type: cigarettes Do You Dip or Chew Tobacco: No Smoking End Date: quit 1 year ago Hx Alcohol Use: Yes alcohol intake frequency: holidays/special occasions only Hx Substance Use: Yes substance use type: marijuana Substance Use Type Other:: medical marijuana for anxiety Last Used Substance: Days (ago) Review of Systems Pt denies any recent chest pain, shortness of breath, palpitations, cough, fever or URI. Physical Exam Vital Signs BP: 142/89 P: 71bpm SPO2: 95% RA T: 98.4 F R: 16 ENMT Mouth: + dentures and + edentulous Thyromental Distance: < 3.5 Finger Breadths (3) Mallampati Class: II Neck normal visual inspection; neck extension not limited Respiratory normal respiratory effort Auscultation: lungs clear to auscultation bilaterally and + diminished lung sounds (decreased air movement B/L) Cardiovascular Rate/Rhythm: regular rate and regular rhythm Heart Sounds: no murmur Extremities: no edema Testing Laboratory Results 02/24/20 11:16 02/24/20 11:16 PT 10.9 Seconds (9.0-12.0) 02/24/20 11:16 INR 1.0 (0.9-1.1) 02/24/20 11:16 APTT 25.5 Seconds (21.0-31.0) 02/24/20 11:16 Urine Color Dark Yellow 02/24/20 11:16 Urine Appearance Clear (Clear) 02/24/20 11:16 Urine pH 6.0 (4.5-7.5) 02/24/20 11:16 Ur Specific [place] 1.025 (1.000-1.030) 02/24/20 11:16 Urine Protein Negative (Negative) 02/24/20 11:16 Urine Glucose (UA) Negative (Negative) 02/24/20 11:16 Urine Ketones Trace (Negative) H 02/24/20 11:16 Urine Nitrite Negative (Negative) 02/24/20 11:16 Ur Leukocyte Esterase Trace (Negative) H 02/24/20 11:16 Urine WBC (Auto) 1-5 /hpf (0-5) 02/24/20 11:16 Urine RBC (Auto) 5-10 /hpf (0-4) H 02/24/20 11:16 U Hyaline Cast (Auto) 1-5 /lpf (0-5) 02/24/20 11:16 U Epithel Cells (Auto) 20-30 /lpf (0-5) H 02/24/20 11:16 Urine Bacteria (Auto) Negative (Negative) 02/24/20 11:16 Blood Type A Positive 02/24/20 11:16 Antibody Screen NEGATIVE 02/24/20 11:16 Electrocardiogram Date: 04/17/19 Findings: + NSR @ (70bpm) Chest X-Ray Date: 04/24/19 Findings: + NAD
[2020-02-24 13:06] LABS: Basophils # (auto) 0.05 K/uL (0-0.2); Basophils % (auto) 0.8 %; Eosinophils # (auto) 0.39 K/uL (0-0.5); Eosinophils % (auto) 6.3 %; Hematocrit (blood only) 40.4 % (37-47); Hemoglobin 13.3 g/dL (12.0-16.0); Immature Granulocytes # (auto) 0.01 K/uL (0.00-0.02); Immature Granulocytes % (auto) 0.2 %; Lymphocytes # (auto) 1.51 K/uL (1.2-3.4); Lymphocytes % (auto) 24.6 %; Mean Corpuscular Hemoglobin 29.8 pg (25-34); Mean Corpuscular Hgb Conc 32.9 g/dL (32-36); Mean Corpuscular Volume 90.4 fL (80-100); Mean Platelet Volume 11.9 fL (7.4-10.4); Monocytes # (auto) 0.53 K/uL (0.11-0.59); Monocytes % (auto) 8.6 %; Neutrophils # (auto) 3.66 K/uL (1.4-6.5); Neutrophils % (auto) 59.5 %; Platelet Count 226 K/uL (130-400); RDW Coefficient of Variation 14.1 % (11.5-14.5); RDW Standard Deviation 46.4 fL (36.4-46.3); Red Blood Count 4.47 M/uL (4.2-5.4); White Blood Count 6.15 K/uL (4.8-10.8)
[2020-02-24 13:13] LABS: Appearance Urine Clear (Clear); Bacteria Urine Automated Negative (Negative); Bilirubin Urine Negative (Negative); Blood Urine Negative (Negative); Color Urine Dark Yellow; Epithelial Cell Urine Auto 20-30 /lpf (0-5); Glucose Urine UA Negative (Negative); Ketones Urine Trace (Negative); Leukocyte Esterase Urine Trace (Negative); Nitrite Urine Negative (Negative); Protein Urine Negative (Negative); Specific Gravity Urine 1.025 (1.000-1.030); Urobilinogen Urine Negative (Negative)
[2020-02-24 13:22] LABS: Partial Thromboplastin Ratio 0.9; Partial Thromboplastin Time 25.5 Seconds (21.0-31.0); Prothrombin Time 10.9 Seconds (9.0-12.0)
[2020-02-24 13:37] LABS: BUN Creatinine Ratio 18.5 (10-20); Calcium 9.5 mg/dl (8.5-10.1); Creatinine Clr Calc Pharmacy 53.6 ml/min; Est GFR (African American) 67.4; Est GFR (Non-African American) 58.2; Potassium 4.1 mmol/L (3.5-5.1)
[~2020-03-08 06:14] MED LIST changes: +ACETAMINOPHEN 500 MG TAB PO SCH; -ADVIN25/60 INH; -ASTN; -BUSP15TA70 PO; +CEFAZOLIN 1000MG 1,000 MG/7.5 ML SYR IV SCH; -CYAN100020 PO; +CeleBREX 200 MG CAP PO SCH; -DICL-201 PO; -DOCU100C PO; -DULO60CA44 PO; -FAMO40TA6 PO; -FLUT50SP45 NAE; -FOLI1TAB8 PO; -GABA800T PO; +GABAPENTIN 900 MG DOSE PO SCH; -IPRA1AER2 INH; +LR 15ML/HR IV SCH; +LR 60ML/HR IV SCH; -LRS20 PO; -METH10TA4 PO; -MONT1TAB3 PO; -ONDA4TAB46 PO; -PANT40TA PO; -POLY335019 PO; -RIZA10TA18 PO; -SERT-234 PO; -SERT25TA PO; -SUCR1TAB29 PO; -TRAZ300T PO; -UMEC1INH INH; -VITATAB19 PO
[2020-03-08] MEDS ORDERED: BUPIVACAINE 0.5 % 5 MG/1 ML MPF 30ML VIAL ONE (07:02)
[2020-03-08] MEDS ORDERED: PROPOFOL IV EMULSION 10 MG/ML 20 ML VIAL IV ONE (07:03)
[2020-03-08] MEDS ORDERED: ONDANSETRON INJ 2 MG/ML 2 ML VIAL ONE (07:03)
[2020-03-08] MEDS ORDERED: NEOSTIGMINE METHYLSULFATE 5 MG/5 ML SYR ONE (07:03)
[2020-03-08] MEDS ORDERED: BACITRACIN INJ 50,000 UNIT VIAL ONE (07:03)
[2020-03-08] MEDS ORDERED: DEXAMETHASONE SOD INJ 4 MG/ML VIAL ONE (07:03)
[2020-03-08] MEDS ORDERED: LIDOCAINE HCL 2% 2 ML VIAL/AMP(20MG/ML) INFIL ONE (07:03)
[2020-03-08] MEDS ORDERED: EpINEphrine HCL INJ 1 MG/ML 1ML SYRINGE ONE (07:03)
[2020-03-08] MEDS ORDERED: GLYCOPYRROLATE 0.2 MG/ML VIAL ONE (07:03)
[2020-03-08] MEDS ORDERED: fentaNYL citrate 100 MCG/2 ML VIAL ONE (07:04)
[2020-03-08] MEDS ORDERED: MIDAZOLAM HCL 1 MG/ML 2ML VIAL ONE (07:04)
[2020-03-08 07:16] LABS: Pregnancy Test, Serum Negative (Negative)
[2020-03-08] MEDS ORDERED: SCOPOLAMINE 1.5 MG TDSY TD ONE ×2 (07:27→07:31)
--- NOTE | 2020-03-08 07:28 | History & Physical Bridge Note ---
Date of Service March 08, 2020 History & Physical Bridge Note I have examined the patient, reviewed the History & Physical and in the interval since the performance of the History & Physical I have noted the following changes of clinical significance: no changes noted
[2020-03-08] MEDS ORDERED: ePHEDrine sulfate 50 MG/ML AMP IV PRN (07:29)
[2020-03-08] MEDS ORDERED: ATROPINE SULFATE 0.1 MG/ML 10ML SYR IV PRN (07:29)
[2020-03-08] MEDS ORDERED: ONDANSETRON INJ 2 MG/ML 2 ML VIAL IV PRN ×2 (07:29→11:07)
--- NOTE | 2020-03-08 07:29 | History & Physical Report ---
Date of Service March 08, 2020 Assessment & Plan (1) Neurogenic claudication due to lumbar spinal stenosis: L5-S1 decompression fusion, possible L4-5 Present on Admission?: Yes History of Present Illness Chief Complaint: Back and bilateral leg pain Primary Care Provider: Diego Lopez, DO This is a 55-year-old female presents with chronic persistent back and bilateral leg pain peer after failing extensive course of nonoperative care she is here for surgical invention. Allergies Allergy/AdvReac Type Severity Reaction Status Date / Time risperidone Allergy Mild LACTATING Verified 03/08/20 06:34 Tetracyclines Allergy Mild HIVES Verified 03/08/20 06:34 mirtazapine Allergy Unknown SHORTNESS Verified 03/08/20 06:34 OF BREATH ranitidine Allergy Unknown SEVERE Verified 03/08/20 06:34 VOMITING Iodinated Contrast Media AdvReac Intermediate "horrible Verified 03/08/20 06:34 headache" loratadine AdvReac Mild UNABLE TO Verified 03/08/20 06:34 SLEEP MULTIPLE DAYS Home Medications Home Medications Medication Instructions Recorded Confirmed Type cholecalciferol (vitamin D3) 50 2,000 units PO HS 06/25/18 03/08/20 History mcg (2,000 unit) capsule bisacodyl [Dulcolax (bisacodyl)] 10 mg [place] DAILY PRN #28 ea 01/09/19 03/08/20 Rx famotidine 40 mg tablet 40 mg PO BID PRN #60 tab 03/11/19 03/08/20 Rx pantoprazole 40 mg tablet,delayed 40 mg PO BID #60 tab 03/11/19 03/08/20 Rx release Combivent Respimat 1 puff INHALATION QID PRN 03/13/19 03/08/20 History cyanocobalamin (vitamin B-12) 1,000 mcg PO HS 03/13/19 03/08/20 History [Vitamin B-12] methylphenidate HCl 5 mg PO BID 03/13/19 03/08/20 History rizatriptan 10 mg TRANSLINGUAL DIRECTED PRN 03/13/19 03/08/20 History sertraline 200 mg PO QAM 03/13/19 03/08/20 History trazodone 300 mg PO HS 03/13/19 03/08/20 History prednisolone acetate [Pred Forte] 1 drp OPHTHALMIC (EYE) HS 03/14/19 03/08/20 History ascorbic acid (vitamin C) [Vitamin 1,000 mg PO HS 04/17/19 03/08/20 History C] nicotine 1 patch TRANSDERMAL QAM 04/17/19 03/08/20 History ipratropium-albuterol 3 ml INHALATION Q4H PRN #1 box 04/25/19 03/08/20 Rx metoclopramide HCl 5 mg tablet 5 mg PO TID #90 tab 04/28/19 03/08/20 Rx diclofenac sodium 1 % topical gel 4 gm EXT QID PRN #1 tube 05/09/19 03/08/20 Rx vitamin A 8,000 unit capsule 8,000 units PO DAILY cap 05/16/19 03/08/20 History baclofen 20 mg tablet See Rx Instructions .ROUTE 08/06/19 03/08/20 Rx .COMPLEX #90 tablet ondansetron HCl 4 mg tablet 4 mg PO Q8H PRN #90 tab 09/12/19 03/08/20 Rx umeclidinium 62.5 mcg-vilanterol 1 inh INH QAM #60 ea 12/25/19 03/08/20 Rx 25 mcg/actuation powdr for inhalation diclofenac sodium 75 mg See Rx Instructions .ROUTE 01/21/20 03/08/20 Rx tablet,delayed release .COMPLEX #60 tablet folic acid 1 mg tablet 1 mg PO QAM #90 tab 01/21/20 03/08/20 Rx gabapentin 800 mg PO TID 02/17/20 03/08/20 History methylphenidate HCl 10 mg tablet 10 mg PO TID tab 03/02/20 03/08/20 History Past Med/Surg History Medical History ADD (attention deficit disorder) Anxiety Chronic pain COPD (chronic obstructive pulmonary disease) (Acute) Very rare rescue inhaler because she develops yeast infections with this. Prefers to use nebulizer, generally uses every few months. Gastroparesis (Acute) GERD (gastroesophageal reflux disease) History of migraine History of sleep apnea reports "resolved" with wt loss - no longer wears CPAP. States she was retested and told she no longer needs it. 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 Obsessive compulsive disorder Osteoarthritis Posttraumatic stress disorder Restless legs syndrome Sacroiliitis Sensorineural hearing loss (SNHL) of both ears B/L NICHOLS Surgical History History of appendectomy (Acute) History of breast biopsy History of breast surgery History of cholecystectomy (Acute) History of colonoscopy History of esophagogastroduodenoscopy (EGD) History of hand surgery Rt History of joint replacement Left hand History of tooth extraction Nausea and vomiting after administration of anesthetic agent Status post carpal tunnel release (Resolved) BL Family History Father Myocardial infarction Grandfather Myocardial infarction Mother Diabetes Other No family history of adverse response to anesthesia Social History Preferred Language: Kinyarwanda Communication Ability: Effective Agile Coach Required: No Beliefs That Will Affect Care: None marital status: Current Living Situation: Spouse and Family current occupational status: unemployed and disabled Feels Safe at Home: Yes Safety Concerns: Feels Safe At This Time Smoking Status: Former smoker Tobacco Type: cigarettes ; Do You Dip or Chew Tobacco: No ; Smoking End Date: quit 1 year ago ; Second Hand Exposure: No ; Tobacco Cessation Education Requested by Patient: No Hx Alcohol Use: No Hx Substance Use: No Physical Exam Physical Exam: Patient is alert and oriented neurologically intact. Results & Data Vital Signs (Past 12 Hours) Vital Signs Temp Pulse Resp BP Pulse Ox 03/08/20 06:41 36.6 C 74 20 122/85 97
[2020-03-08] MEDS ORDERED: FLOSEAL HEMOSTATIC MATRIX 10ML TOP ONE (08:41)
[2020-03-08] MEDS ORDERED: ROCURONIUM BROMIDE 10 MG/ML 5 ML VIAL IV ONE (09:21)
[2020-03-08] MEDS ORDERED: SUCCINYLCHOLINE CHLORIDE 20 MG/ML 10 ML VIAL IV ONE (09:21)
--- NOTE | 2020-03-08 09:32 | Operative Report ---
Post Operative Report Pre & Post Diagnosis Operation Date: 03/08/20 07:45 Pre-Op Diagnosis: Lumbar spinal stenosis with neurogenic claudication Post-Op Diagnosis: Same I identified the patient and participated in the time-out.: Yes Procedure Operation Date: 03/08/20 07:45 Actual Procedures #1 lumbar decompression with bilateral medial facetectomies and foraminotomies L4-5 and L5-S1 per #2 posterior spinal fusion L4-5 L5-S1. #3 placement posterior instrumentation L4-5 L5-S1. #4 interbody fusion L4-5 L5-S1. #5 placement peek cage 10 x 22 mm at L4-5 and 9 x 22 mm at L5-S1. #6 placement locally harvested morselized autograft in the posterior lateral gutters. #7 placement of infuse collagen sponge, master graft in the posterior lateral gutters and ostial amp and interbody space. Surgeon Cristiano Prieto DO Retort Operator Jaylene Ritchie Estimated Blood Loss 100 Findings Consistent with Post-Op Diagnosis Specimens None Indications This is a 55-year-old female who presents with above-mentioned diagnosis after failing a course of nonoperative care is here for surgical intervention. Description of Procedure Patient was met with identified informed consent obtained. Patient was then taken to the operative suite underwent intubation placed in a prone position the Roland table on top of the Reyes frame. All bony prominences well-padded eyes inspected to ensure no external pressure placed upon them. This point the lumbar spine was prepped and draped in normal sterile fashion. Sharp dissection with the assistance of Bovie cautery was performed down to and exposing the lamina transverse processes of L4-L5 and sacral ala bilaterally. From a caudal to cephalad fashion complete laminectomy of L5 and L4 was performed including bilateral medial facetectomies and foraminotomies addressing severe spinal stenosis. Pedicle screws were then placed in L4-L5 and S1 levels bilaterally with assistance of fluoroscopy and appropriately sized phani placed. By way of a trans-foraminal approach on the left complete discectomy of L5-S1 was performed endplates curetted to subcortical bleeding bone and a 9 x 22 mm peek cage filled with osteo-amp bone graft tapped in position. Then proceeded L4-[address] of a trans-foramen approach on the left complete discectomy was performed and a 10 x 22 mm peek cage filled with osteo-bone graft tapped in position. The rods were then compressed locked into final position bilaterally. Transverse processes of L4-L5 and sacral ala burred to subcortical bleeding bone. Infuse collagen sponge master graft local autograft was placed in the posterior lateral gutters. 15 round SANJUANITA drain inserted. The incision was then closed with 1 Vicryl in the fascia 2-0 Vicryl subcutaneously and 4 Monocryl for final skin closure. Steri-Strip sterile dressings placed. Patient waken taken to PACU stable condition. Please note spinal cord monitoring was utilized that the procedure no changes noted. Lastly Jaylene Ritchie was present at the entire procedure involved the patient positioning complex portions of the surgery and final skin closure. I attest to the content of the Intraoperative Record and any orders documented therein. Any exceptions are noted below.
[2020-03-08] MEDS ORDERED: PHENYLEPHRINE 100MCG/ML 5ML SYR ONE (09:54)
[2020-03-08] MEDS: fentaNYL citrate 100 MCG/2 ML VIAL IV PRN ×3 (09:55→10:30)
[2020-03-08] MEDS: HYDROmorphone INJ 1 MG/ML SYRINGE IV PRN ×6 (10:10→22:03)
--- NOTE | 2020-03-08 10:26 | Fluoroscopy Report ---
FL lumbar spine 2-3V CLINICAL HISTORY: Decompression and fusion. COMPARISON STUDY: Lumbar spine MRI November 14, 2019. FLUOROSCOPY TIME: 17 seconds. FLUOROSCOPIC IMAGES: 2 FINDINGS: Fluoroscopy was provided for L4-L5 and L5-S1 discectomies with interbody spacer placement. Posterior decompression is noted. There are bilateral pedicle screws at the L4, L5 and S1 levels. Jaswinder dware is intact. There are no unexpected radiopaque foreign bodies. IMPRESSION: Fluoroscopy provided for L4-L5 and L5-S1 discectomies with posterior decompression and bi lateral fusion. ACT 112: Negative or not required by law. Electronically signed by: Alex Fowler M.D. 03/08/2020 10:25 AM
--- NOTE | 2020-03-08 10:39 | Anesthesiology Progress Note ---
Date of Service March 08, 2020 Anesthesia Post Procedure Vital Signs Vital Signs: Temp Pulse Pulse Resp BP Pulse Ox 03/08/20 10:35 68 13 118/60 97 03/08/20 10:25 71 14 136/66 98 03/08/20 10:15 81 20 156/87 H 99 03/08/20 10:05 71 13 163/91 H 100 03/08/20 09:55 88 17 171/96 H 100 03/08/20 09:48 36.2 C L 111 H 19 160/123 H 99 03/08/20 06:41 36.6 C 74 20 122/85 97 Pain Intensity Left Leg: Pain Intensity: 8 Lower Medial Back: Pain Intensity: 6 Transfer of Care Handoff Completed per policy Notes Mental Status: alert / awake / arousable and participated in evaluation Patient Amnestic to Procedure: Yes Nausea / Vomiting: adequately controlled Pain: adequately controlled Airway Patency, RR, SpO2: stable & adequate BP & HR: stable & adequate Hydration State: stable & adequate Anesthetic Complications: no major complications apparent and Pt Satisfied with anesthetic care
[2020-03-08] MEDS ORDERED: ACETAMINOPHEN 500 MG TAB PO PRN (11:07)
[2020-03-08] MEDS ORDERED: DO NOT ADMINISTER FLU VACCINE PRN (11:07)
[2020-03-08] MEDS ORDERED: FAMOTIDINE 40 MG TABLET PO PRN (11:07)
[2020-03-08] MEDS ORDERED: FAMOTIDINE 20 MG TAB PO PRN (11:07)
[2020-03-08] MEDS ORDERED: ACETAMINOPHEN 1,000 MG/100 ML VIAL IV PRN (11:07)
[2020-03-08] MEDS ORDERED: LORazepam 0.5 MG/1 ML VIAL IV PRN (11:07)
[2020-03-08] MEDS ORDERED: METOCLOPRAMIDE HCL INJ 5 MG/ML 2 ML VIAL IV PRN (11:07)
[2020-03-08] MEDS ORDERED: SOD PHOSPHATE/SOD BIPHOSPHATE ENEMA 132 ML BTL PR PRN (11:07)
[2020-03-08] MEDS ORDERED: DO NOT ADMINISTER PNEUMOCOCCAL VACCINE PRN (11:07)
[2020-03-08] MEDS ORDERED: ALUMINUM/MAGNESIUM SUSP 30 ML UDC PO PRN (11:07)
[2020-03-08] MEDS ORDERED: TRAMADOL HCL 50 MG TABLET PO PRN (11:07)
[2020-03-08] MEDS ORDERED: BACLOFEN 20 MG TAB PO PRN (11:07)
[2020-03-08] MEDS ORDERED: PROMETHAZINE HCL 12.5 MG in SODIUM CHLORIDE 0.9% 50 ML IV PRN (11:07)
[2020-03-08] MEDS ORDERED: NALOXONE HCL 0.4 MG/1 ML VIAL/CARP IV PRN (11:07)
[2020-03-08] MEDS ORDERED: bisacodyL 10 MG SUPP PR PRN ×2 (11:07)
[2020-03-08] MEDS ORDERED: ONDANSETRON 4 MG OD TAB PO PRN ×2 (11:07)
[2020-03-08] MEDS ORDERED: MAGNESIUM HYDROXIDE SUSP 30 ML UDC PO PRN (11:07)
[2020-03-08] MEDS: CHECK SCOPOLAMINE PATCH PLACEMENT SCH ×3 (12:03→23:46)
[2020-03-08] MEDS: KETOROLAC TROMETHAMINE 15 MG/ML VIAL IV SCH ×3 (12:16→23:41)
[2020-03-08] MEDS: METHYLPHENIDATE HCL 10 MG TABLET PO SCH ×3 (12:17→16:11)
[2020-03-08] MEDS: GABAPENTIN 800 MG TAB PO SCH ×2 (13:48→21:53)
[2020-03-08] MEDS: LACTATED RINGER'S 1,000 ML IV SCH (13:49)
[2020-03-08] MEDS ORDERED: METOCLOPRAMIDE HCL 5 MG TABLET PO SCH (14:00)
[2020-03-08] MEDS: CEFAZOLIN 1000MG 1,000 MG/7.5 ML SYR IV SCH ×2 (16:16→23:41)
[2020-03-08] MEDS: OXYCODONE HCL IR 5 MG TAB (IMMEDIATE RELEASE) PO PRN ×2 (16:16→20:16)
[2020-03-08] MEDS: LORazepam 0.5 MG TAB PO PRN (20:11)
[2020-03-08] MEDS: prednisoLONE acetate 1% OP SUSP 5 ML BTL OP SCH (21:52)
[2020-03-08] MEDS: ASCORBIC ACID 500 MG TAB PO SCH (21:53)
[2020-03-08] MEDS: CHOLECALCIFEROL 1,000 UNITS 25 MCG TAB PO SCH (21:53)
[2020-03-08] MEDS: PANTOprazole 40 MG TAB PO SCH (21:53)
[2020-03-08] MEDS: TRAZODONE HCL 100 MG TAB PO SCH (21:54)
[2020-03-08] MEDS: CYANOCOBALAMIN 500 MCG TABLET (VITAMIN B-12) PO SCH (21:54)
[2020-03-08] MEDS: DOCUSATE SODIUM/SENNA 50/8.6MG TAB PO SCH (21:57)
[2020-03-09] MEDS: LACTATED RINGER'S 1,000 ML IV SCH (00:41)
[2020-03-09] MEDS: KETOROLAC TROMETHAMINE 15 MG/ML VIAL IV SCH (05:39)
[2020-03-09] MEDS: POLYETHYLENE (MIRALAX) 17 GM PACK PO SCH ×3 (05:39→18:09)
[2020-03-09 05:43] LABS: Basophils # (auto) 0.01 K/uL (0-0.2); Basophils % (auto) 0.1 %; Eosinophils # (auto) 0.03 K/uL (0-0.5); Eosinophils % (auto) 0.4 %; Hematocrit (blood only) 28.1 % (37-47); Hemoglobin 9.1 g/dL (12.0-16.0); Immature Granulocytes # (auto) 0.01 K/uL (0.00-0.02); Immature Granulocytes % (auto) 0.1 %; Lymphocytes # (auto) 1.64 K/uL (1.2-3.4); Lymphocytes % (auto) 21.2 %; Mean Corpuscular Hemoglobin 29.4 pg (25-34); Mean Corpuscular Hgb Conc 32.4 g/dL (32-36); Mean Corpuscular Volume 90.6 fL (80-100); Mean Platelet Volume 11.6 fL (7.4-10.4); Monocytes # (auto) 0.68 K/uL (0.11-0.59); Monocytes % (auto) 8.8 %; Neutrophils # (auto) 5.35 K/uL (1.4-6.5); Neutrophils % (auto) 69.4 %; Platelet Count 169 K/uL (130-400); RDW Coefficient of Variation 13.8 % (11.5-14.5); RDW Standard Deviation 45.4 fL (36.4-46.3); White Blood Count 7.72 K/uL (4.8-10.8)
[2020-03-09 06:10] LABS: BUN Creatinine Ratio 18.2 (10-20); Calcium 8.1 mg/dl (8.5-10.1); Creatinine Clr Calc Pharmacy 71.4 ml/min; Est GFR (African American) 95.4; Est GFR (Non-African American) 82.3
--- NOTE | 2020-03-09 08:11 | Orthopedic Progress Note ---
Date of Service March 09, 2020 Assessment & Plan (1) Neurogenic claudication due to lumbar spinal stenosis: At this time we will continue physical therapy monitor her SANJUANITA output hopefully discharge home in the next few days. Present on Admission?: Yes Admission and Anticipated Discharge Date Admission Date: March 08, 2020 Subjective Back pain is controlled leg symptoms markedly improved. Physical Exam Physical Exam: Patient is good strength testing peers comfortable. Results & Data ([facility]) Vital Signs (Past 12 Hours) Vital Signs Temp Pulse Resp BP Pulse Ox 03/09/20 07:35 36.8 C 79 17 94/58 L 94 03/09/20 03:51 93 03/09/20 03:49 37.1 C 72 18 100/60 85 L 03/08/20 23:14 37.4 C 67 20 117/70 91
[2020-03-09] MEDS: CHECK SCOPOLAMINE PATCH PLACEMENT SCH ×2 (08:21→16:20)
[2020-03-09] MEDS: METHYLPHENIDATE HCL 10 MG TABLET PO SCH ×5 (08:22→16:20)
[2020-03-09] MEDS: FOLIC ACID 1 MG TAB PO SCH (08:23)
[2020-03-09] MEDS: UMECLIDINIUM/VILANTEROL 62.5/25MCG 7 PUFFS/INHALER INH SCH (08:23)
[2020-03-09] MEDS: SERTRALINE HCL 100 MG TABLET PO SCH (08:23)
[2020-03-09] MEDS: NICOTINE 21 MG/24 HR TDSY TD SCH (08:24)
[2020-03-09] MEDS: PANTOprazole 40 MG TAB PO SCH ×2 (08:24→21:06)
[2020-03-09] MEDS: GABAPENTIN 800 MG TAB PO SCH ×3 (08:24→21:05)
[2020-03-09] MEDS: OXYCODONE HCL IR 5 MG TAB (IMMEDIATE RELEASE) PO PRN ×2 (08:31→21:05)
[2020-03-09] MEDS: DEXAMETHASONE SOD PHOSPHATE 8 MG in SYRINGE 0 ML IV SCH (08:54)
[2020-03-09] MEDS ORDERED: NON-FORMULARY MEDICATION (Vitamin A 8,000 UNITS) PO SCH (09:00)
[2020-03-09] MEDS: LORazepam 0.5 MG TAB PO PRN (10:48)
[2020-03-09] MEDS: HYDROmorphone INJ 1 MG/ML SYRINGE IV PRN ×3 (13:11→19:57)
[2020-03-09] MEDS: METOCLOPRAMIDE HCL 5 MG TABLET PO SCH (18:09)
[2020-03-09] MEDS: DOCUSATE SODIUM/SENNA 50/8.6MG TAB PO SCH (21:05)
[2020-03-09] MEDS: TRAZODONE HCL 100 MG TAB PO SCH (21:05)
[2020-03-09] MEDS: prednisoLONE acetate 1% OP SUSP 5 ML BTL OP SCH (21:06)
[2020-03-09] MEDS: CYANOCOBALAMIN 500 MCG TABLET (VITAMIN B-12) PO SCH (21:06)
[2020-03-09] MEDS: CHOLECALCIFEROL 1,000 UNITS 25 MCG TAB PO SCH (21:06)
[2020-03-09] MEDS: ASCORBIC ACID 500 MG TAB PO SCH (21:06)
[2020-03-10] MEDS: HYDROmorphone INJ 0.5 MG/0.5 ML SYR IV PRN ×3 (00:01→13:52)
[2020-03-10] MEDS: CHECK SCOPOLAMINE PATCH PLACEMENT SCH ×3 (00:01→17:40)
[2020-03-10] MEDS: POLYETHYLENE (MIRALAX) 17 GM PACK PO SCH ×4 (00:01→17:40)
[2020-03-10] MEDS: OXYCODONE HCL IR 5 MG TAB (IMMEDIATE RELEASE) PO PRN ×4 (02:56→19:44)
[2020-03-10] MEDS: DEXAMETHASONE SOD PHOSPHATE 8 MG in SYRINGE 0 ML IV SCH (08:08)
[2020-03-10] MEDS: METOCLOPRAMIDE HCL 5 MG TABLET PO SCH ×3 (08:34→17:39)
[2020-03-10] MEDS: PANTOprazole 40 MG TAB PO SCH ×2 (08:35→20:20)
[2020-03-10] MEDS: UMECLIDINIUM/VILANTEROL 62.5/25MCG 7 PUFFS/INHALER INH SCH ×3 (08:35→20:25)
[2020-03-10] MEDS: FOLIC ACID 1 MG TAB PO SCH (08:35)
[2020-03-10] MEDS: GABAPENTIN 800 MG TAB PO SCH ×3 (08:35→20:21)
[2020-03-10] MEDS: SERTRALINE HCL 100 MG TABLET PO SCH (08:35)
[2020-03-10] MEDS: METHYLPHENIDATE HCL 10 MG TABLET PO SCH ×5 (08:36→17:38)
[2020-03-10] MEDS: NICOTINE 21 MG/24 HR TDSY TD SCH (08:37)
--- NOTE | 2020-03-10 10:21 | Orthopedic Progress Note ---
Date of Service March 10, 2020 Assessment & Plan (1) Neurogenic claudication due to lumbar spinal stenosis: This time the patient is still struggling with significant postoperative back pain. She is requiring IV narcotics to control her symptoms. Subsequently we will keep her today continue with physical therapy anticipate discharge home tomorrow. Present on Admission?: Yes Admission and Anticipated Discharge Date Admission Date: March 08, 2020 Subjective Patient complaining of back pain leg pain improved. Physical Exam Physical Exam: Patient is good strength testing. Results & Data ([facility]) Vital Signs (Past 12 Hours) Vital Signs Temp Pulse Resp BP Pulse Ox 03/10/20 07:08 37.6 C H 71 16 101/68 95 03/09/20 23:37 37.2 C 66 20 106/59 L 90
[2020-03-10] MEDS: HYDROmorphone INJ 1 MG/ML SYRINGE IV PRN (18:38)
[2020-03-10] MEDS: prednisoLONE acetate 1% OP SUSP 5 ML BTL OP SCH (20:20)
[2020-03-10] MEDS: CYANOCOBALAMIN 500 MCG TABLET (VITAMIN B-12) PO SCH (20:20)
[2020-03-10] MEDS: TRAZODONE HCL 100 MG TAB PO SCH (20:20)
[2020-03-10] MEDS: ASCORBIC ACID 500 MG TAB PO SCH (20:21)
[2020-03-10] MEDS: CHOLECALCIFEROL 1,000 UNITS 25 MCG TAB PO SCH (20:21)
[2020-03-10] MEDS: DOCUSATE SODIUM/SENNA 50/8.6MG TAB PO SCH (20:23)
[2020-03-11] MEDS: OXYCODONE HCL IR 5 MG TAB (IMMEDIATE RELEASE) PO PRN ×2 (00:06→08:49)
[2020-03-11] MEDS: POLYETHYLENE (MIRALAX) 17 GM PACK PO SCH ×2 (00:07→06:09)
[2020-03-11] MEDS: CHECK SCOPOLAMINE PATCH PLACEMENT SCH ×2 (00:07→07:34)
[2020-03-11] MEDS: HYDROmorphone INJ 0.5 MG/0.5 ML SYR IV PRN (01:12)
--- NOTE | 2020-03-11 08:14 | Discharge Summary ---
Date of Service March 11, 2020 Admission HPI Per Admitting Provider This is a 55-year-old female presents with chronic persistent back and bilateral leg pain peer after failing extensive course of nonoperative care she is here for surgical invention. Principal Diagnosis Lumbar spinal stenosis with neurogenic claudication Discharge Data Allergies Allergy/AdvReac Type Severity Reaction Status Date / Time risperidone Allergy Mild LACTATING Verified 03/08/20 06:34 Tetracyclines Allergy Mild HIVES Verified 03/08/20 06:34 mirtazapine Allergy Unknown SHORTNESS Verified 03/08/20 06:34 OF BREATH ranitidine Allergy Unknown SEVERE Verified 03/08/20 06:34 VOMITING Iodinated Contrast Media AdvReac Intermediate "horrible Verified 03/08/20 06:34 headache" loratadine AdvReac Mild UNABLE TO Verified 03/08/20 06:34 SLEEP MULTIPLE DAYS Consultations 03/08/20 11:07 Consult Case Management - Discharge Planning Routine Procedures Performed Operation Date: 03/08/20 07:45 Actual Procedures p L4-S1 Decompression and Fusion, Spinal Cord Monitoring(Not Applicable) - Cristiano Prieto DO Ordered Studies 03/08/20 07:45 FL fluoroscopy <1hr Routine FL lumbar spine 2-3V Routine Hospital Course (1) Neurogenic claudication due to lumbar spinal stenosis: Patient went lumbar decompression fusion tolerated this well was taken to the orthopedic floor postoperative. Postop day 1 she was up and ambulating. She progressed to postop day #2. Postop day #3 pain was well controlled leg pain improved. Subsequently discharged home. Discharge orders and instructions from the chart for further review. Total Time Total Time Spent Total Time Spent (In Minutes): 20 minutes Discharge Plan Discharge Items Patient Disposition: Home - Self-Care Reason For Visit: THORACOLUMBAR & LUMBOSACRAL INTERVERTEBRAL DISC DI Discharge Diagnosis: Lumbar spinal stenosis with neurogenic claudication Activity: As commented below Non-emergency contact: Primary Care Provider Call non-emergency contact if: you have any medication questions Follow-up/Referrals: Diego Lopez DO [Primary Care Provider] - Diet: Regular Addtl Attending Provider Instructions: ACTIVITY RECOMMENDATIONS: SELF CARE INSTRUCTIONS AFTER THORACIC/LUMBAR FUSIONS 1. You may walk to your tolerance. It is good exercise for your legs and back. Expect some back and intermittent leg aches and pains. 2. You may perform "counter-top" level activities (make a sandwich, harriett with a project, etc.). 3. No bending or lifting of more than 10 pounds or back twisting of any nature (roll like a log when turning in bed). 4. You may ride in a car for 20-30 minutes at a time. No driving until after your first visit with your doctor. 5. Frequent changes of position and restricting sitting to 30 minutes at a time will help limit the amount of back spasms and stiffness you may experience. 6. You may discontinue the use of ambulatory aids (cane, crutches, etc.) once your strength and confidence allow. 7. You may product safety engineer the shower and let water strike your incision when you arrive home at least once daily. Do not take a tub bath, sit in a hot tub or go into a swimming pool until after your first recheck in the office. SPECIAL CARE INSTRUCTIONS: VERY IMPORTANT TO READ AND REVIEW A. Your surgical incision has been closed with a cosmetic suture under the skin that will dissolve in about 6 weeks. In 14 days, you can use a pair of clean scissors and cut the suture that is left outside of the skin at the ends of your incision. 1. The small skin tapes can be removed 7 days after surgery if they have not fallen off by that point. 2. You may keep the wound open to air as much as possible to promote healing after post-op day number 5 unless told otherwise by your doctor. 3. If you think the wound looks like it is becoming infected (redness or wo rsening drainage) and/or you are experiencing fever, chill or worsening back pain and muscle spasms, contact the office so that we may evaluate you as soon as possible. B. Complications are uncommon, but please contact us if you have any signs or symptoms of: 1. wound infection (fever higher than 102.5 degrees F, redness, separation of wound, drainage, or increasing pain from the incision) 2. blood clots in legs (pain, swelling, redness and warmth in legs) 3. urinary tract infection (fever higher than 102.5 degrees F, burning upon urination or increased frequency of urination) 4. nerve problems (inability to walk on your toes or heels, numbness, loss of bowel or bladder control) 5. any other symptoms that concern you C. Please call the office at if you have any concerns or questions about your operation or recovery. D. No smoking! Smoking drastically decreases the chance of a solid fusion. E. Do not take any anti-inflammatory medications (Indocin, Advil, Motrin, Aspirin, Naprosyn, etc.) as these may inhibit the chance of a solid fusion. Tylenol is okay to take for pain. MANAGING PAIN AFTER SPINAL SURGERY 1. Narcotic medication is intended for short-term use and will be provided for surgical pain. Surgical pain usually lasts for a period of 4-6 weeks. Narcotic medication includes Percocet, Vicodin, Darvocet, Tylenol #3 or Lortab. 2. Longer-term pain is more appropriately treated with non-narcotic medication such as Tylenol ES. 3. Muscle spasm is not appropriately treated with narcotics. Muscle relaxers such as Soma, Flexeril or Skelaxin can be used along with Tylenol ES. 4. Remember that we all live with some "aches and pains". This is not unusual or uncommon after an injury or as we get older. a. Back pain is expected and may include muscle spasms for 4 to 6 weeks after surgery. The pain should gradually improve. If the pain worsens for no apparent reason, please contact the office. b. Intermittent leg pain may also be experienced and should not be concerned about unless it worsens for no apparent reason. If so, please contact the office. 5. We will provide appropriate medication within the normal guidelines of their prescribed use. We will also be very cautious and aware of potential abuse and extended duration of patients' medication needs. a. Pain medications are for your comfort and to assist with sleep and rest so that the tissue can heal. They are not provided in order to return to normal activity and should not be used through the day. To do so or worsening pain at night can result from ongoing tissue damage and development of tolerance to the prescribed medicine. 6. Please allow 2-3 days to process refills. Prescriptions will not be mailed but must be picked up at the office. FOLLOW UP VISIT: Keep your scheduled follow-up appointment. Any questions, please call the office at . Pending Studies at Discharge: No Stand-Alone Forms: [employer], Smoking Cessation Medications and DC Order Prescriptions: New oxycodone 5 mg tablet 5 mg PO Q6H PRN (Reason: pain, severe) Qty: 20 RF: 0 Continued cholecalciferol (vitamin D3) 2,000 unit capsule 2,000 units PO HS RF: 0 metoclopramide HCl 5 mg tablet 5 mg PO TID Qty: 90 RF: 0 diclofenac sodium [Voltaren] 1 % gel 4 gm EXT QID PRN (Reason: muscle pain or joint pain) Qty: 1 RF: 2 baclofen 20 mg tablet See Rx Instructions .ROUTE .COMPLEX Qty: 90 RF: 5 ondansetron HCl [Zofran] 4 mg tablet 4 mg PO Q8H PRN (Reason: Nausea) Qty: 90 RF: 0 Anoro Ellipta 62.5-25 mcg/actuation blister with device 1 inh INH QAM Qty: 60 RF: 3 folic acid 1 mg tablet 1 mg PO QAM Qty: 90 RF: 1 diclofenac sodium 75 mg tablet,delayed release (DR/EC) See Rx Instructions .ROUTE .COMPLEX Qty: 60 RF: 5 famotidine [Pepcid] 40 mg tablet 40 mg PO BID PRN (Reason: Acid Reflux) Qty: 60 RF: 0 pantoprazole [Protonix] 40 mg tablet,delayed release (DR/EC) 40 mg PO BID Qty: 60 RF: 0 bisacodyl [Dulcolax (bisacodyl)] 10 mg suppository 10 mg ME DAILY PRN (Reason: constipation) Qty: 28 RF: 0 vitamin A 8,000 unit capsule 8,000 units PO DAILY RF: 0 methylphenidate HCl 5 mg tablet 5 mg PO BID RF: 0 cyanocobalamin (vitamin B-12) [Vitamin B-12] 1,000 mcg Tablet 1,000 mcg PO HS RF: 0 rizatriptan 10 mg Tablet,Disintegrating 10 mg translingual DIRECTED PRN (Reason: Headache) RF: 0 trazodone 150 mg tablet 300 mg PO HS RF: 0 Combivent Respimat 20-100 mcg/actuation mist 1 puff inhalation QID PRN (Reason: Shortness Of Breath) RF: 0 sertraline 100 mg tablet 200 mg PO QAM RF: 0 prednisolone acetate [Pred Forte] 1 % Drops,Suspension 1 drp OPHTHALMIC (EYE) HS RF: 0 methylphenidate HCl 10 mg tablet 10 mg PO TID RF: 0 ascorbic acid (vitamin C) [Vitamin C] 1,000 mg Tablet 1,000 mg PO HS RF: 0 nicotine 21 mg/24 hr Patch 24 Hour 1 patch TRANSDERMAL QAM RF: 0 ipratropium-albuterol 0.5 mg-3 mg(2.5 mg base)/3 mL solution for nebulization 3 ml INHALATION Q4H PRN (Reason: Shortness Of Breath Or Wheezing) Qty: 1 RF: 2 gabapentin 800 mg tablet 800 mg PO TID RF: 0 Discharge Orders: Discharge Order (Routine); Ordered 03/11/20 Ordered By: Cristiano Prieto Admission Data Admit Date/Time: 03/08/20 10:00 Attending Provider: Cristiano Prieto Admit Provider: Cristiano Prieto Primary Care Provider: Diego Lopez
[2020-03-11] MEDS: METOCLOPRAMIDE HCL 5 MG TABLET PO SCH (08:19)
[2020-03-11] MEDS: METHYLPHENIDATE HCL 10 MG TABLET PO SCH ×2 (08:20)
[2020-03-11] MEDS: NICOTINE 21 MG/24 HR TDSY TD SCH (08:40)
[2020-03-11] MEDS: UMECLIDINIUM/VILANTEROL 62.5/25MCG 7 PUFFS/INHALER INH SCH (08:41)
[2020-03-11] MEDS: PANTOprazole 40 MG TAB PO SCH (08:42)
[2020-03-11] MEDS: GABAPENTIN 800 MG TAB PO SCH (08:42)
[2020-03-11] MEDS: SERTRALINE HCL 100 MG TABLET PO SCH (08:43)
[2020-03-11] MEDS: FOLIC ACID 1 MG TAB PO SCH (08:43)
[2020-03-11] MEDS: DEXAMETHASONE SOD PHOSPHATE 8 MG in SYRINGE 0 ML IV SCH (08:44)
== END 2020-03-11 10:17 | disposition home or self-care (01) | DRG 454 ==
LOC: ASU 06:14 → 3E 10:00

== ENCOUNTER 2021-08-03 18:02 | Observation (INO) ==
[2021-08-03] MEDS ORDERED: ALBUT/IPRATROP 3MG/0.5MG NEB 3 ML VIAL NEB ONE (18:31)
[2021-08-03 18:45] LABS: Basophils # (auto) 0.07 K/uL (0-0.2); Basophils % (auto) 0.6 %; Eosinophils # (auto) 0.27 K/uL (0-0.5); Eosinophils % (auto) 2.4 %; Hematocrit (blood only) 38.6 % (37-47); Hemoglobin 12.8 g/dL (12.0-16.0); Immature Granulocytes # (auto) 0.02 K/uL (0.00-0.02); Immature Granulocytes % (auto) 0.2 %; Lymphocytes # (auto) 3.46 K/uL (1.2-3.4); Lymphocytes % (auto) 30.7 %; Mean Corpuscular Hgb Conc 33.2 g/dL (32-36); Mean Corpuscular Volume 87.5 fL (80-100); Mean Platelet Volume 11.1 fL (7.4-10.4); Monocytes # (auto) 0.79 K/uL (0.11-0.59); Neutrophils # (auto) 6.65 K/uL (1.4-6.5); Neutrophils % (auto) 59.1 %; Platelet Count 284 K/uL (130-400); RDW Coefficient of Variation 15.5 % (11.5-14.5); RDW Standard Deviation 50.3 fL (36.4-46.3); Red Blood Count 4.41 M/uL (4.2-5.4); White Blood Count 11.26 K/uL (4.8-10.8)
--- NOTE | 2021-08-03 18:53 | XRay Report ---
XR chest 1V portable CLINICAL HISTORY: Cough. Short of breath. COMPARISON STUDY: Chest CT June 17, 2020. Chest radiograph December 31, 2020. FINDINGS: Lung volumes are normal. Lungs are clear. There is no pneumothorax or pleural effusion. Car diac size is normal. Mediastinal contours are normal. There is no evidence for pulmonary edema. IMPRESSION: No acute cardiopulmonary findings. ACT 112: Negative or not required by law. Electronically signed by: Alex Fowler M.D. 08/03/2021 6:52 PM
[2021-08-03 19:01] LABS: Alanine Aminotransferase 29 U/L (12-78); Albumin Level 4.1 gm/dl (3.4-5.0); Aspartate Aminotransferase 16 U/L (15-37); Blood Urea Nitrogen 18 mg/dl (7-18); Calcium 9.2 mg/dl (8.5-10.1); Carbon Dioxide 26 mmol/L (21-32); Chloride 106 mmol/L (98-107); Creatinine Clr Calc Pharmacy 51.8 ml/min; Est GFR (African American) 68.5 ml/min; Est GFR (Non-African American) 59.1 ml/min; Glucose 111 mg/dl (70-99); Magnesium 2.3 mg/dl (1.8-2.4); Potassium 3.6 mmol/L (3.5-5.1); Sodium 139 mmol/L (136-145)
[2021-08-03 19:04] LABS: Influenza A virus by PCR Negative (Negative); Influenza B virus by PCR Negative (Negative)
[2021-08-03 19:06] LABS: Albumin Globulin Ratio 1.1 (0.9-2); Alkaline Phosphatase 80 U/L (45-117); Bilirubin,Total 0.2 mg/dl (0.2-1); Globulin 3.8 gm/dl (2.5-4.0); NT Pro B Type Natriuretic Pept 73 pg/ml (0-900); Total Protein 7.9 gm/dl (6.4-8.2); Troponin I < 0.015 ng/ml (0-0.045)
--- NOTE | 2021-08-03 19:15 | Emergency Department Note ---
History of Present Illness General Chief complaint: Shortness of Breath/Dyspnea Stated complaint: SOB, CHEST TIGHTNESS, RIB PAIN, COUGH Time Seen by Provider: 08/03/21 18:20 Source: patient Mode of arrival: ambulatory Limitations: no limitations History of Present Illness Provider complaint: Shortness of breath, worsening cough Onset (ago): week(s) 5 Maximum Pain Intensity: 6 Associated symptoms: + chest pain, + cough and + shortness of breath; no fever /chills, no headaches, no loss of appetite or no nausea/vomiting Treatments prior to arrival: other This is a 56-year-old female who presents emerge department complaining of worsening shortness of breath. Patient states she first became sick 5 to 6 weeks ago. Patient does have a history of COPD, does not wear home oxygen. She states she does use nebulizer treatments at home. Patient states she does follow with Lyndon Powers PA-C with pulmonology. She states over the course of the last 5 to 6 weeks she has had 2 courses of antibiotics and [address] eroids. She states initially she thought she got sick as one of her children had been sick and after Augmentin and prednisone she was feeling improved. She then began to feel worse and was started on azithromycin and another course of steroids. Patient has continued to feel worse, is using her nebulizer at home every 3-1/2 hours, feels fatigued, and has a sense of chest tightness. She denies any overt hemoptysis. No nausea, vomiting, diarrhea, leg swelling, rash or sores. Patient has previously been hospitalized for her breathing, no prior intubation. Pt seen during a time of high acuity and national emergency pandemic while wearing PPE. Home Medications Medication Instructions Recorded Confirmed Type cholecalciferol (vitamin D3) 50 2,000 units PO HS 06/25/18 08/03/21 History mcg (2,000 unit) capsule cyanocobalamin (vitamin B-12) 1,000 mcg PO HS 03/13/19 08/03/21 History 1,000 mcg tablet (Vitamin B-12) methylphenidate HCl 5 mg tablet 5 mg PO BID 03/13/19 08/03/21 History sertraline 100 mg tablet 200 mg PO QAM 03/13/19 08/03/21 History trazodone 150 mg tablet 300 mg PO HS 03/13/19 08/03/21 History prednisolone acetate 1 % eye 1 drp OPHTHALMIC (EYE) HS 03/14/19 08/03/21 History drops,suspension (Pred Forte) ascorbic acid (vitamin C) 1,000 mg 1,000 mg PO HS 04/17/19 08/03/21 History tablet (Vitamin C) nicotine 21 mg/24 hr daily 1 patch TRANSDERMAL QAM 04/17/19 08/03/21 History transdermal patch vitamin A 2,400 mcg capsule 8,000 units PO DAILY cap 05/16/19 08/03/21 History methylphenidate HCl 10 mg tablet 10 mg PO TID tab 03/02/20 08/03/21 History polyethylene glycol 3350 17 17 gm PO DAILY #510 gm 04/05/20 08/03/21 Rx gram/dose oral powder albuterol sulfate 90 mcg/actuation 2 puff INHALATION QID PRN #18 g 01/26/21 08/03/21 Rx aerosol inhaler (Ventolin HFA) gabapentin 800 mg tablet 800 mg PO TID #90 tab 02/14/21 08/03/21 Rx nystatin 100,000 unit/mL oral 5 ml PO QID PRN #473 ml 03/18/21 08/03/21 Rx suspension famotidine 40 mg tablet (Pepcid) 40 mg PO BID PRN #60 tab 03/23/21 08/03/21 Rx cimetidine 200 mg tablet See Rx Instructions .ROUTE 04/06/21 08/03/21 Rx .COMPLEX #30 tab metoclopramide HCl 5 mg tablet 5 mg PO TID #90 tab 04/06/21 08/03/21 Rx pantoprazole 40 mg tablet,delayed 40 mg PO BID #60 tab 04/06/21 08/03/21 Rx release (Protonix) celecoxib 200 mg capsule (Celebrex) 200 mg PO DAILY #30 cap 04/08/21 08/03/21 Rx dicyclomine 20 mg tablet 20 mg PO TID PRN #90 tab 04/08/21 08/03/21 Rx cyclobenzaprine 7.5 mg tablet 7.5 mg PO TID PRN #60 tab 04/18/21 08/03/21 Rx ondansetron HCl 4 mg tablet 4 mg PO Q8H PRN #90 tab 04/19/21 08/03/21 Rx (Zofran) mupirocin 2 % topical ointment 1 applic TOP BID #15 gm 05/13/21 08/03/21 Rx tiotropium 2.5 mcg-olodaterol 2.5 2 puff INHALATION DAILY #4 g 05/27/21 08/03/21 Rx mcg/actuation mist for inhalation (Stiolto Respimat) clotrimazole 10 mg krissy 10 mg MUCOUS MEMBRANE .3-5 x 06/10/21 08/03/21 Rx daily 14 Days #70 tab oxycodone 5 mg tablet 5 mg PO Q8H PRN #45 tab 06/10/21 08/03/21 Rx folic acid 1 mg tablet 1 mg PO QAM #90 tab 07/13/21 08/03/21 Rx ipratropium 0.5 mg-albuterol 3 mg 3 ml INHALATION Q4H PRN #180 ml 07/28/21 08/03/21 Rx (2.5 mg base)/3 mL nebulization soln levofloxacin 500 mg tablet 500 mg PO DAILY #10 tab 07/28/21 08/03/21 Rx diclofenac sodium 1 % topical gel 2 g TOPICAL QID PRN 08/03/21 08/03/21 History Allergies Allergy/AdvReac Type Severity Reaction Status Date / Time risperidone Allergy Mild LACTATING Verified 08/03/21 20:21 Tetracyclines Allergy Mild HIVES Verified 08/03/21 20:21 mirtazapine Allergy Unknown SHORTNESS Verified 08/03/21 20:21 OF BREATH ranitidine Allergy Unknown SEVERE Verified 08/03/21 20:21 VOMITING Iodinated Contrast Media AdvReac Intermediate "horrible Verified 08/03/21 20:21 headache" loratadine AdvReac Mild UNABLE TO Verified 08/03/21 20:21 SLEEP MULTIPLE DAYS Past Med/Surg History Medical History (Updated 08/05/21 @ 03:19 by Fany Vásquez, ) ADD (attention deficit disorder) Anxiety Chronic pain Chronic pain COPD (chronic obstructive pulmonary disease) Very rare rescue inhaler because she develops yeast infections with this. Prefers to use nebulizer, generally uses every few months. Gastroparesis GERD (gastroesophageal reflux disease) History of migraine History of sleep apnea reports "resolved" with wt loss - no longer wears CPAP. States she was retested and told she no longer needs it. 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 Obsessive compulsive disorder Osteoarthritis Posttraumatic stress disorder Restless legs syndrome Sacroiliitis Sensorineural hearing loss (SNHL) of both ears B/L NICHOLS Surgical History H/O right wrist surgery 11-04-19 R thumb carpometacarpal joint arthroplasty, Dr Sorto, [facility]. History of appendectomy History of breast biopsy History of breast surgery History of cholecystectomy History of colonoscopy History of esophagogastroduodenoscopy (EGD) History of hand surgery Rt History of joint replacement Left hand History of tooth extraction Nausea and vomiting after administration of anesthetic agent Status post carpal tunnel release BL Family History Father Myocardial infarction Hypertension Grandfather Myocardial infarction Mother Diabetes Hypertension Aunt Breast cancer Sister Breast cancer Grandmother Diabetes Other No family history of adverse response to anesthesia Denies family history of Ovarian cancer Prostate cancer Colorectal cancer Social History Smoking Status: Current some day smoker Second Hand Exposure: No; Hx Alcohol Use: Yes Hx Substance Use: No Preferred Language: Angolan Communication Ability: Effective Visual Impairment: No Limitations Materials Recycler Required: No Beliefs That Will Affect Care: None marital status: Current Living Situation: Spouse current occupational status: unemployed and disabled How many Children do You have: 7 Feels Safe at Home: Yes Childhood Exposure to Second-Hand Smoke: Yes caffeine: Yes Dental Care, Regularly: No Seatbelt Use: always Sunscreen Use: No Assistive Devices: Oxygen - Continuous Review of Systems A total of 10 systems reviewed and were otherwise negative All systems reviewed & are unremarkable except as noted in HPI & below Physical Exam Vital Signs Vital Signs - 24 hr 08/03/21 18:15 08/03/21 18:41 08/03/21 18:42 Temperature 37.1 C Temperature Source Temporal Artery Scan Pulse Rate 94 H Pulse Rate [Left] 86 Pulse Rate from SpO2 Sensor Pulse Rhythm [Left] Regular Pulse Strength [Left] Normal Respiratory Rate 26 H 22 Respiratory Effort / Characteristics Short of Breath Non-Labored Respiratory Depth Normal Respiratory Pattern Blood Pressure 173/83 H Blood Pressure [Right Arm] 151/92 H Blood Pressure Mean 113 Blood Pressure Mean [Right Arm] 111 Blood Pressure Position [Right Arm] Sitting Pulse Oximetry 95 95 95 Oxygen Delivery Method Room Air Room Air Room Air Fraction of Inspired Oxygen Sepsis Recent Fever Within 48 Hours No Sepsis New/Unexplained Change in Mental Status No Sepsis Action Taken by Nursing No Action Required 08/03/21 18:45 08/03/21 19:00 08/03/21 19:03 Temperature Temperature Source Pulse Rate 77 Pulse Rate [Left] 77 Pulse Rate from SpO2 Sensor 76 Pulse Rhythm [Left] Pulse Strength [Left] Respiratory Rate 20 21 Respiratory Effort / Characteristics Non-Labored Spontaneous Labored Pursed Lip Short of Breath SOB on Exertion Respiratory Depth Normal Respiratory Pattern Regular Blood Pressure 120/80 Blood Pressure [Right Arm] Blood Pressure Mean 93 Blood Pressure Mean [Right Arm] Blood Pressure Position [Right Arm] Pulse Oximetry 96 96 Oxygen Delivery Method Room Air Room Air Fraction of Inspired Oxygen 21 Sepsis Recent Fever Within 48 Hours Sepsis New/Unexplained Change in Mental Status Sepsis Action Taken by Nursing GENERAL: alert, well appearing, well nourished, no distress, non-toxic EYE EXAM: normal conjunctiva, PERRL and EOM's grossly intact OROPHARYNX: no exudate, no erythema, lips, buccal mucosa, and tongue normal and mucous membranes are moist NECK: supple, no nuchal rigidity, no adenopathy, non-tender LUNGS: Clear to auscultation. Normal chest wall mechanics, no w/r/r, slightly increased work of breathing, frequent cough with prolonged expiratory phase HEART: no murmurs, S1 normal and S2 normal ABDOMEN: abdomen soft, non-tender, normo-active bowel sounds, no masses, no rebound or guarding. BACK: Back is symmetrical on inspection and there is no deformity, no midline tenderness, no CVA tenderness. SKIN: no rashes and no bruising UPPER EXTREMITIES: upper extremities are grossly normal. FROM, nml pulses b/l. LOWER EXTREMITIES: No pitting edema. FROM, nml pulses b/l. NEURO EXAM: Normal sensorium, cranial nerves II-XII grossly intact, normal speech, no gross weakness of arms, no gross weakness of legs. Gross sensation intact. Course Course 1950: Pt updated on results. patient states she is currently on levaquin. No current steroids. Administered Medications Albuterol (Albut/Ipratrop 3mg/0.5mg Neb 3 Ml Vial) 3 ml NEB QIDR BESSY Stop: 09/03/21 10:59 Last Admin: 08/04/21 23:08 Dose: 3 ml Documented by: [id number] Admin: 08/04/21 19:34 Dose: 3 ml Documented by: [id number] Admin: 08/04/21 14:47 Dose: 3 ml Documented by: [id number] Admin: 08/04/21 10:43 Dose: 3 ml Documented by: [id number] Ascorbic Acid (Ascorbic Acid 500 Mg Tab) 1,000 mg PO HS BESSY Stop: 09/03/21 20:59 Last Admin: 08/04/21 20:28 Dose: 1,000 mg Documented by: [id number] Budesonide (Budesonide 0.5 Mg/2 Ml Vial (Pulmicort)) 0.5 mg NEB BIDR BESSY Stop: 09/03/21 06:59 Last Admin: 08/04/21 19:34 Dose: 0.5 mg Documented by: [id number] Admin: 08/04/21 09:54 Dose: 0.5 mg Documented by: [id number] Celecoxib (Celebrex 200 Mg Cap) 200 mg PO DAILY BESSY Stop: 09/03/21 08:59 Last Admin: 08/04/21 08:07 Dose: 200 mg Documented by: [id number] Cyanocobalamin (Cyanocobalamin 500 Mcg Tablet (Vitamin B-12)) 1,000 mcg PO HS BESSY Stop: 09/03/21 20:59 Last Admin: 08/04/21 20:29 Dose: 1,000 mcg Documented by: [id number] Famotidine (Famotidine 40 Mg Tablet) 40 mg PO BID BESSY Stop: 09/03/21 00:26 Last Admin: 08/04/21 20:27 Dose: 40 mg Documented by: [id number] Admin: 08/04/21 08:06 Dose: 40 mg Documented by: [id number] Admin: 08/04/21 01:17 Dose: 40 mg Documented by: [id number] Folic Acid (Folic Acid 1 Mg Tab) 1 mg PO QAM BESSY Stop: 09/03/21 08:59 Last Admin: 08/04/21 08:07 Dose: 1 mg Documented by: [id number] Gabapentin (Gabapentin 800 Mg Tab) 800 mg PO TID BESSY Stop: 09/03/21 08:59 Last Admin: 08/04/21 20:27 Dose: 800 mg Documented by: [id number] Admin: 08/04/21 13:48 Dose: 800 mg Documented by: [id number] Admin: 08/04/21 08:06 Dose: 800 mg Documented by: [id number] Guaifenesin/Codeine Phosphate (Guaifenesin/Codeine 100mg/10mg 5ml Udc) 5 ml PO Q4H PRN PRN Reason: Cough Stop: 09/03/21 00:26 Last Admin: 08/04/21 01:23 Dose: 5 ml Documented by: [id number] Heparin Sodium (Porcine) (Heparin Sod 5,000 Unit/0.5 Ml Vial) 5,000 units SQ Q12 BESSY Stop: 09/03/21 08:59 Last Admin: 08/04/21 20:28 Dose: 5,000 units Documented by: [id number] Admin: 08/04/21 08:05 Dose: 5,000 units Documented by: [id number] Lorazepam (Ativan) 0.5 mg in 1 mls @ 1 mls/min IV Q4H PRN PRN Reason: Anxiety Stop: 09/02/21 23:25 Last Admin: 08/04/21 20:24 Dose: 1 mls/min Documented by: [id number] Admin: 08/04/21 15:03 Dose: 1 mls/min Documented by: [id number] Azithromycin 500 mg/ Dextrose 255 mls @ 125 mls/hr IV DAILY BESSY Stop: 08/11/21 08:59 Last Infusion: 08/04/21 11:37 Dose: 0 mls/hr Documented by: [id number] Admin: 08/04/21 09:31 Dose: 125 mls/hr Documented by: [id number] Methylprednisolone 40 mg/ (Syringe) 0.64 mls @ 1.5 mls/min IV Q8H BESSY Stop: 09/03/21 05:59 Last Admin: 08/04/21 22:22 Dose: 1.5 mls/min Documented by: [id number] Admin: 08/04/21 13:48 Dose: 1.5 mls/min Documented by: [id number] Admin: 08/04/21 06:00 Dose: 1.5 mls/min Documented by: [id number] Ibuprofen (Ibuprofen 800 Mg Tab) 800 mg PO QID PRN PRN Reason: Headache Stop: 09/03/21 12:36 Last Admin: 08/04/21 13:46 Dose: 800 mg Documented by: [id number] Ketorolac Tromethamine (Ketorolac 30 Mg/Ml Vial) 30 mg IV Q6H PRN PRN Reason: Pain Stop: 08/09/21 17:22 Last Admin: 08/04/21 17:50 Dose: 30 mg Documented by: [id number] Methylphenidate HCl (Methylphenidate Hcl 5 Mg Tablet) 5 mg PO BID@0900,1400 [facility] Stop: 08/18/21 08:59 Last Admin: 08/04/21 13:48 Dose: Not Given Documented by: [id number] Admin: 08/04/21 08:03 Dose: Not Given Documented by: [id number] Methylphenidate HCl (Methylphenidate Hcl 10 Mg Tablet) 10 mg PO TID [facility] Stop: 08/18/21 08:59 Last Admin: 08/04/21 21:11 Dose: Not Given Documented by: [id number] Admin: 08/04/21 13:48 Dose: Not Given Documented by: [id number] Admin: 08/04/21 08:04 Dose: Not Given Documented by: [id number] Metoclopramide HCl (Metoclopramide Hcl 5 Mg Tablet) 5 mg PO TIDM [facility] Stop: 09/03/21 16:59 Last Admin: 08/04/21 16:59 Dose: 5 mg Documented by: [id number] Miscellaneous (Remove Nicoderm Patch) 1 ea N/A DAILY@0859 [facility] Stop: 09/03/21 08:58 Last Admin: 08/04/21 08:07 Dose: Not Given Documented by: [id number] Nicotine (Nicotine 21 Mg/24 Hr Tdsy) 21 mg TD QAM [facility] Stop: 09/03/21 08:59 Last Admin: 08/04/21 08:07 Dose: 21 mg Documented by: [id number] Oxycodone HCl (Oxycodone Hcl Ir 5 Mg Tab (Immediate Release)) 5 mg PO Q8H PRN PRN Reason: Severe Pain Stop: 08/18/21 00:26 Last Admin: 08/04/21 13:46 Dose: 5 mg Documented by: [id number] Pantoprazole Sodium (Pantoprazole 40 Mg Tab) 40 mg PO BID [facility] Stop: 09/03/21 00:26 Last Admin: 08/04/21 20:28 Dose: 40 mg Documented by: [id number] Admin: 08/04/21 08:07 Dose: 40 mg Documented by: [id number] Admin: 08/04/21 01:17 Dose: 40 mg Documented by: [id number] Polyethylene Glycol (Polyethylene (Miralax) 17 Gm Pack) 17 gm PO DAILY BESSY Stop: 09/03/21 08:59 Last Admin: 08/04/21 08:04 Dose: 17 gm Documented by: [id number] Prednisolone Acetate (Prednisolone Acetate 1% Op Susp 5 Ml Btl) 1 drops OP HS S [facility] Stop: 09/03/21 20:59 Last Admin: 08/04/21 20:29 Dose: 1 drops Documented by: [id number] Sertraline HCl (Sertraline Hcl 100 Mg Tablet) 200 mg PO QAM BESSY Stop: 09/03/21 08:59 Last Admin: 08/04/21 08:07 Dose: 200 mg Documented by: [id number] Trazodone HCl (Trazodone Hcl 100 Mg Tab) 300 mg PO HS BESSY Stop: 09/03/21 20:59 Last Admin: 08/04/21 20:27 Dose: 300 mg Documented by: [id number] Admin: 08/04/21 01:16 Dose: 300 mg Documented by: [id number] Vitamin D (Cholecalciferol 1,000 Units 25 Mcg Tab) 2,000 units PO HS [facility] Stop: 09/03/21 20:59 Last Admin: 08/04/21 20:29 Dose: 2,000 units Documented by: [id number] Discontinued Medications Albuterol (Albut/Ipratrop 3mg/0.5mg Neb 3 Ml Vial) 12 ml NEB ONE ONE Stop: 08/03/21 18:32 Last Admin: 08/03/21 18:59 Dose: 12 ml Documented by: [id number] Lorazepam (Ativan) 0.5 mg in 1 mls @ 1 mls/min IV NOW STA Stop: 08/03/21 22:23 Last Admin: 08/03/21 22:30 Dose: 1 mls/min Documented by: [id number] Potassium Chloride/Sodium Chloride (Normal Saline W/20 Meq Kcl) 20 meq in 1,000 mls @ 80 mls/hr IV .[id number] BESSY Stop: 08/04/21 12:56 Last Infusion: 08/04/21 15:25 Dose: 0 mls/hr Documented by: [id number] Admin: 08/04/21 01:15 Dose: 80 mls/hr Documented by: [id number] Magnesium Sulfate/Dextrose (Magnesium Sulfate / D5w) 1 gm in 100 mls @ 50 mls/hr IV Q2H BESSY Stop: 08/04/21 23:29 Last Infusion: 08/05/21 00:22 Dose: 0 mls/hr Documented by: [id number] Admin: 08/04/21 22:22 Dose: 50 mls/hr Documented by: [id number] Infusion: 08/04/21 22:22 Dose: 50 mls/hr Documented by: [id number] Admin: 08/04/21 20:23 Dose: 50 mls/hr Documented by: [id number] Infusion: 08/04/21 20:11 Dose: 50 mls/hr Documented by: [id number] Admin: 08/04/21 18:11 Dose: 50 mls/hr Documented by: [id number] Methylprednisolone (Methylprednisolone 125 Mg/2 Ml Vial) 60 mg IV NOW STA Stop: 08/03/21 19:56 Last Admin: 08/03/21 20:10 Dose: 60 mg Documented by: [id number] Metoclopramide HCl (Metoclopramide Hcl 5 Mg Tablet) 5 mg PO TID BESSY Stop: 09/03/21 08:59 Last Admin: 08/04/21 12:25 Dose: 5 mg Documented by: [id number] Admin: 08/04/21 08:00 Dose: 5 mg Documented by: [id number] Medical Decision Making Differential Diagnosis Differential diagnoses includes but is not limited to pneumonia, bronchitis, COPD/Asthma exacerbation, pneumothorax, pulmonary embolism, congestive heart failure, acute coronary syndrome Medical Records Attestation: I reviewed the patient's medical records. Home Medications Current Medication List: was personally reviewed by me Laboratory Data Attestation: I reviewed the patient's lab results. Result diagrams: 08/03/21 18:36 08/03/21 18:36 Lab Results 08/03/21 08/03/21 08/03/21 Range/Units 18:36 18:36 18:36 WBC 11.26 H (4.8-10.8) K/uL RBC 4.41 (4.2-5.4) M/uL Hgb 12.8 (12.0-16.0) g/dL Hct 38.6 (37-47) % MCV 87.5 (80-100) fL MCH 29.0 (25-34) pg MCHC 33.2 (32-36) g/dL RDW Std Deviation 50.3 H (36.4-46.3) fL RDW Coeff of Nik 15.5 H (11.5-14.5) % Plt Count 284 (130-400) K/uL MPV 11.1 H (7.4-10.4) fL Immature Gran % (Auto) 0.2 % Neut % (Auto) 59.1 % Lymph % (Auto) 30.7 % [place] % (Auto) 7.0 % Eos % (Auto) 2.4 % Baso % (Auto) 0.6 % Neut # (Auto) 6.65 H (1.4-6.5) K/uL Lymph # (Auto) 3.46 H (1.2-3.4) K/uL [place] # (Auto) 0.79 H (0.11-0.59) K/uL Eos # (Auto) 0.27 (0-0.5) K/uL Baso # (Auto) 0.07 (0-0.2) K/uL Immature Gran # (Auto) 0.02 (0.00-0.02) K/uL Sodium 139 (136-145) mmol/L Potassium 3.6 (3.5-5.1) mmol/L Chloride 106 (98-107) mmol/L Carbon Dioxide 26 (21-32) mmol/L Anion Gap 7.0 (3-11) BUN 18 (7-18) mg/dl Creatinine 1.06 (0.6-1.2) mg/dl Est Cr Clr Drug Dosing 51.8 ml/min Est GFR ( Amer) 68.5 ml/min Est GFR (Non-Af Amer) 59.1 ml/min BUN/Creatinine Ratio 17.0 (10-20) Glucose 111 H (70-99) mg/dl Calcium 9.2 (8.5-10.1) mg/dl Magnesium 2.3 (1.8-2.4) mg/dl Total Bilirubin 0.2 (0.2-1) mg/dl AST 16 (15-37) U/L ALT 29 (12-78) U/L Alkaline Phosphatase 80 (45-117) U/L Troponin I < 0.015 (0-0.045) ng/ml NT-Pro-B Natriuret Pep 73 (0-900) pg/ml Total Protein 7.9 (6.4-8.2) gm/dl Albumin 4.1 (3.4-5.0) gm/dl Globulin 3.8 (2.5-4.0) gm/dl Albumin/Globulin Ratio 1.1 (0.9-2) COVID-19 Eval Order SARS-CoV-2 (PCR) (Negative) Influ A Molecular Assay Negative (Negative) Influ B Molecular Assay Negative (Negative) 08/03/21 08/03/21 Range/Units 18:36 18:36 WBC (4.8-10.8) K/uL RBC (4.2-5.4) M/uL Hgb (12.0-16.0) g/dL Hct (37-47) % MCV (80-100) fL MCH (25-34) pg MCHC (32-36) g/dL RDW Std Deviation (36.4-46.3) fL RDW Coeff of Nik (11.5-14.5) % Plt Count (130-400) K/uL MPV (7.4-10.4) fL Immature Gran % (Auto) % Neut % (Auto) % Lymph % (Auto) % [place] % (Auto) % Eos % (Auto) % Baso % (Auto) % Neut # (Auto) (1.4-6.5) K/uL Lymph # (Auto) (1.2-3.4) K/uL [place] # (Auto) (0.11-0.59) K/uL Eos # (Auto) (0-0.5) K/uL Baso # (Auto) (0-0.2) K/uL Immature Gran # (Auto) (0.00-0.02) K/uL Sodium (136-145) mmol/L Potassium (3.5-5.1) mmol/L Chloride (98-107) mmol/L Carbon Dioxide (21-32) mmol/L Anion Gap (3-11) BUN (7-18) mg/dl Creatinine (0.6-1.2) mg/dl Est Cr Clr Drug Dosing ml/min Est GFR ( Amer) ml/min Est GFR (Non-Af Amer) ml/min BUN/Creatinine Ratio (10-20) Glucose (70-99) mg/dl Calcium (8.5-10.1) mg/dl Magnesium (1.8-2.4) mg/dl Total Bilirubin (0.2-1) mg/dl AST (15-37) U/L ALT (12-78) U/L Alkaline Phosphatase (45-117) U/L Troponin I (0-0.045) ng/ml NT-Pro-B Natriuret Pep (0-900) pg/ml Total Protein (6.4-8.2) gm/dl Albumin (3.4-5.0) gm/dl Globulin (2.5-4.0) gm/dl Albumin/Globulin Ratio (0.9-2) COVID-19 Eval Order Covid19 at [facility] SARS-CoV-2 (PCR) NEGATIVE (Negative) Influ A Molecular Assay (Negative) Influ B Molecular Assay (Negative) Imaging Data Radiologist's Impression: Chest X-Ray 08/03/21 18:32 XR chest 1V portable CLINICAL HISTORY: Cough. Short of breath. COMPARISON STUDY: Chest CT June 17, 2020. Chest radiograph December 31, 2020. FINDINGS: Lung volumes are normal. Lungs are clear. There is no pneumothorax or pleural effusion. Cardiac size is normal. Mediastinal contours are normal. There is no evidence for pulmonary edema. IMPRESSION: No acute cardiopulmonary findings. ACT 112: Negative or not required by law. Electronically signed by: Alex Fowler M.D. 08/03/2021 6:52 PM ECG Data Attestation: I personally reviewed and interpreted this ECG as follows: Indication: + SOB/dyspnea Rate (beats per minute): 81 Rhythm: + normal sinus ECG Intervals/blocks: + Normal QRS and + Normal QT ECG [place]: + Normal ECG ST segments: + Normal ST segments MDM Narrative This is a 56-year-old female with a long history of COPD/emphysema who does follow with pulmonology who presents due to persistent and worsening shortness of breath despite outpatient courses of antibiotics and steroids. Patient does use MDI/nebulizer treatments at home and has been doing so every 3-1/2 hours. Patient does wear chronic home oxygen. Patient is currently taking a course of Levaquin which is her third round of antibiotics in the last 2 months for worsening symptoms. Patient was tested for coronavirus and was negative. Kaz knutson's labs reassuring, chest x-ray without obvious pulmonary edema or focal infiltrate. Given concern for persistent and worsening symptoms, patient was placed on a continuous nebulizer treatment here, and case discussed with hospitalist for additional inpatient evaluation and management. I do not suspect occult cardiac etiology or vascular etiology at this time. No evidence for bacteremia/sepsis. Patient was hemodynamically stable throughout. An order was placed for continuous cardiac monitoring. The monitor shows a rate of _80_ with _normal sinus_ rhythm. Impression & Plan Dyspnea, COPD exacerbation, Failure of outpatient treatment Discharge Plan Visit Data Chief Complaint: Shortness of Breath/Dyspnea Stated Complaint: SOB, CHEST TIGHTNESS, RIB PAIN, COUGH ED Provider: Fany Vásquez Discharge Problem: Dyspnea, COPD exacerbation, Failure of outpatient treatment Patient Disposition: Admitted As Inpatient Discharge Instructions Interventions: ED Discharge Assessment Last Done: 08/03/21 23:44 Discharge Problem: Dyspnea Qualifiers: Dyspnea type: shortness of breath Qualified Code(s): R06.02 - Shortness of breath
[2021-08-03] MEDS ORDERED: methylPREDNISolone 125 MG/2 ML VIAL IV STA (19:55)
--- NOTE | 2021-08-03 21:41 | History & Physical Report ---
Date of Service August 03, 2021 Assessment & Plan (1) COPD exacerbation: Plan: Received methylprednisolone 60 mg IV x1 from the ED and a DuoNeb Methylprednisolone 40 mg IV every 8 hours Guaifenesin with codeine 5 mL p.o. every 4 hours as needed for severe cough Azithromycin 500 mg IV daily Duonebs every 4 hours while awake and every 2 hours when necessary. Pulmicort Respules 0.5 mg twice daily Nasal cannula oxygen, titrate to keep pulse ox 92 to 94% (2) Posttraumatic stress disorder: Plan: PTSD/OCD/anxiety- Continue sertraline and trazodone (3) Obsessive compulsive disorder: Plan: See above (4) Anxiety: Plan: Lorazepam 0.5 mg IV every 6 hours as needed (5) GERD (gastroesophageal reflux disease): Plan: Continue pantoprazole (6) Restless legs syndrome: (7) ADD (attention deficit disorder): Plan: Continue methylphenidate (8) ANAI (obstructive sleep apnea): Plan: CPAP at bedtime as needed (9) Chronic pain: Plan: Continue oxycodone 5 mg p.o. 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 The patient presents with 6 weeks of worsening symptoms as noted above. She reports that she has been on 3 courses of antibiotics and steroids in that time, with no improvement. Allergies Allergy/AdvReac Type Severity Reaction Status Date / Time risperidone Allergy Mild LACTATING Verified 08/03/21 20:21 Tetracyclines Allergy Mild HIVES Verified 08/03/21 20:21 mirtazapine Allergy Unknown SHORTNESS Verified 08/03/21 20:21 OF BREATH ranitidine Allergy Unknown SEVERE Verified 08/03/21 20:21 VOMITING Iodinated Contrast Media AdvReac Intermediate "horrible Verified 08/03/21 20:21 headache" loratadine AdvReac Mild UNABLE TO Verified 08/03/21 20:21 SLEEP MULTIPLE DAYS Home Medications Medication Instructions Recorded Confirmed Type cholecalciferol (vitamin D3) 50 2,000 units PO HS 06/25/18 08/03/21 History mcg (2,000 unit) capsule cyanocobalamin (vitamin B-12) 1,000 mcg PO HS 03/13/19 08/03/21 History 1,000 mcg tablet (Vitamin B-12) methylphenidate HCl 5 mg tablet 5 mg PO BID 03/13/19 08/03/21 History sertraline 100 mg tablet 200 mg PO QAM 03/13/19 08/03/21 History trazodone 150 mg tablet 300 mg PO HS 03/13/19 08/03/21 History prednisolone acetate 1 % eye 1 drp OPHTHALMIC (EYE) HS 03/14/19 08/03/21 History drops,suspension (Pred Forte) ascorbic acid (vitamin C) 1,000 mg 1,000 mg PO HS 04/17/19 08/03/21 History tablet (Vitamin C) nicotine 21 mg/24 hr daily 1 patch TRANSDERMAL QAM 04/17/19 08/03/21 History transdermal patch vitamin A 2,400 mcg capsule 8,000 units PO DAILY cap 05/16/19 08/03/21 History methylphenidate HCl 10 mg tablet 10 mg PO TID tab 03/02/20 08/03/21 History polyethylene glycol 3350 17 17 gm PO DAILY #510 gm 04/05/20 08/03/21 Rx gram/dose oral powder albuterol sulfate 90 mcg/actuation 2 puff INHALATION QID PRN #18 g 01/26/21 08/03/21 Rx aerosol inhaler (Ventolin HFA) gabapentin 800 mg tablet 800 mg PO TID #90 tab 02/14/21 08/03/21 Rx nystatin 100,000 unit/mL oral 5 ml PO QID PRN #473 ml 03/18/21 08/03/21 Rx suspension famotidine 40 mg tablet (Pepcid) 40 mg PO BID PRN #60 tab 03/23/21 08/03/21 Rx cimetidine 200 mg tablet See Rx Instructions .ROUTE 04/06/21 08/03/21 Rx .COMPLEX #30 tab metoclopramide HCl 5 mg tablet 5 mg PO TID #90 tab 04/06/21 08/03/21 Rx pantoprazole 40 mg tablet,delayed 40 mg PO BID #60 tab 04/06/21 08/03/21 Rx release (Protonix) celecoxib 200 mg capsule (Celebrex) 200 mg PO DAILY #30 cap 04/08/21 08/03/21 Rx dicyclomine 20 mg tablet 20 mg PO TID PRN #90 tab 04/08/21 08/03/21 Rx cyclobenzaprine 7.5 mg tablet 7.5 mg PO TID PRN #60 tab 04/18/21 08/03/21 Rx ondansetron HCl 4 mg tablet 4 mg PO Q8H PRN #90 tab 04/19/21 08/03/21 Rx (Zofran) mupirocin 2 % topical ointment 1 applic TOP BID #15 gm 05/13/21 08/03/21 Rx tiotropium 2.5 mcg-olodaterol 2.5 2 puff INHALATION DAILY #4 g 05/27/21 08/03/21 Rx mcg/actuation mist for inhalation (Stiolto Respimat) clotrimazole 10 mg krissy 10 mg MUCOUS MEMBRANE .3-5 x 06/10/21 08/03/21 Rx daily 14 Days #70 tab oxycodone 5 mg tablet 5 mg PO Q8H PRN #45 tab 06/10/21 08/03/21 Rx folic acid 1 mg tablet 1 mg PO QAM #90 tab 07/13/21 08/03/21 Rx ipratropium 0.5 mg-albuterol 3 mg 3 ml INHALATION Q4H PRN #180 ml 07/28/21 08/03/21 Rx (2.5 mg base)/3 mL nebulization soln levofloxacin 500 mg tablet 500 mg PO DAILY #10 tab 07/28/21 08/03/21 Rx diclofenac sodium 1 % topical gel 2 g TOPICAL QID PRN 08/03/21 08/03/21 History Past Med/Surg History Medical History (Updated 08/03/21 @ 23:28 by Yoni Leo MD) ADD (attention deficit disorder) Anxiety Chronic pain Chronic pain COPD (chronic obstructive pulmonary disease) Very rare rescue inhaler because she develops yeast infections with this. Prefers to use nebulizer, generally uses every few months. Gastroparesis GERD (gastroesophageal reflux disease) History of migraine History of sleep apnea reports "resolved" with wt loss - no longer wears CPAP. States she was retested and told she no longer needs it. 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 Obsessive compulsive disorder Osteoarthritis Posttraumatic stress disorder Restless legs syndrome Sacroiliitis Sensorineural hearing loss (SNHL) of both ears B/L NICHOLS Surgical History H/O right wrist surgery 11-04-19 R thumb carpometacarpal joint arthroplasty, Dr Sorto, [facility]. History of appendectomy History of breast biopsy History of breast surgery History of cholecystectomy History of colonoscopy History of esophagogastroduodenoscopy (EGD) History of hand surgery Rt History of joint replacement Left hand History of tooth extraction Nausea and vomiting after administration of anesthetic agent Status post carpal tunnel release BL Family History Father Myocardial infarction Hypertension Grandfather Myocardial infarction Mother Diabetes Hypertension Aunt Breast cancer Sister Breast cancer Grandmother Diabetes Other No family history of adverse response to anesthesia Denies family history of Ovarian cancer Prostate cancer Colorectal cancer Social History Smoking Status: Current some day smoker Second Hand Exposure: Yes; Hx Alcohol Use: Yes Hx Substance Use: Yes Last Used Substance: Days (ago) Last Used Substance Other:: yesterday Substance Use Type Other:: medical marijuana for anxiety Preferred Language: Czech Communication Ability: Effective Visual Impairment: No Limitations E Commerce Manager Required: No Beliefs That Will Affect Care: None marital status: Current Living Situation: Spouse current occupational status: unemployed and disabled Feels Safe at Home: Yes Childhood Exposure to Second-Hand Smoke: Yes caffeine: Yes Dental Care, Regularly: No Seatbelt Use: always Sunscreen Use: No Assistive Devices: None Review of Systems Review of Systems: The patient denies chest pain, palpitations, lower extremi ty swelling, sore throat, fevers, chills, sweats, nausea, vomiting, diarrhea , constipation, abdominal pain, pelvic pain, blood in urine or stool, dysuria, urinary frequency or urgency, lightheadedness, dizziness, headache, memory loss, loss of consciousness, rash, abnormal bruising or bleeding, imbalance, focal or generalized weakness, numbness or tingling in arms or legs, neck pain, or night sweats. The review of systems is otherwise negative other than for that already noted above, and at least 10 systems have been reviewed. Physical Exam Physical Exam: The patient is awake, alert and oriented 3, well developed and well nourished, normocephalic and atraumatic, lying in bed and in severe distr ess during paroxysmal coughing HEENT--PERRL, EOMI, mucous membranes and oropharynx dry. Neck--supple. No JVD. No bruits. Thyroid normal, trachea midline, no adenopathy. Heart--normal S1 and S2. No murmurs, rubs or gallops. Lungs--coarse breath sounds bilaterally with wheezing throughout. Mild to moderate respiratory distress with intermittent accessory muscle use. Abdomen--normal bowel sounds and soft. Nontender. Nondistended. Extremities--no cyanosis or clubbing. No edema. Dermatologic--normal skin turgor, normal color, no abnormal lymph nodes, no rash. Neurologic--cranial nerves II through XII grossly intact. Rheumatologic--normal range of motion. Psychiatric--normal affect. Results & Data Results & Data ([facility]) Vital Signs (Past 12 Hours) Vital Signs Temp Pulse Pulse Resp BP BP Pulse Ox 08/03/21 21:30 87 18 109/72 92 08/03/21 20:30 24 106/75 94 08/03/21 19:03 77 21 96 08/03/21 19:00 77 20 120/80 96 08/03/21 18:42 86 22 151/92 H 95 08/03/21 18:41 95 08/03/21 18:15 98.8 F 94 H 26 H 173/83 H 95 Laboratory Results Laboratory Results WBC 11.26 K/uL (4.8-10.8) H 08/03/21 18:36 RBC 4.41 M/uL (4.2-5.4) 08/03/21 18:36 Hgb 12.8 g/dL (12.0-16.0) 08/03/21 18:36 Hct 38.6 % (37-47) 08/03/21 18:36 MCV 87.5 fL (80-100) 08/03/21 18:36 MCH 29.0 pg (25-34) 08/03/21 18:36 MCHC 33.2 g/dL (32-36) 08/03/21 18:36 RDW Std Deviation 50.3 fL (36.4-46.3) H 08/03/21 18:36 RDW Coeff of Nik 15.5 % (11.5-14.5) H 08/03/21 18:36 Plt Count 284 K/uL (130-400) 08/03/21 18:36 MPV 11.1 fL (7.4-10.4) H 08/03/21 18:36 Immature Gran % (Auto) 0.2 % 08/03/21 18:36 Neut % (Auto) 59.1 % 08/03/21 18:36 Lymph % (Auto) 30.7 % 08/03/21 18:36 [place] % (Auto) 7.0 % 08/03/21 18:36 Eos % (Auto) 2.4 % 08/03/21 18:36 Baso % (Auto) 0.6 % 08/03/21 18:36 Neut # (Auto) 6.65 K/uL (1.4-6.5) H 08/03/21 18:36 Lymph # (Auto) 3.46 K/uL (1.2-3.4) H 08/03/21 18:36 [place] # (Auto) 0.79 K/uL (0.11-0.59) H 08/03/21 18:36 Eos # (Auto) 0.27 K/uL (0-0.5) 08/03/21 18:36 Baso # (Auto) 0.07 K/uL (0-0.2) 08/03/21 18:36 Immature Gran # (Auto) 0.02 K/uL (0.00-0.02) 08/03/21 18:36 Sodium 139 mmol/L (136-145) 08/03/21 18:36 Potassium 3.6 mmol/L (3.5-5.1) 08/03/21 18:36 Chloride 106 mmol/L (98-107) 08/03/21 18:36 Carbon Dioxide 26 mmol/L (21-32) 08/03/21 18:36 Anion Gap 7.0 (3-11) 08/03/21 18:36 BUN 18 mg/dl (7-18) 08/03/21 18:36 Creatinine 1.06 mg/dl (0.6-1.2) 08/03/21 18:36 Est Cr Clr Drug Dosing 51.8 ml/min 08/03/21 18:36 Est GFR ( Amer) 68.5 ml/min 08/03/21 18:36 Est GFR (Non-Af Amer) 59.1 ml/min 08/03/21 18:36 BUN/Creatinine Ratio 17.0 (10-20) 08/03/21 18:36 Glucose 111 mg/dl (70-99) H 08/03/21 18:36 Calcium 9.2 mg/dl (8.5-10.1) 08/03/21 18:36 Magnesium 2.3 mg/dl (1.8-2.4) 08/03/21 18:36 Total Bilirubin 0.2 mg/dl (0.2-1) 08/03/21 18:36 AST 16 U/L (15-37) 08/03/21 18:36 ALT 29 U/L (12-78) 08/03/21 18:36 Alkaline Phosphatase 80 U/L (45-117) 08/03/21 18:36 Troponin I < 0.015 ng/ml (0-0.045) 08/03/21 18:36 NT-Pro-B Natriuret Pep 73 pg/ml (0-900) 08/03/21 18:36 Total Protein 7.9 gm/dl (6.4-8.2) 08/03/21 18:36 Albumin 4.1 gm/dl (3.4-5.0) 08/03/21 18:36 Globulin 3.8 gm/dl (2.5-4.0) 08/03/21 18:36 Albumin/Globulin Ratio 1.1 (0.9-2) 08/03/21 18:36 COVID-19 Eval Order Covid19 at [facility] 08/03/21 18:36 SARS-CoV-2 (PCR) NEGATIVE (Negative) 08/03/21 18:36 Influ A Molecular Assay Negative (Negative) 08/03/21 18:36 Influ B Molecular Assay Negative (Negative) 08/03/21 18:36 Impressions Chest X-Ray 08/03/21 18:32 XR chest 1V portable CLINICAL HISTORY: Cough. Short of breath. COMPARISON STUDY: Chest CT June 17, 2020. Chest radiograph December 31, 2020. FINDINGS: Lung volumes are normal. Lungs are clear. There is no pneumothorax or pleural effusion. Cardiac size is normal. Mediastinal contours are normal. There is no evidence for pulmonary edema. IMPRESSION: No acute cardiopulmonary findings. ACT 112: Negative or not required by law. Electronically signed by: Alex Fowler M.D. 08/03/2021 6:52 PM Code Status & VTE Plan Code Status Full code VTE Prophylaxis Plan VTE Prophylaxis will be ordered: Yes PG Care Time/CCT Total # of Minutes Spent Total Time Spent with Patient: Total time spent is greater than 50% in coordination of care (as documented) at patient's floor/unit and/or counseling patient: Coding Level of Care Code 59819 Initial Inpt Care Lvl 3 Diagnoses ANAI (obstructive sleep apnea) G47.33 ADD (attention deficit disorder) F98.8 Hyperactivity presence: unspecified Posttraumatic stress disorder F43.10 Obsessive compulsive disorder F42.9 Anxiety F41.9 GERD (gastroesophageal reflux disease) K21.9 Esophagitis presence: esophagitis presence not specified Restless legs syndrome G25.81 COPD exacerbation J44.1 Chronic pain G89.29 (1) ADD (attention deficit disorder) Hyperactivity presence: unspecified Qualified Code(s): F98.8 - Other specified behavioral and emotional disorders with onset usually occurring in childhood and adolescence (2) GERD (gastroesophageal reflux disease) Esophagitis presence: esophagitis presence not specified Qualified Code(s): K21.9 - Gastro-esophageal reflux disease without esophagitis
[2021-08-03] MEDS ORDERED: LORazepam 0.5 MG/1 ML VIAL IV STA (22:22)
[2021-08-04] MEDS ORDERED: NSS + 20MEQ KCL 20 MEQ/1,000 ML BAG IV SCH (00:27)
[2021-08-04] MEDS ORDERED: DICYCLOMINE HCL 20 MG TAB PO PRN (00:27)
[2021-08-04] MEDS ORDERED: ONDANSETRON INJ 2 MG/ML 2 ML VIAL IV PRN (00:27)
[2021-08-04] MEDS ORDERED: ACETAMINOPHEN 325 MG TAB PO PRN (00:27)
[2021-08-04] MEDS ORDERED: oxyCODONE HCL IR 5 MG TAB (IMMEDIATE RELEASE) PO PRN (00:27)
[2021-08-04] MEDS ORDERED: CYCLOBENZAPRINE HCL 5 MG TAB PO PRN (00:50)
[2021-08-04] MEDS ORDERED: ONDANSETRON 4 MG OD TAB PO PRN (00:53)
[2021-08-04] MEDS: traZODone HCL 100 MG TAB PO SCH ×2 (01:16→20:27)
[2021-08-04] MEDS: PANTOprazole 40 MG TAB PO SCH ×3 (01:17→20:28)
[2021-08-04] MEDS: FAMOTIDINE 40 MG TABLET PO SCH ×3 (01:17→20:27)
[2021-08-04] MEDS: guaiFENesin/CODEINE 100MG/10MG 5ML UDC PO PRN (01:23)
[2021-08-04] MEDS: methylPREDNISolone 40 MG in SYRINGE 0 ML IV SCH ×3 (06:00→22:22)
[2021-08-04] MEDS: METOCLOPRAMIDE HCL 5 MG TABLET PO SCH ×3 (08:00→16:59)
[2021-08-04] MEDS: METHYLPHENIDATE HCL 5 MG TABLET PO SCH ×2 (08:03→13:48)
[2021-08-04] MEDS: METHYLPHENIDATE HCL 10 MG TABLET PO SCH ×3 (08:04→21:11)
[2021-08-04] MEDS: POLYETHYLENE (MIRALAX) 17 GM PACK PO SCH (08:04)
[2021-08-04] MEDS: HEPARIN SOD 5,000 UNIT/0.5 ML VIAL SQ SCH ×2 (08:05→20:28)
[2021-08-04] MEDS: GABAPENTIN 800 MG TAB PO SCH ×3 (08:06→20:27)
[2021-08-04] MEDS: FOLIC ACID 1 MG TAB PO SCH (08:07)
[2021-08-04] MEDS: CeleBREX 200 MG CAP PO SCH (08:07)
[2021-08-04] MEDS: SERTRALINE HCL 100 MG TABLET PO SCH (08:07)
[2021-08-04] MEDS: NICOTINE 21 MG/24 HR TDSY TD SCH (08:07)
[2021-08-04] MEDS ORDERED: NON-FORMULARY MEDICATION (Mupirocin 2 % ointment) TOP SCH (09:00)
[2021-08-04] MEDS: AZITHROMYCIN 500 MG in DEXTROSE 5% 250 ML IV SCH (09:31)
[2021-08-04] MEDS: BUDESONIDE 0.5 MG/2 ML VIAL (PULMICORT) NEB SCH ×2 (09:54→19:34)
[2021-08-04] MEDS: ALBUT/IPRATROP 3MG/0.5MG NEB 3 ML VIAL NEB SCH ×4 (10:43→23:08)
[2021-08-04] MEDS ORDERED: IBUPROFEN 800 MG TAB PO PRN (12:37)
--- NOTE | 2021-08-04 14:03 | Hospitalist Progress Note ---
Date of Service August 04, 2021 Assessment & Plan (1) COPD exacerbation: Plan: 56 yo female presents to the emergency department with complaint of severe shortness of breath and cough. (1) COPD exacerbation: -Received methylprednisolone 60 mg IV x1 from the ED and a DuoNeb -Methylprednisolone 40 mg IV q8h -Guaifenesin with codeine 5 mL PO q4h PRN -Azithromycin 500 mg IV daily -Duoneb q4h scheduled + q2h PRN -Pulmicort Respules (Budesonide) 0.5 mg twice daily -O2 2L nasal cannula, goal 88-92% -She has not smoked in the last 2 years -CPAP at bedtime PRN available (2) PTSD/OCD/Anxiety- -Continue sertraline and trazodone -Lorazepam 0.5 mg IV every 6 hours as needed -will allow her to use medical marijuana edibles PRN (3) Chronic pain: -Continue oxycodone 5 mg p.o. q8h PRN, usually takes 10mg at home so refuses to take dose -Does not want Tylenol due to gastroparesis... given 800mg ibuprofen QID PRN instead --> switched to Toradol instead -Magnesium 3mg IV given today (4) GERD (gastroesophageal reflux disease): -Continue pantoprazole (5) ADHD (attention deficit disorder): -Continue methylphenidate (6) Gastroparesis -cont. Reglan (2) Chronic pain: Admission and Anticipated Discharge Date Admission Date: August 03, 2021 Supervising Physician Co-Signing Physician Notes I personally examined the patient and verified all valdez points of history and exam, discussed case, and agree with decision making with Dr Lawrence breathing still rough. notes that anxiety bad on the steroids. wonders about nitesh almonte ativan - after discussion on concern w respiratory suppression she expresses understanding and asks about her medical marijuana instead vitals noted fatigued and frequently coughing. heent nc at mmm. lungs diminished air entry throughout diffuse faint wheeze and vague coarseness. no focal neuro deficits. msk/ost -- b/l Tspine paraspinals high tone/tender/decreased ROM - inhibitory pressure and direct myofascial - also did balanced ligamentous tension of ribcage (i did L, dr lawrence R) pt tolerated well COPD exacerbation - likely failed outpt due to low dosing of steroids, which was in turn because pt was understandably reticent to take higher dosing due to anxiety -- tolerating reasonably well. continue steroids, zithromax, nebs, supportive care somatic dysfunction thoracic region - OMT as above DVT proph -heparin SQ otherwise as above Subjective Coughing heavily when entering room. Says she has not been hospitalized for COPD exacerbation since 2 years ago. Uses 2L of oxygen at home at night and sometimes during the day as needed. Does not use a CPAP at home, but used to a long time ago. Complains of a headache. Does not want to take her oxycodon 5mg for chronic somatic pain because she usually takes 10mg at home. Also does not want to use tylenol due to her gastroparesis. Review of Systems Review of Systems: All systems reviewed & are unremarkable except as noted in HPI & below Constitutional: + fatigue; no fever and no chills Respiratory: + cough and + dyspnea; no hemoptysis Cardiovascular: no chest pain and no palpitations Gastrointestinal: + nausea and + vomiting (with cough); no abdominal pain Results & Data Results & Data ([facility]) Vital Signs (Past 12 Hours) Vital Signs Temp Pulse Pulse Resp BP Pulse Ox 08/04/21 10:54 36.9 C 86 20 158/79 H 96 08/04/21 10:43 88 16 96 08/04/21 09:55 104 H 24 97 08/04/21 09:44 75 08/04/21 07:00 37.0 C 86 20 115/71 97 Resident Activity Tracking Resident Involvement: Resident Care Provided Care Provided: Adult Hospital Medicine
[2021-08-04] MEDS: LORazepam 0.5 MG/1 ML VIAL IV PRN ×2 (15:03→20:24)
[2021-08-04] MEDS ORDERED: KETOROLAC TROMETHAMINE 10 MG TABLET PO PRN (16:38)
[2021-08-04] MEDS: KETOROLAC 30 MG/ML VIAL IV PRN (17:50)
[2021-08-04] MEDS: MAGNESIUM SULFATE / D5W 1 GM/100 ML BAG IV SCH ×3 (18:11→22:22)
--- NOTE | 2021-08-04 18:13 | Billing Data ---
Date of Service August 04, 2021 Coding Level of Care Code 81667 Subseq Hosp Care Lvl 3
--- NOTE | 2021-08-04 18:14 | Hospitalist Progress Note ---
Date of Service August 04, 2021 Assessment & Plan Admission and Anticipated Discharge Date Admission Date: August 03, 2021 Results & Data Results & Data ([facility]) Vital Signs (Past 12 Hours) Vital Signs Temp Pulse Pulse Resp BP Pulse Ox 08/04/21 15:38 78 08/04/21 15:25 97.9 F 87 20 162/81 H 93 08/04/21 14:47 86 20 97 08/04/21 10:54 98.4 F 86 20 158/79 H 96 08/04/21 10:43 88 16 96 08/04/21 09:55 104 H 24 97 08/04/21 09:44 75 08/04/21 07:00 98.6 F 86 20 115/71 97 PG Care Time/CCT Total # of Minutes Spent Total Time Spent with Patient: Total time spent is greater than 50% in coordination of care (as documented) at patient's floor/unit and/or counseling patient: Coding Level of Care Code None CPT Codes Musculoskeletal - Musculoskeletal: 51321 Osteo Ganga Tr 1-2 Body regions ([id number])
--- NOTE | 2021-08-04 19:41 | Electrocardiogram Report ---
Test Reason : Blood Pressure : / mmHG Vent. Rate : 081 BPM Atrial Rate : 081 BPM P-R Int : 116 ms QRS Dur : 076 ms QT Int : 352 ms P-R-T Axes : 001 054 054 degrees QTc Int : 408 ms Poor data quality, interpretation may be adversely affected Normal sinus rhythm Normal ECG When compared with ECG of 06-APR-2021 17:51, No significant change was found Confirmed by Malcolm Mckeon ([id number]) on 08/04/2021 7:41:01 PM Referred By: REFERRED SELF Confirmed By:Malcolm Mckeon
[2021-08-04] MEDS: ASCORBIC ACID 500 MG TAB PO SCH (20:28)
[2021-08-04] MEDS: CYANOCOBALAMIN 500 MCG TABLET (VITAMIN B-12) PO SCH (20:29)
[2021-08-04] MEDS: prednisoLONE acetate 1% OP SUSP 5 ML BTL OP SCH (20:29)
[2021-08-04] MEDS: CHOLECALCIFEROL 1,000 UNITS 25 MCG TAB PO SCH (20:29)
[2021-08-05] MEDS: methylPREDNISolone 40 MG in SYRINGE 0 ML IV SCH ×3 (06:16→22:29)
[2021-08-05 07:34] LABS: Hemoglobin 10.8 g/dL (12.0-16.0); Immature Granulocytes # (auto) 0.02 K/uL (0.00-0.02); Immature Granulocytes % (auto) 0.2 %; Lymphocytes # (auto) 1.08 K/uL (1.2-3.4); Lymphocytes % (auto) 11.3 %; Mean Corpuscular Hemoglobin 28.6 pg (25-34); Mean Corpuscular Hgb Conc 31.8 g/dL (32-36); Mean Corpuscular Volume 89.9 fL (80-100); Mean Platelet Volume 10.8 fL (7.4-10.4); Monocytes # (auto) 0.65 K/uL (0.11-0.59); Monocytes % (auto) 6.8 %; Neutrophils # (auto) 7.78 K/uL (1.4-6.5); Neutrophils % (auto) 81.7 %; Platelet Count 239 K/uL (130-400); RDW Coefficient of Variation 15.9 % (11.5-14.5); RDW Standard Deviation 52.3 fL (36.4-46.3); Red Blood Count 3.78 M/uL (4.2-5.4); White Blood Count 9.53 K/uL (4.8-10.8)
[2021-08-05] MEDS: BUDESONIDE 0.5 MG/2 ML VIAL (PULMICORT) NEB SCH ×2 (07:34→19:24)
[2021-08-05] MEDS: ALBUT/IPRATROP 3MG/0.5MG NEB 3 ML VIAL NEB SCH ×4 (07:34→19:24)
[2021-08-05] MEDS: NICOTINE 21 MG/24 HR TDSY TD SCH (07:56)
[2021-08-05] MEDS: HEPARIN SOD 5,000 UNIT/0.5 ML VIAL SQ SCH ×2 (07:56→22:33)
[2021-08-05] MEDS: METOCLOPRAMIDE HCL 5 MG TABLET PO SCH ×3 (07:57→16:54)
[2021-08-05] MEDS: POLYETHYLENE (MIRALAX) 17 GM PACK PO SCH (07:57)
[2021-08-05] MEDS: METHYLPHENIDATE HCL 10 MG TABLET PO SCH ×3 (07:58→21:47)
[2021-08-05] MEDS: CeleBREX 200 MG CAP PO SCH (07:58)
[2021-08-05] MEDS: FAMOTIDINE 40 MG TABLET PO SCH ×2 (07:58→21:46)
[2021-08-05] MEDS: METHYLPHENIDATE HCL 5 MG TABLET PO SCH ×2 (07:58→13:54)
[2021-08-05] MEDS: PANTOprazole 40 MG TAB PO SCH ×2 (07:59→21:46)
[2021-08-05] MEDS: GABAPENTIN 800 MG TAB PO SCH ×3 (07:59→21:46)
[2021-08-05] MEDS: FOLIC ACID 1 MG TAB PO SCH (07:59)
[2021-08-05] MEDS: SERTRALINE HCL 100 MG TABLET PO SCH (07:59)
[2021-08-05 08:24] LABS: Albumin Level 3.1 gm/dl (3.4-5.0); BUN Creatinine Ratio 21.8 (10-20); Calcium 8.7 mg/dl (8.5-10.1); Est GFR (African American) 83.4 ml/min; Potassium 4.5 mmol/L (3.5-5.1)
[2021-08-05 08:39] LABS: Albumin Globulin Ratio 0.9 (0.9-2); Bilirubin,Total 0.4 mg/dl (0.2-1); Globulin 3.4 gm/dl (2.5-4.0); Total Protein 6.5 gm/dl (6.4-8.2)
[2021-08-05] MEDS: AZITHROMYCIN 500 MG in DEXTROSE 5% 250 ML IV SCH (09:07)
[2021-08-05] MEDS: guaiFENesin/CODEINE 100MG/10MG 5ML UDC PO PRN (11:04)
--- NOTE | 2021-08-05 13:16 | Hospitalist Progress Note ---
Date of Service August 05, 2021 Assessment & Plan (1) COPD exacerbation: Plan: 56 yo female presents to the emergency department with complaint of severe shortness of breath and cough. (1) COPD exacerbation: -Received methylprednisolone 60 mg IV x1 from the ED and a DuoNeb -Methylprednisolone 40 mg IV q8h -Guaifenesin with codeine 5 mL PO q4h PRN -Azithromycin 500 mg IV daily -Duoneb q4h scheduled + q2h PRN -Pulmicort Respules (Budesonide) 0.5 mg twice daily -O2 2L nasal cannula -She has not smoked in the last 2 years -CPAP at bedtime PRN available (2) PTSD/OCD/Anxiety- -Continue sertraline and trazodone -Lorazepam 0.5 mg IV every 6 hours as needed -will allow her to use medical marijuana edibles PRN (3) Chronic pain: -Continue oxycodone 5 mg p.o. q8h PRN, usually takes 10mg at home so refuses to take dose -Does not want Tylenol due to gastroparesis... given 800mg ibuprofen QID PRN instead --> switched to Toradol instead --> pain control much better -Magnesium 3mg IV given today --> headache much improved (4) GERD (gastroesophageal reflux disease): -Continue pantoprazole (5) ADHD (attention deficit disorder): -Continue methylphenidate (6) Gastroparesis -cont. Reglan (2) Chronic pain: Admission and Anticipated Discharge Date Admission Date: August 03, 2021 Supervising Physician Co-Signing Physician Notes I personally examined the patient and verified all valdez points of history and exam, discussed case, and agree with decision making with Dr Lawrence breathing feels about the same vitals noted fatigued and frequently coughing. heent nc at mmm. lungs better air entry sl louder wheeze but still overall diminished. no focal neuro deficits. msk/ost -- b/l L>R Tspine paraspinals high tone/tender/decreased ROM - inhibitory pressure and direct myofascial - improved - pt tolerated well COPD exacerbation - likely failed outpt due to low dosing of steroids, which was in turn because pt was understandably reticent to take higher dosing due to anxiety -- tolerating and improving. continue steroids, zithromax, nebs, supportive care somatic dysfunction thoracic region - OMT as above DVT proph -heparin SQ otherwise as above Subjective Right rib soreness from coughing. No more headache. Improving since yesterday. Review of Systems Constitutional: + fatigue; no fever and no chills Respiratory: + cough and + dyspnea; no hemoptysis Cardiovascular: no chest pain and no palpitations Gastrointestinal: + nausea; no abdominal pain and no vomiting (with cough) Physical Exam Constitutional: WD/WN, vitals as above ENMT: external ear and nose normal, oropharynx normal Neck: trachea midline, no thyromegaly Respiratory: + labored breathing, + cough, + prolonged expiratory phase and + audible wheezes Cardiovascular: RRR, no murmur, no edema Gastrointestinal (Abdomen): normal bowel sounds, soft, nontender, no hepatosplenomegaly Musculoskeletal: no cyanosis or clubbing, extremities motor strength 5/5 Skin: no rashes, warm and dry Neurologic: patellar DTR's 2+ bilat, sensation intact Psychiatric: A+Ox3, euthymic affect Results & Data Results & Data ([facility]) Vital Signs (Past 12 Hours) Vital Signs Temp Pulse Pulse Resp BP Pulse Ox 08/05/21 12:23 36.9 C 88 24 124/80 96 08/05/21 10:43 88 20 97 08/05/21 07:49 78 08/05/21 07:34 78 20 95 08/05/21 07:11 37.1 C 75 20 100/62 99 08/05/21 05:08 36.9 C 68 20 100/59 L 96 08/05/21 01:12 77 Resident Activity Tracking Resident Involvement: Resident Care Provided Care Provided: Adult Hospital Medicine
[2021-08-05] MEDS: KETOROLAC 30 MG/ML VIAL IV PRN (13:54)
[2021-08-05] MEDS: LORazepam 0.5 MG/1 ML VIAL IV PRN ×2 (13:54→22:29)
--- NOTE | 2021-08-05 18:35 | Billing Data ---
Date of Service August 05, 2021 Coding Level of Care Code 42350 Subseq Hosp Care Lvl 3
--- NOTE | 2021-08-05 18:35 | Hospitalist Progress Note ---
Date of Service August 05, 2021 Assessment & Plan Admission and Anticipated Discharge Date Admission Date: August 03, 2021 Results & Data Results & Data ([facility]) Vital Signs (Past 12 Hours) Vital Signs Temp Pulse Pulse Resp BP Pulse Ox 08/05/21 16:12 79 18 95 08/05/21 15:34 85 08/05/21 15:22 97.7 F 87 20 99/64 L 95 08/05/21 12:23 98.4 F 88 24 124/80 96 08/05/21 10:43 88 20 97 08/05/21 07:49 78 08/05/21 07:34 78 20 95 08/05/21 07:11 98.8 F 75 20 100/62 99 PG Care Time/CCT Total # of Minutes Spent Total Time Spent with Patient: Total time spent is greater than 50% in coordination of care (as documented) at patient's floor/unit and/or counseling patient: Coding Level of Care Code None CPT Codes Musculoskeletal - Musculoskeletal: 13068 Osteo Ganga Tr 1-2 Body regions ([id number])
[2021-08-05] MEDS: traZODone HCL 100 MG TAB PO SCH (21:45)
[2021-08-05] MEDS: ASCORBIC ACID 500 MG TAB PO SCH (21:46)
[2021-08-05] MEDS: CHOLECALCIFEROL 1,000 UNITS 25 MCG TAB PO SCH (21:46)
[2021-08-05] MEDS: CYANOCOBALAMIN 500 MCG TABLET (VITAMIN B-12) PO SCH (21:47)
[2021-08-05] MEDS: prednisoLONE acetate 1% OP SUSP 5 ML BTL OP SCH (21:48)
[2021-08-05] MEDS ORDERED: SODIUM CHLORIDE 0.65% NA SOLN 45 ML (OCEAN) ONE (22:38)
[2021-08-05] MEDS ORDERED: SODIUM CHLORIDE 0.65% NA SOLN 45 ML (OCEAN) STA (23:53)
[2021-08-06] MEDS: methylPREDNISolone 40 MG in SYRINGE 0 ML IV SCH ×3 (06:18→21:31)
[2021-08-06] MEDS: LORazepam 0.5 MG/1 ML VIAL IV PRN ×3 (06:18→21:31)
[2021-08-06 06:39] LABS: Hemoglobin 11.6 g/dL (12.0-16.0); Immature Granulocytes # (auto) 0.02 K/uL (0.00-0.02); Immature Granulocytes % (auto) 0.2 %; Lymphocytes # (auto) 1.44 K/uL (1.2-3.4); Lymphocytes % (auto) 14.2 %; Mean Corpuscular Hemoglobin 28.5 pg (25-34); Mean Corpuscular Hgb Conc 31.4 g/dL (32-36); Mean Corpuscular Volume 90.9 fL (80-100); Monocytes # (auto) 0.69 K/uL (0.11-0.59); Monocytes % (auto) 6.8 %; Neutrophils # (auto) 8.01 K/uL (1.4-6.5); Neutrophils % (auto) 78.8 %; Platelet Count 231 K/uL (130-400); RDW Coefficient of Variation 15.9 % (11.5-14.5); Red Blood Count 4.07 M/uL (4.2-5.4); White Blood Count 10.16 K/uL (4.8-10.8)
[2021-08-06] MEDS: BUDESONIDE 0.5 MG/2 ML VIAL (PULMICORT) NEB SCH ×2 (07:06→19:27)
[2021-08-06] MEDS: ALBUT/IPRATROP 3MG/0.5MG NEB 3 ML VIAL NEB SCH ×4 (07:06→19:27)
[2021-08-06 07:13] LABS: Albumin Level 3.2 gm/dl (3.4-5.0); Calcium 8.9 mg/dl (8.5-10.1); Creatinine Clr Calc Pharmacy 54.9 ml/min; Est GFR (African American) 73.5 ml/min; Est GFR (Non-African American) 63.4 ml/min; Potassium 4.7 mmol/L (3.5-5.1)
[2021-08-06 07:16] LABS: Albumin Globulin Ratio 0.9 (0.9-2); Bilirubin,Total 0.3 mg/dl (0.2-1); Globulin 3.6 gm/dl (2.5-4.0); Total Protein 6.8 gm/dl (6.4-8.2)
[2021-08-06] MEDS: POLYETHYLENE (MIRALAX) 17 GM PACK PO SCH (07:58)
[2021-08-06] MEDS: HEPARIN SOD 5,000 UNIT/0.5 ML VIAL SQ SCH ×2 (07:58→20:27)
[2021-08-06] MEDS: NICOTINE 21 MG/24 HR TDSY TD SCH (07:58)
[2021-08-06] MEDS: METOCLOPRAMIDE HCL 5 MG TABLET PO SCH ×3 (07:59→17:04)
[2021-08-06] MEDS: FOLIC ACID 1 MG TAB PO SCH (07:59)
[2021-08-06] MEDS: PANTOprazole 40 MG TAB PO SCH ×2 (07:59→20:26)
[2021-08-06] MEDS: SERTRALINE HCL 100 MG TABLET PO SCH (08:00)
[2021-08-06] MEDS: METHYLPHENIDATE HCL 5 MG TABLET PO SCH ×2 (08:00→14:03)
[2021-08-06] MEDS: FAMOTIDINE 40 MG TABLET PO SCH ×2 (08:00→20:25)
[2021-08-06] MEDS: METHYLPHENIDATE HCL 10 MG TABLET PO SCH ×3 (08:00→20:28)
[2021-08-06] MEDS: CeleBREX 200 MG CAP PO SCH (08:00)
[2021-08-06] MEDS: GABAPENTIN 800 MG TAB PO SCH ×3 (08:01→20:26)
[2021-08-06] MEDS: AZITHROMYCIN 500 MG in DEXTROSE 5% 250 ML IV SCH (09:46)
[2021-08-06] MEDS: guaiFENesin/CODEINE 100MG/10MG 5ML UDC PO PRN (10:01)
--- NOTE | 2021-08-06 10:16 | Hospitalist Progress Note ---
Date of Service August 06, 2021 Assessment & Plan (1) COPD exacerbation: Plan: 56 yo female presents to the emergency department with complaint of severe shortness of breath and cough. (1) COPD exacerbation: -Received methylprednisolone 60 mg IV x1 from the ED and a DuoNeb -Methylprednisolone 40 mg IV q8h -Guaifenesin with codeine 5 mL PO q4h PRN -Azithromycin 500 mg IV daily -Duoneb q4h scheduled + q2h PRN -Pulmicort Respules (Budesonide) 0.5 mg twice daily -O2 2L nasal cannula --> will try to go without oxygen -She has not smoked in the last 2 years -CPAP at bedtime PRN available (2) PTSD/OCD/Anxiety- -Continue sertraline and trazodone -Lorazepam 0.5 mg IV q6h PRN -Will allow her to use medical marijuana edibles PRN -On discharge, consider using a different steroid other than prednisone such as Decadron as a taper since she gets anxiety and insomnia after using prednisone 40mg PO in the past -In the future, consider using hydroxyzine to help tolerate anxiety symptoms while taking oral steroids for acute exacerbations (3) Chronic pain and headache: -Continue oxycodone 5mg PO q8h PRN, usually takes 10mg at home so refuses to take dose -Does not want Tylenol due to gastroparesis... given 800mg ibuprofen QID PRN instead --> switched to Toradol instead --> pain control much better -Magnesium 3mg IV given --> headache much improved (4) GERD (gastroesophageal reflux disease): -Continue pantoprazole (5) ADHD (attention deficit disorder): -Continue methylphenidate (6) Gastroparesis -cont. Reglan (2) Chronic pain: Admission and Anticipated Discharge Date Admission Date: August 03, 2021 Supervising Physician Co-Signing Physician Notes I personally examined the patient and verified all valdez points of history and exam, discussed case, and agree with decision making with Dr Lawrence Breathing feeling better but not good. Still coughing a lot, still some burning in her chestparticularly with cough. Anxious about going home. Discussed the highly probable need for 24/7 oxygen at this time, and she is fairly anxious about that as well. vitals noted awake and alert pleasant, appears somewhat fatigued but no distress. HEENT normocephalic atraumatic mucous membranes moist. Breathing unlabored no accessory muscle use good effort. She has far fewer coughing fits during our conversation than prior. No focal neuro deficits. COPD exacerbation - likely failed outpatient due to low dosing of steroids, which was in turn because pt was understandably reticent to take higher dosing d ue to anxiety -- tolerating and improving. continue steroids, zithromax, nebs, supportive carelikely to need 24/7 oxygentwo-step ordered for the morning. Discussed with patient possibility of going home in the near futurewe also discussed steroid dosing and the fact that she is tolerating rather significant doses IV. Discussed the interplay of anxiety and potential medication side effects, and the likelihood that she could tolerate high dosing of steroids as an outpatient given that she is tolerating it IV. Also discussed the potential to be able to tolerate a different corticosteroidwhether it is pharmacologic or mind/bodyand therefore in that respect when we discharge her, we will likely discharge on dexamethasone or p.o. methylprednisolone. somatic dysfunction thoracic region - OMT done several times throughout her stay DVT proph -heparin SQ otherwise as above Subjective Continues to improve. Coughing up less mucus. Says she may need another day here because she struggles to take more than 20mg prednisone at home secondary to anxiety. Any higher oral steroid makes her very anxious and makes it very difficult to sleep. Review of Systems Constitutional: no fever, no chills and no fatigue Respiratory: + cough and + dyspnea; no hemoptysis Cardiovascular: no chest pain and no palpitations Gastrointestinal: no abdominal pain, no nausea and no vomiting Physical Exam Constitutional: WD/WN, vitals as above ENMT: external ear and nose normal, oropharynx normal Neck: trachea midline, no thyromegaly Respiratory: + cough, + prolonged expiratory phase and + audible wheezes (mild); no labored breathing Cardiovascular: RRR, no murmur, no edema Gastrointestinal (Abdomen): normal bowel sounds, soft, nontender, no hepatosplenomegaly Musculoskeletal: no cyanosis or clubbing, extremities motor strength 5/5 Skin: no rashes, warm and dry Neurologic: patellar DTR's 2+ bilat, sensation intact Psychiatric: A+Ox3, euthymic affect Results & Data Results & Data ([facility]) Vital Signs (Past 12 Hours) Vital Signs Temp Pulse Pulse Resp BP Pulse Ox Pulse Ox 08/06/21 08:02 36.9 C 82 20 112/78 95 08/06/21 07:42 98 08/06/21 07:38 62 08/06/21 07:07 84 18 94 08/06/21 03:14 36.7 C 64 16 111/74 98 08/05/21 23:00 36.6 C 68 17 118/71 94 08/05/21 22:41 77 Resident Activity Tracking Resident Involvement: Resident Care Provided Care Provided: Adult Hospital Medicine
[2021-08-06] MEDS: KETOROLAC 30 MG/ML VIAL IV PRN (15:31)
[2021-08-06] MEDS: CHOLECALCIFEROL 1,000 UNITS 25 MCG TAB PO SCH (17:41)
--- NOTE | 2021-08-06 18:12 | Billing Data ---
Date of Service August 06, 2021 Coding Level of Care Code 84751 Subseq Hosp Care Lvl 3
[2021-08-06] MEDS: ASCORBIC ACID 500 MG TAB PO SCH (20:24)
[2021-08-06] MEDS: CYANOCOBALAMIN 500 MCG TABLET (VITAMIN B-12) PO SCH (20:25)
[2021-08-06] MEDS: prednisoLONE acetate 1% OP SUSP 5 ML BTL OP SCH (20:26)
[2021-08-06] MEDS: traZODone HCL 100 MG TAB PO SCH (20:27)
[2021-08-07] MEDS: LORazepam 0.5 MG/1 ML VIAL IV PRN (05:11)
[2021-08-07] MEDS: methylPREDNISolone 40 MG in SYRINGE 0 ML IV SCH ×2 (05:11→11:34)
[2021-08-07] MEDS: ALBUT/IPRATROP 3MG/0.5MG NEB 3 ML VIAL NEB SCH ×3 (07:59→15:14)
[2021-08-07] MEDS: FAMOTIDINE 40 MG TABLET PO SCH (08:11)
[2021-08-07] MEDS: GABAPENTIN 800 MG TAB PO SCH ×2 (08:11→11:34)
[2021-08-07] MEDS: PANTOprazole 40 MG TAB PO SCH (08:12)
[2021-08-07] MEDS: METOCLOPRAMIDE HCL 5 MG TABLET PO SCH ×2 (08:12→11:34)
[2021-08-07] MEDS: SERTRALINE HCL 100 MG TABLET PO SCH (08:12)
[2021-08-07] MEDS: FOLIC ACID 1 MG TAB PO SCH (08:13)
[2021-08-07] MEDS: CHOLECALCIFEROL 1,000 UNITS 25 MCG TAB PO SCH (08:13)
[2021-08-07] MEDS: CeleBREX 200 MG CAP PO SCH (08:14)
[2021-08-07] MEDS: POLYETHYLENE (MIRALAX) 17 GM PACK PO SCH (08:15)
[2021-08-07] MEDS: METHYLPHENIDATE HCL 10 MG TABLET PO SCH ×2 (08:15→11:35)
[2021-08-07] MEDS: HEPARIN SOD 5,000 UNIT/0.5 ML VIAL SQ SCH (08:16)
[2021-08-07] MEDS: METHYLPHENIDATE HCL 5 MG TABLET PO SCH ×2 (08:16→11:35)
[2021-08-07] MEDS: NICOTINE 21 MG/24 HR TDSY TD SCH (08:24)
[2021-08-07] MEDS: AZITHROMYCIN 500 MG in DEXTROSE 5% 250 ML IV SCH (08:25)
[2021-08-07] MEDS: BUDESONIDE 0.5 MG/2 ML VIAL (PULMICORT) NEB SCH (08:30)
[2021-08-07 08:53] LABS: Hematocrit (blood only) 39.4 % (37-47); Hemoglobin 12.6 g/dL (12.0-16.0); Immature Granulocytes # (auto) 0.03 K/uL (0.00-0.02); Immature Granulocytes % (auto) 0.3 %; Lymphocytes # (auto) 0.79 K/uL (1.2-3.4); Lymphocytes % (auto) 8.6 %; Mean Corpuscular Hemoglobin 28.8 pg (25-34); Mean Corpuscular Volume 90.2 fL (80-100); Mean Platelet Volume 11.4 fL (7.4-10.4); Monocytes % (auto) 3.3 %; Neutrophils # (auto) 8.03 K/uL (1.4-6.5); Neutrophils % (auto) 87.8 %; Platelet Count 234 K/uL (130-400); RDW Coefficient of Variation 15.4 % (11.5-14.5); RDW Standard Deviation 51.9 fL (36.4-46.3); Red Blood Count 4.37 M/uL (4.2-5.4); White Blood Count 9.15 K/uL (4.8-10.8)
[2021-08-07 09:17] LABS: BUN Creatinine Ratio 15.8 (10-20); Calcium 9.1 mg/dl (8.5-10.1); Creatinine Clr Calc Pharmacy 50.4 ml/min; Est GFR (African American) 66.2 ml/min; Est GFR (Non-African American) 57.1 ml/min; Potassium 4.2 mmol/L (3.5-5.1)
[2021-08-07] MEDS: guaiFENesin/CODEINE 100MG/10MG 5ML UDC PO PRN (09:46)
[2021-08-07] MEDS: KETOROLAC 30 MG/ML VIAL IV PRN (11:41)
--- NOTE | 2021-08-07 15:20 | Discharge Summary ---
Date of Service August 07, 2021 Admission HPI Per Admitting Provider The patient is a 56-year-old female with a past medical history including nasal cellulitis, nocturnal hypoxia, somatic dysfunction in multiple regions, thyroid nodule, vitamin D deficiency, history of COVID-19 virus infection, lobular carcinoma in situ of left breast, COPD, ANAI, ADD, SNHL bilaterally, GERD, gastroparesis, OCD, PTSD and anxiety. The patient presents with 6 weeks of worsening symptoms as noted above. She reports that she has been on 3 courses of antibiotics and steroids in that time, with no improvement. Principal Diagnosis COPD Exacerbation Discharge Exam Constitutional WD/WN, vitals as above ENMT external ear and nose normal, oropharynx normal Neck trachea midline, no thyromegaly Respiratory + cough, + prolonged expiratory phase and + audible wheezes (mild); no labored breathing Cardiovascular RRR, no murmur, no edema Gastrointestinal (Abdomen) normal bowel sounds, soft, nontender, no hepatosplenomegaly Musculoskeletal no cyanosis or clubbing, extremities motor strength 5/5 Skin no rashes, warm and dry Neurologic patellar DTR's 2+ bilat, sensation intact Psychiatric A+Ox3, euthymic affect Discharge Data Allergies Allergy/AdvReac Type Severity Reaction Status Date / Time risperidone Allergy Mild LACTATING Verified 08/03/21 20:21 Tetracyclines Allergy Mild HIVES Verified 08/03/21 20:21 mirtazapine Allergy Unknown SHORTNESS Verified 08/03/21 20:21 OF BREATH ranitidine Allergy Unknown SEVERE Verified 08/03/21 20:21 VOMITING Iodinated Contrast Media AdvReac Intermediate "horrible Verified 08/03/21 20:21 headache" loratadine AdvReac Mild UNABLE TO Verified 08/03/21 20:21 SLEEP MULTIPLE DAYS Consultations 08/03/21 20:50 ED Decision to Admit Stat Hospital Course (1) COPD exacerbation: 56 yo female presents to the emergency department with complaint of severe shortness of breath and cough. (1) COPD exacerbation: -Received methylprednisolone 60 mg IV x1 from the ED and a DuoNeb -Methylprednisolone 40 mg IV q8h -Guaifenesin with codeine 5 mL PO q4h PRN -Azithromycin 500 mg IV daily -Duoneb q4h scheduled + q2h PRN -Pulmicort Respules (Budesonide) 0.5 mg twice daily -O2 2L nasal cannula --> ambulating well without oxygen, no ambulatory oxygen necessary at this time. -She has not smoked in the last 2 years -Discharge with dexamethasone taper: 8mg (4 tabs) x2 days, 6mg (3 tabs) x2 days, 4mg (2 tabs) x2 days, 2mg (1 tab) x2 days. (2) PTSD/OCD/Anxiety- -Continue sertraline and trazodone -Lorazepam 0.5 mg IV q6h PRN -Will allow her to use medical marijuana edibles PRN -Hydroxyzine PRN for anxiety during steroid use. (3) Chronic pain and headache: -Continue oxycodone 5mg PO q8h PRN, usually takes 10mg at home so refuses to take dose -Does not want Tylenol due to gastroparesis... given 800mg ibuprofen QID PRN instead --> switched to Toradol instead --> pain control much better -Magnesium 3mg IV given --> headache much improved -Discharge with voltaren gel for right rib pain secondary to cough (4) GERD (gastroesophageal reflux disease): -Continue pantoprazole (5) ADHD (attention deficit disorder): -Continue methylphenidate (6) Gastroparesis -Continue Reglan (2) Chronic pain: Total Time Total Time Spent Total Time Spent (In Minutes): <30 Discharge Plan Discharge Items Patient Disposition: Home - Self-Care Reason For Visit: CPD EXACERBATION Discharge Diagnosis: COPD Exacerbation Activity: Resume your previous activity Non-emergency contact: Primary Care Provider Call non-emergency contact if: you have any medication questions and your symptoms worsen Follow-up/Referrals: Diego Lopez DO [Primary Care Provider] - Diet: Regular Addtl Attending Provider Instructions: You were admitted to the hospital for COPD Exacerbation. -You will need to complete a steroid taper. Prescribed Dexamethasone to be taken as follows: 8mg (4 tabs) x2 days, 6mg (3 tabs) x2 days, 4mg (2 tabs) x2 days, 2mg (1 tab) x2 days. -You have also been prescribed Voltaren gel for your right rib pain secondary to coughing. -You have also been prescribed hydroxyzine for anxiety during steroid use. -No oxygen necessary at this time. -Please follow up with your primary care provider. Pharmacy: [facility] Pending Studies at Discharge: No Stand-Alone Forms: [facility] Medications and DC Order Prescriptions: New diclofenac sodium [Voltaren Arthritis Pain] 1 % gel 2 g topical QID PRN (Reason: Rib pain) Qty: 100 RF: 0 dexamethasone 2 mg tablet 2 mg PO DAILY Qty: 20 RF: 0 hydroxyzine HCl 25 mg tablet 25 mg PO QID PRN (Reason: anxiety) Qty: 30 RF: 0 Continued cholecalciferol (vitamin D3) 2,000 unit capsule 2,000 units PO HS RF: 0 gabapentin 800 mg tablet 800 mg PO TID Qty: 90 RF: 5 famotidine [Pepcid] 40 mg tablet 40 mg PO BID PRN (Reason: Acid Reflux) Qty: 60 RF: 0 Hold Instructions: unavailable cyclobenzaprine 7.5 mg tablet 7.5 mg PO TID PRN (Reason: muscle spasm) Qty: 60 RF: 5 Stiolto Respimat 2.5-2.5 mcg/actuation mist 2 puff inhalation DAILY Qty: 4 RF: 5 folic acid 1 mg tablet 1 mg PO QAM Qty: 90 RF: 3 ipratropium-albuterol 0.5 mg-3 mg(2.5 mg base)/3 mL solution for nebulization 3 ml inhalation Q4H PRN (Reason: wheezing) Qty: 180 RF: 5 mupirocin 2 % ointment 1 applic TOP BID Qty: 15 RF: 3 albuterol sulfate [Ventolin HFA] 90 mcg/actuation HFA aerosol inhaler 2 puff inhalation QID PRN (Reason: shortness of breath or wheezing) Qty: 18 RF: 5 nystatin 100,000 unit/mL suspension 5 ml PO QID PRN (Reason: Thrush) Qty: 473 RF: 5 celecoxib [Celebrex] 200 mg capsule 200 mg PO DAILY Qty: 30 RF: 5 dicyclomine 20 mg tablet 20 mg PO TID PRN (Reason: abd pain / bloating) Qty: 90 RF: 5 polyethylene glycol 3350 17 gram/dose powder 17 gm PO DAILY Qty: 510 RF: 3 cimetidine 200 mg tablet See Rx Instructions .ROUTE .COMPLEX Qty: 30 RF: 5 pantoprazole [Protonix] 40 mg tablet,delayed release (DR/EC) 40 mg PO BID Qty: 60 RF: 5 metoclopramide HCl 5 mg tablet 5 mg PO TID Qty: 90 RF: 5 ondansetron HCl [Zofran] 4 mg tablet 4 mg PO Q8H PRN (Reason: Nausea) Qty: 90 RF: 0 clotrimazole 10 mg krissy 10 mg mucous membrane .3-5 x daily 14 Days Qty: 70 RF: 0 oxycodone 5 mg tablet 5 mg PO Q8H PRN (Reason: pain) Qty: 45 RF: 0 vitamin A 8,000 unit capsule 8,000 units PO DAILY RF: 0 methylphenidate HCl 5 mg tablet 5 mg PO BID RF: 0 cyanocobalamin (vitamin B-12) [Vitamin B-12] 1,000 mcg Tablet 1,000 mcg PO HS RF: 0 trazodone 150 mg tablet 300 mg PO HS RF: 0 sertraline 100 mg tablet 200 mg PO QAM RF: 0 prednisolone acetate [Pred Forte] 1 % Drops,Suspension 1 drp OPHTHALMIC (EYE) HS RF: 0 methylphenidate HCl 10 mg tablet 10 mg PO TID RF: 0 ascorbic acid (vitamin C) [Vitamin C] 1,000 mg Tablet 1,000 mg PO HS RF: 0 nicotine 21 mg/24 hr Patch 24 Hour 1 patch TRANSDERMAL QAM RF: 0 diclofenac sodium 1 % Gel 2 g TOPICAL QID PRN (Reason: Pain) RF: 0 Discontinued levofloxacin 500 mg tablet 500 mg PO DAILY Qty: 10 RF: 0 Discharge Orders: Discharge Order (Routine); Ordered 08/07/21 Ordered By: Masoud Palomino/Other Patient Handouts: Shortness of Breath Coping Admission Data Admit Date/Time: 08/03/21 21:39 Attending Provider: Saw Fu Admit Provider: Yoni Leo Primary Care Provider: Diego Lopez Other Providers: Yoni Leo Other Interventions: Discharge Summary Assessment (RN) Last Done: 08/07/21 15:41 Supervising Physician Co-Signing Physician Notes I personally examined the patient and verified all valdez points of history and exam, discussed case, and agree with decision making with Dr Lawrence Feeling better and up to going home. Still with cough, right-sided chest discomfort particularly with coughing or moving the wrong way, under her breast and stabbing in nature. Feels up to going home though. Vitals noted, in general she is awake and alert fatigued but in far less distress really none outside of occasional coughing fits. HEENT normocephalic atraumatic mucous membranes moist. Breathing unlabored no accessory muscle use good effort. Right-sided mid to lower ribs a bit exhaled she does have a little bit point tenderness medially right ribs 7 and 8. Neuro no focal deficits. Skin without rashes pallor or icterus. COPD exacerbation - likely failed outpatient due to low dosing of steroids, which was in turn because pt was understandably reticent to take higher dosing due to anxiety -- tolerating and improving. Fortunately does not need oxygen for home. Has already had an adequate course of azithromycinno need for fur ther antibiotics. As it relates to the steroids, had several saúl and open discussions with the patient in regards to the steroids and side effects. I emphasized to her that she is tolerating 40 mg of methylprednisolone IV 3 times daily (120 mg on the day) and doing quite well with this with her anxiety. Discussed that while sometimes pharmacologic things can be different with different corticosteroids, largely they are quite similarand that while steroid certainly can exacerbate anxiety or make people feel restless, I wonder to if her anxiety about the steroid dosing is what led to her anxiety being worse. We discussed this with the clinical relevance of the high likelihood of future COPD exacerbations, and the concern on needing to admit her to the hospital every time to be able to use steroids IV/try to manage anxiety aggressively raising the potential of a lot of hospitalizations. She simultaneously expressed some understanding and some doubts/disbeliefbut was willing to give trial. Given that prednisone specifically has her concerned, we discharged her on dexamethasonediscussing with patient that with the conversion it would be in the equivalent range of 40 to 60 mg of prednisone, tapering from there, and she was willing to try this. Hydroxyzine temporarily as needed steroid-induced anxiety, but hopefully if she tolerates the dexamethasone, this could be utilize d as an outpatient for exacerbations. Rib painVoltaren gel, stretches taught, can consider outpatient OMT for this if it does not get better quickly. somatic dysfunction thoracic region - OMT done several times throughout her stay DVT proph -heparin SQ utilized during her stay. otherwise as above Resident Activity Tracking Resident Involvement: Resident Care Provided Care Provided: Adult [facility]
--- NOTE | 2021-08-07 18:51 | Billing Data ---
Date of Service August 07, 2021 Coding Level of Care Code D/C DAY MANAGEMENT <30 MINS
--- NOTE | 2021-08-07 18:56 | Billing Data ---
Date of Service August 07, 2021 Coding Level of Care Code D/C DAY MANAGEMENT <30 MINS
== END 2021-08-07 16:40 | disposition home or self-care (01) ==
LOC: ED 18:02 → SUATTDRO 21:39 → INTOOBSV 21:39 → 2W 21:39

== ENCOUNTER 2024-12-29 13:56 | Inpatient (IN) ==
--- NOTE | 2024-12-29 14:40 | Emergency Department Note ---
ED Provider Note History of Present Illness Chief Complaint: Shortness of Breath/Dyspnea Stated Complaint: BREATHING DIFFICULTIES Time Seen by Provider: 12/29/24 14:21 Source: patient and family Mode of arrival: ambulatory Limitations: no limitations Patient is a 59-year-old female who presents to the emergency department with complaints of shortness of breath. Patient states that she has been short of breath intermittently over the last 3 weeks. Patient states that she follows with Dr. Tse from pulmonology and she reached out to him approximately 2 weeks ago with the symptoms and he placed her on an antibiotic for 10 days. Patient states that she is not felt any better over the last 10 days. Patient notes that she feels like she cannot catch her breath. Patient reached out to pulmonology this morning who referred her to the emergency department for further evaluation and management. Patient notes some midsternal chest pain as well. Home Medications Medication Instructions Recorded Confirmed Type cholecalciferol (vitamin D3) 50 2,000 units PO HS 06/25/18 12/29/24 History mcg (2,000 unit) capsule cyanocobalamin (vitamin B-12) 1,000 mcg PO HS 03/13/19 12/29/24 History 1,000 mcg tablet (Vitamin B-12) sertraline 100 mg tablet 200 mg PO QAM 03/13/19 12/29/24 History trazodone 150 mg tablet 300 mg PO HS 03/13/19 12/29/24 History prednisolone acetate 1 % eye 1 drp ophthalmic (eye) HS 03/14/19 12/29/24 History drops,suspension (Pred Forte) ascorbic acid (vitamin C) 1,000 mg 1,000 mg PO HS 04/17/19 12/29/24 History tablet (Vitamin C) vitamin A 2,400 mcg capsule 8,000 units PO HS 05/16/19 12/29/24 History phenazopyridine 100 mg tablet 100 mg PO TID PRN pain 6 doses #6 12/07/21 12/29/24 Rx (Pyridium) tabs mupirocin 2 % topical ointment 1 applic topical BID PRN rash #15 02/14/22 12/29/24 Rx grams baclofen 10 mg tablet 10 mg PO TID PRN muscle spasm #270 01/22/23 12/29/24 Rx tabs dicyclomine 20 mg tablet 20 mg PO TID PRN abd pain / 03/21/23 12/29/24 Rx bloating #90 tabs ondansetron HCl 4 mg tablet 4 mg PO Q8H PRN Nausea #90 tabs 03/21/23 12/29/24 Rx sucralfate 1 gram tablet (Carafate) 1 g PO Q6H #120 tabs 05/14/23 12/29/24 Rx clonidine HCl 0.2 mg tablet 0.2 mg PO HS PRN Anxiety 06/29/23 12/29/24 History codeine 10 mg-guaifenesin 100 mg/5 5 ml PO Q6H PRN cough #120 mL 11/13/23 12/29/24 Rx mL oral liquid folic acid 1 mg tablet 1 mg PO QAM #90 tabs 04/07/24 12/29/24 Rx calcium carbonate (Calcium 500) 500 mg PO HS 04/28/24 12/29/24 History cimetidine 400 mg tablet 400 mg PO BID #60 tabs 04/28/24 12/29/24 Rx riboflavin (vitamin B2) 50 mg 50 mg PO HS 04/28/24 12/29/24 History tablet calcium polycarbophil 625 mg 1,875 mg PO HS 06/10/24 12/29/24 History tablet (FiberCon) fluticasone propionate 50 2 spray intranasal HS allergy 06/10/24 12/29/24 History mcg/actuation nasal symptoms spray,suspension pantoprazole 40 mg tablet,delayed 40 mg PO BID 06/10/24 12/29/24 History release (Protonix) polyethylene glycol 3350 17 17 gm PO QAM 06/10/24 12/29/24 History gram/dose oral powder azithromycin 250 mg tablet 250 mg PO MOWEFR #18 tabs 07/11/24 12/29/24 Rx ipratropium 0.5 mg-albuterol 3 mg 3 ml inhalation Q4H PRN wheezing 07/11/24 12/29/24 Rx (2.5 mg base)/3 mL nebulization #180 mL soln beclomethasone dipropionate 40 1 inh inhalation BID #10.6 grams 09/09/24 12/29/24 Rx mcg/actuation HFA breath activated aerosol (Qvar RediHaler) montelukast 10 mg tablet 10 mg PO QAM #90 tabs 09/09/24 12/29/24 Rx tiotropium 2.5 mcg-olodaterol 2.5 2 puff inhalation DAILY #3 Inhalers 10/16/24 12/29/24 Rx mcg/actuation mist for inhalation (Stiolto Respimat) albuterol sulfate 90 mcg/actuation 2 puff inhalation Q6H PRN 11/05/24 12/29/24 Rx aerosol inhaler shortness of breath or wheezing #8.5 grams famotidine 40 mg tablet 40 mg PO BID #60 tabs 11/11/24 12/29/24 Rx celecoxib 200 mg capsule 200 mg PO DAILY pain 12/29/24 12/29/24 History cyclosporine 0.05 % eye drops in a 1 drp OPB Q12H 12/29/24 12/29/24 History dropperette (Restasis) metoclopramide HCl 5 mg tablet 5 mg PO AC 12/29/24 12/29/24 History (Reglan) oxycodone 5 mg tablet 5 - 10 mg PO Q8H PRN pain 12/29/24 12/29/24 History perfluorohexyloctane (PF) 100 % 1 drp OPB QID 12/29/24 12/29/24 History eye drops (Miebo (PF)) Allergies Allergy/AdvReac Type Severity Reaction Status Date / Time mirtazapine Allergy Severe Shortness Verified 12/29/24 16:24 of Breath Tetracyclines Allergy Intermediate Hives Verified 12/29/24 16:24 Iodinated Contrast Media AdvReac Intermediate Horrible Verified 12/29/24 16:24 headache/Facial Swelling loratadine AdvReac Intermediate Unable to Verified 12/29/24 16:24 sleep for multiple days ranitidine AdvReac Intermediate Severe Verified 12/29/24 16:24 Vomiting risperidone AdvReac Intermediate Lactating Verified 12/29/24 16:24 Past Med/Surg History Problem List (Updated 12/29/24 @ 16:37 by BEV Forrest) Acute exacerbation of chronic obstructive pulmonary disease (COPD) (Acute) Acute cough Nausea and vomiting Abdominal pain Lump in neck ST (skin tag) Abdominal pain, epigastric Chronic rhinitis Impacted cerumen of both ears Referred otalgia of right ear TMJ (temporomandibular joint disorder) Urinary symptom or sign Osteoporosis History of tobacco use Emphysema lung Dyspnea (Acute) Chronic pain Dry mouth Nocturnal hypoxia Thyroid nodule Acute thoracic back pain Back Pain Hand pain Neck pain Headache Vitamin B deficiency Neurogenic claudication due to lumbar spinal stenosis (Chronic) H/O right wrist surgery 11-04-19 R thumb carpometacarpal joint arthroplasty, Dr Sorto, [facility]. 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 COPD (chronic obstructive pulmonary disease) Anxiety Posttraumatic stress disorder Obsessive compulsive disorder Medical History PTSD (post-traumatic stress disorder) TMJ (dislocation of temporomandibular joint) "most right side - goes in spurts " locking and clicking Thyroid nodule Monitoring Hearing loss Bilateral NICHOLS Restless leg syndrome Osteoporosis Oral thrush hx OCD (obsessive compulsive disorder) Nodule of right lung Monitoring MTHFR mutation Denied blood clots GERD (gastroesophageal reflux disease) Gastroparesis Emphysema lung Dyspnea Depression Anxiety ADD (attention deficit disorder) Conjunctivitis hx - no problems at this time Right shoulder pain "That was all from the neck" Acute bronchitis hx COPD exacerbation Somatic dysfunction of pelvic region Somatic dysfunction of lower extremities Somatic dysfunction of sacral spine Somatic dysfunction of lumbar region Somatic dysfunction of thoracic region COVID-19 virus infection hx x2 - no hospitalizations 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 History of migraine History of sleep apnea reports "resolved" with wt loss - no longer wears CPAP COPD (chronic obstructive pulmonary disease) Inhaler use daily - nebulizer as needed History of seizure disorder Surgical History History of eye surgery Bilateral Cornea Transplant History of spinal fusion x5 Limited Cervical ROM Nausea and vomiting after administration of anesthetic agent History of tooth extraction History of breast surgery "Pre-cancer removed" History of breast biopsy History of joint replacement Left hand History of hand surgery Rt History of esophagogastroduodenoscopy (EGD) History of colonoscopy History of appendectomy History of cholecystectomy Status post carpal tunnel release BL Family History Father Myocardial infarction Hypertension Grandfather Myocardial infarction Mother Diabetes Hypertension Aunt Breast cancer Sister Breast cancer Grandmother Diabetes Other No family history of adverse response to anesthesia Denies family history of Ovarian cancer Prostate cancer Colorectal cancer Social History Smoking Status: Never smoker Age Quit Using Tobacco: 54; Second Hand Exposure: No; Do You Dip or Chew Tobacco: No; Hx Alcohol Use: No Hx Substance Use: Yes Last Used Substance: Unknown Last Used Substance Other:: yesterday Substance Use Type Other:: Medical Marijuana Vape / Gummy - advised Preferred Language: French Communication Ability: Effective Visual Impairment: Limited Hearing Ability: Use of Hearing Aid Internal Medicine Specialist Required: No Beliefs That Will Affect Care: None marital status: Current Living Situation: Family current occupational status: disabled How many Children do You have: 7 Feels Safe at Home: Yes Childhood Exposure to Second-Hand Smoke: Yes Diet: regular caffeine: Yes during the past year weight has: remained stable Dental Care, Regularly: No Physical Activity Frequency: Does not Exercise Seatbelt Use: always Sunscreen Use: No Assistive Devices: Denture - Upper, Denture - Lower, Glasses, Hearing Aid - Bilateral and Oxygen - at Night Physical Exam Vital Signs Vital Signs - 24 hr 12/29/24 14:04 12/29/24 14:16 12/29/24 14:23 Temperature 36.8 C Temperature Source Temporal Artery Scan Pulse Rate 98 H 98 H Pulse Rate [Apical] Pulse Rhythm Respiratory Rate 24 Respiratory Effort / Characteristics Spontaneous Short of Breath Respiratory Depth Shallow Respiratory Pattern Regular Blood Pressure 173/105 H Blood Pressure [Left Arm] Blood Pressure Mean 127 Blood Pressure Mean [Left Arm] Pulse Oximetry 94 Oxygen Delivery Method Room Air Room Air Sepsis Recent Fever Within 48 Hours No Sepsis New/Unexplained Change in Mental Status N/A Sepsis Action Taken by Nursing No Action Required Pulse Oximetry Post Tiitration 94 12/29/24 14:23 12/29/24 14:51 12/29/24 15:01 Temperature Temperature Source Pulse Rate 84 111 H Pulse Rate [Apical] 91 H Pulse Rhythm Regular Respiratory Rate 18 32 H 24 Respiratory Effort / Characteristics Respiratory Depth Respiratory Pattern Blood Pressure 152/124 H Blood Pressure [Left Arm] 183/106 H Blood Pressure Mean 127 Blood Pressure Mean [Left Arm] 131 Pulse Oximetry 96 100 93 Oxygen Delivery Method Room Air Nebulizer Room Air Sepsis Recent Fever Within 48 Hours Sepsis New/Unexplained Change in Mental Status Sepsis Action Taken by Nursing Pulse Oximetry Post Tiitration VITAL SIGNS - Vital signs and nursing notes were reviewed. GENERAL -59-year-old female appearing their stated age, who is in some mild distress, noting increased work of breathing. Patient's is at bedside. Communicates well with provider and answers questions appropriately. HEAD - Normocephalic, Atraumatic. No Cordero's Sign or Raccoon's Eyes. EYES - PERRL with EOMI bilaterally. Sclera anicteric. Conjunctiva pink and moist with no injection noted. EARS - No deformities of external structures noted on gross examination bilaterally. NOSE - Midline and without cyanosis. No epistaxis or purulent drainage noted. NECK - Neck with FROM. Supple to palpation. No lymphadenopathy noted. LUNGS - Chest wall symmetric without accessory muscle use, though increased work of breathing is noted. Patient diminished breath sounds with some mild wheezing throughout. Patient does not appear to be moving a lot of air though I do not note any crackles, rhonchi, rales. CARDIAC - RRR with S1/S2. No murmur, rubs, or gallops appreciated. EXTREMITIES - No edema present. +5/5 strength noted in UE/LE bilaterally. NEUROLOGIC -Sensory intact to light touch throughout. PSYCH - A&Ox3 and cooperates fully with examiner. Pt is very pleasant and interacts well with examiner Course Administered Medications Discontinued Medications Albuterol (Albut/Ipratrop 3mg/0.5mg Neb 3 Ml Vial) 12 ml INH ONE STA Stop: 12/29/24 14:29 Last Admin: 12/29/24 14:45 Dose: 12 ml Documented By: KRISTI Diphenhydramine HCl (Diphenhydramine 50 Mg/Ml Vial) 50 mg IV NOW STA Stop: 12/29/24 14:29 Last Admin: 12/29/24 14:46 Dose: 50 mg Documented By: KRISTI Ioversol (Optiray 320 125ml) 115 ml IV ONCE ONE Stop: 12/29/24 15:36 Last Admin: 12/29/24 15:36 Dose: 115 ml Documented By: MELISSA Methylprednisolone (Methylprednisolone 125 Mg/2 Ml Vial) 125 mg IV NOW STA Stop: 12/29/24 14:29 Last Admin: 12/29/24 14:46 Dose: 125 mg Documented By: KRISTI Medical Decision Making Differential Diagnosis COPD exacerbation, influenza, COVID, pneumonia, PE, among others Medical Records Attestation: I reviewed the patient's medical records. Home Medications was personally reviewed by me Laboratory Data Attestation: I reviewed the patient's lab results. 12/29/24 14:28 12/29/24 14:28 Lab Results 12/29/24 12/29/24 12/29/24 Range/Units 14:28 14:32 15:00 WBC 9.39 (4.8-10.8) K/ul RBC 4.51 (4.20-5.40) M/uL Hgb 12.7 (12.0-16.0) g/dl POC Hgb 13.6 (12.0-16.0) g/dl Hct 39.1 (37.0-47.0) % POC Hct 40 (37-47) % MCV 86.7 (80.0-100.0) fL MCH 28.2 (25.0-34.0) pg MCHC 32.5 (32.0-36.0) g/dL RDW Std Deviation 44.0 (36.4-46.3) fL RDW Coeff of Nik 13.8 (11.5-14.5) % Plt Count 232 (130-400) K/uL MPV 11.7 (9.4-12.4) fL Immature Gran % (Auto) 0.4 % Neut % (Auto) 74.3 % Lymph % (Auto) 15.5 % Kershaw % (Auto) 6.1 % Eos % (Auto) 3.0 % Baso % (Auto) 0.7 % Neut # (Auto) 6.97 H (1.40-6.50) K/uL Lymph # (Auto) 1.46 (1.20-3.40) K/uL [place] # (Auto) 0.57 (0.11-0.59) K/uL Eos # (Auto) 0.28 (0.00-0.50) K/uL Baso # (Auto) 0.07 (0.00-0.20) K/uL Immature Gran # (Auto) 0.04 (0.01-0.20) K/uL VBG pH 7.46 H (7.36-7.41) VBG pCO2 41 (38-50) mmHg VBG pO2 42 mmHg VBG HCO3 29 mmol/L VBG O2 Saturation 73.0 % VBG Base Excess 4.9 mEq/L POC Sodium 142 (135-144) mmol/L Sodium 138 (136-145) mmol/L POC Potassium 3.8 (3.3-5.0) mmol/L Potassium 3.8 (3.5-5.1) mmol/L POC Chloride 104 (101-112) mmol/L Chloride 103 (98-107) mmol/L Carbon Dioxide 28 (21-32) mmol/L POC Total CO2 24 (24-31) mmol/L Anion Gap 7 (3-11) POC Anion Gap 18.0 (16-25) mmol/L POC BUN 18 (7-18) mg/dl BUN 19 (6-23) mg/dl Creatinine 0.99 (0.6-1.2) mg/dl POC Creatinine 1.0 (0.6-1.3) mg/dl Est Cr Clr Drug Dosing 64.9 ml/min eGFR 66.09 BUN/Creatinine Ratio 19.2 (10-20) Glucose 101 H (70-99(Fasting)) mg/dl POC Glucose (other) 103 H (70-99) mg/dl Calcium 9.6 (8.6-10.3) mg/dl POC Ioniz Calcium Chuck 1.13 (1.12-1.32) mmol/l Magnesium 1.9 (1.7-2.4) mg/dl Total Bilirubin 0.3 (0.2-1.0) mg/dl AST 20 (13-39) U/L ALT 20 (7-52) U/L Alkaline Phosphatase 100 (34-104) U/L Troponin I High Sens < 2.3 (0-14) pg/ml Total Protein 8.3 (6.0-8.3) gm/dl Albumin 4.8 (3.4-5.0) gm/dl Globulin 3.5 (2.5-4.0) gm/dl Albumin/Globulin Ratio 1.4 (0.9-2) Urine Color Urine Appearance (Clear) Urine pH (4.5-7.5) Ur Specific [place] (1.000-1.030) Urine Protein (Negative) Urine Glucose (UA) (Negative) Urine Ketones (Negative) Urine Blood (Negative) Urine Nitrite (Negative) Urine Bilirubin (Negative) Urine Urobilinogen (Negative) Ur Leukocyte Esterase (Negative) Adenovirus (PCR) Not Detected (NotDetected) B. pertussis DNA (PCR) Not Detected (NotDetected) B.parapertussis DNA PCR Not Detected (NotDetected) C. pneumoniae DNA (PCR) Not Detected (NotDetected) Coronavirus OC43 (PCR) Not Detected (NotDetected) Coronavirus HKU1 (PCR) Not Detected (NotDetected) Coronavirus 229E (PCR) Not Detected (NotDetected) SARS-CoV-2 (PCR) Not Detected (NotDetected) Coronavirus NL63 (PCR) Not Detected (NotDetected) Human Metapneumovir PCR Not Detected (NotDetected) Influenza Type A (PCR) Not Detected (NotDetected) Influenza Type B (PCR) Not Detected (NotDetected) M. pneumoniae (PCR) Not Detected (NotDetected) Parainfluenza 1 (PCR) Not Detected (NotDetected) Parainfluenza 2 (PCR) Not Detected (NotDetected) Parainfluenza 3 (PCR) Not Detected (NotDetected) Parainfluenza 4 (PCR) Not Detected (NotDetected) RSV (PCR) Not Detected (NotDetected) Entero/Rhino (PCR) Not Detected (NotDetected) 12/29/24 Range/Units 16:31 WBC (4.8-10.8) K/ul RBC (4.20-5.40) M/uL Hgb (12.0-16.0) g/dl POC Hgb (12.0-16.0) g/dl Hct (37.0-47.0) % POC Hct (37-47) % MCV (80.0-100.0) fL MCH (25.0-34.0) pg MCHC (32.0-36.0) g/dL RDW Std Deviation (36.4-46.3) fL RDW Coeff of Nik (11.5-14.5) % Plt Count (130-400) K/uL MPV (9.4-12.4) fL Immature Gran % (Auto) % Neut % (Auto) % Lymph % (Auto) % K[place]haw % (Auto) % Eos % (Auto) % Baso % (Auto) % Neut # (Auto) (1.40-6.50) K/uL Lymph # (Auto) (1.20-3.40) K/uL [place] # (Auto) (0.11-0.59) K/uL Eos # (Auto) (0.00-0.50) K/uL Baso # (Auto) (0.00-0.20) K/uL Immature Gran # (Auto) (0.01-0.20) K/uL VBG pH (7.36-7.41) VBG pCO2 (38-50) mmHg VBG pO2 mmHg VBG HCO3 mmol/L VBG O2 Saturation % VBG Base Excess mEq/L POC Sodium (135-144) mmol/L Sodium (136-145) mmol/L POC Potassium (3.3-5.0) mmol/L Potassium (3.5-5.1) mmol/L POC Chloride (101-112) mmol/L Chloride (98-107) mmol/L Carbon Dioxide (21-32) mmol/L POC Total CO2 (24-31) mmol/L Anion Gap (3-11) POC Anion Gap (16-25) mmol/L POC BUN (7-18) mg/dl BUN (6-23) mg/dl Creatinine (0.6-1.2) mg/dl POC Creatinine (0.6-1.3) mg/dl Est Cr Clr Drug Dosing ml/min eGFR BUN/Creatinine Ratio (10-20) Glucose (70-99(Fasting)) mg/dl POC Glucose (other) (70-99) mg/dl Calcium (8.6-10.3) mg/dl POC Ioniz Calcium Chuck (1.12-1.32) mmol/l Magnesium (1.7-2.4) mg/dl Total Bilirubin (0.2-1.0) mg/dl AST (13-39) U/L ALT (7-52) U/L Alkaline Phosphatase (34-104) U/L Troponin I High Sens (0-14) pg/ml Total Protein (6.0-8.3) gm/dl Albumin (3.4-5.0) gm/dl Globulin (2.5-4.0) gm/dl Albumin/Globulin Ratio (0.9-2) Urine Color Yellow Urine Appearance Clear (Clear) Urine pH 8.0 H (4.5-7.5) Ur Specific [place] 1.026 (1.000-1.030) Urine Protein Negative (Negative) Urine Glucose (UA) Negative (Negative) Urine Ketones Negative (Negative) Urine Blood Negative (Negative) Urine Nitrite Negative (Negative) Urine Bilirubin Negative (Negative) Urine Urobilinogen Negative (Negative) Ur Leukocyte Esterase Negative (Negative) Adenovirus (PCR) (NotDetected) B. pertussis DNA (PCR) (NotDetected) B.parapertussis DNA PCR (NotDetected) C. pneumoniae DNA (PCR) (NotDetected) Coronavirus OC43 (PCR) (NotDetected) Coronavirus HKU1 (PCR) (NotDetected) Coronavirus 229E (PCR) (NotDetected) SARS-CoV-2 (PCR) (NotDetected) Coronavirus NL63 (PCR) (NotDetected) Human Metapneumovir PCR (NotDetected) Influenza Type A (PCR) (NotDetected) Influenza Type B (PCR) (NotDetected) M. pneumoniae (PCR) (NotDetected) Parainfluenza 1 (PCR) (NotDetected) Parainfluenza 2 (PCR) (NotDetected) Parainfluenza 3 (PCR) (NotDetected) Parainfluenza 4 (PCR) (NotDetected) RSV (PCR) (NotDetected) Entero/Rhino (PCR) (NotDetected) Imaging Data Radiologist's Impression: Chest CTA 12/29/24 14:30 CT ANGIOGRAM OF THE CHEST CLINICAL HISTORY: Dyspnea. Evaluate for pulmonary embolus. COMPARISON STUDY: Chest CT August 15, 2021 and chest radiograph December 19, 2024. TECHNIQUE: Following the IV administration of 115 cc of Optiray 320, CT angiogram of the chest was performed from the upper abdomen to the thoracic inlet utilizing the pulmonary embolus protocol. Images are reviewed in the axial, sagittal, and coronal planes. 3-D MIPS images are created and assessed. IV contrast was administered without complication. A dose lowering technique was utilized adhering to the principles of ALARA. CT DOSE: 615.22 mGy.cm FINDINGS: Thyroid: Chest partially calcified left lobe thyroid nodule is unchanged. Thoracic aorta: The caliber of the thoracic aorta is normal. No dissection is seen. Pulmonary vasculature: The caliber of the pulmonary trunk is normal. No pulmonary emboli are identified although the segmental and subsegmental pulmonary arteries are suboptimally assessed due to respiratory motion. Heart: The size of the heart is normal. There is no pericardial effusion. Lungs and pleural spaces: Lungs are suboptimally assessed due to respiratory motion. There is no consolidation to suggest pneumonia. No pneumothorax or pleural effusion is present. There is severe emphysema. A 4 mm subpleural right lower lobe nodule on image 82 of 237 is unchanged. This is benign. No new pulmonary nodules are identified although sensitivity is diminished on this exam. Mediastinum: There is no mediastinal lymphadenopathy. Agata: There is no hilar adenopathy. Axillae: There is no axillary lymphadenopathy. Upper abdomen: Visualized portions of the upper abdomen are unremarkable. Skeletal structures: No lytic or blastic bony lesions are seen. IMPRESSION: 1. No central or lobar pulmonary emboli. Segmental and subsegmental pulmonary arteries suboptimally assessed due to respiratory motion. 2. Emphysema. 3. No consolidation to suggest pneumonia. ACT 112: Negative or not required by law. Electronically signed by: Alex Fowler M.D. 12/29/2024 3:54 PM MDM Narrative Patient is a 59-year-old female who presents to the emergency department with complaints of shortness of breath. Patient states that she has been short of breath intermittently over the last 3 weeks. Patient states that she follows with Dr. Tse from pulmonology and she reached out to him approximately 2 weeks ago with the symptoms and he placed her on an antibiotic for 10 days. Patient states that she is not felt any better over the last 10 days. Patient notes that she feels like she cannot catch her breath. Patient reached out to pulmonology this morning who referred her to the emergency department for further evaluation and management. Patient notes some midsternal chest pain as well. Patient was evaluated by myself and findings were noted in the physical exam above. Patient was ordered IV placement, lab work that included a troponin and VBG, upper respiratory viral panel, EKG, and a CT PE protocol. Patient's EKG showed her to be in a sinus tachycardia rhythm. Patient has a normal white blood cell count of 9.39 and no indication of anemia with a hemoglobin of 12.7 hematocrit of 39.1. Patient had no evidence of any significant electrolyte imbalance. Patient's VBG completed with an elevated pH of 7.46 patient's pCO2 was normal at 41. Patient had a troponin level drawn that was resulted negative at less than 2.3. Patient had a chest CT to rule out a PE completed and that CT was interpreted by radiology to show no central or lobar pulmonary emboli. Patient has some emphysema noted on CT and no consolidation to suggest any pneumonia. Upon reevaluation the patient states that she is feeling better after the hour- long DuoNeb and steroids. Patient still appears to be working a little bit harder to breathe but notes that she is feeling symptom improvement. I informed the patient that we are still waiting on her BioFire results and the patient verbalized understanding. I discussed with the patient staying in the hospital for a COPD exacerbation versus being discharged. After lengthy discussion the patient agreed that she would do better if she stayed in the hospital until symptoms improved. Patient has been doing all of her home nebs and medications with little to no relief. Patient's upper respiratory viral panel resulted negative. I reached out to case management to have the patient admitted to the hospital. Patient to be admitted to the [facility]. I spoke with HOLLIE one of the PAs with the [facility] and gave him a full report on the patient including her chief complaint, current status, results of her imaging and lab work. Patient agreed to accept the patient for admission under Dr. Hernadez's service. Please refer to [facility]'s documentation for further evaluation and management of this patient. Impression Acute exacerbation of chronic obstructive pulmonary disease (COPD) Discharge Plan Visit Data Chief Complaint: Shortness of Breath/Dyspnea Stated Complaint: BREATHING DIFFICULTIES ED Provider: Umang Oliva ED Midlevel Provider: Diann Beaulieu Discharge Problem: Acute exacerbation of chronic obstructive pulmonary disease (COPD) Patient Disposition: Admitted As Inpatient Forms Stand Alone Forms: My [facility] Prescriptions Prescriptions: No Action cholecalciferol (vitamin D3) 2,000 unit capsule 2,000 units PO HS baclofen 10 mg tablet 10 mg PO TID PRN (Reason: muscle spasm) Qty: 270 3RF dicyclomine 20 mg tablet 20 mg PO TID PRN (Reason: abd pain / bloating) Qty: 90 5RF ondansetron HCl 4 mg tablet 4 mg PO Q8H PRN (Reason: Nausea) Qty: 90 0RF folic acid 1 mg tablet 1 mg PO QAM Qty: 90 3RF Qvar RediHaler 40 mcg/actuation HFA aerosol breath activated 1 inh inhalation BID Qty: 10.6 2RF montelukast 10 mg tablet 10 mg PO QAM Qty: 90 3RF Stiolto Respimat 2.5-2.5 mcg/actuation mist 2 puff inhalation DAILY Qty: 3 3RF albuterol sulfate 90 mcg/actuation HFA aerosol inhaler 2 puff inhalation Q6H PRN (Reason: shortness of breath or wheezing) Qty: 8.5 3RF famotidine 40 mg tablet 40 mg PO BID Qty: 60 2RF phenazopyridine [Pyridium] 100 mg tablet 100 mg PO TID PRN (Reason: pain) Qty: 6 2RF clonidine HCl 0.2 mg tablet 0.2 mg PO HS PRN (Reason: Anxiety) mupirocin 2 % ointment 1 applic TOP BID PRN (Reason: rash) Qty: 15 5RF sucralfate [Carafate] 1 gram tablet 1 g PO Q6H Qty: 120 0RF codeine-guaifenesin 10-100 mg/5 mL liquid 5 ml PO Q6H PRN (Reason: cough) Qty: 120 0RF calcium carbonate [Calcium 500] 500 mg calcium (1,250 mg) tablet,chewable 500 mg PO HS riboflavin (vitamin B2) 50 mg tablet 50 mg PO HS cimetidine 400 mg tablet 400 mg PO BID Qty: 60 5RF Rx Instructions: administer with meals azithromycin 250 mg tablet 250 mg PO WEFR Qty: 18 6RF Rx Instructions: 1 tablet orally every Sunday, Sunday, and Sunday ipratropium-albuterol 0.5 mg-3 mg(2.5 mg base)/3 mL solution for nebulization 3 ml inhalation Q4H PRN (Reason: wheezing) Qty: 180 5RF Rx Instructions: PER PT "BEEN USING QID, LATELY". vitamin A 8,000 unit capsule 8,000 units PO HS Patient Comments: Patient unsure of strength cyanocobalamin (vitamin B-12) [Vitamin B-12] 1,000 mcg Tablet 1,000 mcg PO HS trazodone 150 mg tablet 300 mg PO HS sertraline 100 mg tablet 200 mg PO QAM prednisolone acetate [Pred Forte] 1 % Drops,Suspension 1 drp OPHTHALMIC (EYE) HS ascorbic acid (vitamin C) [Vitamin C] 1,000 mg Tablet 1,000 mg PO HS cyclosporine [Restasis] 0.05 % Dropperette 1 drp OPB Q12H Miebo (PF) 100 % Drops 1 drp OPB QID celecoxib 200 mg capsule 200 mg PO DAILY metoclopramide HCl [Reglan] 5 mg tablet 5 mg PO AC Rx Instructions: Take 1 tablet three times a day with meals oxycodone 5 mg tablet 5 - 10 mg PO Q8H PRN (Reason: pain) calcium polycarbophil [FiberCon] 625 mg Tablet 1,875 mg PO HS pantoprazole [Protonix] 40 mg tablet,delayed release (DR/EC) 40 mg PO BID polyethylene glycol 3350 17 gram/dose powder 17 gm PO QAM fluticasone propionate 50 mcg/actuation spray,suspension 2 spray intranasal HS Rx Instructions: administer into each nostril Referrals Referrals: Diego Lopez DO [Primary Care Provider] -
[2024-12-29 14:44] LABS: iSTAT Hemoglobin 13.6 g/dl (12.0-16.0); iSTAT Ionized Calcium 1.13 mmol/l (1.12-1.32); iSTAT Potassium 3.8 mmol/L (3.3-5.0)
[2024-12-29 14:44] LABS: Base Excess VBG 4.9 mEq/L; HCO3 VBG 29 mmol/L; PCO2 VBG 41 mmHg (38-50); PO2 VBG 42 mmHg; pH VBG 7.46 (7.36-7.41)
[2024-12-29] MEDS: ALBUT/IPRATROP 3MG/0.5MG NEB 3 ML VIAL INH STA (14:45)
[2024-12-29] MEDS: diphenhydrAMINE 50 MG/ML VIAL IV STA (14:46)
[2024-12-29] MEDS: methylPREDNISolone 125 MG/2 ML VIAL IV STA (14:46)
[2024-12-29 14:47] LABS: Basophils # (auto) 0.07 K/uL (0.00-0.20); Basophils % (auto) 0.7 %; Eosinophils # (auto) 0.28 K/uL (0.00-0.50); Hematocrit (blood only) 39.1 % (37.0-47.0); Hemoglobin 12.7 g/dl (12.0-16.0); Immature Granulocytes # (auto) 0.04 K/uL (0.01-0.20); Immature Granulocytes % (auto) 0.4 %; Lymphocytes # (auto) 1.46 K/uL (1.20-3.40); Lymphocytes % (auto) 15.5 %; Mean Corpuscular Hemoglobin 28.2 pg (25.0-34.0); Mean Corpuscular Hgb Conc 32.5 g/dL (32.0-36.0); Mean Corpuscular Volume 86.7 fL (80.0-100.0); Mean Platelet Volume 11.7 fL (9.4-12.4); Monocytes # (auto) 0.57 K/uL (0.11-0.59); Monocytes % (auto) 6.1 %; Neutrophils # (auto) 6.97 K/uL (1.40-6.50); Neutrophils % (auto) 74.3 %; Platelet Count 232 K/uL (130-400); RDW Coefficient of Variation 13.8 % (11.5-14.5); Red Blood Count 4.51 M/uL (4.20-5.40); White Blood Count 9.39 K/ul (4.8-10.8)
[2024-12-29 15:00] LABS: Alanine Aminotransferase 20 U/L (7-52); Albumin Globulin Ratio 1.4 (0.9-2); Albumin Level 4.8 gm/dl (3.4-5.0); Alkaline Phosphatase 100 U/L (34-104); Anion Gap 7 (3-11); Aspartate Aminotransferase 20 U/L (13-39); BUN Creatinine Ratio 19.2 (10-20); Bilirubin,Total 0.3 mg/dl (0.2-1.0); Blood Urea Nitrogen 19 mg/dl (6-23); Calcium 9.6 mg/dl (8.6-10.3); Carbon Dioxide 28 mmol/L (21-32); Chloride 103 mmol/L (98-107); Creatinine Clr Calc Pharmacy 64.9 ml/min; Globulin 3.5 gm/dl (2.5-4.0); Glucose 101 mg/dl (70-99(Fasting)); Magnesium 1.9 mg/dl (1.7-2.4); Potassium 3.8 mmol/L (3.5-5.1); Sodium 138 mmol/L (136-145); Total Protein 8.3 gm/dl (6.0-8.3)
[2024-12-29 15:06] LABS: Troponin I High Sensitivity < 2.3 pg/ml (0-14)
[2024-12-29] MEDS: OPTIRAY 320 125ml IV ONE (15:36)
--- NOTE | 2024-12-29 15:55 | CT Scan Report ---
CT ANGIOGRAM OF THE CHEST CLINICAL HISTORY: Dyspnea. Evaluate for pulmonary embolus. COMPARISON STUDY: Chest CT August 15, 2021 and chest radiograph December 19, 2024. TECHNIQUE: Following the IV administration of 115 cc of Optiray 320, CT angiogram of the chest was pe rformed from the upper abdomen to the thoracic inlet utilizing the pulmonary embolus protocol. Images are reviewed in the axial, sagittal, and coronal planes. 3-D MIPS images are created and assessed. I V contrast was administered without complication. A dose lowering technique was utilized adhering to the principles of ALARA. CT DOSE: 615.22 mGy.cm FINDINGS: Thyroid: Chest partially calcified left lobe thyroid nodule is unchanged. Thoracic aorta: The caliber of the thoracic aorta is normal. No dissection is seen. Pulmonary vasculature: The caliber of the pulmonary trunk is normal. No pulmonary emboli are identifi ed although the segmental and subsegmental pulmonary arteries are suboptimally assessed due to respir atory motion. Heart: The size of the heart is normal. There is no pericardial effusion. Lungs and pleural spaces: Lungs are suboptimally assessed due to respiratory motion. There is no cons olidation to suggest pneumonia. No pneumothorax or pleural effusion is present. There is severe emphy sema. A 4 mm subpleural right lower lobe nodule on image 82 of 237 is unchanged. This is benign. No n ew pulmonary nodules are identified although sensitivity is diminished on this exam. Mediastinum: There is no mediastinal lymphadenopathy. Agata: There is no hilar adenopathy. Axillae: There is no axillary lymphadenopathy. Upper abdomen: Visualized portions of the upper abdomen are unremarkable. Skeletal structures: No lytic or blastic bony lesions are seen. IMPRESSION: 1. No central or lobar pulmonary emboli. Segmental and subsegmental pulmonary arteries suboptimally a ssessed due to respiratory motion. 2. Emphysema. 3. No consolidation to suggest pneumonia. ACT 112: Negative or not required by law. Electronically signed by: Alex Fowler M.D. 12/29/2024 3:54 PM
[2024-12-29 16:16] LABS: Adenovirus PCR Not Detected (NotDetected); Bordetella parapertussis PCR Not Detected (NotDetected); Bordetella pertussis PCR Not Detected (NotDetected); Chlamydia pneumoniae PCR Not Detected (NotDetected); Coronavirus 229E PCR Not Detected (NotDetected); Coronavirus CoV-2 (COVID19)PCR Not Detected (NotDetected); Coronavirus HKU1 PCR Not Detected (NotDetected); Coronavirus NL63 PCR Not Detected (NotDetected); Coronavirus OC43PCR Not Detected (NotDetected); Human Metapneumovirus PCR Not Detected (NotDetected); Influenza A PCR Not Detected (NotDetected); Influenza B PCR Not Detected (NotDetected); Mycoplasma pneumoniae PCR Not Detected (NotDetected); Parainfluenza Virus 1 PCR Not Detected (NotDetected); Parainfluenza Virus 2 PCR Not Detected (NotDetected); Parainfluenza Virus 3 PCR Not Detected (NotDetected); Parainfluenza Virus 4 PCR Not Detected (NotDetected); Respiratory Syncytial VirusPCR Not Detected (NotDetected); Rhinovirus/Enterovirus PCR Not Detected (NotDetected)
--- NOTE | 2024-12-29 16:17 | History & Physical Report ---
Date of Service December 29, 2024 Assessment & Plan (1) Acute exacerbation of chronic obstructive pulmonary disease (COPD): Plan This pt is a 59-year-old female with PMH of advanced COPD who presented on 12/29 for progressive worsening of SOB x 3 weeks. Recently completed course of cefdin ir 300 mg p.o. BID x 7 days, but this did not improve her symptoms. Patient is coming in for an acute COPD exacerbation. #Acute COPD exacerbation BioFire negative Non-hypoxic on RA No leukocytosis; afebrile Chest CTA on arrival revealed no pulmonary embolism or consolidation to suggest pneumonia, but did show emphysema IS, flutter valve Solu-Medrol 40 mg IV TID Guaifenesin 1200 mg p.o. BID for cough Xopenex Q6H scheduled Budesonide and formoterol BIDR Continue azithromycin 250 mg p.o. //; QTc okay Will start patient on doxycycline 100 mg p.o. BID Note: Did discuss listed doxycycline allergy, and patient reports she has taken doxycycline p.o. in the past without side effects; she is amenable to taking them again while inpatient (no history of anaphylaxis or throat closure) #History of tobacco use Former tobacco cigarette smoker; quit 4 years ago #Sinus tachycardia HR 110 bpm in the ED Suspect this is secondary to DuoNeb/steroids given in the emergency department Switched to Xopenex (as above) Continuous telemetry monitoring for now #Anxiety Continue sertraline Lorazepam 0.5 mg p.o. q12h PRN #Insomnia Continue trazodone HS Clonidine HS PRN Disposition: Admit to MedSurg telemetry Full code Regular diet VTE PPx: Lovenox 40 mg SQ q24h History of Present Illness Chief Complaint: SOB/dyspnea Primary Care Provider: Diego Lopez DO Gertrudis is a 59-year-old female with PMH of COPD. She presented on 12/29 for progressively worsening SOB x 3 weeks. Patient is both SOB at rest and with exertion. She reports that when she rolled over this morning, she was gasping for breath. She did recently complete a course of cefdinir x 1 week, but this did not improve her symptoms. Patient uses supplemental oxygen at night (3L NC), and will occasionally use up on oxygen during the day. No CPAP at night. She reports her home pulse ox this morning was around 92% on RA when laying flat . Patient took her regular morning medicine today; only recent change in medications related to her eyedrops. Additionally, the patient reports she has been having substernal chest pain, which she rates 8/10 at worst and 5/10 at present. She has not been taking any pain medicine for this. She characterizes it as a chest tightness/squeezing "like a rubber band". This makes it difficult for her to take deep breaths. No prior history of DVT/PE. She is a former tobacco cigarette smoker but quit 4 years ago. She reports that steroids often cause her to become anxious/jittery, and this makes it difficult for her to sleep in the hospital. Additionally, regarding her tetracycline allergy, she reports that she has taken p.o. doxycycline in the past without side effects, and is amenable to taking it while she is currently here. Patient is hypertensive at 152/124 and tachycardic at 111 bpm at time of admission; SpO2 93% on RA; vitals otherwise stable. ED course: Albuterol 12 mL inhaler Solu-Medrol 125 mg IV Diphenhydramine 50 mg IV ROS: Patient endorses SOB at rest and with exertion, chest tightness, pleuritic CP, productive cough (yellow), occasional hemoptysis (attributes to sinus congestion), abdominal pain (attributes to gastroparesis), N/V, and constipation. Patient denies fever, chills, night-sweats, body aches, syncope, rashes, tick bites, chest palpitations, diarrhea, changes in urinary/bowel habits, melena, or blood in the urine/stool. Allergies Allergy/AdvReac Type Severity Reaction Status Date / Time mirtazapine Allergy Severe Shortness Verified 12/29/24 16:24 of Breath Tetracyclines Allergy Intermediate Hives Verified 12/29/24 16:24 Iodinated Contrast Media AdvReac Intermediate Horrible Verified 12/29/24 16:24 headache/Facial Swelling loratadine AdvReac Intermediate Unable to Verified 12/29/24 16:24 sleep for multiple days ranitidine AdvReac Intermediate Severe Verified 12/29/24 16:24 Vomiting risperidone AdvReac Intermediate Lactating Verified 12/29/24 16:24 Home Medications Medication Instructions Recorded Confirmed Type cholecalciferol (vitamin D3) 50 2,000 units PO HS 06/25/18 12/29/24 History mcg (2,000 unit) capsule cyanocobalamin (vitamin B-12) 1,000 mcg PO HS 03/13/19 12/29/24 History 1,000 mcg tablet (Vitamin B-12) sertraline 100 mg tablet 200 mg PO QAM 03/13/19 12/29/24 History trazodone 150 mg tablet 300 mg PO HS 03/13/19 12/29/24 History prednisolone acetate 1 % eye 1 drp ophthalmic (eye) HS 03/14/19 12/29/24 History drops,suspension (Pred Forte) ascorbic acid (vitamin C) 1,000 mg 1,000 mg PO HS 04/17/19 12/29/24 History tablet (Vitamin C) vitamin A 2,400 mcg capsule 8,000 units PO HS 05/16/19 12/29/24 History phenazopyridine 100 mg tablet 100 mg PO TID PRN pain 6 doses #6 12/07/21 12/29/24 Rx (Pyridium) tabs mupirocin 2 % topical ointment 1 applic topical BID PRN rash #15 02/14/22 12/29/24 Rx grams baclofen 10 mg tablet 10 mg PO TID PRN muscle spasm #270 01/22/23 12/29/24 Rx tabs dicyclomine 20 mg tablet 20 mg PO TID PRN abd pain / 03/21/23 12/29/24 Rx bloating #90 tabs ondansetron HCl 4 mg tablet 4 mg PO Q8H PRN Nausea #90 tabs 03/21/23 12/29/24 Rx sucralfate 1 gram tablet (Carafate) 1 g PO Q6H #120 tabs 05/14/23 12/29/24 Rx clonidine HCl 0.2 mg tablet 0.2 mg PO HS PRN Anxiety 06/29/23 12/29/24 History codeine 10 mg-guaifenesin 100 mg/5 5 ml PO Q6H PRN cough #120 mL 11/13/23 12/29/24 Rx mL oral liquid folic acid 1 mg tablet 1 mg PO QAM #90 tabs 04/07/24 12/29/24 Rx calcium carbonate (Calcium 500) 500 mg PO HS 04/28/24 12/29/24 History cimetidine 400 mg tablet 400 mg PO BID #60 tabs 04/28/24 12/29/24 Rx riboflavin (vitamin B2) 50 mg 50 mg PO HS 04/28/24 12/29/24 History tablet calcium polycarbophil 625 mg 1,875 mg PO HS 06/10/24 12/29/24 History tablet (FiberCon) fluticasone propionate 50 2 spray intranasal HS allergy 06/10/24 12/29/24 History mcg/actuation nasal symptoms spray,suspension pantoprazole 40 mg tablet,delayed 40 mg PO BID 06/10/24 12/29/24 History release (Protonix) polyethylene glycol 3350 17 17 gm PO QAM 06/10/24 12/29/24 History gram/dose oral powder azithromycin 250 mg tablet 250 mg PO MOWEFR #18 tabs 07/11/24 12/29/24 Rx ipratropium 0.5 mg-albuterol 3 mg 3 ml inhalation Q4H PRN wheezing 07/11/24 12/29/24 Rx (2.5 mg base)/3 mL nebulization #180 mL soln beclomethasone dipropionate 40 1 inh inhalation BID #10.6 grams 09/09/24 12/29/24 Rx mcg/actuation HFA breath activated aerosol (Qvar RediHaler) montelukast 10 mg tablet 10 mg PO QAM #90 tabs 09/09/24 12/29/24 Rx tiotropium 2.5 mcg-olodaterol 2.5 2 puff inhalation DAILY #3 Inhalers 10/16/24 12/29/24 Rx mcg/actuation mist for inhalation (Stiolto Respimat) albuterol sulfate 90 mcg/actuation 2 puff inhalation Q6H PRN 11/05/24 12/29/24 Rx aerosol inhaler shortness of breath or wheezing #8.5 grams famotidine 40 mg tablet 40 mg PO BID #60 tabs 11/11/24 12/29/24 Rx celecoxib 200 mg capsule 200 mg PO DAILY pain 12/29/24 12/29/24 History cyclosporine 0.05 % eye drops in a 1 drp OPB Q12H 12/29/24 12/29/24 History dropperette (Restasis) metoclopramide HCl 5 mg tablet 5 mg PO AC 12/29/24 12/29/24 History (Reglan) oxycodone 5 mg tablet 5 - 10 mg PO Q8H PRN pain 12/29/24 12/29/24 History perfluorohexyloctane (PF) 100 % 1 drp OPB QID 12/29/24 12/29/24 History eye drops (Miebo (PF)) Past Med/Surg History Problem List (Updated 12/29/24 @ 16:37 by BEV Forrest) Acute exacerbation of chronic obstructive pulmonary disease (COPD) (Acute) Acute cough Nausea and vomiting Abdominal pain Lump in neck ST (skin tag) Abdominal pain, epigastric Chronic rhinitis Impacted cerumen of both ears Referred otalgia of right ear TMJ (temporomandibular joint disorder) Urinary symptom or sign Osteoporosis History of tobacco use Emphysema lung Dyspnea (Acute) Chronic pain Dry mouth Nocturnal hypoxia Thyroid nodule Acute thoracic back pain Back Pain Hand pain Neck pain Headache Vitamin B deficiency Neurogenic claudication due to lumbar spinal stenosis (Chronic) H/O right wrist surgery 11-04-19 R thumb carpometacarpal joint arthroplasty, Dr Sorto, [facility]. 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 COPD (chronic obstructive pulmonary disease) Anxiety Posttraumatic stress disorder Obsessive compulsive disorder Medical History PTSD (post-traumatic stress disorder) TMJ (dislocation of temporomandibular joint) "most right side - goes in spurts " locking and clicking Thyroid nodule Monitoring Hearing loss Bilateral NICHOLS Restless leg syndrome Osteoporosis Oral thrush hx OCD (obsessive compulsive disorder) Nodule of right lung Monitoring MTHFR mutation Denied blood clots GERD (gastroesophageal reflux disease) Gastroparesis Emphysema lung Dyspnea Depression Anxiety ADD (attention deficit disorder) Conjunctivitis hx - no problems at this time Right shoulder pain "That was all from the neck" Acute bronchitis hx COPD exacerbation Somatic dysfunction of pelvic region Somatic dysfunction of lower extremities Somatic dysfunction of sacral spine Somatic dysfunction of lumbar region Somatic dysfunction of thoracic region COVID-19 virus infection hx x2 - no hospitalizations 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 History of migraine History of sleep apnea reports "resolved" with wt loss - no longer wears CPAP COPD (chronic obstructive pulmonary disease) Inhaler use daily - nebulizer as needed History of seizure disorder Surgical History History of eye surgery Bilateral Cornea Transplant History of spinal fusion x5 Limited Cervical ROM Nausea and vomiting after administration of anesthetic agent History of tooth extraction History of breast surgery "Pre-cancer removed" History of breast biopsy History of joint replacement Left hand History of hand surgery Rt History of esophagogastroduodenoscopy (EGD) History of colonoscopy History of appendectomy History of cholecystectomy Status post carpal tunnel release BL Family History Father Myocardial infarction Hypertension Grandfather Myocardial infarction Mother Diabetes Hypertension Aunt Breast cancer Sister Breast cancer Grandmother Diabetes Other No family history of adverse response to anesthesia Denies family history of Ovarian cancer Prostate cancer Colorectal cancer Social History Smoking Status: Former smoker Age Quit Using Tobacco: 54; Second Hand Exposure: No; Do You Dip or Chew Tobacco: No; Hx Alcohol Use: No Hx Substance Use: Yes Last Used Substance: Just Prior to Arrival Last Used Substance Other:: Pt last took marijuana last night before bed Substance Use Type Other:: Medical Marijuana Preferred Language: Belarusian Communication Ability: Effective Visual Impairment: Limited Hearing Ability: Use of Hearing Aid Professor Of Biochemistry Required: No Beliefs That Will Affect Care: None marital status: Current Living Situation: Spouse current occupational status: disabled How many Children do You have: 7 Other Information That Helps Us Care for You: No Feels Safe at Home: Yes Safety Concerns: Feels Safe At This Time Childhood Exposure to Second-Hand Smoke: Yes Diet: regular caffeine: Yes during the past year weight has: remained stable Dental Care, Regularly: No Physical Activity Frequency: Does not Exercise Seatbelt Use: always Sunscreen Use: No Assistive Devices: Denture - Upper, Denture - Lower, Glasses, Hearing Aid - Bilateral and Oxygen - at Night Review of Systems Review of Systems: See HPI above Physical Exam Physical Exam: General: Moderate respiratory distress; pursed lips breathing; frail appearing; cooperative; SpO2 93% on RA HEENT: normocephalic, atraumatic; no scleral icterus; PERRLA; vision and hearing intact Neck: supple; trachea midline Skin: warm, dry without signs of tenting; no cyanosis; no rashes, bruising, lesions, or erythema noted CV: chest wall NTP; RR, tachycardic around 110 bpm; S1/S2 normal; no murmurs/rubs/gallops; pulses intact and symmetric at radial, DP, and PT Lungs: Moderate respiratory distress; symmetrical chest wall expansion; diminished breath sounds across all lung phan bilaterally; no wheezing ABD: Soft, NTP; BS present; no rebound/guarding; no distention MSK: no tics or fasciculations; no edema noted in the LEs b/l, nonerythematous Neuro: A&Ox3; normal mood and affect; fluent speech; no focal deficits; sensation intact symmetric in lower extremity bilaterally Results & Data Results & Data Vital Signs (Past 12 Hours) Vital Signs Temp Pulse Pulse Resp BP BP Pulse Ox 12/29/24 15:01 111 H 24 152/124 H 93 12/29/24 14:51 84 32 H 100 12/29/24 14:23 91 H 18 183/106 H 96 12/29/24 14:23 12/29/24 14:16 98 H 12/29/24 14:04 36.8 C 98 H 24 173/105 H 94 O2 Del Method 12/29/24 15:01 Room Air 12/29/24 14:51 Nebulizer 12/29/24 14:23 Room Air 12/29/24 14:23 Room Air 12/29/24 14:16 12/29/24 14:04 Room Air Laboratory Results Abnormal lab results 12/29/24 12/29/24 Range/Units 14:28 14:32 Neut # (Auto) 6.97 H (1.40-6.50) K/uL VBG pH 7.46 H (7.36-7.41) Glucose 101 H (70-99(Fasting)) mg/dl POC Glucose (other) 103 H (70-99) mg/dl Diagnostic Findings Chest CTA 12/29/24 14:30 CT ANGIOGRAM OF THE CHEST CLINICAL HISTORY: Dyspnea. Evaluate for pulmonary embolus. COMPARISON STUDY: Chest CT August 15, 2021 and chest radiograph December 19, 2024. TECHNIQUE: Following the IV administration of 115 cc of Optiray 320, CT angiogram of the chest was performed from the upper abdomen to the thoracic inlet utilizing the pulmonary embolus protocol. Images are reviewed in the axial, sagittal, and coronal planes. 3-D MIPS images are created and assessed. IV contrast was administered without complication. A dose lowering technique was utilized adhering to the principles of ALARA. CT DOSE: 615.22 mGy.cm FINDINGS: Thyroid: Chest partially calcified left lobe thyroid nodule is unchanged. Thoracic aorta: The caliber of the thoracic aorta is normal. No dissection is seen. Pulmonary vasculature: The caliber of the pulmonary trunk is normal. No pulmonary emboli are identified although the segmental and subsegmental pulmonary arteries are suboptimally assessed due to respiratory motion. Heart: The size of the heart is normal. There is no pericardial effusion. Lungs and pleural spaces: Lungs are suboptimally assessed due to respiratory motion. There is no consolidation to suggest pneumonia. No pneumothorax or pleural effusion is present. There is severe emphysema. A 4 mm subpleural right lower lobe nodule on image 82 of 237 is unchanged. This is benign. No new pulmonary nodules are identified although sensitivity is diminished on this exam. Mediastinum: There is no mediastinal lymphadenopathy. Agata: There is no hilar adenopathy. Axillae: There is no axillary lymphadenopathy. Upper abdomen: Visualized portions of the upper abdomen are unremarkable. Skeletal structures: No lytic or blastic bony lesions are seen. IMPRESSION: 1. No central or lobar pulmonary emboli. Segmental and subsegmental pulmonary arteries suboptimally assessed due to respiratory motion. 2. Emphysema. 3. No consolidation to suggest pneumonia. ACT 112: Negative or not required by law. Electronically signed by: Alex Fowler M.D. 12/29/2024 3:54 PM ECG Additional Comments: ECG revealed NSR at 96 bpm; QTc 414 Code Status & VTE Plan Code Status Full code VTE Prophylaxis Plan VTE Prophylaxis will be ordered: Yes Supervising Physician Co-Signing Physician Notes BORIS Supervision Note: I personally saw and examined the patient. I verified all valdez points and agree with BORIS [place] with the following exceptions and/or additions: S-Pt presents with progressively worsening SOB, cough productive of sputum over the last 2 weeks, not improved with course of cefdinir at home. History and ROS reviewed otherwise as above O- Vitals reviewed Gen: [AAOx3,tachypneic, pursed lip breathing at rest] HEENT: [anicteric sclerae, EOMI] CV: [RRR no mgr nl S1S2] Pulm: [poor air movement throughout, diminished breath sounds, +exp wheezing, no crackles] Abd: [+BS soft NT ND no masses or hernias] Ext: [no edema] Skin: [no rashes, warm/dry] Neuro: [full strength throughout] CBC, BMP, CXR,Chest CT reviewed A/P-59 yo female here with COPD exacerbation, severe COPD. Treat with nebs, doxy, IV steroids, supplemental O2 as needed Consider PULM consult if not improving PG Care Time/CCT Total # of Minutes Spent Total Time Spent with Patient: Total time spent is greater than 50% in coordination of care (as documented) at patient's floor/unit and/or counseling patient: Coding [place] [address] INT INP/OBS CARE 3/75MIN Patient Type Established Medical Decision Making High Complexity Diagnoses Acute exacerbation of chronic obstructive pulmonary disease (COPD) J44.1
[2024-12-29 16:43] LABS: Appearance Urine Clear (Clear); Bilirubin Urine Negative (Negative); Blood Urine Negative (Negative); Color Urine Yellow; Glucose Urine UA Negative (Negative); Ketones Urine Negative (Negative); Leukocyte Esterase Urine Negative (Negative); Nitrite Urine Negative (Negative); Protein Urine Negative (Negative); Specific Gravity Urine 1.026 (1.000-1.030); Urobilinogen Urine Negative (Negative)
--- NOTE | 2024-12-29 17:07 | Electrocardiogram Report ---
Test Reason : Blood Pressure : */* mmHG Vent. Rate : 96 BPM Atrial Rate : 96 BPM P-R Int : 120 ms QRS Dur : 76 ms QT Int : 328 ms P-R-T Axes : 17 48 59 degrees QTcB Int : 414 ms Normal sinus rhythm Nonspecific T wave abnormality Abnormal ECG When compared with ECG of 15-Aug-2021 17:28, No significant change was found Confirmed by Malcolm Mckeon ([id number]) on 12/29/2024 5:06:57 PM Referred By: REFERRED SELF Confirmed By: Malcolm Mckeon
[2024-12-29] MEDS ORDERED: BACLOFEN 10 MG TAB PO PRN (18:10)
[2024-12-29] MEDS ORDERED: MUPIROCIN 2% OINT 22 GM TUBE TOP PRN (18:10)
[2024-12-29] MEDS ORDERED: cloNIDine HCL 0.2 MG TAB PO PRN (18:22)
[2024-12-29] MEDS ORDERED: FAMOTIDINE 40 MG TABLET PO SCH (18:30)
[2024-12-29] MEDS ORDERED: ARTIFICIAL TEARS OPB PRN (18:30)
[2024-12-29] MEDS: METOCLOPRAMIDE HCL 5 MG TABLET PO SCH (18:46)
[2024-12-29] MEDS: SUCRALFATE 1 GM TAB PO SCH (19:27)
[2024-12-29] MEDS: BUDESONIDE 0.5 MG/2 ML VIAL (PULMICORT) NEB SCH (19:43)
[2024-12-29] MEDS: FORMOTEROL 20 MCG/2 ML VIAL NEB SCH (19:43)
[2024-12-29] MEDS: LEVALBUTEROL 1.25 MG/3 ML NEB NEB SCH (19:45)
[2024-12-29] MEDS: traZODone HCL 100 MG TAB PO SCH (21:04)
[2024-12-29] MEDS: CALCIUM POLYCARBOPHIL 625MG TAB PO SCH (21:04)
[2024-12-29] MEDS: FAMOTIDINE 40 MG TABLET PO SCH (21:04)
[2024-12-29] MEDS: PANTOprazole 40 MG TAB PO SCH (21:04)
[2024-12-29] MEDS: methylPREDNISolone 40 MG in SYRINGE 0 ML IV SCH (21:04)
[2024-12-29] MEDS: DOXYCYCLINE HYCLATE 100 MG CAP PO SCH (21:05)
[2024-12-29] MEDS: guaiFENesin 600 MG TABCR PO SCH (21:05)
[2024-12-29] MEDS: ENOXAPARIN INJ 40 MG/0.4 ML SYR SQ SCH (21:05)
[2024-12-29] MEDS: IBUPROFEN 600 MG TAB PO ONE (21:05)
[2024-12-29] MEDS: LORazepam 0.5 MG TAB PO PRN (21:05)
[2024-12-29] MEDS: FLUTICASONE PROPIONATE NA SPR 16 GM BTL SCH (21:05)
[2024-12-29] MEDS: prednisoLONE acetate 1% OP SUSP 5 ML BTL OP SCH (21:06)
[2024-12-29] MEDS ORDERED: LEVALBUTEROL 1.25 MG/3 ML NEB NEB SCH (23:00)
[2024-12-30] MEDS: cloNIDine HCL 0.1 MG TAB PO PRN (01:24)
[2024-12-30] MEDS: MELATONIN 3 MG TAB PO PRN (04:10)
[2024-12-30] MEDS: ACETAMINOPHEN 325 MG TAB PO PRN (07:59)
[2024-12-30] MEDS: MONTELUKAST SODIUM 10 MG TABLET PO SCH (10:28)
[2024-12-30] MEDS: PERFLUOROHEXYLOCTANE OP SCH (10:28)
[2024-12-30] MEDS: IBUPROFEN 800 MG TAB PO STA (10:28)
[2024-12-30] MEDS: POLYETHYLENE (MIRALAX) 17 GM PACK PO SCH (10:29)
[2024-12-30] MEDS: SERTRALINE HCL 100 MG TABLET PO SCH (11:13)
[2024-12-30] MEDS: CeleBREX 200 MG CAP PO SCH (11:13)
--- NOTE | 2024-12-30 13:08 | Hospitalist Progress Note ---
Date of Service December 30, 2024 Assessment & Plan (1) Acute exacerbation of chronic obstructive pulmonary disease (COPD): Plan This pt is a 59-year-old female with PMH of advanced COPD who presented on 12/29 for progressive worsening of SOB x 3 weeks. Recently completed course of cefdinir 300 mg p.o. BID x 7 days, but this did not improve her symptoms. Patient admitted for an acute COPD exacerbation. #Acute COPD exacerbation-With increased sputum production, increased work of breathing, pursed lip breathing, tachypnea. BioFire negative, Non-hypoxic on RA, No leukocytosis; afebrile. Chest CTA on arrival revealed no pulmonary embolism or consolidation to suggest pneumonia, but did show emphysema -continue IS, flutter valve -continue Solu-Medrol 40 mg IV TID -coninue Guaifenesin 1200 mg p.o. BID for cough, Xopenex Q6H scheduled, Budesonide and formoterol BIDR -Continue azithromycin 250 mg p.o. M/W/Fr; QTc okay -continue doxycycline 100 mg p.o. BID x 5 day course -f/u sputum cx #History of tobacco use-Former tobacco cigarette smoker; quit 4 years ago #Sinus tachycardia-HR 110 bpm in the ED-Suspect this is secondary to DuoNeb/steroids given in the emergency department -Switched to Xopenex and now resolved -can downgrade off tele #Anxiety/#Insomnia-worsened by IV steroids and nebs -Continue sertraline -Lorazepam 0.5 mg p.o. q12h PRN and clonidine prn -Continue trazodone HS VTE PPx: Lovenox 40 mg SQ q24h Disposition: continued stay but downgrade to med/surg Admission and Anticipated Discharge Date Admission Date: December 29, 2024 Subjective Pt reports ongoing SOB but is able to walk to bathroom and back. Feels like congestion starting to break up somewhat in her chest.She had a headache this AM ad requested ibuprofen-now resolved Tele with NSR, PACs, rates 90s Physical Exam Constitutional: WD/WN, vitals as above Respiratory: + tachypneic (at rest), + prolonged expi ratory phase and + pursed lip breathing Auscultation: + diminished lung sounds (throughout); no crackles, no rhonchi and no wheezes Cardiovascular: RRR, no murmur, no edema Results & Data Results & Data Vital Signs (Past 12 Hours) Vital Signs Temp Pulse Pulse Pulse Resp BP BP 12/30/24 11:00 36.7 C 89 20 124/77 12/30/24 10:58 12/30/24 07:46 36.8 C 88 20 129/75 12/30/24 07:30 79 12/30/24 07:11 119 H 24 12/30/24 03:28 37.0 C 95 H 20 112/68 Pulse Ox O2 Del Method O2 Flow Rate 12/30/24 11:00 98 Nasal Cannula 3 12/30/24 10:58 Nasal Cannula 3 12/30/24 07:46 97 Nasal Cannula 3 12/30/24 07:30 12/30/24 07:11 98 Nasal Cannula 3 12/30/24 03:28 98 Nasal Cannula 2 Laboratory Results Sputum cx pending PG Care Time/CCT Total # of Minutes Spent Total Time Spent with Patient: Total time spent is greater than 50% in coordination of care (as documented) at patient's floor/unit and/or counseling patient: Coding Level of Care Code 47185 SUB INP/OBS CARE 2/35MIN Diagnoses Acute exacerbation of chronic obstructive pulmonary disease (COPD) J44.1
[2024-12-30] MEDS: cycloSPORINE (RESTASIS) (POM) OPB SCH (14:07)
[2024-12-30] MEDS: KETOROLAC TROMETHAMINE 15 MG/ML VIAL IV ONE (16:29)
[2024-12-30] MEDS: PROCHLORPERAZINE 10 MG in SYRINGE 8 ML IV ONE (17:49)
[2024-12-31] MEDS: AZITHROMYCIN 250 MG TAB PO SCH (08:42)
--- NOTE | 2024-12-31 18:40 | Hospitalist Progress Note ---
Date of Service December 31, 2024 Assessment & Plan (1) Acute exacerbation of chronic obstructive pulmonary disease (COPD): Plan This pt is a 59-year-old female with PMH of advanced COPD who presented on 12/29 for progressive worsening of SOB x 3 weeks. Recently completed course of cefdinir 300 mg p.o. BID x 7 days, but this did not improve her symptoms. Patient admitted for an acute COPD exacerbation. #Acute COPD exacerbation/Acute on chronic respiratory failure with hypoxemia- With increased sputum production, increased work of breathing, pursed lip breathing, tachypnea. BioFire negative, Non-hypoxic on RA, No leukocytosis; afebrile. Chest CTA on arrival revealed no pulmonary embolism or consolidation to suggest pneumonia, but did show emphysema. With ongoing significant SOB, pursed lip breathing at rest, wheezing, but starting to feel a little less SOB. Steroids causing significant anxiety. Uses 3LNC O2 hs at home, requiring O2 at rest intermittently here -continue IS, flutter valve -continue Solu-Medrol but decrease dose to 40 mg IV BID due to anxiety -continue Guaifenesin 1200 mg p.o. BID for cough, Xopenex Q6H scheduled, Budesonide and formoterol BIDR -Continue azithromycin 250 mg p.o. //; QTc okay -continue doxycycline 100 mg p.o. BID x 5 day course -f/u sputum cx-prelim is moderate normal kaleb -will need a 2 step walk test prior to discharge #History of tobacco use-Former tobacco cigarette smoker; quit 4 years ago #Sinus tachycardia-HR 110 bpm in the ED-Suspect this is secondary to DuoNeb/steroids given in the emergency department -Switched to Xopenex and now resolved -downgraded off tele #Anxiety/Insomnia-worsened by IV steroids and nebs-even worse now -Continue sertraline -give lorazepam 1mg IV x 1 now, then increase Lorazepam to 1 mg p.o. q12h PRN and continue clonidine prn -Continue trazodone HS -decreasing dose of steroids -ok to use home THC gummies for anxiety VTE PPx: Lovenox 40 mg SQ q24h Disposition: continued stay med/surg, not medically stable yet for discharge Admission and Anticipated Discharge Date Admission Date: December 29, 2024 Subjective Pt c/o severe anxiety from steroids, shaking. Feels her SOB is slightly better. No other complaints today. Asks if she can use her home THC gummies. No better with ativan 0.5mg tablet. Denies any EtOH use. Physical Exam Constitutional: WD/WN, vitals as above Respiratory: + tachypneic (at rest), + prolonged expi ratory phase and + pursed lip breathing Auscultation: + diminished lung sounds (throughout) and + wheezes; no crackles and no rhonchi Cardiovascular: RRR, no murmur, no edema Neurologic: Motor/Sensory: + tremor (tremulous all over) Psychiatric: Orientation: alert and oriented x 3 Results & Data Results & Data Vital Signs (Past 12 Hours) Vital Signs Temp Pulse Resp BP Pulse Ox O2 Del Method O2 Flow Rate 12/31/24 15:15 36.7 C 90 18 192/99 H 94 Room Air 12/31/24 12:20 80 24 96 Nasal Cannula 2 12/31/24 11:18 36.9 C 73 18 122/77 98 Nasal Cannula 1.5 12/31/24 07:49 Nasal Cannula 3 12/31/24 07:32 37.0 C 65 18 127/66 100 Nasal Cannula 3 12/31/24 07:12 70 18 99 Nasal Cannula 3 PG Care Time/CCT Total # of Minutes Spent Total Time Spent with Patient: Total time spent is greater than 50% in coordination of care (as documented) at patient's floor/unit and/or counseling patient: Coding Level of Care Code 16937 SUB INP/OBS CARE 2/35MIN Diagnoses Acute exacerbation of chronic obstructive pulmonary disease (COPD) J44.1
[2024-12-31] MEDS: LORazepam 2 MG/1 ML VIAL IV STA (19:13)
[2025-01-01] MEDS: methylPREDNISolone 40 MG in SYRINGE 0 ML IV SCH (08:26)
[2025-01-01] MEDS: IBUPROFEN 200 MG TAB PO STA (10:07)
[2025-01-01] MEDS: LORazepam 1 MG TAB PO PRN (13:04)
--- NOTE | 2025-01-01 14:16 | Hospitalist Progress Note ---
Date of Service January 01, 2025 Assessment & Plan (1) Acute exacerbation of chronic obstructive pulmonary disease (COPD): (2) Anxiety: (3) Gastroparesis: (4) GERD (gastroesophageal reflux disease): Plan This pt is a 59-year-old female with PMH of advanced COPD who presented on 12/29 f or progressive worsening of SOB x 3 weeks. Recently completed course of cefdinir 300 mg p.o. BID x 7 days, but this did not improve her symptoms. Patient admitted for an acute COPD exacerbation. #Acute COPD exacerbation/Acute on chronic respiratory failure with hypoxemia- With increased sputum production, increased work of breathing, pursed lip breathing, tachypnea. BioFire negative, Non-hypoxic on RA, No leukocytosis; afebrile. Chest CTA on arrival revealed no pulmonary embolism or consolidation to suggest pneumonia, but did show emphysema. With ongoing significant SOB, pursed lip breathing at rest, wheezing, but starting to feel a little less SOB. Steroids continue to be causing significant anxiety, tremulousness, and headache. Uses 3LNC O2 hs at home, requiring O2 at rest intermittently here. SPutum cx normal kaleb -continue IS, flutter valve -continue Solu-Medrol but decrease dose again to 40 mg IV once daily due to anxiety -continue Guaifenesin 1200 mg p.o. BID for cough, Xopenex Q6H scheduled, Budesonide and formoterol BIDR -Continue azithromycin 250 mg p.o. //; QTc okay -continue doxycycline 100 mg p.o. BID x 5 day course through 01/03 -will need a 2 step walk test prior to discharge #Headache-has a h/o migraines and reports she gets migraines when getting steroids. Somewhat relieved with ibuprofen but caution with giving frequent ibuprofen as is already on daily Celebrex. She states that Tylenol makes her gastroparesis act up and gets severe abdominal spasms. SHe is drinking her usual amount of caffeine so not likely caffeine withdrawal Has some nausea with it despite taking reglan qac -trial of compazine 5mg IV x 1 #Gastroparesis/GERD #History of tobacco use-Former tobacco cigarette smoker; quit 4 years ago #Sinus tachycardia-HR 110 bpm in the ED-Suspect this is secondary to DuoNeb/steroids given in the emergency department -Switched to Xopenex and now improved -downgraded off tele #Anxiety/Insomnia-worsened by IV steroids and nebs. No psychosis but has had this in the past with longer term steroids. Lorazepam helping somewhat but remains quite tremulous and anxious -Continue sertraline -increase Lorazepam frequency to 1 mg p.o. q6h PRN and continue clonidine prn -Continue trazodone HS -decreasing dose of steroids -ok to use home THC gummies for anxiety-her family will bring them in from home VTE PPx: Lovenox 40 mg SQ q24h Disposition: continued stay med/surg, not medically stable yet for discharge. Pt will let us know when she feels better enough to go home Admission and Anticipated Discharge Date Admission Date: December 29, 2024 Subjective Pt reports ongoing headache that starts back every time she gets steroids. Has a h/o migraines, has some nausea with this headache, located all over whole head. 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 Still shaking all over, still very GARRISON with just walking a few feet to the bathroom. Physical Exam Constitutional: WD/WN, vitals as above Respiratory: + tachypneic (at rest), + prolonged expi ratory phase and + pursed lip breathing Auscultation: + diminished lung sounds (throughout) and + wheezes; no crackles and no rhonchi Cardiovascular: RRR, no murmur, no edema Neurologic: Motor/Sensory: + tremor (tremulous all over) Psychiatric: Orientation: alert and oriented x 3 Results & Data Results & Data Vital Signs (Past 12 Hours) Vital Signs Temp Pulse Resp BP Pulse Ox O2 Del Method O2 Flow Rate 01/01/25 13:10 96 H 22 98 Nasal Cannula 1 01/01/25 11:07 36.9 C 84 18 137/89 92 Room Air 01/01/25 07:36 36.7 C 76 18 145/82 H 98 Nasal Cannula 2 01/01/25 07:33 90 20 98 Nasal Cannula 3 01/01/25 03:08 36.7 C 60 18 118/73 98 Nasal Cannula 2 PG Care Time/CCT Total # of Minutes Spent Total Time Spent with Patient: Total time spent is greater than 50% in coordination of care (as documented) at patient's floor/unit and/or counseling patient: Coding Level of Care Code 86324 SUB INP/OBS CARE MIN Diagnoses Acute exacerbation of chronic obstructive pulmonary disease (COPD) J44.1 Anxiety F41.9 Gastroparesis K31.84 Gastroesophageal reflux disease, esophagitis presence not specified K21.9 Esophagitis presence: esophagitis presence not specified (4) GERD (gastroesophageal reflux disease) Esophagitis presence: esophagitis presence not specified Qualified Code(s): K21.9 - Gastro-esophageal reflux disease without esophagitis
[2025-01-01] MEDS: PROCHLORPERAZINE 5 MG in SYRINGE 4 ML IV ONE (15:12)
[2025-01-02] MEDS: methylPREDNISolone 40 MG in SYRINGE 0 ML IV SCH (08:36)
[2025-01-02] MEDS: PROCHLORPERAZINE 5 MG in SYRINGE 4 ML IV PRN (09:52)
[2025-01-02 10:11] LABS: Basophils # (auto) 0.04 K/uL (0.00-0.20); Basophils % (auto) 0.4 %; Eosinophils # (auto) 0.26 K/uL (0.00-0.50); Eosinophils % (auto) 2.7 %; Hematocrit (blood only) 39.7 % (37.0-47.0); Hemoglobin 12.5 g/dl (12.0-16.0); Immature Granulocytes # (auto) 0.04 K/uL (0.01-0.20); Immature Granulocytes % (auto) 0.4 %; Lymphocytes # (auto) 2.49 K/uL (1.20-3.40); Lymphocytes % (auto) 25.4 %; Mean Corpuscular Hemoglobin 27.4 pg (25.0-34.0); Mean Corpuscular Hgb Conc 31.5 g/dL (32.0-36.0); Mean Corpuscular Volume 86.9 fL (80.0-100.0); Mean Platelet Volume 11.6 fL (9.4-12.4); Monocytes # (auto) 0.81 K/uL (0.11-0.59); Monocytes % (auto) 8.3 %; Neutrophils # (auto) 6.16 K/uL (1.40-6.50); Neutrophils % (auto) 62.8 %; Platelet Count 238 K/uL (130-400); RDW Standard Deviation 43.8 fL (36.4-46.3); Red Blood Count 4.57 M/uL (4.20-5.40)
[2025-01-02] MEDS: LORazepam 1 MG TAB PO PRN (12:35)
--- NOTE | 2025-01-02 16:42 | Hospitalist Progress Note ---
Date of Service January 02, 2025 Assessment & Plan (1) Acute exacerbation of chronic obstructive pulmonary disease (COPD): (2) Anxiety: (3) Gastroparesis: (4) GERD (gastroesophageal reflux disease): Plan 59 years old female with PMH of FULL CODE @ home, overweight with BMI 27.0 (height 165.1 cm; weight 73.7 kg), former tobacco abuse with subsequent development of chronic hypoxic respiratory failure on 3 liters/minute O2 via nasal cannular [id number], not on home steroids as steroids cause severe adverse effect of high anxiety/tremors/"shakes" and generalized headache at home, who presented to [facility] ER on 12/29/2024 for progressive worsening of SOB x 3 weeks. Of note, patient reports that she recently completed course of cefdinir 300 mg p.o. BID x 7 days, but this did not improve her symptoms. Patient was subsequently admitted to the inpatient hospitalist service @ [facility] on 12/29/2024 with the following diagnosis: 1. Acute COPD exacerbation, NOT acute hypoxic respiratory failure with O2 saturation 94% on room air on admission date/time 12/29/2024, 2:04pm. #Acute COPD exacerbation, NOT acute hypoxic respiratory failure with O2 saturation 94% on room air on admission date/time 12/29/2024, 2:04pm. -With increased sputum production, increased work of breathing, pursed lip breathing, tachypnea. BioFire negative, Non-hypoxic on RA, No leukocytosis; afebrile. Chest CTA (12/29/2024, 2:30pm) revealed no pulmonary embolism or consolidation to suggest pneumonia, but did show emphysema. With ongoing significant SOB, pursed lip breathing at rest, wheezing, but starting to feel a little less SOB. Steroids continue to be causing significant high anxiety, tremors/"shakes", and generalized headache. Uses 3LNC O2 hs at home, requiring O2 at rest inter mittently here. SPutum cx normal kaleb -continue IS, flutter valve -continue Solu-Medrol but decrease dose again to 40 mg IV once daily (01/02/2025, 9:00am) due to anxiety/tremors/"shakes" -continue Guaifenesin 1200 mg p.o. BID for cough, Xopenex Q6H scheduled, Budesonide and formoterol BIDR -D/C azithromycin 250 mg p.o. M//Fr on 01/02/2025 given normal procalcitonin < 0.02 ng/mL (01/02/2025, 9:41am) and normal lactic acid 1.1 mmol/L (01/02/2025, 9:45am). -D/C doxycycline 100 mg p.o. BID on 01/02/2025 given normal procalcitonin < 0.02 ng/mL (01/02/2025, 9:41am) and normal lactic acid 1.1 mmol/L (01/02/2025, 9:45am). -patient will need a 2 step walk test prior to discharge #Headache-h/o migraines and reports she gets migraines when getting steroids. Somewhat relieved with ibuprofen but caution with giving frequent ibuprofen as is already on daily Celebrex. She states that Tylenol makes her gastroparesis act up and gets severe abdominal spasms. SHe is drinking her usual amount of caffeine so not likely caffeine withdrawal Has some nausea with it despite taking reglan qac -trial of compazine 5mg IV x 1 #Non-diabetic Gastroparesis/GERD; treated supportively with reglan, protonix, and pepcid with varying degrees of clinical improvement after receiving such medications. Patient was advised to seek outpatient GI Service evaluation @ [facility] with GI Dr. Ga Snow regarding gastric pacemaker. #History of tobacco use-Former tobacco cigarette smoker; quit 4 years ago #Sinus tachycardia-HR 110 bpm in the ED-Suspect this is secondary to DuoNeb/steroids given in the emergency department -Switched to Xopenex and now improved -downgraded off tele #Anxiety/Insomnia-worsened by IV steroids and nebs. No psychosis but has had this in the past with longer term steroids. Lorazepam helping somewhat but ashlyn ins quite tremulous and anxious -Continue sertraline -increase Lorazepam frequency to 1 mg p.o. q6h PRN and continue clonidine prn -Continue trazodone HS -decreasing dose of steroids -ok to use home THC gummies for anxiety-her family will bring them in from home VTE PPx: Lovenox 40 mg SQ q24h Disposition: continued stay med/surg, not medically stable yet for discharge. Pt will let us know when she feels better enough to go home Admission and Anticipated Discharge Date Admission Date: December 29, 2024 Subjective "I still feel short of breath today (01/02/2025). Coughing, but nothing comes up. Wheezing too; you can hear it. My chest doesn't hurt at all. I am having a flareup of my COPD. I want to let you know that I don't like to take steroids at all because they give me the shakes all over. Oh, I also have gastroparesis; I don't have diabetes. I take reglan, protonix, and pepcid to keep the nausea and belly pain under control. If I can have those medicines, that would be nice." Review of Systems Constitutional: Negative for antecedent/coincident fevers, chills, diaphoresis, sore throat, hemoptysis, chest pains, palpitations, pleurisy, vomiting, diarrhea, pelvic pain, hematemesis, hematochezia, melena, hematuria, dysuria, frequency, urgency, dizziness, lightheadedness, visual changes, hearing changes, weakness, falls, syncope, trauma, travel history, sick contacts, or food/drug ingestions novel or new. All other review of systems are reported as negative by the patient on 01/02/2025. Physical Exam Constitutional: General: Uncomfortable with shortness of breath at rest with audible expiratory wheeze, yet coherent, cooperative; wide awake and alert. Not confused, lethargic, or obtunded. Patient speaks in complete, fluent, and articulate sentences without pause, cough, or wheeze. HEENT: Normocephalic, atraumatic. Extra-ocular muscles intact. Pupils equally round and reactive to light. No nystagmus, gaze paresis, anisocoria, miosis, mydriasis, hyphema, scleral injection, conjunctivitis, or pterygium. No otorrhea or rhinorrhea. No pharyngeal erythema, edema, or discharge. Neck: Supple, no stridor, bruit, goiter, or hepato-jugular reflux. Jugular venous pressure is estimated to be 3 cm above the sternal angle of Nathaniel, which in turn, is 5 cm above the level of the right atrium; with jugular venous pressure estimated to be 8 cm, then, there is no jugular venous distention on 01/01/2025. Lymphatics: No cervical (anterior/posterior), supraclavicular, infraclavicular, axillary, epitrochlear, or inguinal adenopathy. Chest: Symmetric rise and fall with respirations. Non-tender to palpation. Lungs: Coarse breath sounds bilaterally with audible expiratory wheeze. No egophony, pectoriloquy, increase in tactile fremitus, or flatness/dullness to percussion at the bases. Heart: Regular rate and rhythm. S1 and S2 noted. No S3 or S4 summation gallop. No tripartite friction rub. Grade II/ early systolic murmur @ LLSB without radiation to the carotids, axilla, or back, and which remains invariant in regards to the respiratory cycle. Abdomen: Soft, non-tender, non-distended. No rebound, guarding, Luciano's sign, or organomegaly. Bowel sounds auscultated in all 4 quadrants. Extremities: No clubbing, cyanosis, or edema. 2+ pedal pulses bilaterally. Skin: No decubitus ulcer, exanthem, or enanthem. Genito-urinary: No urethral discharge. No joshi catheter. Neurology: Alert and oriented in regards to person, place, time, and situation. DTR+ and symmetric. 5/5 motor strength in all 4 extremities, both proximally and distally. No pronator drift. No facial droop. No dysarthria. Psychiatry: No homicidal ideation. No suicidal ideation. No flat affect; smiles appropriately. Results & Data Results & Data Vital Signs (Past 12 Hours) Vital Signs Temp Pulse Resp BP BP Pulse Ox O2 Del Method 01/02/25 16:18 37.0 C 106 H 20 169/86 H 94 Room Air 01/02/25 12:37 85 26 H 95 Room Air 01/02/25 11:10 Room Air 01/02/25 07:51 36.7 C 74 16 116/75 97 Nasal Cannula 01/02/25 06:53 75 16 99 Nasal Cannula O2 Flow Rate 01/02/25 16:18 01/02/25 12:37 01/02/25 11:10 01/02/25 07:51 2 01/02/25 06:53 3 PG Care Time/CCT Total # of Minutes Spent Total Time Spent with Patient: Total time spent is greater than 50% in coordination of care (as documented) at patient's floor/unit and/or counseling patient: Coding Level of Care Code 86300 SUB INP/OBS CARE MIN Diagnoses Acute exacerbation of chronic obstructive pulmonary disease (COPD) J44.1 Anxiety F41.9 Gastroparesis K31.84 Gastroesophageal reflux disease, esophagitis presence not specified K21.9 Esophagitis presence: esophagitis presence not specified (4) GERD (gastroesophageal reflux disease) Esophagitis presence: esophagitis presence not specified Qualified Code(s): K21.9 - Gastro-esophageal reflux disease without esophagitis
[2025-01-02] MEDS: DICYCLOMINE HCL 20 MG TAB PO PRN (21:13)
[2025-01-03 09:31] LABS: Basophils # (auto) 0.04 K/uL (0.00-0.20); Basophils % (auto) 0.5 %; Eosinophils # (auto) 0.27 K/uL (0.00-0.50); Eosinophils % (auto) 3.1 %; Hematocrit (blood only) 36.3 % (37.0-47.0); Hemoglobin 11.7 g/dl (12.0-16.0); Immature Granulocytes # (auto) 0.03 K/uL (0.01-0.20); Immature Granulocytes % (auto) 0.3 %; Lymphocytes # (auto) 2.91 K/uL (1.20-3.40); Lymphocytes % (auto) 33.7 %; Mean Corpuscular Hemoglobin 28.1 pg (25.0-34.0); Mean Corpuscular Hgb Conc 32.2 g/dL (32.0-36.0); Mean Corpuscular Volume 87.1 fL (80.0-100.0); Mean Platelet Volume 11.7 fL (9.4-12.4); Monocytes # (auto) 0.93 K/uL (0.11-0.59); Monocytes % (auto) 10.8 %; Neutrophils # (auto) 4.45 K/uL (1.40-6.50); Neutrophils % (auto) 51.6 %; Platelet Count 200 K/uL (130-400); RDW Coefficient of Variation 13.9 % (11.5-14.5); RDW Standard Deviation 44.3 fL (36.4-46.3); Red Blood Count 4.17 M/uL (4.20-5.40); White Blood Count 8.63 K/ul (4.8-10.8)
[2025-01-03] MEDS: ONDANSETRON INJ 2 MG/ML 2 ML VIAL IV PRN (10:57)
--- NOTE | 2025-01-03 15:33 | Hospitalist Progress Note ---
Date of Service January 03, 2025 Assessment & Plan (1) Acute exacerbation of chronic obstructive pulmonary disease (COPD): (2) Anxiety: (3) Gastroparesis: (4) GERD (gastroesophageal reflux disease): Plan 59 years old female with PMH of FULL CODE @ home, overweight with BMI 27.0 (height 165.1 cm; weight 73.7 kg), former tobacco abuse with subsequent development of chronic hypoxic respiratory failure on 3 liters/minute O2 via nasal cannular as needed for SOB/wheeze, NOT [id number] as originally stated by patient, not on home steroids as steroids cause severe adverse effect of high anxiety/tremors/"shakes" and generalized headache at home, who presented to [facility] ER on 12/29/2024 for progressive worsening of SOB x 3 weeks. Of note, patient reports that she recently completed course of cefdinir 300 mg p.o. BID x 7 days, but this did not improve her symptoms. Patient was subsequently admitted to the inpatient hospitalist service @ [facility] on 12/29/2024 with the following diagnosis: 1. Acute COPD exacerbation, NOT acute hypoxic respiratory failure with O2 saturation 94% on room air on admission date/time 12/29/2024, 2:04pm. #Acute COPD exacerbation, NOT acute hypoxic respiratory failure with O2 saturation 94% on room air on admission date/time 12/29/2024, 2:04pm. -With increased sputum production, increased work of breathing, pursed lip breathing, tachypnea. BioFire negative, Non-hypoxic on RA, No leukocytosis; afebrile. Chest CTA (12/29/2024, 2:30pm) revealed no pulmonary embolism or consolidation to suggest pneumonia, but did show emphysema. With ongoing significant SOB, pursed lip breathing at rest, wheezing, but starting to feel a little less SOB. Steroids continue to be causing significant high anxiety, tremors/"shakes", and generalized headache. Uses 3LNC O2 hs at home, requiring O2 at rest intermittently here. SPutum cx normal kaleb -continue IS, flutter valve -continue Solu-Medrol but decrease dose again to 40 mg IV once daily (0 01/02/2025, 9:00am) due to anxiety/tremors/"shakes" -continue Guaifenesin 1200 mg p.o. BID for cough, Xopenex Q6H scheduled, Budesonide and formoterol BIDR -D/C'd azithromycin 250 mg p.o. M//Fr on 01/02/2025 given normal procalcitonin < 0.02 ng/mL (01/02/2025, 9:41am; 01/03/2025, 8:14am) and normal lactic acid 1.1 mmol/L (01/02/2025, 9:45am), lactic acid 0.5 mmol/L (01/03/2025, 8:14am). -D/C'd doxycycline 100 mg p.o. BID on 01/02/2025 given normal procalcitonin < 0.02 ng/mL (01/02/2025, 9:41am; 01/03/2025, 8:14am) and normal lactic acid 1.1 mmol/L (01/02/2025, 9:45am), lactic acid 0.5 mmol/L (01/03/2025, 8:14am). -patient will need a 2 step walk test prior to discharge #Headache-h/o migraines and reports she gets migraines when getting steroids. Somewhat relieved with ibuprofen but caution with giving frequent ibuprofen as is already on daily Celebrex. She states that Tylenol makes her gastroparesis act up and gets severe abdominal spasms. SHe is drinking her usual amount of caffeine so not likely caffeine withdrawal Has some nausea with it despite taking reglan qac -trial of compazine 5mg IV x 1 #Non-diabetic Gastroparesis/GERD; treated supportively with reglan, protonix, and pepcid with varying degrees of clinical improvement after receiving such medications. Patient was advised to seek outpatient GI Service evaluation @ [facility] with GI Dr. Ga Snow regarding gastric pacemaker. #History of tobacco use-Former tobacco cigarette smoker; quit 4 years ago #Sinus tachycardia-HR 110 bpm in the ED-Suspect this is secondary to DuoNeb/steroids given in the emergency department -Switched to Xopenex and now improved -downgraded off tele #Anxiety/Insomnia-worsened by IV steroids and nebs. No psychosis but has had this in the past with longer term steroids. Lorazepam helping somewhat but remains quite tremulous and anxious -Continue sertraline -increase Lorazepam frequency to 1 mg p.o. q6h PRN and continue clonidine prn -Continue trazodone HS -decreasing dose of steroids -ok to use home THC gummies for anxiety-her family will bring them in from home VTE PPx: Lovenox 40 mg SQ q24h Disposition: continued stay med/surg, not medically stable yet for discharge. Pt will let us know when she feels better enough to go home Admission and Anticipated Discharge Date Admission Date: December 29, 2024 Subjective "I am breathing a little better today (01/03/2025). Coughing, and now a little bit of white mucus comes up. Less wheezy today (01/03/2025). My chest doesn't hurt at all. I am having a flareup of my COPD. I want to let you know that I don't like to take steroids at all because they give me the shakes all over. Oh, I also have gastroparesis; I don't have diabetes. I take reglan, protonix, and pepcid to keep the nausea and belly pain under control. If I can have those medicines, that would be nice." Review of Systems Constitutional: Negative for antecedent/coincident fevers, chills, diaphoresis, sore throat, hemoptysis, chest pains, palpitations, pleurisy, vomiting, diarrhea, pelvic pain, hematemesis, hematochezia, melena, hematuria, dysuria, frequency, urgency, dizziness, lightheadedness, visual changes, hearing changes, weakness, falls, syncope, trauma, travel history, sick contacts, or food/drug ingestions novel or new. All other review of systems are reported as negative by the patient on 01/03/2025. Physical Exam Constitutional: General: Uncomfortable with shortness of breath at rest with minimal audible expiratory wheeze, yet coherent, cooperative; wide awake and alert. Not confused, lethargic, or obtunded. Patient speaks in complete, fluent, and articulate sentences without pause, cough, or wheeze. HEENT: Normocephalic, atraumatic. Extra-ocular muscles intact. Pupils equally round and reactive to light. No nystagmus, gaze paresis, anisocoria, miosis, mydriasis, hyphema, scleral injection, conjunctivitis, or pterygium. No otorrhea or rhinorrhea. No pharyngeal erythema, edema, or discharge. Neck: Supple, no stridor, bruit, goiter, or hepato-jugular reflux. Jugular venous pressure is estimated to be 3 cm above the sternal angle of Nathaniel, which in turn, is 5 cm above the level of the right atrium; with jugular venous pressure estimated to be 8 cm, then, there is no jugular venous distention on 01/03/2025. Lymphatics: No cervical (anterior/posterior), supraclavicular, infraclavicular, axillary, epitrochlear, or inguinal adenopathy. Chest: Symmetric rise and fall with respirations. Non-tender to palpation. Lungs: Coarse breath sounds bilaterally with minimal audible expiratory wheeze. No egophony, pectoriloquy, increase in tactile fremitus, or flatness/dullness to percussion at the bases. Heart: Regular rate and rhythm. S1 and S2 noted. No S3 or S4 summation gallop. No tripartite friction rub. Grade II/ early systolic murmur @ LLSB without radiation to the carotids, axilla, or back, and which remains invariant in regards to the respiratory cycle. Abdomen: Soft, non-tender, non-distended. No rebound, guarding, Luciano's sign, or organomegaly. Bowel sounds auscultated in all 4 quadrants. Extremities: No clubbing, cyanosis, or edema. 2+ pedal pulses bilaterally. Skin: No decubitus ulcer, exanthem, or enanthem. Genito-urinary: No urethral discharge. No joshi catheter. Neurology: Alert and oriented in regards to person, place, time, and situation. DTR+ and symmetric. 5/5 motor strength in all 4 extremities, both proximally and distally. No pronator drift. No facial droop. No dysarthria. Psychiatry: No homicidal ideation. No suicidal ideation. No flat affect; smiles appropriately. Results & Data Results & Data Vital Signs (Past 12 Hours) Vital Signs Temp Pulse Resp BP Pulse Ox O2 Del Method O2 Flow Rate 01/03/25 14:05 37.1 C 98 H 18 138/88 93 Nasal Cannula 2.0 01/03/25 12:55 97 H 20 93 Room Air 01/03/25 12:20 Room Air 01/03/25 12:11 36.9 C 92 H 20 138/91 95 Room Air 01/03/25 08:49 Nasal Cannula 3 01/03/25 08:07 36.9 C 77 21 147/66 H 98 Nasal Cannula 2 01/03/25 07:44 77 20 98 Nasal Cannula 2 Laboratory Results 01/03/25 01/03/25 08:15 08:14 WBC 8.63 RBC 4.17 L Hgb 11.7 L Hct 36.3 L MCV 87.1 MCH 28.1 MCHC 32.2 RDW Std Deviation 44.3 RDW Coeff of Nik 13.9 Plt Count 200 MPV 11.7 Immature Gran % (Auto) 0.3 Neut % (Auto) 51.6 Lymph % (Auto) 33.7 Mcleod % (Auto) 10.8 Eos % (Auto) 3.1 Baso % (Auto) 0.5 Neut # (Auto) 4.45 Lymph # (Auto) 2.91 Mcleod # (Auto) 0.93 H Eos # (Auto) 0.27 Baso # (Auto) 0.04 Immature Gran # (Auto) 0.03 Lactate 0.5 Magnesium 2.1 Procalcitonin 0.02 PG Care Time/CCT Total # of Minutes Spent Total Time Spent with Patient: Total time spent is greater than 50% in coordination of care (as documented) at patient's floor/unit and/or counseling patient: Coding Level of Care Code 62630 SUB INP/OBS CARE 2/35MIN Diagnoses Acute exacerbation of chronic obstructive pulmonary disease (COPD) J44.1 Anxiety F41.9 Gastroparesis K31.84 Gastroesophageal reflux disease, esophagitis presence not specified K21.9 Esophagitis presence: esophagitis presence not specified (4) GERD (gastroesophageal reflux disease) Esophagitis presence: esophagitis presence not specified Qualified Code(s): K21.9 - Gastro-esophageal reflux disease without esophagitis
[2025-01-03] MEDS: oxyCODONE HCL IR 5 MG TAB (IMMEDIATE RELEASE) PO PRN (17:42)
[2025-01-04 07:09] VITALS: TEMP 97.7
[2025-01-04 07:55] VITALS: PULSE 95; RESP 16
[2025-01-04 11:20] VITALS: O2SAT 92
--- NOTE | 2025-01-04 12:32 | Discharge Summary ---
Discharge Summary Date of Service January 04, 2025 Principal Dx & Hospital Course #1 = Principal Diagnosis (1) Acute exacerbation of chronic obstructive pulmonary disease (COPD): (2) Anxiety: (3) Gastroparesis: (4) GERD (gastroesophageal reflux disease): Plan 59 years old female with PMH of FULL CODE @ home, overweight with BMI 27.0 (height 165.1 cm; weight 73.7 kg), former tobacco abuse with subsequent development of chronic hypoxic respiratory failure on 2 liters/minute O2 via nasal cannula at bedtime on a daily basis, and 2 liters/minute O2 via nasal cannula as needed for SOB/wheeze, NOT on home steroids as steroids cause severe adverse effect of high anxiety/tremors/"shakes" and generalized headache at home, who presented to [facility] ER on 12/29/2024 for progr essive worsening of SOB x 3 weeks. Of note, patient reports that she recently completed course of cefdinir 300 mg p.o. BID x 7 days, but this did not improve her symptoms. Patient was subsequently admitted to the inpatient hospitalist service @ [facility] on 12/29/2024 with the following diagnosis: 1. Acute COPD exacerbation, NOT acute hypoxic respiratory failure with O2 saturation 94% on room air on admission date/time 12/29/2024, 2:04pm. The following medical issues were addressed while the patient remained in [facility] from admission date 12/29/2024 through discharge date 01/04/2025: #Acute COPD exacerbation, NOT acute hypoxic respiratory failure with O2 saturation 94% on room air on admission date/time 12/29/2024, 2:04pm. Acute COPD exacerbation is RESOLVING well on discharge date 01/04/2025 with RR 20 breaths/minute and O2 saturation 99% on 2 liters/minute O2 via nasal cannula. BioFire negative, Non-hypoxic on RA, No leukocytosis; afebrile. Chest CTA (12/29/2024, 2:30pm) revealed no pulmonary embolism or consolidation to suggest pneumonia, but did show emphysema. With ongoing significant SOB, pursed lip breathing at rest, wheezing, but starting to feel a little less SOB. Steroids continue to be causing significant high anxiety, tremors/"shakes", and generalized headache. Uses 3LNC O2 hs at home, requiring O2 at rest intermittently here. SPutum cx normal kaleb -patient received IS, flutter valve, Solu-Medrol 40 mg IV once daily (01/02/2025, 9:00am), and not higher doses or more frequent doses of Solu-Medrol due to anxiety/tremors/"shakes" while in [facility]. -patient also received Guaifenesin 1200 mg p.o. BID for cough, Xopenex Q6H scheduled, budesonide0.5mg neb bid, and formoterol 20ug MDI bid while in [facility]. -D/C'd azithromycin 250 mg p.o. M/W/Fr on 01/02/2025 given normal procalcitonin < 0.02 ng/mL (01/02/2025, 9:41am; 01/03/2025, 8:14am) and normal lactic acid 1.1 mmol/L (01/02/2025, 9:45am), lactic acid 0.5 mmol/L (01/03/2025, 8:14am). -D/C'd doxycycline 100 mg p.o. BID on 01/02/2025 given normal procalcitonin < 0.02 ng/mL (01/02/2025, 9:41am; 01/03/2025, 8:14am) and normal lactic acid 1.1 mmol/L (01/02/2025, 9:45am), lactic acid 0.5 mmol/L (01/03/2025, 8:14am). -patient will NOT continue with solumedrol or start prednisone on hospital discharge back to home on 01/04/2025 given the very severe side effects of anxiety/tremors/"shakes" associated with steroid administration. -patient will resume her home-scheduled albuterol MDI 90ug/puff, 2 puffs PO q6 prn SOB/wheeze, duonebs q4 prn SOB/wheeze, stiolto (tiotropium 2.5ug - olodaterol 2.5ug per puff) 2 puffs PO daily, singulair 10mg PO daily, and Qvar (beclomethasone 40ug/puff) 1 puff PO bid, on hospital discharge back to home on 01/04/2025. #Headache-h/o migraines and reports she gets migraines when getting steroids. Somewhat relieved with ibuprofen but caution with giving frequent ibuprofen as patient is already on celebrex 200mg PO daily at home. She states that Tylenol makes her gastroparesis act up and gets severe abdominal spasms. SHe is drinking her usual amount of caffeine so not likely caffeine withdrawal Has some nausea with it despite taking reglan qac -patient reports no headache on discharge date 01/04/2025; patient will continue her home-scheduled celebrex 200mg PO daily, oxycodone 5-10mg PO q8 prn headache/pain, reglan 5mg PO qac on hospital disharge back to home on 01/04/2025. #Non-diabetic Gastroparesis/GERD; treated supportively with home-scheduled reglan 5mg PO qac, protonix 40mg PO bid, and famotidine 40mg PO bid with varying degrees of clinical improvement after receiving such medications. While patient will continue this same home-scheduled regimen at home on hospital discharge back to home on 01/04/2025, patient was also advised to seek outpatient GI Service evaluation @ [facility] with GI Dr. Ga Snow regarding gastric pacemaker. #History of tobacco use-Former tobacco cigarette smoker; quit smoking completely in 2019 with subsequent diagnosis of COPD on 2 liters/minute O2 via nasal cannula at bedtime on a daily basis, but not on supplemental oxygen during the daytime on a daily basis, only on a prn basis. #Sinus tachycardia-HR 110 bpm in the ED-Suspect this is secondary to DuoNeb q4 prn SOB/wheeze and to solumedrol 40mg IV daily (start date/time, 01/02/2025, 9:00am). -Switched to lev-albuteol 1.25mg neb q6 prn SOB/wheeze with decrement in HR noted. #Anxiety/Insomnia-worsened by IV steroids and nebs. No psychosis but has had this in the past with longer term steroids. Lorazepam helping somewhat but remains quite tremulous and anxious -patient received her home-scheduled sertraline 200mg PO qam while in [facility]; patient will continue this home-scheduled medication on hospital discharge back to home on 01/04/2025. -increased Lorazepam frequency to 1 mg p.o. q6h PRN and continue clonidine 0.2mg PO qhs prn anxiety while in [facility]. Of these 2 medications, patient will continue only with her home-scheduled clonidine 0.2mg PO qhs prn anxiety on hospital discharge back to home on 01/04/2025. -patient received her home-scheduled trazodone 300mg PO qhs while in [facility]; patient will continue this home-scheduled medication on hospital discharge back to home on 01/04/2025. VTE PPx: patient received pharmacologic DVT prophylaxis with lovenox 40 mg SQ daily while in [facility]; patient will not continue this hospital-started medication on hospital discharge back to home on 01/04/2025. Disposition: Code status, FULL CODE. ACLS was never administered. There were no adverse events noted with this hospitalization. Condition of patient remains fair. Patient feels well (e.g., is talking in complete paragraphs without pausing to catch her breath or cough or wheeze; patient walks in her room and outside her room without getting short of breath) and hence, patient wants to go home today, 01/04/2025. Patient was subsequently discharged back to her home today, 01/04/2025, and will follow up with her PCP Dr. Diego Lopez within 7 days of hospital discharge. Of final note, I spoke with the patient and her , Mr. Amol Becerra ( ) at the bedside in [facility] Med-Surg bed #378-2 today, 01/04/2025, and both individuals concur with the assessment and plan as described above. Discharge time, 35 minutes. Of this time period, 19 minutes were spent in coordinating patient's discharge. Admission HPI Per Admitting Provider Gertrudis is a 59-year-old female with PMH of COPD. She presented on 12/29 for progressively worsening SOB x 3 weeks. Patient is both SOB at rest and with exertion. She reports that when she rolled over this morning, she was gasping for breath. She did recently complete a course of cefdinir x 1 week, but this did not improve her symptoms. Patient uses supplemental oxygen at night (3L NC), and will occasionally use up on oxygen during the day. No CPAP at night. She reports her home pulse ox this morning was around 92% on RA when laying flat. Patient took her regular morning medicine today; only recent change in medications related to her eyedrops. Additionally, the patient reports she has been having substernal chest pain, which she rates 8/10 at worst and 5/10 at present. She has not been taking any pain medicine for this. She characterizes it as a chest tightness/squeezing "like a rubber band". This makes it difficult for her to take deep breaths. No prior history of DVT/PE. She is a former tobacco cigarette smoker but quit 4 years ago. She reports that steroids often cause her to become anxious/jittery, and this makes it difficult for her to sleep in the hospital. Additionally, regarding her tetracycline allergy, she reports that she has taken p.o. doxycycline in the past without side effects, and is amenable to taking it while she is currently here. Patient is hypertensive at 152/124 and tachycardic at 111 bpm at time of admission; SpO2 93% on RA; vitals otherwise stable. ED course: Albuterol 12 mL inhaler Solu-Medrol 125 mg IV Diphenhydramine 50 mg IV ROS: Patient endorses SOB at rest and with exertion, chest tightness, pleuritic CP, productive cough (yellow), occasional hemoptysis (attributes to sinus congestion), abdominal pain (attributes to gastroparesis), N/V, and constipation. Patient denies fever, chills, night-sweats, body aches, syncope, rashes, tick bites, chest palpitations, diarrhea, changes in urinary/bowel habits, melena, or blood in the urine/stool. Discharge Exam Constitutional General: Comfortable, coherent, cooperative; wide awake and alert. Not confused, lethargic, or obtunded. Patient speaks in complete, fluent, and articulate sentences without pause, cough, or wheeze. HEENT: Normocephalic, atraumatic. Extra-ocular muscles intact. Pupils equally round and reactive to light. No nystagmus, gaze paresis, anisocoria, miosis, mydriasis, hyphema, scleral injection, conjunctivitis, or pterygium. No otorrhea or rhinorrhea. No pharyngeal erythema, edema, or discharge. Neck: Supple, no stridor, bruit, goiter, or hepato-jugular reflux. Jugular venous pressure is estimated to be 3 cm above the sternal angle of Nathaniel, which in turn, is 5 cm above the level of the right atrium; with jugular venous pressure estimated to be 8 cm, then, there is no jugular venous distention on 01/03/2025. Lymphatics: No cervical (anterior/posterior), supraclavicular, infraclavicular, axillary, epitrochlear, or inguinal adenopathy. Chest: Symmetric rise and fall with respirations. Non-tender to palpation. Lungs: Clear to auscultation and percussion. No audible expiratory wheeze, egophony, pectoriloquy, increase in tactile fremitus, or flatness/dullness to percussion at the bases. Heart: Regular rate and rhythm. S1 and S2 noted. No S3 or S4 summation gallop. No tripartite friction rub. Grade II/ early systolic murmur @ LLSB without radiation to the carotids, axilla, or back, and which remains invariant in regards to the respiratory cycle. Abdomen: Soft, non-tender, non-distended. No rebound, guarding, Luciano's sign, or organomegaly. Bowel sounds auscultated in all 4 quadrants. Extremities: No clubbing, cyanosis, or edema. 2+ pedal pulses bilaterally. Skin: No decubitus ulcer, exanthem, or enanthem. Genito-urinary: No urethral discharge. No joshi catheter. Neurology: Alert and oriented in regards to person, place, time, and situation. DTR+ and symmetric. 5/5 motor strength in all 4 extremities, both proximally and distally. No pronator drift. No facial droop. No dysarthria. Psychiatry: No homicidal ideation. No suicidal ideation. No flat affect; smiles appropriately. Discharge Plan Discharge Items Patient Disposition: Home - Self-Care Reason For Visit: ACUTE COPD EXACERBATION Discharge Diagnosis: ACUTE COPD EXACERBATION, RESOLVING WELL. Condition on Discharge: Fair Activity: Resume your previous activity Lifting: Gradually increase as tolerated Bathing: No limitations Sexual Activity: When tolerated Exercise/Sports: Gradually increase as tolerated Driving/Machine Use: No limitations Weightbearing: Full weightbearing Non-emergency contact: Primary Care Provider Call non-emergency contact if: you have any medication questions Follow-up/Referrals: Diego Lopez, [Primary Care Provider] - Diet: Heart Healthy, Low Fat and Low Sodium (2gm) Addtl Attending Provider Instructions: See your PCP Dr. Diego Lopez within 7 days of hospital discharge. Pending Studies at Discharge: No Stand-Alone Forms: [facility] [place], Smoking Cessation Medications and DC Order Prescriptions: Continued cholecalciferol (vitamin D3) 2,000 unit capsule 2,000 units PO HS baclofen 10 mg tablet 10 mg PO TID PRN (Reason: muscle spasm) Qty: 270 3RF dicyclomine 20 mg tablet 20 mg PO TID PRN (Reason: abd pain / bloating) Qty: 90 5RF ondansetron HCl 4 mg tablet 4 mg PO Q8H PRN (Reason: Nausea) Qty: 90 0RF folic acid 1 mg tablet 1 mg PO QAM Qty: 90 3RF Qvar RediHaler 40 mcg/actuation HFA aerosol breath activated 1 inh inhalation BID Qty: 10.6 2RF montelukast 10 mg tablet 10 mg PO QAM Qty: 90 3RF Stiolto Respimat 2.5-2.5 mcg/actuation mist 2 puff inhalation DAILY Qty: 3 3RF albuterol sulfate 90 mcg/actuation HFA aerosol inhaler 2 puff inhalation Q6H PRN (Reason: shortness of breath or wheezing) Qty: 8.5 3RF famotidine 40 mg tablet 40 mg PO BID Qty: 60 2RF phenazopyridine [Pyridium] 100 mg tablet 100 mg PO TID PRN (Reason: pain) Qty: 6 2RF clonidine HCl 0.2 mg tablet 0.2 mg PO HS PRN (Reason: Anxiety) mupirocin 2 % ointment 1 applic TOP BID PRN (Reason: rash) Qty: 15 5RF sucralfate [Carafate] 1 gram tablet 1 g PO Q6H Qty: 120 0RF codeine-guaifenesin 10-100 mg/5 mL liquid 5 ml PO Q6H PRN (Reason: cough) Qty: 120 0RF calcium carbonate [Calcium 500] 500 mg calcium (1,250 mg) tablet,chewable 500 mg PO HS riboflavin (vitamin B2) 50 mg tablet 50 mg PO HS ipratropium-albuterol 0.5 mg-3 mg(2.5 mg base)/3 mL solution for nebulization 3 ml inhalation Q4H PRN (Reason: wheezing) Qty: 180 5RF Rx Instructions: PER PT "BEEN USING QID, LATELY". vitamin A 8,000 unit capsule 8,000 units PO HS Patient Comments: Patient unsure of strength cyanocobalamin (vitamin B-12) [Vitamin B-12] 1,000 mcg Tablet 1,000 mcg PO HS trazodone 150 mg tablet 300 mg PO HS sertraline 100 mg tablet 200 mg PO QAM prednisolone acetate [Pred Forte] 1 % Drops,Suspension 1 drp OPHTHALMIC (EYE) HS ascorbic acid (vitamin C) [Vitamin C] 1,000 mg Tablet 1,000 mg PO HS cyclosporine [Restasis] 0.05 % Dropperette 1 drp OPB Q12H Miebo (PF) 100 % Drops 1 drp OPB QID celecoxib 200 mg capsule 200 mg PO DAILY metoclopramide HCl [Reglan] 5 mg tablet 5 mg PO AC Rx Instructions: Take 1 tablet three times a day with meals oxycodone 5 mg tablet 5 - 10 mg PO Q8H PRN (Reason: pain) calcium polycarbophil [FiberCon] 625 mg Tablet 1,875 mg PO HS pantoprazole [Protonix] 40 mg tablet,delayed release (DR/EC) 40 mg PO BID polyethylene glycol 3350 17 gram/dose powder 17 gm PO QAM fluticasone propionate 50 mcg/actuation spray,suspension 2 spray intranasal HS Rx Instructions: administer into each nostril Discontinued cimetidine 400 mg tablet 400 mg PO BID Qty: 60 5RF Rx Instructions: administer with meals azithromycin 250 mg tablet 250 mg PO MOWE Qty: 18 6RF Rx Instructions: 1 tablet orally every Sunday, Sunday, and Sunday Discharge Orders: Discharge Order (Routine); Ordered 01/04/25 Ordered By: Jamel Palomino/Other Patient Handouts: Oxygen Supplemental Admission Data Admit Date/Time: 12/29/24 17:00 Attending Provider: Jamel Flowers Admit Provider: Tara Hernadez Primary Care Provider: Diego Lopez Other Providers: Tara Hernadez Hospital Stay Data Consultations 12/29/24 16:34 ED Decision to Admit Stat Diagnostic Imagining Performed 12/29/24 14:30 CT angio chest PE protocol Stat Pending Results Patient Have Any Pending Studies at Discharge: No Discharge Instructions Given to Patient (Per Discharging Provider) See your PCP Dr. Diego Lopez within 7 days of hospital discharge. Total Time Total Time Spent Total Time Spent (In Minutes): 35 Coding Level of Care Code 35383 INP/OBS DISCH >30 MIN Diagnoses Acute exacerbation of chronic obstructive pulmonary disease (COPD) J44.1 Anxiety F41.9 Gastroparesis K31.84 Gastroesophageal reflux disease, esophagitis presence not specified K21.9 Esophagitis presence: esophagitis presence not specified
[2025-01-04 12:52] VITALS: BP 169/86
== END 2025-01-04 13:31 | disposition home or self-care (01) | DRG 192 ==
LOC: ED 13:56 → 2N 17:00 → SUATTDRO 17:00 → 2N 17:52 → 3N 01-03 12:06